=== PATIENT | female | born 1945 | race Caucasian/White ===

== ENCOUNTER → 2019-09-10 10:27 | Outpatient (BNVA) | payer MEDICARE, SELFPAY | PROVIDERS: Family Provider Registered Nurse; PCP Registered Nurse | DX: I48.91 Unspecified atrial fibrillation (principal) | CPT/HCPCS: 85610 ==

== ENCOUNTER → 2019-10-07 09:07 | Outpatient (BNVA) | payer MEDICARE, MEDICAID, SELFPAY | PROVIDERS: Family Provider Registered Nurse; PCP Registered Nurse; Visit Provider Specialist | DX: G40.309 Generalized idiopathic epilepsy and epileptic syndromes, not intractable, without status epilepticus (principal); I48.20 Chronic atrial fibrillation, unspecified; Z79.01 Long term (current) use of anticoagulants | CPT/HCPCS: 99213 ==

== ENCOUNTER → 2019-10-12 09:59 | Outpatient (BNVA) | payer MEDICARE, SELFPAY | PROVIDERS: Family Provider Registered Nurse; PCP Registered Nurse; Visit Provider Internal Medicine Cardiovascular Disease | DX: I48.20 Chronic atrial fibrillation, unspecified (principal) | CPT/HCPCS: 85610 ==

== ENCOUNTER → 2019-10-15 10:40 | Outpatient (BNVA) | payer MEDICARE, SELFPAY | PROVIDERS: Family Provider Registered Nurse; PCP Registered Nurse; Visit Provider Nurse Practitioner Family | DX: I48.20 Chronic atrial fibrillation, unspecified (principal) | CPT/HCPCS: 85610 ==

== ENCOUNTER → 2019-11-17 10:16 | Outpatient (BNVA) | payer MEDICARE, MEDICAID, SELFPAY | PROVIDERS: Family Provider Registered Nurse; PCP Registered Nurse; Visit Provider Registered Nurse | DX: I48.20 Chronic atrial fibrillation, unspecified (principal) | CPT/HCPCS: 85610 ==

== ENCOUNTER → 2019-11-19 11:00 | Outpatient (BNVA) | payer MEDICARE, SELFPAY | PROVIDERS: Family Provider Registered Nurse; PCP Registered Nurse; Visit Provider Registered Nurse | DX: I48.20 Chronic atrial fibrillation, unspecified (principal); Z98.890 Other specified postprocedural states | CPT/HCPCS: 85610 ==

== ENCOUNTER → 2019-11-23 14:27 | Outpatient (BNVA) | payer MEDICARE, SELFPAY | PROVIDERS: Family Provider Registered Nurse; PCP Registered Nurse; Visit Provider Registered Nurse | DX: I48.20 Chronic atrial fibrillation, unspecified (principal) | CPT/HCPCS: 85610 ==

== ENCOUNTER → 2019-11-25 10:34 | Outpatient (BNVA) | payer MEDICARE, SELFPAY | PROVIDERS: Family Provider Registered Nurse; PCP Registered Nurse; Visit Provider Registered Nurse | DX: I48.20 Chronic atrial fibrillation, unspecified (principal) | CPT/HCPCS: 85610 ==

== ENCOUNTER → 2019-11-30 09:14 | Outpatient (BNVA) | payer MEDICARE, SELFPAY | PROVIDERS: Family Provider Registered Nurse; PCP Registered Nurse; Visit Provider Registered Nurse | DX: I48.20 Chronic atrial fibrillation, unspecified (principal) | CPT/HCPCS: 85610 ==

== ENCOUNTER → 2019-12-21 12:27 | Outpatient (BNVA) | payer MEDICARE, MEDICAID, SELFPAY | PROVIDERS: Family Provider Registered Nurse; PCP Registered Nurse; Visit Provider Registered Nurse | DX: I48.20 Chronic atrial fibrillation, unspecified (principal) | CPT/HCPCS: 85610 ==

== ENCOUNTER → 2019-12-23 10:06 | Outpatient (BNVA) | payer MEDICARE, MEDICAID, SELFPAY | PROVIDERS: Family Provider Registered Nurse; PCP Registered Nurse; Visit Provider Registered Nurse | DX: I48.20 Chronic atrial fibrillation, unspecified (principal) | CPT/HCPCS: 85610 ==

== ENCOUNTER → 2019-12-30 10:07 | Outpatient (BNVA) | payer MEDICARE, MEDICAID, SELFPAY | PROVIDERS: Family Provider Registered Nurse; PCP Registered Nurse; Visit Provider Registered Nurse | DX: I48.20 Chronic atrial fibrillation, unspecified (principal) | CPT/HCPCS: 85610 ==

== ENCOUNTER → 2020-01-29 11:16 | Outpatient (BNVA) | payer MEDICARE, MEDICAID, SELFPAY | PROVIDERS: Family Provider Registered Nurse; PCP Registered Nurse; Visit Provider Registered Nurse | DX: I48.20 Chronic atrial fibrillation, unspecified (principal) | CPT/HCPCS: 85610 ==

== ENCOUNTER → 2020-03-01 10:38 | Outpatient (BNVA) | payer MEDICARE, SELFPAY | PROVIDERS: Family Provider Registered Nurse; PCP Registered Nurse; Visit Provider Registered Nurse | DX: Z79.01 Long term (current) use of anticoagulants (principal) | CPT/HCPCS: 85610; 87070; 87077; 87186 ==

== ENCOUNTER → 2020-03-31 11:06 | Outpatient (BNVA) | payer MEDICARE, MEDICAID, SELFPAY | PROVIDERS: Family Provider Registered Nurse; PCP Registered Nurse; Visit Provider Registered Nurse | DX: Z79.01 Long term (current) use of anticoagulants (principal) | CPT/HCPCS: 85610 ==

== ENCOUNTER 2020-04-04 04:36 | Emergency (ER) | payer MEDICARE, SELFPAY ==
[2020-04-04 04:45] VITALS: BP 153/86; PULSE 107; RESP 24; TEMP 36.7; O2SAT 94; BMI 36.1
[2020-04-04 05:26] VITALS: BP 146/96; PULSE 98; RESP 18; O2SAT 95
--- NOTE | 2020-04-04 05:32 | ECG_ITS ---
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 Measurements Intervals [place] Rate: 95 P: [place]: -1 QRS: 90 QRSD: 98 T: 9 QT: 385 QTc: 485 Interpretive Statements ATRIAL FIBRILLATION ABNORMAL RHYTHM ECG Compared to ECG 08/19/2019 06:36:10 T-wave abnormality no longer present Electronically Signed On 04-04-2020 21:26:27 CDT by Kathe Brown M.D. [id number] f
--- NOTE | 2020-04-04 05:32 | XRR_ITS ---
PROCEDURE INFORMATION: Exam: XR Chest, 1 View Exam date and time: 04/04/2020 6:07 AM Age: 74 years old Clinical indication: Shortness of breath; Additional info: SOB, tachycardia TECHNIQUE: Imaging protocol: XR of the chest Views: Frontal portable upright view of the chest. COMPARISON: CR Chest 1 [place] [id number] 10/27/2015 6:07 PM FINDINGS: Lungs: Mild left lateral basilar subsegmental atelectasis. The lungs are otherwise peripherally clear bilaterally. The pulmonary vasculature is normal. Pleural space: No pleural effusion. No pneumothorax. Heart/Mediastinum: The heart is normal in size and contour. Mediastinum: Stable. Vasculature: Mild aortic arch atherosclerotic calcification without ectasia. Bones/joints: Stable. XR/XR chest 1V portable [id number] IMPRESSION: Mild left lateral basilar subsegmental atelectasis.
[2020-04-04 05:44] VITALS: PULSE 96; RESP 18; O2SAT 98
[2020-04-04] MEDS: ipratropium-albuterol 3 mL Neb INHALATION (05:44)
[2020-04-04 05:49] VITALS: PULSE 89; RESP 18; O2SAT 99
[2020-04-04 05:58] VITALS: BP 145/114; PULSE 118; RESP 20; O2SAT 96
[2020-04-04 06:02] LABS: Basophils % 0.6 %; Eosinophils # 0.3 10^3/uL (0.0-0.8); Eosinophils % 4.9 %; Hematocrit 38.5 % (37.0-47.0); Hemoglobin 12.2 g/dL (11.5-15.3); Lymphocytes % 15.8 %; Mean Corpuscular HGB Conc 31.7 g/dL (30.0-36.0); Mean Corpuscular Volume 88.3 fL (81-99); Mean Platelet Volume 10.4 fL (7.4-10.4); Monocytes # 0.6 10^3/uL (0.2-0.9); Neutrophils # 4.31 10^3/uL (1.8-7.7); Neutrophils % 68.4 %; Nucleated Red Blood Cells % 0 %; Platelet Count 158 10^3/cmm (130-400); Red Blood Count 4.36 10^6/uL (4.1-5.3); Red Cell Distribution Width 15.2 % (12.1-15.1); White Blood Count 6.3 10^3/uL (4.0-10.0)
[2020-04-04 06:20] VITALS: BP 162/90; PULSE 100; RESP 20; O2SAT 97
--- NOTE | 2020-04-04 06:25 | ED_ITS ---
HPI - SOB/Dyspnea General: Chief Complaint: Shortness of Breath/Dyspnea Stated Complaint: SOB Time Seen by Provider: 04/04/20 04:57 History of Present Illness: HPI Narrative: 74-year-old lady presents with multiple complaints. Its a bit tough to uncover what she is really here for. Her says that she was extremely short of breath yesterday and used her inhaler multiple times which did not seem to help much. She has had a bit of a cough, which is dry, but no fever. No known contact with anyone with novel coronavirus. She has had a rash for several weeks that covers her belly and legs. She has been putting a kind of ointment on that prescribed by her PCP that does not seem to be helping much. She has a history of asthma . MD elicited complaint: shortness of breath Pertinent past history: asthma Onset (ago): day(s) Context: recent illness Timing: intermittent Severity: moderate Exacerbating factors: exertion and movement Relieving factors: nothing Associated symptoms: Reports chest congestion and cough; Deny chest pain, dizziness, fever(s), nausea or vomiting Treatment prior to arrival: bronchodilator Review of Systems Const: Denies: fever(s) Eyes: Denies: change in vision or blurry vision ENMT: Denies: swelling of lips/tongue, epistaxis, post nasal drip or sinus pain Card: Denies: chest pain Resp: Reports: chest congestion GI: Denies: nausea or vomiting : Denies: dysuria or hematuria Musc: Denies: neck pain or back pain Skin/Breast: Denies: rash or pruritus Neuro: Denies: headache(s), dizziness, vertigo, confusion or seizure-like activity Psych: Denies: anxiety, visual hallucinations or auditory hallucinations PFS ED PFSH: Medical History (Updated 04/04/20 @ 06:35 by Jan Wilkinson DO) Atrial fibrillation Essential hypertension Varicose veins of anus or rectum Warfarin anticoagulation Surgical History History of hemorrhoidectomy (~09/2019) Family History Other History of hemorrhoidectomy Denies family history of Diabetes CAD (coronary artery disease) Anesthesia complication Bleeding disorder Stroke Social History (Reviewed 04/04/20 @ 04:48 by Reji Brown Smoking and tobacco status: never smoked Second hand smoke exposure: No Alcohol intake: never Adopted: No Caregiver/support person: Yes Lives independently: Yes Household members: spouse Housing: House Marital status: Highest education level completed: High School Graduate service: No Current occupational status: retired Current occupational exposures/hazards: No Pets and animals: No History of recent travel: No Sexually active: No Current gender identity: Female Shayy/Zoroastrianism: Jehovah'S Witness Special shayy needs: No Agree to transfusion: No Financial difficulty paying for basics: Decline to Answer Physical Exam Const: GENERAL APPEARANCE: well developed ORIENTATION/CONSCIOUSNESS: Yes oriented to person, Yes oriented to place and Yes oriented to time HENMT: COMMON NORMALS: normocephalic and Normal external nose present HEAD & SCALP: normocephalic FACE & SINUS: normal facial exam NOSE: Normal external nose present and No nasal discharge present MOUTH: tongue normal Eye: COMMON NORMALS: Equal, round and reactive pupils present, EOMs intact bilaterally and conjunctivae normal EYELID: eyelids normal CONJUNCTIVA: Yes conjunctivae normal PUPIL: Yes Equal, round and reactive pupils present Neck/C-Spine: GENERAL: No tracheal deviation Chest: COMMONS NORMALS: normal inspection of the chest CHEST: No tenderness Resp: COMMON NORMALS: clear to auscultation bilaterally EFFORT & INSPECTION: No tachypneic, No respiratory distress, No retractions, No uses accessory muscles and No tracheal deviation AUSCULTATION: clear to auscultation bilaterally, no rhonchi, no wheezes and lung sounds not diminished Cardio: COMMON NORMALS: regular rate and regular rhythm RATE: regular rate RHYTHM: regular rhythm HEART SOUNDS: no murmurs PERIPHERAL PULSES: radial pulses present GI: INSPECTION: No abdominal distension AUSCULTATION: No Hyperactive bowel sounds present and No Hypoactive bowel sounds present PALPATION: No Guarding due to palpation present (GI) and No Rigid due to palpation PERCUSSION: no dullness to percussion and no tympanic to percussion Neuro: SENSORIUM/ORIENTATION: Yes oriented to person, Yes oriented to place and Yes oriented to time Psych: COMMON NORMALS: mental status grossly normal Skin: GENERAL SKIN EXAM: other (Follicular rash over the belly and legs.) Course Vital Signs: Vital signs: Vital Signs Temperature 98.1 F 07/27/20 04:45 Pulse Rate 100 04/04/20 06:20 Respiratory Rate 20 H 04/04/20 06:20 Blood Pressure 162/90 04/04/20 06:20 Pulse Oximetry 97 04/04/20 06:20 MDM - SOB/Dyspnea MDM Narrative: Medical decision making narrative: She will be prescribed steroids for the rash, and for the asthma exacerbation. Her chest x-ray is negative. Her laboratory is benign. She will also be prescribed doxycycline, as topical treatment does not seem to be helping as well as she would like. Lab Data: Labs: Lab Results 04/04/20 04/04/20 Range/Units 05:53 05:53 WBC 6.3 (4.0-10.0) 10^3/ uL RBC 4.36 (4.1-5.3) 10^6/u L Hgb 12.2 (11.5-15.3) g/dL Hct 38.5 (37.0-47.0) % MCV 88.3 (81-99) fL MCH 28.0 (28.0-34.0) pg MCHC 31.7 (30.0-36.0) g/dL RDW 15.2 H (12.1-15.1) % Plt Count 158 (130-400) 10^3/c mm MPV 10.4 (7.4-10.4) fL Neut % (Auto) 68.4 % Lymph % (Auto) 15.8 % [place] % (Auto) 10.0 % Eos % (Auto) 4.9 % Baso % (Auto) 0.6 % Neut # (Auto) 4.31 (1.8-7.7) 10^3/u L Lymph # (Auto) 1.0 (0.8-4.8) 10^3/u L [place] # (Auto) 0.6 (0.2-0.9) 10^3/u L Eos # (Auto) 0.3 (0.0-0.8) 10^3/u L Baso # (Auto) 0.0 (0.0-0.1) 10^3/u L Nucleated RBC % (a uto) 0 % Nucleated RBCs # 0.0 /100WBC Sodium 139 (136-145) mmol/L Potassium 4.0 (3.5-5.1) mmol/L Chloride 101 (98-107) mmol/L Carbon Dioxide 28 (22-29) mmol/L Anion Gap 14.0 (5-19) BUN 9 (8-23) mg/dL Creatinine 0.5 (0.5-0.9) mg/dL GFR Calculation Not Reportable Glucose 115 (65-115) mg/dL Calculated Osmolal ity 285 (285-295) mOsm/k g Calcium 8.7 (8.5-10.5) mg/dL Total Bilirubin 0.9 (0.15-1.2) mg/dL AST 81 H (0-32) U/L ALT 90 H (0-33) U/L Alkaline Phosphata se 125 H (35-105) IU/L NT-Pro-B Natriuret Pep 904 H (0-125) pg/mL Total Protein 7.0 (6.6-8.7) g/dL Albumin 4.1 (3.5-5.2) g/dL Globulin 2.9 (1.3-4.6) g/dL Discharge Plan Discharge Patient Disposition: Home Clinical Impression: Folliculitis Asthma with exacerbation Qualifiers: Asthma severity: moderate Asthma persistence: persistent Qualified Code(s): J45.41 - Moderate persistent asthma with (acute) exacerbation Condition: Stable Prescriptions: New doxycycline hyclate 100 mg capsule 100 mg PO BID 10 Days Qty: 20 RF: 0 prednisone 10 mg tablet See Rx Instructions .ROUTE .COMPLEX Qty: 28 RF: 0 No Action ketoconazole 2 % shampoo 1 applic TOPICAL Q14D Qty: 120 RF: 1 triamcinolone acetonide 0.1 % lotion 1 applic TOPICAL DAILY Qty: 60 RF: 1 olopatadine [Pataday] 0.2 % drops 1 drop ophthalmic (eye) DAILY Qty: 2.5 RF: 0 aspirin [Aspir-Sabi] 325 mg tablet,delayed release (DR/EC) 325 mg PO QDAY RF: 0 diphenhydramine HCl [Benadryl] 25 mg capsule 25 mg PO .Qhs PRNRF: 0 levetiracetam [Keppra] 500 mg tablet 500 mg PO BID Qty: 60 RF: 11 nystatin 100,000 unit/gram ointment 1 applic TOPICAL BID Qty: 30 RF: 3 ammonium lactate 12 % cream 1 applic TOPICAL BID PRN (Reason: dry skin) Qty: 140 RF: 2 nystatin 100,000 unit/gram cream 1 applic TOPICAL BID 30 Days Qty: 30 RF: 0 warfarin 6 mg tablet 6 mg PO QDAY Qty: 90 RF: 0 diltiazem HCl 240 mg capsule,extended release 24 hr See Rx Instructions .ROUTE .COMPLEX Qty: 90 RF: 0 warfarin 4 mg tablet See Rx Instructions .ROUTE .COMPLEX Qty: 30 RF: 0 montelukast 10 mg tablet See Rx Instructions .ROUTE .COMPLEX Qty: 90 RF: 0 clindamycin HCl 300 mg capsule 300 mg PO TID Qty: 21 RF: 0 alendronate 70 mg tablet See Rx Instructions .ROUTE .COMPLEX Qty: 4 RF: 0 furosemide 40 mg tablet See Rx Instructions .ROUTE .COMPLEX Qty: 90 RF: 0 theophylline 300 mg tablet extended release 12 hr See Rx Instructions .ROUTE .COMPLEX Qty: 90 RF: 0 potassium chloride 20 mEq tablet,ER particles/crystals See Rx Instructions .ROUTE .COMPLEX Qty: 30 RF: 0 albuterol sulfate [Ventolin HFA] 90 mcg/actuation HFA aerosol inhaler 2 puff INHALATION Q6H PRN (Reason: shortness of breath or wheezing) Qty: 6.7 RF: 3 Discharge Orders: Discharge Order (Routine); Ordered 04/04/20 Ordered By: Jan Wilkinson Referrals: Jeff Mancia FNP [Primary Care Provider] - 4-7 days Discharge Diet: Usual diet Discharge Activity: Increase activity as tolerated Patient Instructions: Asthma Exacerbation - Adult Activity Restrictions/Additional Instructions: Return for worsening shortness of breath despite treatment, fever greater than 100, chest discomfort, other concerning symptoms. Discharge Date/Time: 04/04/20 06:55 Coding Level of Care Code ED City Detective for Divina Jones
[2020-04-04 06:36] LABS: Alanine Aminotransferase 90 U/L (0-33); Albumin Level 4.1 g/dL (3.5-5.2); Alkaline Phosphatase 125 IU/L (35-105); Aspartate Amino Transferase 81 U/L (0-32); Blood Urea Nitrogen 9 mg/dL (8-23); Calcium 8.7 mg/dL (8.5-10.5); Carbon Dioxide 28 mmol/L (22-29); Chloride 101 mmol/L (98-107); Globulin 2.9 g/dL (1.3-4.6); Glucose 115 mg/dL (65-115); NT Pro B Type Natriuretic Pept 904 pg/mL (0-125); Osmolality Calculated 285 mOsm/kg (285-295); Sodium 139 mmol/L (136-145); Total Bilirubin 0.9 mg/dL (0.15-1.2)
== END 2020-04-04 06:55 | disposition home or self-care (01) ==
PROVIDERS: Emergency Provider Emergency Medicine; PCP Registered Nurse
DX: L73.9 Follicular disorder, unspecified (principal); J45.41 Moderate persistent asthma with (acute) exacerbation; Z79.82 Long term (current) use of aspirin; Z79.01 Long term (current) use of anticoagulants; I48.91 Unspecified atrial fibrillation; I10 Essential (primary) hypertension
CPT/HCPCS: 12345; 71045; 80053; 83880; 85025; 93005; 94640; 96374; 96375; 99283; 99284; J2930

== ENCOUNTER → 2020-04-13 10:52 | Outpatient (BNVA) | payer MEDICARE, MEDICAID, SELFPAY | PROVIDERS: PCP Registered Nurse; Visit Provider Registered Nurse | DX: I48.20 Chronic atrial fibrillation, unspecified (principal); J42 Unspecified chronic bronchitis; Z79.01 Long term (current) use of anticoagulants | CPT/HCPCS: 85610 ==

== ENCOUNTER → 2020-04-15 10:58 | Outpatient (BNVA) | payer MEDICARE, MEDICAID, SELFPAY | PROVIDERS: PCP Registered Nurse; Visit Provider Registered Nurse | DX: Z79.01 Long term (current) use of anticoagulants (principal); I48.20 Chronic atrial fibrillation, unspecified | CPT/HCPCS: 85610 ==

== ENCOUNTER → 2020-04-18 10:12 | Outpatient (BNVA) | payer MEDICARE, SELFPAY | PROVIDERS: PCP Registered Nurse; Visit Provider Registered Nurse | DX: Z79.01 Long term (current) use of anticoagulants (principal) | CPT/HCPCS: 85610 ==

== ENCOUNTER → 2020-04-25 10:10 | Outpatient (BNVA) | payer MEDICARE, MEDICAID, SELFPAY | PROVIDERS: PCP Registered Nurse; Visit Provider Registered Nurse | DX: Z79.01 Long term (current) use of anticoagulants (principal) | CPT/HCPCS: 85610 ==

== ENCOUNTER → 2020-05-05 09:32 | Outpatient (BNVA) | payer MEDICARE, SELFPAY | PROVIDERS: PCP Registered Nurse; Visit Provider Registered Nurse | DX: I48.20 Chronic atrial fibrillation, unspecified (principal) | CPT/HCPCS: 85610 ==

== ENCOUNTER → 2020-05-12 10:51 | Outpatient (BNVA) | payer MEDICARE, MEDICAID, SELFPAY | PROVIDERS: PCP Registered Nurse; Visit Provider Registered Nurse | DX: Z79.01 Long term (current) use of anticoagulants (principal) | CPT/HCPCS: 85610 ==

== ENCOUNTER → 2020-05-18 11:11 | Outpatient (BNVA) | payer MEDICARE, SELFPAY | PROVIDERS: PCP Registered Nurse; Visit Provider Registered Nurse | DX: I48.20 Chronic atrial fibrillation, unspecified (principal) | CPT/HCPCS: 85610 ==

== ENCOUNTER → 2020-06-08 11:15 | Outpatient (BNVA) | payer MEDICARE, MEDICAID, SELFPAY | PROVIDERS: PCP Registered Nurse; Visit Provider Specialist | DX: R51 Headache (principal); I48.20 Chronic atrial fibrillation, unspecified; G40.309 Generalized idiopathic epilepsy and epileptic syndromes, not intractable, without status epilepticus; J42 Unspecified chronic bronchitis | CPT/HCPCS: 99214 ==

== ENCOUNTER 2020-07-05 11:48 | Outpatient (CLI) | payer MEDICARE, SELFPAY ==
--- NOTE | 2020-07-05 13:30 | USCV_ITS ---
Madyson Daphnie Age: 74 Gender: F : 1945 Exam Date: 07/05/2020 12:19 Ordering Phys: Hilda Montoya MD Technologist: Josh Horowitz [place] [facility] [place] Indication: TIA BP: 130 / 70 HR: 88 Rhythm: Sinus Technical Quality: Fair MEASUREMENTS (Male / Female) Normal Values 2D ECHO LV Diastolic Diameter PLAX 4.4 cm 4.2 - 5.9 / 3.9 - 5.3 cm LV Systolic Diameter PLAX 2.2 cm IVS Diastolic Thickness 1.0 cm 0.6 - 1.0 / 0.6 - 0.9 cm IVS Systolic Thickness 1.4 cm LVPW Diastolic Thickness 1.1 cm 0.6 - 1.0 / 0.6 - 0.9 cm LVPW Systolic Thickness 1.3 cm LVOT Diameter 2.0 cm LV Ejection Fraction 2D Teich 76.2 % LV Ejection Fraction MOD 2C 44.3 % LV Ejection Fraction 2C AL 43.5 % LA Diameter 4.6 cm LA Width 5.5 cm LA Height 4.7 cm RA Width 5.5 cm RA Height 4.4 cm Aorta at Sinotubular Diameter 0.8 cm M-MODE LV Diastolic Diameter MM 6.1 cm 4.2 - 5.9 / 3.9 - 5.3 cm LV Systolic Diameter MM 4.0 cm LV Ejection Fraction MM Teich 62.1 % IVS Diastolic Thickness MM 0.9 cm 0.6 - 1.0 / 0.6 - 0.9 cm IVS Systolic Thickness MM 1.3 cm LVPW Diastolic Thickness MM 1.3 cm 0.6 - 1.0 / 0.6 - 0.9 cm LVPW Systolic Thickness MM 1.4 cm RV Diastolic Diameter MM 0.9 cm Aortic Annulus Diameter 2.8 cm LA Ao Ratio MM 1.8 MV E Point Septal Separation 1.0 cm DOPPLER AV Peak Velocity 204.0 cm/s LVOT Peak Velocity 96.0 cm/s AV Area Cont Eq vti 1.3 cm squared AV Area Cont Eq pk 1.5 cm squared MV Area PHT 5.0 cm squared Mitral E to A Ratio 2.6 MV E' Velocity 51.5 cm/s Mitral E to MV E' Ratio 6.7 Mitral E to LV E' Lateral Ratio 7.0 Mitral E to LV E' Septal Ratio 6.5 TR Peak Velocity 337.7 cm/s TR Peak Gradient 45.6 mmHg TV Peak E Velocity 136.0 cm/s Right Atrial Pressure 3.0 mmHg Pulmonary Artery Systolic Pressu 48.6 mmHg FINDINGS Left Ventricle Normal left ventricular cavity size. Normal left ventricular systolic function. Left ventricular ejection fraction is estimated at 62 %. In the presence of atrial fibrillation diastolic function cannot be assessed accurately. Right Ventricle The right ventricle is normal in size and function. Mild pulmonary hypertension, RVSP 48.6 mmHg. Right Atrium Moderately increased right atrial size. Left Atrium Moderately increased left atrial size. Mitral Valve Mildly thickened mitral valve. No mitral valve stenosis. Mild mitral valve regurgitation. Aortic Valve Severe aortic valve calcification. Moderate aortic valve stenosis, mean gradient 6.8 mmHg, CASSY 1.3 cm squared. Trace aortic valve regurgitation. Tricuspid Valve Structurally normal tricuspid valve without significant stenosis or regurgitation. Pulmonic Valve Structurally normal pulmonic valve without significant stenosis. There is no pulmonic regurgitation. Pericardium Normal pericardium without effusion. Aorta Normal ascending aorta dimension. CONCLUSIONS 1-Normal left ventricular cavity size. Normal left ventricular systolic function. Left ventricular ejection fraction is estimated at 62 %. In the presence of atrial fibrillation diastolic function cannot be assessed accurately. 2-Moderate biatrial enlargement 3-Severe aortic valve calcification. Moderate aortic valve stenosis, mean gradient 6.8 mmHg, CASSY 1.3 cm squared. Trace aortic valve regurgitation. 4-The right ventricle is normal in size and function. Mild pulmonary hypertension, RVSP 48.6 mmHg. 5-Right atrial pressure is around 5 mm of mercury. 6-When compared to the prior echocardiogram dated April 18, 2015 there appeared to be moderate aortic stenosis now. Marshall Rangel MD (Electronically Signed) Final Date: 05 July 2020 19:35 S
== END 2020-07-05 11:49 | disposition home or self-care (01) ==
PROVIDERS: PCP Registered Nurse; Visit Provider Specialist
DX: R07.9 Chest pain, unspecified (principal); G45.9 Transient cerebral ischemic attack, unspecified; I35.0 Nonrheumatic aortic (valve) stenosis; I27.20 Pulmonary hypertension, unspecified
CPT/HCPCS: 93306

== ENCOUNTER → 2020-11-07 08:37 | Outpatient (BNVA) | payer MEDICARE, MEDICAID, SELFPAY | PROVIDERS: PCP Registered Nurse; Visit Provider Specialist | DX: G40.309 Generalized idiopathic epilepsy and epileptic syndromes, not intractable, without status epilepticus (principal) | CPT/HCPCS: 99213 ==

== ENCOUNTER → 2020-12-20 10:02 | Outpatient (BNVA) | payer MEDICARE, MEDICAID, SELFPAY | PROVIDERS: PCP Registered Nurse; Visit Provider Registered Nurse | DX: I10 Essential (primary) hypertension (principal); I48.91 Unspecified atrial fibrillation; J42 Unspecified chronic bronchitis; J45.42 Moderate persistent asthma with status asthmaticus; I48.19 Other persistent atrial fibrillation | CPT/HCPCS: 80053; 85025 ==

== ENCOUNTER 2021-02-20 19:03 | Emergency (ER) | payer MEDICARE, MEDICAID, SELFPAY ==
[2021-02-20] VITALS (8 sets, daily range): BP systolic 113–142; BP diastolic 76–95; PULSE 79–120; RESP 19–27; TEMP 36.6; O2SAT 92–99; BMI 32.3
--- NOTE | 2021-02-20 19:08 | XRR_ITS ---
PROCEDURE INFORMATION: Exam: XR Chest Exam date and time: 02/20/2021 7:08 PM Age: 75 years old Clinical indication: Shortness of breath; Patient HX: Seizure prior to arrival; Additional info: Reduced breath sounds TECHNIQUE: Imaging protocol: XR of the chest. Views: 1 view. COMPARISON: CR XR chest 1V portable [id number] 04/04/2020 5:53 AM FINDINGS: Lungs: Unremarkable. No consolidation. Pleural spaces: Unremarkable. No pleural effusion. No pneumothorax. Heart/Mediastinum: Unremarkable. No cardiomegaly. Bones/joints: Unremarkable. XR/XR chest 1V portable [id number] IMPRESSION: 1. No acute findings. 2. No change from comparison.
--- NOTE | 2021-02-20 19:12 | ECG_ITS ---
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 Measurements Intervals [place] Rate: 95 P: [place]: QRS: 95 QRSD: 100 T: 11 QT: 381 QTc: 480 Interpretive Statements ATRIAL FIBRILLATION BORDERLINE RIGHT AXIS DEVIATION [QRS AXIS > 90] NONSPECIFIC ST & T-WAVE ABNORMALITY Compared to ECG 04/04/2020 06:25:27 T-wave abnormality now present Electronically Signed On 02-20-2021 22:43:25 CDT by Kathe Brown M.D. [id number] f
--- NOTE | 2021-02-20 19:14 | CTR_ITS ---
PROCEDURE INFORMATION: Exam: CT Head Without Contrast Exam date and time: 02/20/2021 7:14 PM Age: 75 years old Clinical indication: Pain and condition or disease; Convulsions or seizures; Headache; Other: Posterior head pain; Additional info: Seizure on xarelto. Possible head trauma TECHNIQUE: Imaging protocol: Computed tomography of the head without contrast. Radiation optimization: All CT scans at this facility use at least one of these dose optimization techniques: automated exposure control; mA and/or kV adjustment per patient size (includes targeted exams where dose is matched to clinical indication); or iterative reconstruction. COMPARISON: CT head wo con* [id number] 10/27/2015 5:52 PM RADIATION DOSE METRICS: Total DLP (mGy-cm): 558.08 FINDINGS: Brain: There is moderate cerebral atrophy. No hemorrhage. Unremarkable white matter. No mass effect. Cerebral ventricles: No ventriculomegaly. Paranasal sinuses: Visualized sinuses are unremarkable. No fluid levels. Mastoid air cells: Visualized mastoid air cells are well aerated. Bones/joints: Unremarkable. No acute fracture. Soft tissues: Unremarkable. CT/CT head wo con* [id number] IMPRESSION: 1. No acute intracranial abnormality. 2. No significant change from comparison. Radiation Dose CTDIVOL = (mGy): DLP = 558.08 (mGy-cm)
[2021-02-20] MEDS: sodium chloride 0.9% 1,000 ML 999 ML IV (19:21)
[2021-02-20 19:27] LABS: Basophils # 0.1 10^3/uL (0.0-0.1); Eosinophils # 0.5 10^3/uL (0.0-0.8); Eosinophils % 5.2 %; Hematocrit 43.1 % (37.0-47.0); Hemoglobin 13.4 g/dL (11.5-15.3); Lymphocytes # 3.2 10^3/uL (0.8-4.8); Lymphocytes % 33.6 %; Mean Corpuscular HGB Conc 31.1 g/dL (30.0-36.0); Mean Corpuscular Hemoglobin 28.9 pg (28.0-34.0); Mean Corpuscular Volume 93.1 fL (81-99); Mean Platelet Volume 11.4 fL (7.4-10.4); Monocytes % 10.6 %; Neutrophils # 4.73 10^3/uL (1.8-7.7); Neutrophils % 49.3 %; Nucleated Red Blood Cells % 0 %; Platelet Count 196 10^3/cmm (130-400); Red Blood Count 4.63 10^6/uL (4.1-5.3); Red Cell Distribution Width 14.1 % (12.1-15.1); White Blood Count 9.6 10^3/uL (4.0-10.0)
[2021-02-20 19:43] LABS: Troponin(5th) Baseline 11 ng/L (0-10)
[2021-02-20 19:47] LABS: Lactic Sepsis W/Reflex 5.5 mmol/L (0.5-2.2)
[2021-02-20 19:52] LABS: Alanine Aminotransferase 16 U/L (0-33); Albumin Level 4.4 g/dL (3.5-5.2); Alkaline Phosphatase 115 IU/L (35-105); Blood Urea Nitrogen 12 mg/dL (8-23); Calcium 9.2 mg/dL (8.5-10.5); Carbon Dioxide 15 mmol/L (22-29); Chloride 94 mmol/L (98-107); Creatine Phosphokinase 55 U/L (26-192); Creatinine Clr Calc Pharmacy 68.9351; Globulin 2.4 g/dL (1.3-4.6); Glucose 155 mg/dL (65-115); NT Pro B Type Natriuretic Pept 520 pg/mL (0-450); Osmolality Calculated 285 mOsm/kg (285-295); Sodium 136 mmol/L (136-145); Thyroid Stimulating Hormone 5.31 uIU/mL (0.27-4.20); Total Bilirubin 0.5 mg/dL (0.15-1.2); Total Protein 6.8 g/dL (6.6-8.7)
[2021-02-20 19:55] LABS: Anion Gap 30.6 (5-19); Aspartate Amino Transferase 21 U/L (0-32); Potassium 3.6 mmol/L (3.5-5.1)
[2021-02-20 21:04] LABS: Add Urine Microscopic? YES; Bilirubin Urine Neg (Negative); Blood Urine 3+ (Negative); Glucose Urine UA Norm (Normal); Ketones Urine 2+ (Negative); Leukocyte Esterase Urine Negative (Negative); Nitrate Urine Negative (Negative); Urine Appearance Clear (CLEAR); Urine Color Yellow (Yellow); Urobilinogen Urine Norm (Negative); pH Urine 5 (5-7)
[2021-02-20 21:05] LABS: Bacteria Urine TRACE /hpf; RBC Urine 0-4 /hpf (0-2); Squamous Epithelial Cell Urine 0-4 /hpf (0-5)
--- NOTE | 2021-02-20 21:12 | ECG_ITS ---
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 Measurements Intervals [place] Rate: 81 P: MD: QRS: 95 QRSD: 101 T: 67 QT: 405 QTc: 473 Interpretive Statements ATRIAL FIBRILLATION BORDERLINE RIGHT AXIS DEVIATION [QRS AXIS > 90] NONSPECIFIC ST & T-WAVE ABNORMALITY Compared to ECG 04/04/2020 06:25:27 T-wave abnormality now present Electronically Signed On 02-20-2021 22:53:03 CDT by Kathe Brown M.D. [id number]
[2021-02-20 21:14] LABS: Reflex Lactate Order REFLEX LACTIC ORDERD
[2021-02-20 21:26] LABS: Troponin 5 2HR 11.05 ng/L (0-10); Troponin 5 2HR Delta 0.05 ABS# (0-10)
--- NOTE | 2021-02-20 21:27 | CTR_ITS ---
PROCEDURE INFORMATION: Exam: CT Cervical Spine Without Contrast Exam date and time: 02/20/2021 9:27 PM Age: 75 years old Clinical indication: Patient HX: C/O neck pain S/P seizure. ; Additional info: Neck pain after fall TECHNIQUE: Imaging protocol: Computed tomography images of the cervical spine without contrast. Radiation optimization: All CT scans at this facility use at least one of these dose optimization techniques: automated exposure control; mA and/or kV adjustment per patient size (includes targeted exams where dose is matched to clinical indication); or iterative reconstruction. COMPARISON: CT neck w con* [id number] 01/22/2019 8:17 AM RADIATION DOSE METRICS: Total DLP (mGy-cm): 641.15 FINDINGS: Vertebrae: No acute fracture. Normal alignment. The cervical spine demonstrates moderate degenerative changes at multiple levels. Soft tissues: Unremarkable. Thyroid: Multinodular changes of thyroid gland, largest individual nodule posterior left side 1.5 cm diameter. No dedicated follow-up recommended. Vasculature: Bilateral carotid artery bulb region atherosclerotic calcification. Lungs: Lung apices are normal. CT/CT cervical spin wo con* [id number] IMPRESSION: Negative for acute cervical spine fracture. COMMENTS: Consistent with the [employer]'s Incidental Findings Committee white paper (J Am Gerhard Radiol 2015): In patients aged 35 years and older with an incidental thyroid nodule equal to or greater than 1.[address], MRI or extrathyroidal US, further evaluation with dedicated thyroid US is recommended for patients with normal life expectancy and without comorbidities. For smaller nodules without suspicious features, no further evaluation or follow up is recommended. Radiation Dose CTDIVOL = (mGy): DLP = 641.15 (mGy-cm)
[2021-02-20 21:28] LABS: Protein Urine Neg (Negative)
--- NOTE | 2021-02-20 21:51 | ED_ITS ---
HPI - Seizure General: Chief Complaint: Seizure Stated Complaint: SEIZURE Time Seen by Provider: 02/20/21 19:07 History of Present Illness: HPI Narrative: Patient is a 75-year-old female with past medical history seizure disorder on Keppra, asthma and COPD fell off a lean, A. fib on Xarelto. She comes to the ER today after an apparent seizure at home. says they were putting together a grill outside and the peak heat of the day and she has to go in the house and he found her on the ground. He thinks she had a seizure and it lasted about 20 minutes because that is how long it took him to go inside. He found her on the ground. He says this is her third seizure ever and she has been taking her Keppra with a prescription refill earlier this month. Patient arrives postictal not able to answer any questions muttering phrases like where we going? I helped her open her eyes and she made eye contact with me and asked who am I . I told her I was the doctor and asked her where she was and she replied she is in a hospital. But she was s till confused and not been able to answer any questions after that MD complaint: possible seizure Description of Episode: loss of consciousness Seizure History: Yes Place: Home Possible Precipitating Event: none and other (outdoor heat) Associated symptoms: Reports no associated symptoms; Deny chest pain or confusion Review of Systems General: Reports: 10 or more systems reviewed and unremarkable except in HPI and below Const: Denies: fatigue Eyes: Denies: change in vision, blurry vision or eye redness ENMT: Denies: throat pain, swelling of lips/tongue, ear or mastoid pain or nasal congestion Card: Denies: chest pain, palpitations, irregular heart rhythm, edema, dyspnea on exertion or orthopnea Resp: Denies: dyspnea, productive cough or non-productive cough GI: Denies: abdominal pain, diarrhea or GI cramping : Denies: flank pain, difficulty voiding, urinary frequency or urinary urge ncy Musc: Denies: neck pain, back pain, extremity pain, joint pain, joint redness, limited range of motion or muscle weakness Skin/Breast: Denies: rash, pruritus, erythema, skin pain or skin tenderness Neuro: Denies: headache(s), numbness in extremities, weakness in extremities, sensory changes, difficulty walking, dizziness, confusion or Slurred speech present Psych: Denies: anxiety or depression Endo: Denies: polyuria All/Imm: Denies: urticaria, throat swelling or tongue swelling PFSH ED PFSH: Medical History Atrial fibrillation COPD (chronic obstructive pulmonary disease) Essential hypertension Moderate aortic stenosis Moderate persistent asthma Varicose veins of anus or rectum Surgical History History of hemorrhoidectomy (~09/2019) Family History Other History of hemorrhoidectomy Denies family history of Diabetes CAD (coronary artery disease) Anesthesia complication Bleeding disorder Stroke Social History Smoking and tobacco status: never smoked Second hand smoke exposure: No Alcohol intake: never Adopted: No Caregiver/support person: Yes Lives independently: Yes Household members: spouse Housing: House Marital status: Highest education level completed: High School Graduate service: No Current occupational status: retired Current occupational exposures/hazards: No Pets and animals: No History of recent travel: No Sexually active: No Current gender identity: Female Shayy/Yarsanism: Rastafarian Special shayy needs: No Agree to transfusion: No Financial difficulty paying for basics: Decline to Answer Physical Exam Const: COMMON NORMALS: no acute distress, average body habitus, patient oriented x3, no limitations, healthy appearing, alert and well nourished GENERAL APPEARANCE: cooperative, comfortable, well kempt and well developed ORIENTATION/CONSCIOUSNESS: Yes awake, Yes oriented to person, Yes oriented to place and Yes oriented to time HENMT: COMMON NORMALS: normocephalic, external ears normal and Normal external nose present HEAD & SCALP: normal to inspection and normocephalic NOSE: Normal external nose present EXTERNAL EAR: Yes external ears normal MOUTH: Normal oral and palatal mucosa present THROAT: posterior oropharynx normal Eye: COMMON NORMALS: Equal, round and reactive pupils present and EOMs intact bilaterally GENERAL EYE: appearance normal, both eyes and all related structures PUPIL: Yes Equal, round and reactive pupils present Neck/C-Spine: COMMON NORMALS: full ROM, no lymphadenopathy, no meningeal signs and no JVD GENERAL: Yes normal visual inspection Lymph: LYMPHATIC: no lymphadenopathy noted Chest: COMMONS NORMALS: normal inspection of the chest and normal palpation of entire chest wall Resp: COMMON NORMALS: normal respiratory effort, No retractions, No use of accessory muscles, clear to auscultation bilaterally and percussion normal EFFORT & INSPECTION: Yes able to speak in complete sentences AUSCULTATION: cl ear to auscultation bilaterally PERCUSSION: percussion normal Cardio: COMMON NORMALS: no JVD, regular rate, regular rhythm, S1 normal heart sound present, S2 normal heart sound present and Peripheral pulses 2+ throughout RATE: regular rate RHYTHM: regular rhythm HEART SOUNDS: S1 normal heart sound present and S2 normal heart sound present PERIPHERAL PULSES: Peripheral pulses 2+ throughout GI: COMMON NORMALS: Normal to inspection, nondistended, normoactive bowel sounds present, Soft to palpation, non-tender and no masses INSPECTION: Yes normal to inspection PALPATION: Yes Soft to palpation : COMMON NORMALS: Yes no CVA tenderness BLADDER/KIDNEY EXAM: Yes no CVA tenderness Back/Pelvis: COMMON NORMALS: no CVA tenderness, thoracic and lumbar spine normal to inspection, no thoracic nor lumbar tenderness and thoraco-lumbar ROM normal Extremity: COMMON NORMALS: normal to inspection, full ROM, capillary refill normal, no joint enlargement and no pedal edema GENERAL: Yes normal exam except as noted Neuro: COMMON NORMALS: patient oriented x3, CN's II-XII intact bilaterally, moves all extremities, no focal motor deficits, no sensory deficits noted and gait normal SENSORIUM/ORIENTATION: Yes alert, Yes oriented to person, Yes oriented to place and Yes oriented to time MENINGEAL SIGNS: Yes no meningeal signs Psych: COMMON NORMALS: mental status grossly normal, Normal thought process present, cooperative, normal affect and speech normal APPEARANCE: Yes well kempt ATTITUDE: Yes calm SPEECH: Yes normal speech THOUGHT PROCESS: Normal thought process present Skin: COMMON NORMALS: no rashes or lesions noted GENERAL SKIN EXAM: no rashes or lesions noted Course Vital Signs: Vital signs: Vital Signs Temperature 97.9 F 02/20/21 19:04 Pulse Rate 79 02/20/21 22:00 Respiratory Rate 22 H 02/20/21 22:00 Blood Pressure 124/80 02/20/21 22:00 Pulse Oximetry 99 02/20/21 22:00 MDM - Seizure MDM Narrative: Medical decision making narrative: The patient arrived in an unusual postictal state. I would open her eyes and she would make eye contact and talk with me and then forced them closed again. She has had 2 other seizures before this no history surrounding them per the family. She was outside in the heat today and went inside and was found on the ground not responding to her . Over the next hour she came to and was completely responding appropriately and at her baseline mental function. She began to complain of mild neck ache likely from her seizure. CT of head and neck was normal. Other labs were normal except lactic acid was understandably elevated. She was given IV fluids and it normalized. She is stable for discharge home. Admits to taking her Keppra twice daily as directed. She took her last dose at 3 PM and will continue to take it regularly. ER with worsening symptoms otherwise call Dr. Montoya tomorrow for an appointment and follow-up with primary care later this week. Lab Data: Labs: Lab Results 02/20/21 02/20/21 02/20/21 Range/Units 19:11 19:11 19:11 WBC 9.6 (4.0-10.0) 10^3/ uL RBC 4.63 (4.1-5.3) 10^6/u L Hgb 13.4 (11.5-15.3) g/dL Hct 43.1 (37.0-47.0) % MCV 93.1 (81-99) fL MCH 28.9 (28.0-34.0) pg MCHC 31.1 (30.0-36.0) g/dL RDW 14.1 (12.1-15.1) % Plt Count 196 (130-400) 10^3/c mm MPV 11.4 H (7.4-10.4) fL Neut % (Auto) 49.3 % Lymph % (Auto) 33.6 % [place] % (Auto) 10.6 % Eos % (Auto) 5.2 % Baso % (Auto) 1.0 % Neut # (Auto) 4.73 (1.8-7.7) 10^3/u L Lymph # (Auto) 3.2 (0.8-4.8) 10^3/u L [place] # (Auto) 1.0 H (0.2-0.9) 10^3/u L Eos # (Auto) 0.5 (0.0-0.8) 10^3/u L Baso # (Auto) 0.1 (0.0-0.1) 10^3/u L Nucleated RBC % (a uto) 0 % Nucleated RBCs # 0.0 /100WBC Sodium 136 (136-145) mmol/L Potassium 3.6 (3.5-5.1) mmol/L Chloride 94 L (98-107) mmol/L Carbon Dioxide 15 L (22-29) mmol/L Anion Gap 30.6 H (5-19) BUN 12 (8-23) mg/dL Creatinine 0.8 (0.5-0.9) mg/dL GFR Calculation Not Reportable Glucose 155 H (65-115) mg/dL Calculated Osmolal ity 285 (285-295) mOsm/k g Lactic Acid (0.5-2.2) mmol/L Lactate (0.5-2.2) mmol/L Calcium 9.2 (8.5-10.5) mg/dL Total Bilirubin 0.5 (0.15-1.2) mg/dL AST 21 (0-32) U/L ALT 16 (0-33) U/L Alkaline Phosphata se 115 H (35-105) IU/L Creatine Kinase 55 (26-192) U/L Troponin T Baselin e 11 H (0-10) ng/L Troponin T 120 Min [place] (0-10) ng/L Delta Troponin T (0-10) ABS# NT-Pro-B Natriuret Pep 520 H (0-450) pg/mL Total Protein 6.8 (6.6-8.7) g/dL Albumin 4.4 (3.5-5.2) g/dL Globulin 2.4 (1.3-4.6) g/dL TSH 5.31 H (0.27-4.20) uIU/ mL Urine Color (Yellow) Urine Appearance (CLEAR) Urine pH (5-7) Ur Specific Gravit y (1.005-1.030) Urine Protein (Negative) Urine Glucose (UA) (Normal) Urine Ketones (Negative) Urine Blood (Negative) Urine Nitrate (Negative) Urine Bilirubin (Negative) Urine Urobilinogen (Negative) mg/dL Ur Leukocyte Symone ase (Negative) Urine RBC (0-2) /hpf Urine WBC (0-5) /hpf Ur Squamous Epith Cells (0-5) /hpf Amorphous Sediment Urine Bacteria (NONE) /hpf Theophylline 20.5 H* (10-20) ug/ml 02/20/21 02/20/21 02/20/21 Range/Units 19:22 20:38 21:01 WBC (4.0-10.0) 10^3/ uL RBC (4.1-5.3) 10^6/u L Hgb (11.5-15.3) g/dL Hct (37.0-47.0) % MCV (81-99) fL MCH (28.0-34.0) pg MCHC (30.0-36.0) g/dL RDW (12.1-15.1) % Plt Count (130-400) 10^3/c mm MPV (7.4-10.4) fL Neut % (Auto) % Lymph % (Auto) % [place] % (Auto) % Eos % (Auto) % Baso % (Auto) % Neut # (Auto) (1.8-7.7) 10^3/u L Lymph # (Auto) (0.8-4.8) 10^3/u L [place] # (Auto) (0.2-0.9) 10^3/u L Eos # (Auto) (0.0-0.8) 10^3/u L Baso # (Auto) (0.0-0.1) 10^3/u L Nucleated RBC % (a uto) % Nucleated RBCs # /100WBC Sodium (136-145) mmol/L Potassium (3.5-5.1) mmol/L Chloride (98-107) mmol/L Carbon Dioxide (22-29) mmol/L Anion Gap (5-19) BUN (8-23) mg/dL Creatinine (0.5-0.9) mg/dL GFR Calculation Glucose (65-115) mg/dL Calculated Osmolal ity (285-295) mOsm/k g Lactic Acid 5.5 H* (0.5-2.2) mmol/L Lactate (0.5-2.2) mmol/L Calcium (8.5-10.5) mg/dL Total Bilirubin (0.15-1.2) mg/dL AST (0-32) U/L ALT (0-33) U/L Alkaline Phosphata se (35-105) IU/L Creatine Kinase (26-192) U/L Troponin T Baselin e (0-10) ng/L Troponin T 120 Min [place] 11.05 H (0-10) ng/L Delta Troponin T 0.05 (0-10) ABS# NT-Pro-B Natriuret Pep (0-450) pg/mL Total Protein (6.6-8.7) g/dL Albumin (3.5-5.2) g/dL Globulin (1.3-4.6) g/dL TSH (0.27-4.20) uIU/ mL Urine Color Yellow (Yellow) Urine Appearance Clear (CLEAR) Urine pH 5 (5-7) Ur Specific Gravit y 1.020 (1.005-1.030) Urine Protein Neg (Negative) Urine Glucose (UA) Norm (Normal) Urine Ketones 2+ H (Negative) Urine Blood 3+ H (Negative) Urine Nitrate Negative (Negative) Urine Bilirubin Neg (Negative) Urine Urobilinogen Norm (Negative) mg/dL Ur Leukocyte Symone ase Negative (Negative) Urine RBC 0-4 H (0-2) /hpf Urine WBC 5-10 H (0-5) /hpf Ur Squamous Epith Cells 0-4 H (0-5) /hpf Amorphous Sediment Not Reportable Urine Bacteria Trace (NONE) /hpf Theophylline (10-20) ug/ml 02/20/21 Range/Units 22:01 WBC (4.0-10.0) 10^3/ uL RBC (4.1-5.3) 10^6/u L Hgb (11.5-15.3) g/dL Hct (37.0-47.0) % MCV (81-99) fL MCH (28.0-34.0) pg MCHC (30.0-36.0) g/dL RDW (12.1-15.1) % Plt Count (130-400) 10^3/c mm MPV (7.4-10.4) fL Neut % (Auto) % Lymph % (Auto) % [place] % (Auto) % Eos % (Auto) % Baso % (Auto) % Neut # (Auto) (1.8-7.7) 10^3/u L Lymph # (Auto) (0.8-4.8) 10^3/u L [place] # (Auto) (0.2-0.9) 10^3/u L Eos # (Auto) (0.0-0.8) 10^3/u L Baso # (Auto) (0.0-0.1) 10^3/u L Nucleated RBC % (a uto) % Nucleated RBCs # /100WBC Sodium (136-145) mmol/L Potassium (3.5-5.1) mmol/L Chloride (98-107) mmol/L Carbon Dioxide (22-29) mmol/L Anion Gap (5-19) BUN (8-23) mg/dL Creatinine (0.5-0.9) mg/dL GFR Calculation Glucose (65-115) mg/dL Calculated Osmolal ity (285-295) mOsm/k g Lactic Acid (0.5-2.2) mmol/L Lactate 1.5 (0.5-2.2) mmol/L Calcium (8.5-10.5) mg/dL Total Bilirubin (0.15-1.2) mg/dL AST (0-32) U/L ALT (0-33) U/L Alkaline Phosphata se (35-105) IU/L Creatine Kinase (26-192) U/L Troponin T Baselin e (0-10) ng/L Troponin T 120 Min [place] (0-10) ng/L Delta Troponin T (0-10) ABS# NT-Pro-B Natriuret Pep (0-450) pg/mL Total Protein (6.6-8.7) g/dL Albumin (3.5-5.2) g/dL Globulin (1.3-4.6) g/dL TSH (0.27-4.20) uIU/ mL Urine Color (Yellow) Urine Appearance (CLEAR) Urine pH (5-7) Ur Specific Gravit y (1.005-1.030) Urine Protein (Negative) Urine Glucose (UA) (Normal) Urine Ketones (Negative) Urine Blood (Negative) Urine Nitrate (Negative) Urine Bilirubin (Negative) Urine Urobilinogen (Negative) mg/dL Ur Leukocyte Symone ase (Negative) Urine RBC (0-2) /hpf Urine WBC (0-5) /hpf Ur Squamous Epith Cells (0-5) /hpf Amorphous Sediment Urine Bacteria (NONE) /hpf Theophylline (10-20) ug/ml Discharge Plan Discharge Patient Disposition: Home Clinical Impression: Generalized seizure Condition: Stable Prescriptions: No Action aspirin [Aspir-Sabi] 325 mg tablet,delayed release (DR/EC) 325 mg PO DAILY RF: 0 Xarelto 10 mg tablet 10 mg PO DAILY Qty: 90 RF: 1 albuterol sulfate 90 mcg/actuation HFA aerosol inhaler 1 - 2 puff inhalation Q6H PRN (Reason: shortness of breath or wheezing) 30 Days Qty: 18 RF: 2 levetiracetam 500 mg tablet 500 mg PO BID Qty: 60 RF: 11 furosemide 40 mg tablet 40 mg PO DAILY RF: 0 diltiazem HCl 240 mg capsule,extended release 24 hr 240 mg PO DAILY RF: 0 theophylline 300 mg tablet extended release 12 hr 300 mg PO Q8H RF: 0 potassium chloride 20 mEq tablet,ER particles/crystals 20 meq PO DAILY RF: 0 montelukast 10 mg tablet 10 mg PO DAILY RF: 0 Breo Ellipta 100-25 mcg/dose blister with device 1 inh inhalation DAILY RF: 0 Discharge Orders: Discharge ED (Routine); Ordered 02/20/21 Ordered By: Chandan Melara Referrals: Jeff Mancia FNP [Primary Care Provider] - Discharge Diet: Advance as tolerated Discharge Activity: Resume usual activity Patient Instructions: Opioid Safety, Seizures Activity Restrictions/Additional Instructions: You have possibly had a seizure at home. Please continue to take your Keppra and follow-up with Dr. Montoya. Call her tomorrow for an appointment and follow-up with your primary care physician this week. Return to the ER at anytime with worsening symptoms. Otherwise follow-up with your primary and neurology. Coding Level of Care Code ED Outside Sales Account Manager for Chg Fwd Exam Comprehensive
[2021-02-20 22:28] LABS: Lactate (Lactic Acid level) 1.5 mmol/L (0.5-2.2)
[2021-02-24 15:18] LABS: Levetiracetam Keppra 6.8 mcg/mL
== END 2021-02-20 23:40 | disposition home or self-care (01) ==
PROVIDERS: Emergency Provider Family Medicine; PCP Registered Nurse
DX: G40.89 Other seizures (principal); Z79.82 Long term (current) use of aspirin; I48.91 Unspecified atrial fibrillation; J44.9 Chronic obstructive pulmonary disease, unspecified; I10 Essential (primary) hypertension
CPT/HCPCS: 36415; 70450; 71045; 72125; 80053; 80177; 80198; 81001; 82550; 83605; 83880; 84443; 84484; 85025; 93005; 96360; 99284; J7030

== ENCOUNTER 2021-02-22 11:40 | Emergency (ER) | payer MEDICARE, MEDICAID, SELFPAY ==
[2021-02-22 11:53] VITALS: BP 109/75; PULSE 87; RESP 18; TEMP 36.7; O2SAT 95; BMI 36.6
[2021-02-22 13:30] VITALS: BP 118/73; PULSE 73; RESP 18; O2SAT 97
--- NOTE | 2021-02-22 13:33 | CT_ITS ---
WS: [id number] CT HEAD TECHNIQUE: Noncontrast CT of the head obtained from the skullbase to the vertex. CLINICAL INFORMATION: headache and tinnitus in right ear COMPARISON: February 20, 2021 DLP: 705.[address] scans at [facility] use at least one of these dose optimization techniques: automat ed exposure control; mA and/or kV adjustment per patient size (includes targeted exams where dose is matched to clinical indication); or iterative reconstruction. FINDINGS: No evidence of intracranial hemorrhage or mass effect. Ventricular system and basal cisterns are cobb nt. Mild small vessel changes with mild parenchymal volume loss. No extra-axial fluid collections.Nor mal garcia-white differentiation.Calcified meningioma along the right frontal lobe measuring 10 mm is u nchanged. No underlying edema or significant mass effect. This is unchanged since MRI 2016. Paranasal sinuses and mastoid air cells are well aerated. .Normal visualized soft tissues. CT/CT head wo con* [id number] IMPRESSION: 1. No evidence of intracranial hemorrhage or mass effect. 2. Mild small vessel changes. Mild parenchymal volume loss. 3. Calcified meningioma along the inner table right frontal calvarium measurin g 10 mm is unchanged since 2016. No underlying edema or significant mass effect . 4. No acute intracranial findings.
--- NOTE | 2021-02-22 13:34 | ED_ITS ---
HPI - General Adult General: Chief complaint: General Medical Stated complaint: severe H/A Time Seen by Provider: 02/22/21 13:21 History of Present Illness: HPI narrative: Patient is a 75-year-old female comes to the ED with a mild headache and hearing issue. Patient says today she woke up and she was hearing a constant noise in her right ear. She described as kind of a static a noise/buzzing in both ears. She also has a mild headache that is located in her forehead. Denies any acute head trauma or fall. Denies any balance issues. Associated symptoms: Reports headache(s); Deny chest pain, dyspnea, nausea, rash, palpitations or vomiting Review of Systems Const: Denies: fever(s), chills or fatigue Eyes: Denies: change in vision or eye discomfort ENMT: Reports: tinnitus (both right and left ears); Denies: throat pain, odynophagia, nasal discharge or nasal congestion Card: Denies: chest pain, palpitations, edema, swelling of feet/ankles, dyspnea on exertion or orthopnea Resp: Denies: dyspnea, productive cough or non-productive cough GI: Denies: abdominal pain, nausea, vomiting, diarrhea, constipation or hematochezia : Denies: flank pain, dysuria or hematuria Musc: Denies: neck pain, back pain or extremity swelling Skin/Breast: Denies: rash or new lesions Neuro: Reports: headache(s); Denies: numbness in extremities or weakness in extremities PFS ED PFSH: Medical History Atrial fibrillation COPD (chronic obstructive pulmonary disease) Essential hypertension Moderate aortic stenosis Moderate persistent asthma Varicose veins of anus or rectum Surgical History History of hemorrhoidectomy (~09/2019) Family History Other History of hemorrhoidectomy Denies family history of Diabetes CAD (coronary artery disease) Anesthesia complication Bleeding disorder Stroke Social History Smoking and tobacco status: never smoked Second hand smoke exposure: No Alcohol intake: never Adopted: No Caregiver/support person: Yes Lives independently: Yes Household members: spouse Housing: House Marital status: Highest education level completed: High School Graduate service: No Current occupational status: retired Current occupational exposures/hazards: No Pets and animals: No History of recent travel: No Sexually active: No Current gender identity: Female Shayy/Denominational: Sikh Special shayy needs: No Agree to transfusion: No Financial difficulty paying for basics: Decline to Answer Physical Exam Const: COMMON NORMALS: no acute distress, patient oriented x3 and alert GENERAL APPEARANCE: cooperative and comfortable HENMT: COMMON NORMALS: normocephalic, EAC's normal and TM's normal bilaterally HEAD & SCALP: normocephalic EXTERNAL AUDITORY CANAL: EAC's normal TYMPANIC MEMBRANE: TM's normal bilaterally MOUTH: Normal oral and palatal mucosa present THROAT: posterior oropharynx normal and uvula midline Eye: COMMON NORMALS: Equal, round and reactive pupils present PUPIL: Yes Equal, round and reactive pupils present Neck/C-Spine: COMMON NORMALS: supple GENERAL: Yes normal visual inspection Resp: COMMON NORMALS: normal respiratory effort, No retractions, No use of accessory muscles and clear to auscultation bilaterally AUSCULTATION: clear to auscultation bilaterally Cardio: COMMON NORMALS: regular rate, regular rhythm, S1 normal heart sound present, S2 normal heart sound present, No gallops present (Cardio), No clicks present (Cardio), No murmurs present (Cardio) and Peripheral pulses 2+ throughout RATE: regular rate RHYTHM: regular rhythm HEART SOUNDS: S1 normal heart sound present and S2 normal heart sound present PERIPHERAL PULSES: Peripheral pulses 2+ throughout GI: COMMON NORMALS: Normal to inspection, nondistended, normoactive bowel sounds present, Soft to palpation, non-tender and no masses PALPATION: Yes Soft to palpation : COMMON NORMALS: Yes no CVA tenderness BLADDER/KIDNEY EXAM: Yes no CVA tenderness Back/Pelvis: COMMON NORMALS: no CVA tenderness Extremity: COMMON NORMALS: normal to inspection Neuro: COMMON NORMALS: patient oriented x3 and no focal motor deficits SENSORIUM/ORIENTATION: Yes alert Skin: GENERAL SKIN EXAM: dry skin Course Vital Signs: Vital signs: Vital Signs Temperature 98.0 F 02/22/21 11:53 Pulse Rate 89 02/22/21 15:11 Respiratory Rate 22 H 02/22/21 15:11 Blood Pressure 138/88 02/22/21 15:11 Pulse Oximetry 97 02/22/21 15:11 MDM - General Adult MDM Narrative: Medical decision making narrative: Patient is a 75-year-old female comes to the ED with constant buzzing in ear. Symptoms started this morning. Denies any head injury, fall or balance issues. Patient has back pain off a 75-year-old female that appears in no acute distress or pain. Exam findings were benign. CT CT of head showed no acute findings. Patient was diagnosed with tendinitis and discharged home. I placed an order with case management for patient be referred to ENT doctor for further evaluation. Patient was told the rn case management will contact them in the next several days to set up an appointment with ENT doctor. Return to ED precautions given. Patient understood agree with plans. Imaging Data^: CT Head: Attestation: I personally reviewed and interpreted this imaging study as follows: Radiologist's impression: [address] [address] [address] Scan Report Signed Patient: Daphnie Coughlin Unit #: [id number] : 1945 ct#:[id number] Age/Sex: 75 / F ADM Date: 02/22/21 Loc: ER Room/Bed: Attending Dr: Ordering Provider/Ordering MD: Stalin Ying Date of Service: 02/22/21 Procedure(s): CT head wo con* [id number] Accession Number(s): [id number] Report Number: [id number] WS: [id number] CT HEAD TECHNIQUE: Noncontrast CT of the head obtained from the skullbase to the vertex. CLINICAL INFORMATION: headache and tinnitus in right ear COMPARISON: February 20, 2021 DLP: 705.[address] scans at [facility] use at least one of these dose optimization techniques: automated exposure control; mA and/or kV adjustment per patient size (includes targeted exams where dose is matched to clinical indication); or iterative reconstruction. FINDINGS: No evidence of intracranial hemorrhage or mass effect. Ventricular system and basal cisterns are patent. Mild small vessel changes with mild parenchymal volume loss. No extra- axial fluid collections.Normal garcia-white differentiation.Calcified meningioma along the right frontal lobe measuring 10 mm is unchanged. No underlying edema or significant mass effect. This is unchanged since MRI 2016. Paranasal sinuses and mastoid air cells are well aerated. .Normal visualized soft tissues. CT/CT head wo con* [id number] IMPRESSION: 1. No evidence of intracranial hemorrhage or mass effect. 2. Mild small vessel changes. Mild parenchymal volume loss. 3. Calcified meningioma along the inner table right frontal calvarium measuring 10 mm is unchanged since 2016. No underlying edema or significant mass effect. 4. No acute intracranial findings. Dictated By: Eriberto Wright MD Signed By: Eriberto Wright MD Signed Date/Time: 02/22/211418 DD/ 13 Discharge Plan Discharge Patient Disposition: Home Clinical Impression: Tinnitus of both ears Condition: Stable Prescriptions: No Action aspirin [Aspir-Sabi] 325 mg tablet,delayed release (DR/EC) 325 mg PO DAILY@0800 RF: 0 albuterol sulfate 90 mcg/actuation HFA aerosol inhaler 1 - 2 puff inhalation Q6H PRN (Reason: shortness of breath or wheezing) 30 Days Qty: 18 RF: 2 furosemide 40 mg tablet 40 mg PO DAILY@0800 RF: 0 diltiazem HCl 240 mg capsule,extended release 24 hr 240 mg PO DAILY@0800 RF: 0 theophylline 300 mg tablet extended release 12 hr 300 mg PO Q8H RF: 0 potassium chloride 20 mEq tablet,ER particles/crystals 20 meq PO DAILY@0800 RF: 0 montelukast 10 mg tablet 10 mg PO DAILY@1999 RF: 0 Breo Ellipta 100-25 mcg/dose blister with device 1 inh inhalation DAILY@0800 RF: 0 levetiracetam 500 mg tablet 500 mg PO BID@00,1999 RF: 0 Xarelto 10 mg tablet 10 mg PO DAILY@0800 RF: 0 Discharge Orders: Discharge ED (Routine); Ordered 02/22/21 Ordered By: Stalin Ying Referrals: Hilda Montoya MD [Primary Care Provider] - Discharge Diet: Regular Discharge Activity: Resume usual activity Patient Instructions: Tinnitus Activity Restrictions/Additional Instructions: Follow-up with medical provider as directed. division merchandise manager will calling you in the next couple days set up an appointment with ENT doctor. Continue taking all home medications as prescribed. Return to the ER or your medical provider if condition worsens. Please read and understand discharge instructions. Thank you for choosing [facility] for your healthcare needs today. Please realize this is an emergency room and that we are providing you with a medical screening exam and this may not be complete and all inclusive of all the testing and or work up that you may need to determine your ailment or severity of your illness. It is very important that you follow up as instructed or that you return to the Emergency Department should you have concerns or if your condition changes or worsens in any way. Coding Level of Care Code ED Executive Creative Director for Divina Jones Exam Comprehensive
[2021-02-22 15:03] VITALS: BP 138/88; PULSE 89; RESP 22; O2SAT 97
[2021-02-22 15:11] VITALS: BP 138/88; PULSE 89; RESP 22; O2SAT 97
--- NOTE | 2021-02-23 09:25 | DCPLANNER ---
claims manager had message to schedule a follow up appointment for patient with ENT for tinnitus. claims manager emailed patients information to Jodi Kunz and Donna at [facility], ENT clinic. Patients information will be printed and reviewed. Clinic will call patient with appointment information.
--- NOTE | 2021-03-17 14:09 | DCPLANNER ---
Patient had a follow up appointment scheduled for 03.06.21 with [facility] ENT - patient did attend appointment.
== END 2021-02-22 15:03 | disposition home or self-care (01) ==
PROVIDERS: Emergency Provider Physician Assistant; PCP Specialist
DX: H93.13 Tinnitus, bilateral (principal); Z79.82 Long term (current) use of aspirin; J44.9 Chronic obstructive pulmonary disease, unspecified; I48.91 Unspecified atrial fibrillation; I10 Essential (primary) hypertension
CPT/HCPCS: 70450; 99282

== ENCOUNTER 2021-05-10 05:04 | Emergency (ER) | payer MEDICARE, MEDICAID, SELFPAY ==
[2021-05-10 05:09] VITALS: BP 120/88; PULSE 114; RESP 16; TEMP 36.9; O2SAT 98; BMI 34.7
--- NOTE | 2021-05-10 05:12 | ED_ITS ---
HPI - Seizure General: Chief Complaint: Seizure Stated Complaint: SEIZURE Time Seen by Provider: 05/10/21 05:05 Source: patient and EMS Mode of arrival: EMS Limitations: no limitations History of Present Illness: HPI Narrative: 75-year-old female with a long history of generalized seizures. She has been seen here multiple times seizures last being in February. She had a full work-up in February including a CT head that showed no acute findings. Patient is on Keppra. She had a seizure tonight at 3 AM lasted roughly 1 minute. Patient is currently awake alert and at baseline. She denies hitting her head. Seizure History: Yes Associated symptoms: Deny chest pain, chills or fever(s) Review of Systems Const: Denies: fever(s), chills, body aches or change in appetite Eyes: Denies: blurry vision or eye discomfort ENMT: Denies: throat pain or dental pain Card: Denies: chest pain Resp: Denies: dyspnea GI: Denies: abdominal pain, nausea, vomiting or diarrhea : Denies: dysuria Musc: Denies: neck pain or back pain Skin/Breast: Denies: rash Neuro: Reports: seizure-like activity Psych: Denies: depression Chance/Lymph: Denies: easy bruising All/Imm: Denies: urticaria PFSH ED PFSH: Medical History Atrial fibrillation COPD (chronic obstructive pulmonary disease) Essential hypertension Moderate aortic stenosis Moderate persistent asthma Varicose veins of anus or rectum Surgical History History of hemorrhoidectomy (~09/2019) Family History Other History of hemorrhoidectomy Denies family history of Diabetes CAD (coronary artery disease) Anesthesia complication Bleeding disorder Stroke Social History Second hand smoke exposure: No Alcohol intake: never Adopted: No Caregiver/support person: Yes Lives independently: Yes Household members: spouse Housing: House Marital status: Highest education level completed: High School Graduate service: No Current occupational status: retired Current occupational exposures/hazards: No Pets and animals: No History of recent travel: No Sexually active: No Current gender identity: Female Shayy/Hoahaoism: Restorationism Special shayy needs: No Agree to transfusion: No Financial difficulty paying for basics: Decline to Answer Physical Exam Const: COMMON NORMALS: no acute distress, patient oriented x3 and healthy appearing HENMT: COMMON NORMALS: normocephalic and atraumatic HEAD & SCALP: normo cephalic and atraumatic Eye: COMMON NORMALS: Equal, round and reactive pupils present and EOMs intact bilaterally PUPIL: Yes Equal, round and reactive pupils present Neck/C-Spine: COMMON NORMALS: full ROM and supple Chest: COMMONS NORMALS: normal inspection of the chest and normal palpation of entire chest wall Resp: COMMON NORMALS: normal respiratory effort, No retractions, No use of accessory muscles and clear to auscultation bilaterally AUSCULTATION: clear to auscultation bilaterally Cardio: COMMON NORMALS: regular rate, regular rhythm and No murmurs present (Cardio) RATE: regular rate RHYTHM: regular rhythm GI: COMMON NORMALS: Normal to inspection, nondistended, normoactive bowel sounds present, Soft to palpation, non-tender and no masses PALPATION: Yes Soft to palpation Extremity: COMMON NORMALS: normal to inspection and full ROM Neuro: COMMON NORMALS: patient oriented x3, moves all extremities and no focal motor deficits Psych: COMMON NORMALS: mental status grossly normal, Normal thought process present and cooperative THOUGHT PROCESS: Normal thought process present Skin: COMMON NORMALS: no rashes or lesions noted and no wounds GENERAL SKIN EXAM: no rashes or lesions noted Course Vital Signs: Vital signs: Vital Signs Temperature 98.4 F 05/10/21 05:09 Pulse Rate 111 H 05/10/21 05:27 Respiratory Rate 16 05/10/21 05:27 Blood Pressure 120/88 05/10/21 05:27 Pulse Oximetry 97 05/10/21 05:27 MDM - Seizure MDM Narrative: Medical decision making narrative: Is here with a seizure is a long history of seizures she is well-appearing here and back to baseline. She had a recent large work-up I do not believe she needs any more imaging. Patient given IV Keppra and is stable for discharge is to follow-up with PCP and return if worsening. Discharge Plan Discharge Patient Disposition: Home Clinical Impression: Generalized seizure Condition: Stable Prescriptions: No Action levetiracetam [Keppra] 750 mg tablet 750 mg PO BID Qty: 60 RF: 2 aspirin [Aspir-Sabi] 325 mg tablet,delayed release (DR/EC) 325 mg PO DAILY@0800 RF: 0 theophylline 300 mg tablet extended release 12 hr 300 mg PO Q8H Qty: 90 RF: 1 montelukast 10 mg tablet See Rx Instructions .ROUTE .COMPLEX Qty: 90 RF: 0 furosemide 40 mg tablet See Rx Instructions .ROUTE .COMPLEX Qty: 90 RF: 0 albuterol sulfate 90 mcg/actuation HFA aerosol inhaler See Rx Instructions .ROUTE .COMPLEX Qty: 18 RF: 0 diltiazem HCl 240 mg capsule,extended release 24 hr See Rx Instructions .ROUTE .COMPLEX Qty: 90 RF: 0 potassium chloride 20 mEq tablet,ER particles/crystals 20 meq PO DAILY@0800 RF: 0 Breo Ellipta 100-25 mcg/dose blister with device 1 inh inhalation DAILY@0800 RF: 0 Xarelto 10 mg tablet 10 mg PO DAILY@0800 RF: 0 Discharge Orders: Discharge ED (Routine); Ordered 05/10/21 Ordered By: Ethel Odonnell Referrals: Hilda Montoya MD [Primary Care Provider] - 1-3 days Discharge Diet: Advance as tolerated Discharge Activity: Resume usual activity Patient Instructions: Seizures Coding Level of Care Code ED Gas Compressor Turbine Operator for Chg Fwd Exam Comprehensive
[2021-05-10 05:27] VITALS: BP 120/88; PULSE 111; RESP 16; O2SAT 97
[2021-05-10] MEDS: levETIRAcetam 750 MG in sodium chloride 0.9% (100 ml) 100 ML 430 MG IV (05:27)
[2021-05-10 06:03] VITALS: BP 105/83; PULSE 93; RESP 17; O2SAT 98
== END 2021-05-10 06:05 | disposition home or self-care (01) ==
PROVIDERS: Emergency Provider Emergency Medicine; PCP Specialist
DX: G40.409 Other generalized epilepsy and epileptic syndromes, not intractable, without status epilepticus (principal); Z79.82 Long term (current) use of aspirin; J44.9 Chronic obstructive pulmonary disease, unspecified; I10 Essential (primary) hypertension
CPT/HCPCS: 96374; 99284; J1953

== ENCOUNTER → 2021-06-07 13:23 | Outpatient (BNVA) | payer MEDICARE, MEDICAID, SELFPAY | PROVIDERS: PCP Registered Nurse; Visit Provider Specialist | DX: L51.1 Stevens-Johnson syndrome (principal); G40.309 Generalized idiopathic epilepsy and epileptic syndromes, not intractable, without status epilepticus; Q07.9 Congenital malformation of nervous system, unspecified; R51.9 Headache, unspecified; E66.01 Morbid (severe) obesity due to excess calories; Z68.35 Body mass index [BMI] 35.0-35.9, adult | CPT/HCPCS: 99214 ==

== ENCOUNTER → 2021-07-12 15:48 | Outpatient (BNVA) | payer MEDICARE, MEDICAID, SELFPAY | PROVIDERS: PCP Registered Nurse; Visit Provider Specialist | DX: G40.309 Generalized idiopathic epilepsy and epileptic syndromes, not intractable, without status epilepticus (principal); E66.01 Morbid (severe) obesity due to excess calories; Z68.35 Body mass index [BMI] 35.0-35.9, adult | CPT/HCPCS: 99214; 99215 ==

== ENCOUNTER → 2021-09-20 12:19 | Outpatient (BNVA) | payer MEDICARE, MEDICAID, SELFPAY | PROVIDERS: PCP Registered Nurse; Visit Provider Specialist | DX: G40.309 Generalized idiopathic epilepsy and epileptic syndromes, not intractable, without status epilepticus (principal); D32.9 Benign neoplasm of meninges, unspecified | CPT/HCPCS: 99215 ==

== ENCOUNTER → 2021-09-21 09:37 | Outpatient (BNVA) | payer MEDICARE, MEDICAID, SELFPAY | PROVIDERS: PCP Registered Nurse; Visit Provider Specialist | DX: G40.309 Generalized idiopathic epilepsy and epileptic syndromes, not intractable, without status epilepticus (principal) | CPT/HCPCS: 80164; 80177 ==

== ENCOUNTER 2021-10-25 12:17 | Outpatient (CLI) | payer MEDICARE, MEDICAID, SELFPAY ==
--- NOTE | 2021-10-25 13:30 | USCV_ITS ---
Daphnie Coughlin Age: 75 Gender: F : 1945 Exam Date: 10/25/2021 12:48 Ordering Phys: Rocky Adam M.D ([email or web address]) Technologist: Exam Location: [facility] [place] Indication: SOB BP: 140 / 85 HR: 71 Rhythm: Sinus Technical Quality: Adequate MEASUREMENTS (Male / Female) Normal Values 2D ECHO LV Diastolic Diameter PLAX 5.0 cm 4.2 - 5.9 / 3.9 - 5.3 cm LV Systolic Diameter PLAX 3.8 cm IVS Diastolic Thickness 0.8 cm 0.6 - 1.0 / 0.6 - 0.9 cm IVS Systolic Thickness 1.3 cm LVPW Diastolic Thickness 0.9 cm 0.6 - 1.0 / 0.6 - 0.9 cm LVPW Systolic Thickness 1.2 cm LVOT Diameter 2.0 cm LV Ejection Fraction 2D Teich 47.5 % LV Ejection Fraction MOD 2C 65.6 % LV Ejection Fraction 2C AL 64.5 % LA Diameter 4.4 cm Aorta at Sinotubular Diameter 2.3 cm M-MODE Aortic Annulus Diameter 2.5 cm LA Ao Ratio MM 1.8 MV E Point Septal Separation 0.5 cm DOPPLER AV Peak Velocity 203.0 cm/s LVOT Peak Velocity 98.0 cm/s AV Area Cont Eq vti 1.7 cm squared AV Area Cont Eq pk 1.6 cm squared MV Area PHT 3.6 cm squared Mitral E to A Ratio 2.9 MV E' Velocity 46.5 cm/s Mitral E to MV E' Ratio 5.5 Mitral E to LV E' Lateral Ratio 6.0 Mitral E to LV E' Septal Ratio 5.2 TR Peak Velocity 197.7 cm/s TR Peak Gradient 15.6 mmHg TV Peak E Velocity 97.0 cm/s Right Atrial Pressure 3.0 mmHg Pulmonary Artery Systolic Pressu 18.6 mmHg PV Peak Velocity 150.0 cm/s RV Acceleration Time 0.1 s FINDINGS Left Ventricle Normal left ventricular size. LV systolic function is normal with EF of 55-60%. No regional wall motion abnormalities. Diastolic function is indeterminate because of atrial fibrillation Right Ventricle The right ventricle is normal in size and function. Right Atrium The right atrium is normal in size. Left Atrium The left atrium is enlarged Mitral Valve Structurally normal mitral valve without significant stenosis or prolapse. There is mild mitral regurgitation. Aortic Valve Aortic valve is thickened. There is mild aortic stenosis with CASSY of 1.55cm2 and mean gradient across the aortic valve of 11.4mmHg. There is mild aortic regurgitation. Tricuspid Valve Structurally normal tricuspid valve without significant stenosis. Mild tricuspid regurgitation. Pulmonary artery systolic pressure is normal. Pulmonic Valve Structurally normal pulmonic valve without significant stenosis. There is no pulmonic regurgitation. Pericardium Normal pericardium without effusion. Aorta Normal ascending aorta dimension. CONCLUSIONS LV systolic function is normal with EF of 55-60% Diastolic function is indeterminate because of atrial fibrillation Mild mitral regurgitation Aortic valve is thickened.There is mild aortic stenosis with CASSY of 1.55cm2 and mean gradient across the aortic valve of 11.4mmHg. There is mild aortic regurgitation. Mild tricuspid regurgitation Compared to prior echocardiogram from 07/05/2020, no significant changes are noted Rocky Adam MD (Electronically Signed) Final Date: 02 November 2021 11:48 S
--- NOTE | 2021-10-25 14:15 | USCV_ITS ---
Daphnie Coughlin Age: 75 Gender: F : 1945 Exam Date: 10/25/2021 13:18 Ordering Phys: Rocky Adam M.D ([email or web address]) Technologist: SHARON Exam Location: [facility] [place] Indication: HISTORY: CHRONIC bilateral, mild, lower extremity edema. No gaiter zone pigmentation. No erythema. No hx DVT per patient. PROCEDURES: The examination was performed in the 45 degree Reverse Trendelenberg position with Valsalva maneuver and release to elicit venous reflux, if present. Bilateral duplex Venous Insufficiency study of the Deep and Superficial systems was carried out according to normal protocol with the patient in supine positon for deep system and 45 degree dependent, Reverse Trendelenberg position for the superficial system. The venous duplex Doppler examination of both lower extremities was performed in the standard fashion. The following venous structures were evaluated: common femoral vein, profunda vein, proximal portion of the greater saphenous vein, superficial femoral vein, and the popliteal vein. In addition, the posterior tibial veins and peroneal veins were evaluated. Bilaterally, the common femoral, superficial femoral, profunda femoral, popliteal, posterior tibial, greater saphenous veins, and the peroneal veins were identified and interrogated in the standard fashion. These veins were found to be easily compressible with spontaneous blood flow. No evidence of insufficiency or thrombus noted. Serial compression, augmentation maneuvers, and spectral Doppler flow evaluation were performed and were normal. FINDINGS: The veins were found to be easily compressible with spontaneous blood flow. Non pulsatile flow pattern. No significant venous reflux CONCLUSIONS No evidence of DVT in the above-mentioned identifiable veins. No significant reflux were noted either in the superficial or in the deep veins. Dr Farzana Aponte MD [facility] (Electronically Signed) Final Date: 30 October 2021 19:51 S
== END 2021-10-25 12:18 | disposition home or self-care (01) ==
PROVIDERS: PCP Nurse Practitioner Family; Visit Provider Internal Medicine
DX: I87.2 Venous insufficiency (chronic) (peripheral) (principal); R06.02 Shortness of breath; I08.3 Combined rheumatic disorders of mitral, aortic and tricuspid valves; R60.0 Localized edema; E78.5 Hyperlipidemia, unspecified
CPT/HCPCS: 80053; 80061; 83880; 84460; 85025; 93306; 93970

== ENCOUNTER 2021-11-25 10:59 | Emergency (ER) | payer MEDICARE, SELFPAY ==
[2021-11-25 11:14] VITALS: BP 139/77; PULSE 101; RESP 16; TEMP 36.7; O2SAT 94; BMI 34.7
--- NOTE | 2021-11-25 11:44 | W.ED.GENADLT ---
HPI - General Adult General: Chief complaint: General Medical Stated complaint: Hurting all over, has history of siezures Time Seen by Provider: 11/25/21 11:31 Source: patient and family (Spouse and daughter) Limitations: other (Hard of hearing without hearing aids) History of Present Illness: This patient was brought to the emergency department by her spouse and her daughter who now accompanies them. The history seems to be that she was having joint pains today which included elbows knees ankles. She is also had some lower extremity swelling which does not sound new. She is also had some shakiness. Specifically no seizure activity but just what sounds like tremor of her upper extremities. The symptoms have been present for some time. She does have a history of seizure disorder but again her family is adamant that she has not had seizures and she has been taking her medications faithfully. There is no history of fevers or chills nausea vomiting or diarrhea. She has not had Covid and is not immunized against COVID-19. No one else is ill at home. They primarily in the emergency department because she is anxious about her symptoms which none of which seem to be acute but a more longstanding. She has a history of chronic atrial fibrillation and is on a DOAC for stroke reduction. No falls recently. Associated symptoms: Deny chest pain, confusion, dyspnea, headache(s), nausea, rash, palpitations, short of breath, syncope or vomiting Review of Systems Const: Denies: fever(s), chills or body aches Eyes: Denies: change in vision or eye discharge ENMT: Reports: change in hearing (chronic presbycusis); Denies: throat pain, odynophagia, nasal discharge or nasal congestion Card: Denies: chest pain, palpitations, irregular heart rhythm, lightheadedness or syncope Resp: Denies: dyspnea, productive cough or non-productive cough GI: Denies: nausea or vomiting : Denies: flank pain, difficulty voiding, dysuria or urinary frequency Musc: Reports: joint pain; Denies: joint redness, joint warmth, muscle cramps or muscle weakness Skin/Breast: Denies: rash, pruritus or erythema Neuro: Denies: headache(s), numbness in extremities, weakness in extremities, dizziness, confusion, Slurred speech present, difficulty communicating thoughts or seizure-like activity Psych: Reports: anxiety; Denies: depression or mood swings PFS ED PFSH: Medical History Atrial fibrillation COPD (chronic obstructive pulmonary disease) Essential hypertension Moderate aortic stenosis Moderate persistent asthma Osteoporosis Varicose veins of anus or rectum Surgical History History of hemorrhoidectomy (~09/2019) Family History Other History of hemorrhoidectomy Denies family history of Diabetes CAD (coronary artery disease) Anesthesia complication Bleeding disorder Stroke Social History Smoking and tobacco status: never smoked Second hand smoke exposure: No Alcohol intake: never Adopted: No Caregiver/support person: Yes Lives independently: Yes Household members: spouse Housing: House Marital status: Highest education level completed: High School Graduate service: No Current occupational status: retired Current occupational exposures/hazards: No Pets and animals: No History of recent travel: No Sexually active: No Current gender identity: Female Shayy/Lutheran: Mormonism Special shayy needs: No Agree to transfusion: No Financial difficulty paying for basics: Decline to Answer Physical Exam Narrative: EXAM NARRATIVE: The patient's alert makes good eye contact. Her communication is limited by her difficulty with hearing but she is able to communicate once she understands the question. She answers in a fluent fashion. Const: COMMON NORMALS: no acute distress, patient oriented x3, healthy appearing and well nourished GENERAL APPEARANCE: cooperative and comfortable HENMT: COMMON NORMALS: normocephalic, external ears normal, Normal external nose present, Normal nasal mucous membranes and turbinates present, moist oral mucous membranes and oropharynx normal HEAD & SCALP: normocephalic; no scalp tenderness and no Temporal artery tenderness present FACE & SINUS: normal facial exam NOSE: Normal external nose present and Normal nasal mucous membranes and turbinates present EXTERNAL EAR: Yes external ears normal Eye: COMMON NORMALS: Equal, round and reactive pupils present, EOMs intact bilaterally, conjunctivae normal and no scleral icterus CONJUNCTIVA: Yes conjunctivae normal PUPIL: Yes Equal, round and reactive pupils present Neck/C-Spine: COMMON NORMALS: full ROM, no lymphadenopathy, no meningeal signs, no JVD, Thyroid normal and No carotid bruits THYROID: Thyroid normal Lymph: LYMPHATIC: no lymphadenopathy noted Chest: COMMONS NORMALS: normal inspection of the chest Resp: COMMON NORMALS: normal respiratory effort, No retractions, No use of accessory muscles and clear to auscultation bilaterally AUSCULTATION: clear to auscultation bilaterally Cardio: COMMON NORMALS: no JVD, No murmurs present (Cardio) and Peripheral pulses 2+ throughout RHYTHM: other (Irregular) PERIPHERAL PULSES: Peripheral pulses 2+ throughout GI: COMMON NORMALS: Normal to inspection, nondistended, normoactive bowel sounds present, Soft to palpation and no masses PALPATION: Yes Soft to palpation : COMMON NORMALS: Yes no CVA tenderness BLADDER/KIDNEY EXAM: Yes no CVA tenderness Back/Pelvis: COMMON NORMALS: no CVA tenderness, thoracic and lumbar spine normal to inspection, no thoracic nor lumbar tenderness, thoraco-lumbar ROM normal and straight leg raise negative bilaterally Extremity: COMMON NORMALS: full ROM, capillary refill normal, no joint enlargement and no calf tenderness NARRATIVE EXTREMITY EXAM: Her general musculoskeletal examination reveals no joint effusion or erythema. When put through normal range of motion large joints bilaterally to include shoulder elbow wrist there is no restriction crepitance or otherwise abnormal findings. The lower extremities at the hips knees and ankles reveal normal appearing joints without effusion or erythema. Range of motion of these joints is full without any crepitance or restriction. She has some mild soft tissue edema both lower extremities but really it is nonpitting in nature. No calf tenderness. Negative Homans. No cords palpable. Neuro: COMMON NORMALS: patient oriented x3, moves all extremities, no focal motor deficits and no sensory deficits noted MENINGEAL SIGNS: Yes no meningeal signs CRANIAL NERVES: Yes CN normal except as noted (Diminished hearing bilaterally) COORDINATION/BALANCE: [id number]-fr-[id number] test normal (No tremor noted with intention.) and [id number]-jb-[id number] test normal COORDINATION: hnosvy-lc-[id number] test normal (No tremor noted with intention.) and ycyb-lw-avyr test normal Course ED course: Patient's chest x-ray other ancillary studies are reassuring. Review of prior BMPs reveal that her current BNP today is consistent with those that she is had noted in her chart in the past and perhaps a bit lower. Her chest x-ray is reassuring with no evidence of acute failure and she has normal heart size. She has a borderline low potassium today and whether that is related to her subjective symptoms is not clear we will go ahead and replace that orally. I certainly see no other evidence of an ongoing emergency medical condition at this time. She has chronic atrial fibrillation which is relatively controlled today she does not clinically look ill. She has what sounds like and appears to be a resting tremor which is probably exacerbated by her supposed underlying anxiety. I think she is not displaying any evidence of an ongoing emergency medical condition at this time we can discharge her to outpatient follow-up. Vital Signs: Vital signs: Vital Signs Temperature 98.0 F 11/25/21 11:14 Pulse Rate 101 H 11/25/21 11:14 Respiratory Rate 16 11/25/21 11:14 Blood Pressure 139/77 11/25/21 11:14 Pulse Oximetry 94 11/25/21 11:14 [facility] - General Adult Medical Decision Making Through the course of her emergency department stay she was discovered that she also was out of her one of her antiseizure medicines and this is probably contributing to her subjective feelings of anxiety. We will go ahead and provide her a refill of this medication. Her potassium was also repleted in the emergency department. At this point in time her clinical examination, ancillary studies, reevaluation's did not reveal any evidence of ongoing emergency medical condition. 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 She has adequate home support and outpatient support. Stable for discharge. Medical Records I reviewed the patient's medical records. Lab Data I reviewed the patient's lab results. : 11/25/21 11:30 11/25/21 11:50 Radiology Impressions Chest X-Ray 11/25/21 11:46 IMPRESSION: No acute findings. Laboratory Results WBC 5.8 10^3/uL (4.0-10.0) 11/25/21 11:30 RBC 4.40 10^6/uL (4.1-5.3) 11/25/21 11:30 Hgb 13.3 g/dL (11.5-15.3) 11/25/21 11:30 Hct 40.8 % (37.0-47.0) 11/25/21 11:30 MCV 92.7 fl (81-99) 11/25/21 11:30 MCH 30.2 pg (28.0-34.0) 11/25/21 11:30 MCHC 32.6 g/dL (30.0-36.0) 11/25/21 11:30 RDW 14.4 % (12.1-15.1) 11/25/21 11:30 Plt Count 151 10^3/cmm (130-400) 11/25/21 11:30 MPV 10.7 fL (7.4-10.4) H 11/25/21 11:30 Neut % (Auto) 62.9 % 11/25/21 11:30 Lymph % (Auto) 16.4 % 11/25/21 11:30 Banner % (Auto) 15.5 % 11/25/21 11:30 Eos % (Auto) 3.6 % 11/25/21 11:30 Baso % (Auto) 1.4 % 11/25/21 11:30 Neut # (Auto) 3.66 10^3/uL (1.8-7.7) 11/25/21 11:30 Lymph # (Auto) 1.0 10^3/uL (0.8-4.8) 11/25/21 11:30 Banner # (Auto) 0.9 10^3/uL (0.2-0.9) 11/25/21 11:30 Eos # (Auto) 0.2 10^3/uL (0.0-0.8) 11/25/21 11:30 Baso # (Auto) 0.1 10^3/uL (0.0-0.1) 11/25/21 11:30 Nucleated RBC % (auto) 0 % 11/25/21 11:30 Nucleated RBCs # 0.0 /100WBC 11/25/21 11:30 Sodium 139 mmol/L (136-145) 11/25/21 11:50 Potassium 3.1 mmol/L (3.5-5.1) L 11/25/21 11:50 Chloride 102 mmol/L (98-107) 11/25/21 11:50 Carbon Dioxide 25 mmol/L (22-29) 11/25/21 11:50 Anion Gap 15.1 (5-19) 11/25/21 11:50 BUN 8 mg/dL (8-23) 11/25/21 11:50 Creatinine 0.6 mg/dL (0.5-0.9) 11/25/21 11:50 GFR Calculation Not Reportable 11/25/21 11:50 Glucose 88 mg/dL (65-115) 11/25/21 11:50 Calculated Osmolality 286 mOsm/kg (285-295) 11/25/21 11:50 Calcium 9.7 mg/dL (8.5-10.5) 11/25/21 11:50 NT-Pro-B Natriuret Pep 759 pg/mL (0-450) H 11/25/21 11:50 EKG Data EKG 1: EKG interpretation time: 12:05 Interpretation: Patient has underlying ventricular rate of 94 bpm. Rhythm consistent with atrial fibrillation with a controlled ventricular response. Normal QRS duration. No acute ST-T wave changes noted. Appears to be grossly unchanged compared with prior tracings within the EMR. Computer generated interpretation: Chest X-Ray 11/25/21 11:46 IMPRESSION: No acute findings. Discharge Plan Discharge Patient Disposition: Home Clinical Impression: Atrial fibrillation, Generalized epilepsy, Hearing loss, Diuretic-induced hypokalemia Condition: Stable Prescriptions: New divalproex 250 mg tablet,delayed release (DR/EC) 250 mg PO TID Qty: 90 0RF No Action divalproex 250 mg tablet,delayed release (DR/EC) 250 mg PO TID 0RF levetiracetam 750 mg tablet 750 mg PO BID 0RF Breo Ellipta 100-25 mcg/dose blister with device 1 inh inhalation DAILY@0800 30 Days Qty: 1 2RF potassium chloride [Klor-Con 10] 10 mEq tablet extended release 10 meq PO DAILY Qty: 30 2RF aspirin [Aspir-Sabi] 325 mg tablet,delayed release (DR/EC) 325 mg PO DAILY@0800 0RF alendronate 70 mg tablet See Rx Instructions .ROUTE .COMPLEX Qty: 4 12RF Dose Instruction: TAKE 1 TABLET BY MOUTH WEEKLY Rx Instructions: TAKE 1 TABLET BY MOUTH WEEKLY montelukast 10 mg tablet See Rx Instructions .ROUTE .COMPLEX Qty: 90 0RF Dose Instruction: TAKE 1 TABLET BY MOUTH EVERY DAY Rx Instructions: TAKE 1 TABLET BY MOUTH EVERY DAY albuterol sulfate 90 mcg/actuation HFA aerosol inhaler See Rx Instructions .ROUTE .COMPLEX Qty: 18 0RF Dose Instruction: INHALE 1 TO 2 PUFFS BY MOUTH EVERY 6 HOURS NEEDED FOR SHORTNESS OF BREATH OR WHEEZING Rx Instructions: INHALE 1 TO 2 PUFFS BY MOUTH EVERY 6 HOURS NEEDED FOR SHORTNESS OF BREATH OR WHEEZING furosemide 40 mg tablet See Rx Instructions .ROUTE .COMPLEX Qty: 90 0RF Dose Instruction: TAKE 1 TABLET BY MOUTH DAILY.(MIKA RAVI) Rx Instructions: TAKE 1 TABLET BY MOUTH DAILY.(MIKA RAVI) Xarelto 10 mg tablet See Rx Instructions .ROUTE .COMPLEX Qty: 90 0RF Dose Instruction: TAKE 1 TABLET BY MOUTH DAILY Rx Instructions: TAKE 1 TABLET BY MOUTH DAILY diltiazem HCl 240 mg capsule,extended release 24 hr See Rx Instructions .ROUTE .COMPLEX Qty: 90 0RF Dose Instruction: TAKE ONE CAPSULE BY MOUTH EVERY MORNING Rx Instructions: TAKE ONE CAPSULE BY MOUTH EVERY MORNING theophylline 300 mg tablet extended release 12 hr See Rx Instructions .ROUTE .COMPLEX Qty: 90 0RF Dose Instruction: TAKE 1 TABLET BY MOUTH EVERY 8 HOURS Rx Instructions: TAKE 1 TABLET BY MOUTH EVERY 8 HOURS Discharge Orders: Discharge ED (Routine); Ordered 11/25/21 Ordered By: Padilla Cheney Referrals: Merlin Prince APRN [Primary Care Provider] - Discharge Diet: Usual diet Discharge Activity: Resume usual activity Patient Instructions: Opioid Safety Activity Restrictions/Additional Instructions: Make sure you take all your prescribed medicines as directed. Monitor your leg swelling and body weight on a daily basis. If you gain more than 3 pounds in a day contact your primary pet caregiver for further instructions. Should you develop chest pain, increasing shortness of breath or other concerns at any time return to this or the nearest emergency department. Coding Level of Care Code ED It Help Desk Manager for Divina Jones Exam Comprehensive
--- NOTE | 2021-11-25 11:46 | XRR_ITS ---
PROCEDURE INFORMATION: Exam: XR Chest Exam date and time: 11/25/2021 11:15 AM Age: 75 years old Clinical indication: Dyspnea; Additional info: Leg swelling TECHNIQUE: Imaging protocol: XR of the chest. Views: 1 view. COMPARISON: CR XR chest 1V portable [id number] 02/20/2021 7:19 PM FINDINGS: Lungs: Unremarkable. No consolidation. Pleural spaces: Unremarkable. No pleural effusion. No pneumothorax. Heart/Mediastinum: Unremarkable. No cardiomegaly. Bones/joints: Unremarkable. XR/XR chest 1V portable [id number] IMPRESSION: No acute findings.
--- NOTE | 2021-11-25 11:47 | ECG_ITS ---
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 Measurements Intervals [place] Rate: 94 P: AR: QRS: 78 QRSD: 89 T: 50 QT: 372 QTc: 466 Interpretive Statements ATRIAL FIBRILLATION LOW QRS VOLTAGE IN PRECORDIAL LEADS [QRS DEFLECTION < 1.0 mV IN CHEST LEADS] NONSPECIFIC ST & T-WAVE ABNORMALITY ABNORMAL RHYTHM ECG Compared to ECG 02/20/2021 21:43:34 Low QRS voltage now present T-wave abnormality still present Electronically Signed On 11-26-2021 17:24:18 CDT by Farzana Aponte M.D. [email or web address]
[2021-11-25 12:09] LABS: Basophils # 0.1 10^3/uL (0.0-0.1); Basophils % 1.4 %; Eosinophils # 0.2 10^3/uL (0.0-0.8); Eosinophils % 3.6 %; Hematocrit 40.8 % (37.0-47.0); Hemoglobin 13.3 g/dL (11.5-15.3); Lymphocytes % 16.4 %; Mean Corpuscular HGB Conc 32.6 g/dL (30.0-36.0); Mean Corpuscular Hemoglobin 30.2 pg (28.0-34.0); Mean Corpuscular Volume 92.7 fl (81-99); Mean Platelet Volume 10.7 fL (7.4-10.4); Monocytes # 0.9 10^3/uL (0.2-0.9); Monocytes % 15.5 %; Neutrophils # 3.66 10^3/uL (1.8-7.7); Neutrophils % 62.9 %; Nucleated Red Blood Cells % 0 %; Platelet Count 151 10^3/cmm (130-400); Red Cell Distribution Width 14.4 % (12.1-15.1); White Blood Count 5.8 10^3/uL (4.0-10.0)
[2021-11-25 12:43] LABS: Anion Gap 15.1 (5-19); Blood Urea Nitrogen 8 mg/dL (8-23); Calcium 9.7 mg/dL (8.5-10.5); Carbon Dioxide 25 mmol/L (22-29); Chloride 102 mmol/L (98-107); Creatinine Clr Calc Pharmacy 66.6361; Glucose 88 mg/dL (65-115); NT Pro B Type Natriuretic Pept 759 pg/mL (0-450); Osmolality Calculated 286 mOsm/kg (285-295); Potassium 3.1 mmol/L (3.5-5.1); Sodium 139 mmol/L (136-145)
[2021-11-25 13:48] VITALS: BP 109/64; PULSE 80; RESP 16; O2SAT 97
[2021-11-25] MEDS: potassium bicarb 25 mEq Tablet 50 MEQ PO (13:50)
== END 2021-11-25 13:57 | disposition home or self-care (01) ==
PROVIDERS: Emergency Provider Emergency Medicine; PCP Nurse Practitioner Family
DX: G40.409 Other generalized epilepsy and epileptic syndromes, not intractable, without status epilepticus (principal); I48.91 Unspecified atrial fibrillation; H91.90 Unspecified hearing loss, unspecified ear; E87.6 Hypokalemia; Z79.82 Long term (current) use of aspirin; J44.9 Chronic obstructive pulmonary disease, unspecified; I10 Essential (primary) hypertension
CPT/HCPCS: 71045; 80048; 83880; 85025; 93005; 99283

== ENCOUNTER → 2021-11-27 13:05 | Outpatient (BNVA) | payer MEDICARE, SELFPAY | PROVIDERS: PCP Nurse Practitioner Family; Visit Provider Internal Medicine Pulmonary Disease | DX: J45.909 Unspecified asthma, uncomplicated (principal); I10 Essential (primary) hypertension; Z79.01 Long term (current) use of anticoagulants; J44.9 Chronic obstructive pulmonary disease, unspecified | CPT/HCPCS: 36415; 82785; 86003; 99204 ==

== ENCOUNTER → 2021-12-04 13:01 | Outpatient (BNVA) | payer MEDICARE, SELFPAY | PROVIDERS: PCP Nurse Practitioner Family; Visit Provider Specialist | DX: G40.309 Generalized idiopathic epilepsy and epileptic syndromes, not intractable, without status epilepticus (principal); J42 Unspecified chronic bronchitis; G25.1 Drug-induced tremor; T42.6X5A Adverse effect of other antiepileptic and sedative-hypnotic drugs, initial encounter; Z87.891 Personal history of nicotine dependence | CPT/HCPCS: 99214 ==

== ENCOUNTER → 2021-12-14 09:56 | Outpatient (BNVA) | payer MEDICARE, SELFPAY | PROVIDERS: PCP Registered Nurse; Visit Provider Registered Nurse | DX: R60.9 Edema, unspecified (principal) | CPT/HCPCS: 80048 ==

== ENCOUNTER 2022-03-22 10:28 | Outpatient (CLI) | payer MEDICARE, MEDICAID, SELFPAY ==
--- NOTE | 2022-03-22 10:46 | MM_ITS ---
WS: [id number] Bilateral screening 3D tomosynthesis digital mammogram, 03/22/2022 Clinical Data: Z12.31 - Encounter for screening mammogram for malignant ... Comparison: 07/28/2019. Findings: The breast parenchymal pattern shows fibroglandular tissue No spiculated masses or clustered calcific ations are seen. There are no secondary signs of carcinoma. There are calcifications in the omalley of small vessels. MM/[place] [address] Impression: 1. Negative bilateral mammogram unchanged. 2. Recommend annual screening mammograms. BIRADS: 1-Negative FOLLOW UP: 1 Year Follow-up The CAD checkering machine operator was used.
--- NOTE | 2022-03-22 11:24 | PFTS_ITS ---
Date of Study:03/22/22 Date of Dictation: 03/24/2022 MECHANICS: Postbronchodilator forced vital capacity (FVC) is normal. Postbronchodilator forced expiratory volume in one second (FEV1) is normal. FEV1/FVC is reduced. There is significant postbronchodilator response FLOW VOLUME LOOP: Slight scooping of expiratory limb suggestive of airway obstruction LUNG VOLUMES: Total lung capacity (TLC) is normal. Residual volume (RV) is normal DIFFUSING CAPACITY FOR CARBON MONOXIDE: normal . INTERPRETATION: The spirometry showed mild obstructive ventilatory defect. There is significant postbronchodilator response. Lung volumes are normal. Gas transfer is normal. Clinical correlation recommended. MTDD
== END 2022-03-22 10:29 | disposition home or self-care (01) ==
PROVIDERS: PCP Registered Nurse; Visit Provider Registered Nurse
DX: Z12.31 Encounter for screening mammogram for malignant neoplasm of breast (principal); J45.909 Unspecified asthma, uncomplicated
CPT/HCPCS: 77063; 77067; 94060; 94618; 94726; 94729; J7614

== ENCOUNTER → 2022-06-04 14:04 | Outpatient (BNVA) | payer MEDICARE, MEDICAID, SELFPAY | PROVIDERS: PCP Registered Nurse; Visit Provider Specialist | DX: G40.309 Generalized idiopathic epilepsy and epileptic syndromes, not intractable, without status epilepticus (principal); F03.90 Unspecified dementia, unspecified severity, without behavioral disturbance, psychotic disturbance, mood disturbance, and anxiety | CPT/HCPCS: 99214 ==

== ENCOUNTER 2022-06-16 11:42 | Emergency (ER) | payer MEDICARE, SELFPAY ==
[2022-06-16 11:48] VITALS: BP 128/74; PULSE 96; RESP 16; TEMP 36.7; O2SAT 95; BMI 34.8
--- NOTE | 2022-06-16 12:19 | W.ED.GENADLT ---
HPI - General Adult General: Chief complaint: COVID symptoms Stated complaint: COVID+yest, fatigue Time Seen by Provider: 06/16/22 12:13 History of Present Illness: Patient is a 76-year-old female with a history of asthma, atrial fibrillation, COPD, hypertension who presents emergency room after she was tested positive for COVID yesterday requesting for retest. Per patient's , patient has been having symptoms of cough, body aches, generalized weakness and decreased appetite for the last 4 days. Yesterday patient went to see hospital was diagnosed with COVID. Patient was discharged home with antiviral medication. Patient has started her first dose of antiviral medication today. Patient continues to have shortness of breath and weakness. Patient's brought patient to the emergency room for further evaluation. Patient reports loose stool, denies abdominal pain, active vomiting, complaints at this time. Patient denies any active chest pain, or productive sputum. Onset:3-4 days ago Duration:ongoing Location:home Severity:moderate Associated symptoms: Reports dyspnea and nausea; Deny chest pain, rash, palpitations or vomiting Review of Systems Const: Reports: body aches and fatigue; Denies: fever(s) or chills Eyes: Denies: change in vision ENMT: Denies: mouth pain Card: Denies: chest pain or palpitations Resp: Reports: dyspnea and non-productive cough GI: Reports: nausea and diarrhea; Denies: abdominal pain or vomiting : Denies: dysuria Musc: Denies: extremity pain Skin/Breast: Denies: rash or new lesions Neuro: Denies: weakness in extremities Psych: Reports: other (Normal mood) Chance/Lymph: Denies: easy bruising [facility] ED PFSH: Medical History Asthma Atrial fibrillation COPD (chronic obstructive pulmonary disease) Developmental abnormality of central nervous system Enrolled in chronic care management Essential hypertension Generalized epilepsy Hearing loss Impaired memory Keratosis pilaris Mental confusion determined by examination Moderate aortic stenosis Moderate persistent asthma Osteoporosis 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 Surgical History History of hemorrhoidectomy (~09/2019) Family History Other History of hemorrhoidectomy Denies family history of Diabetes CAD (coronary artery disease) Anesthesia complication Bleeding disorder Stroke Social History Smoking and tobacco status: never smoked Second hand smoke exposure: No Alcohol intake: never Adopted: No Caregiver/support person: Yes Lives independently: Yes Household members: spouse Housing: House Marital status: Highest education level completed: High School Graduate service: No Current occupational status: retired Current occupational exposures/hazards: No Pets and animals: No History of recent travel: No Sexually active: No Current gender identity: Female Shayy/Spiritism: Anabaptist Special shayy needs: No Agree to transfusion: No Financial difficulty paying for basics: Decline to Answer Physical Exam Const: COMMON NORMALS: alert HENMT: COMMON NORMALS: atraumatic HEAD & SCALP: atraumatic MOUTH: moist mucous membranes not abnormal Eye: COMMON NORMALS: EOMs intact bilaterally and conjunctivae normal CONJUNCTIVA: Yes conjunctivae normal Neck/C-Spine: COMMON NORMALS: full ROM and supple Resp: COMMON NORMALS: normal respiratory effort and clear to auscultation bilaterally AUSCULTATION: clear to auscultation bilaterally Cardio: COMMON NORMALS: regular rate RATE: regular rate GI: COMMON NORMALS: Soft to palpation and non-tender PALPATION: Yes Soft to palpation OTHER: No focal TTP. NO guarding rebound, guarding, rigidity. No CVA tenderness to percussion. Neg Crocker/Neg McBurney's point tenderness, no suprabupic tenderness to palpation. Extremity: COMMON NORMALS: full ROM Neuro: SENSORIUM/ORIENTATION: Yes alert MOTOR EXAM: No Abnormal motor strength present and Other motor observations present (no focal motor deficits) Psych: COMMON NORMALS: speech normal SPEECH: Yes normal speech MOOD & AFFECT: Yes euthymic mood Course Vital Signs: Vital signs: Vital Signs Temperature 98.1 F 06/16/22 11:48 Pulse Rate 96 06/16/22 11:48 Respiratory Rate 16 06/16/22 11:48 Blood Pressure 128/74 06/16/22 11:48 Pulse Oximetry 95 06/16/22 11:48 Oxygen Delivery Me thod 06/16/22 13:19 [facility] - General Adult Medical Decision Making Patient is a 76-year-old female with a history of asthma, atrial fibrillation, COPD, hypertension who presents emergency room after she was tested positive for COVID yesterday requesting for retest. Patient continues to be satting well greater than 94% on room air. Patient is no respiratory distress. Patient is afebrile today. X-ray chest did not show worsening pneumonitis at this time. Patient's COVID antibiotic the repeated per request of . Patient is already on Paxil. Patient continues to be hemodynamically stable with no signs of respiratory distress, patient is stable for discharge. Instructed patient to continue taking her antiviral medication. Patient is discharged home with pulse ox Rx tylenol PRN abd pain, maalox/pepcid PRN dyspepsia, and zofran PRN nausea/vomiting Disposition: Discharge. Patient counseled regarding diagnostic impression, treatment plan. Patient given ED strict return precautions to return for continuation, worsening, or development of new symptoms. Instructed to f/u w/ PCP regarding symptoms today. Patient verbalized understanding. Lab Data Radiology Impressions Chest X-Ray 06/16/22 12:46 IMPRESSION: No acute findings. Imaging Data Other Imaging: Radiologist's impression: [address] [address] XRay Report Signed Patient: Daphnie Coughlin Unit #: [id number] : 1945 Age/Sex: 76 / F ADM Date: 06/16/22 Loc: ER Room/Bed: Attending Dr: Ordering Provider/Ordering MD: Yajaira Greenfield MD Date of Service: 06/16/22 Procedure(s): XR chest 1V portable [id number] Accession Number(s): [id number] Report Number: [id number] PROCEDURE INFORMATION: Exam: XR Chest Exam date and time: 06/16/2022 12:52 PM Age: 76 years old Clinical indication: Dyspnea TECHNIQUE: Imaging protocol: Radiologic exam of the chest. Views: 1 view. COMPARISON: CR XR chest 1V portable [id number] 11/25/2021 11:15 AM FINDINGS: Lungs: Unremarkable. No consolidation. Pleural spaces: Unremarkable. No pleural effusion. No pneumothorax. Heart/Mediastinum: Unremarkable. No cardiomegaly. Bones/joints: Unremarkable. XR/XR chest 1V portable [id number] IMPRESSION: No acute findings. ? Dictated By: Jose James MD Signed By: Jose James MD Signed Date/Time: 06/16/22 1516 DD/ 1252 Discharge Plan Discharge Patient Disposition: Home Clinical Impression: Generalized weakness, Cough Condition: Stable Prescriptions: New acetaminophen 500 mg tablet 500 mg PO Q6H PRN (Reason: pain) 5 Days Qty: 20 0RF Pepcid 20 mg tablet 20 mg PO BID PRN (Reason: abdominal pain) 10 Days Qty: 20 0RF ondansetron 4 mg tablet,disintegrating 4 mg PO TID PRN (Reason: nausea and vomiting) 4 Days Qty: 12 0RF Maalox Advanced 1,000-60 mg tablet,chewable 1 tab PO TID PRN (Reason: abdominal pain) 7 Days Qty: 21 0RF No Action aspirin [Aspir-Sabi] 325 mg tablet,delayed release (DR/EC) 325 mg PO DAILY@0800 alendronate 70 mg tablet See Rx Instructions .ROUTE .COMPLEX Qty: 4 12RF Dose Instruction: TAKE 1 TABLET BY MOUTH WEEKLY Rx Instructions: TAKE 1 TABLET BY MOUTH WEEKLY fluticasone furoate-vilanterol [Breo Ellipta] 100-25 mcg/dose blister with device 1 inh inhalation DAILY albuterol sulfate 90 mcg/actuation HFA aerosol inhaler 2 puff inhalation Q6H PRN diltiazem HCl [Cardizem CD] 360 mg capsule,extended release 24hr 360 mg PO DAILY Qty: 90 3RF diclofenac sodium [Voltaren Arthritis Pain] 1 % gel 2 g topical QID Qty: 100 5RF Rx Instructions: apply to single elbow, wrist or hand; for hand includes palm/fingers/back of hand povidone-iodine [Betadine Swabsticks] 10 % swab 1 applic topical ONCE Qty: 1 0RF lidocaine (PF) 20 mg/mL (2 %) solution 20 mg SUBCUT ONCE Qty: 3 0RF Xarelto 10 mg tablet See Rx Instructions .ROUTE .COMPLEX Qty: 90 1RF Dose Instruction: TAKE 1 TABLET BY MOUTH DAILY Rx Instructions: TAKE 1 TABLET BY MOUTH DAILY levetiracetam [Keppra XR] 750 mg tablet extended release 24 hr 1,500 mg PO ONCE 90 Days Qty: 180 0RF Rx Instructions: With supper divalproex 250 mg tablet,delayed release (DR/EC) 750 mg PO BID Qty: 180 7RF montelukast 10 mg tablet See Rx Instructions .ROUTE .COMPLEX Qty: 90 0RF Dose Instruction: TAKE 1 TABLET BY MOUTH EVERY DAY Rx Instructions: TAKE 1 TABLET BY MOUTH EVERY DAY furosemide 40 mg tablet See Rx Instructions .ROUTE .COMPLEX Qty: 90 0RF Dose Instruction: TAKE 1 TABLET BY MOUTH DAILY.(MIKA RAVI) Rx Instructions: TAKE 1 TABLET BY MOUTH DAILY.(MIKA RAVI) theophylline 300 mg tablet extended release 12 hr 300 mg PO BID 90 Days Qty: 180 1RF potassium chloride 10 mEq tablet extended release See Rx Instructions .ROUTE .COMPLEX Qty: 30 0RF Dose Instruction: TAKE 1 TABLET BY MOUTH DAILY Rx Instructions: TAKE 1 TABLET BY MOUTH DAILY Discharge Orders: Discharge ED (Routine); Ordered 06/16/22 Ordered By: Yajaira Greenfield Referrals: Jeff Mancia FNP [Primary Care Provider] - Discharge Diet: Advance as tolerated Discharge Activity: Increase activity as tolerated Patient Instructions: COVID-19 (Coronavirus Disease 2019) (ED) Activity Restrictions/Additional Instructions: Come back to the emergency room if your symptoms worsen, have any shortness of breath, fever/chills, dehydration, inability tolerate food or drinks, any difficulty breathing, or any new or concerning complaints. Please return the emergency room if your pulse ox reads less than 88%. Coding Level of Care Code ED Spd Manager for Divina Jones Exam Comprehensive
--- NOTE | 2022-06-16 12:46 | XRR_ITS ---
PROCEDURE INFORMATION: Exam: XR Chest Exam date and time: 06/16/2022 12:52 PM Age: 76 years old Clinical indication: Dyspnea TECHNIQUE: Imaging protocol: Radiologic exam of the chest. Views: 1 view. COMPARISON: CR XR chest 1V portable [id number] 11/25/2021 11:15 AM FINDINGS: Lungs: Unremarkable. No consolidation. Pleural spaces: Unremarkable. No pleural effusion. No pneumothorax. Heart/Mediastinum: Unremarkable. No cardiomegaly. Bones/joints: Unremarkable. XR/XR chest 1V portable [id number] IMPRESSION: No acute findings.
[2022-06-16 15:04] LABS: Adenovirus Not Detected (NOT DETECT); Chlamydia Pneumoniae Not Detected (NOT DETECT); Coronavirus 229E,HKU1,NL63,OC4 Not Detected (NOT DETECT); Human Metapneumovirus Not Detected (NOT DETECT); Human Rhinovirus/Enterovirus Not Detected (NOT DETECT); Influenza A Not Detected (NOT DETECT); Influenza A H1 Not Detected (NOT DETECT); Influenza A H1-2009 Not Detected (NOT DETECT); Influenza A H3 Not Detected (NOT DETECT); Influenza B Not Detected (NOT DETECT); Mycoplasma Pneumoniae Not Detected (NOT DETECT); Parainfluenza Virus Type 1 Not Detected (NOT DETECT); Parainfluenza Virus Type 2 Not Detected (NOT DETECT); Parainfluenza Virus Type 3 Not Detected (NOT DETECT); Parainfluenza Virus Type 4 Not Detected (NOT DETECT); Respiratory Syncytial Virus A Not Detected (NOT DETECT); Respiratory Syncytial Virus B Not Detected (NOT DETECT); SARS-COV-2 Detected (NOT DETECT)
== END 2022-06-16 14:17 | disposition home or self-care (01) ==
PROVIDERS: Emergency Provider Emergency Medicine; PCP Registered Nurse
DX: U07.1 COVID-19 (principal); R53.1 Weakness; R05.9 Cough, unspecified; Z79.82 Long term (current) use of aspirin; I10 Essential (primary) hypertension
CPT/HCPCS: 71045; 87635; 99284

== ENCOUNTER 2022-07-03 07:20 | Emergency (ER) | payer MEDICARE, SELFPAY ==
[2022-07-03 07:20] VITALS: BP 131/43; PULSE 115; RESP 23; TEMP 36.6; O2SAT 95
--- NOTE | 2022-07-03 07:30 | W.ED.SEIZURE ---
HPI - Seizure General: Chief Complaint: Seizure Stated Complaint: seizures Time Seen by Provider: 07/03/22 07:23 History of Present Illness: HPI Narrative: [id number] female brought in by EMS postictal. She reportedly had 2 seizures this morning is lasting around 5 to 10 minutes although EMS noted that when she when they arrived she was postictal in the that still indicated an ongoing seizure. She is currently on Keppra and divalproex acid. Nurses note stated EMS reported she had not taken any or when I talked to EMS at the bedside they state that the family member said she had been taking the Keppra regularly. No family members available. Additionally when the EMS first encounter the patient she was in A. fib with RVR with a rate in 130s and 140s she was given 20 mg IV push Cardizem and she has converted and her rate is well controlled at this time. She has a known history of A. fib with RVR and she is anticoagulated with rivaroxaban and is on diltiazem 360 daily for rate control. When I first encountered the patient is no family at the bedside she is able to respond verbally but is still very confused and obviously in a postictal state. complaint: seizure Onset (ago): minute(s) Witnessed: Yes - by Bystander Trauma: No Seizure History: Yes Place: Home Possible Precipitating Event: none Associated symptoms: Reports chest pain Treatments prior to arrival: other (Diltiazem for A. fib) Review of Systems General: Reports: ROS unobtainable due to mental status Card: Reports: chest pain [facility] ED PFSH: Medical History Asthma Atrial fibrillation COPD (chronic obstructive pulmonary disease) Developmental abnormality of central nervous system Enrolled in chronic care management Essential hypertension Generalized epilepsy Hearing loss Impaired memory Keratosis pilaris Mental confusion determined by examination Moderate aortic stenosis Moderate persistent asthma Osteoporosis 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 Surgical History History of hemorrhoidectomy (~09/2019) Family History Other History of hemorrhoidectomy Denies family history of Diabetes CAD (coronary artery disease) Anesthesia complication Bleeding disorder Stroke Social History Smoking and tobacco status: never smoked Second hand smoke exposure: No Alcohol intake: never Adopted: No Caregiver/support person: Yes Lives independently: Yes Household members: spouse Housing: House Marital status: Highest education level completed: High School Graduate service: No Current occupational status: retired Current occupational exposures/hazards: No Pets and animals: No History of recent travel: No Sexually active: No Current gender identity: Female Shayy/Amish: Orthodox Special shayy needs: No Agree to transfusion: No Financial difficulty paying for basics: Decline to Answer Physical Exam Const: GENERAL APPEARANCE: cooperative and comfortable ORIENTATION/CONSCIOUSNESS: Yes awake HENMT: COMMON NORMALS: normocephalic, atraumatic and hearing grossly normal bilaterally HEAD & SCALP: normocephalic and atraumatic Resp: COMMON NORMALS: normal respiratory effort, No retractions, No use of accessory muscles and clear to auscultation bilaterally AUSCULTATION: clear to auscultation bilaterally Cardio: COMMON NORMALS: regular rate, regular rhythm and No murmurs present (Cardio) RATE: regular rate RHYTHM: regular rhythm GI: COMMON NORMALS: Soft to palpation and No hepatosplenomegaly present AUSCULTATION: Yes normoactive bowel sounds PALPATION: Yes Soft to palpation, No Tenderness to palpation present (GI), No Guarding due to palpation present (GI) and Yes No hepatosplenomegaly present Extremity: COMMON NORMALS: normal to inspection, capillary refill normal, no clubbing, cyanosis or edema, no calf tenderness and no pedal edema Skin: COMMON NORMALS: no rashes or lesions noted GENERAL SKIN EXAM: no rashes or lesions noted Course Vital Signs: Vital signs: Vital Signs Temperature 97.9 F 07/03/22 07:20 Pulse Rate 73 07/03/22 08:56 Respiratory Rate 20 H 07/03/22 07:39 Blood Pressure 140/65 07/03/22 08:56 Pulse Oximetry 91 07/03/22 08:56 Oxygen Delivery Me thod 07/03/22 07:39 Oxygen Flow Rate 2 07/03/22 07:20 MDM - Seizure Lab Data Result diagrams: 07/03/22 07:38 07/03/22 07:38 Labs: Laboratory Results WBC 7.5 10^3/uL (4.0-10.0) 07/03/22 07:38 RBC 4.58 10^6/uL (4.1-5.3) 07/03/22 07:38 Hgb 13.9 g/dL (11.5-15.3) 07/03/22 07:38 Hct 41.7 % (37.0-47.0) 07/03/22 07:38 MCV 91.0 fl (81-99) 07/03/22 07:38 MCH 30.3 pg (28.0-34.0) 07/03/22 07:38 MCHC 33.3 g/dL (30.0-36.0) 07/03/22 07:38 RDW 13.8 % (12.1-15.1) 07/03/22 07:38 Plt Count 162 10^3/cmm (130-400) 07/03/22 07:38 MPV 11.4 fL (7.4-10.4) H 07/03/22 07:38 Neut % (Auto) 43.3 % 07/03/22 07:38 Lymph % (Auto) 39.7 % 07/03/22 07:38 [place] % (Auto) 12.5 % 07/03/22 07:38 Eos % (Auto) 3.1 % 07/03/22 07:38 Baso % (Auto) 1.1 % 07/03/22 07:38 Neut # (Auto) 3.24 10^3/uL (1.8-7.7) 07/03/22 07:38 Lymph # (Auto) 3.0 10^3/uL (0.8-4.8) 07/03/22 07:38 [place] # (Auto) 0.9 10^3/uL (0.2-0.9) 07/03/22 07:38 Eos # (Auto) 0.2 10^3/uL (0.0-0.8) 07/03/22 07:38 Baso # (Auto) 0.1 10^3/uL (0.0-0.1) 07/03/22 07:38 Nucleated RBC % (auto) 0 % 07/03/22 07:38 Nucleated RBCs # 0.0 /100WBC 07/03/22 07:38 Sodium 138 mmol/L (136-145) 07/03/22 07:38 Potassium 3.5 mmol/L (3.5-5.1) 07/03/22 07:38 Chloride 96 mmol/L (98-107) L 07/03/22 07:38 Carbon Dioxide 20 mmol/L (22-29) L 07/03/22 07:38 Anion Gap 25.5 (5-19) H 07/03/22 07:38 BUN 12 mg/dL (8-23) 07/03/22 07:38 Creatinine 0.7 mg/dL (0.5-0.9) 07/03/22 07:38 GFR Calculation Not Reportable 07/03/22 07:38 Glucose 129 mg/dL (65-115) H 07/03/22 07:38 Calculated Osmolality 287 mOsm/kg (285-295) 07/03/22 07:38 Calcium 9.7 mg/dL (8.5-10.5) 07/03/22 07:38 Discharge Plan Discharge Patient Disposition: Home Clinical Impression: Epileptic seizure, COPD (chronic obstructive pulmonary disease), Atrial fibrillation Condition: Stable Prescriptions: New Spiriva Respimat 1.25 mcg/actuation mist 2 inh inhalation DAILY Qty: 4 0RF Discontinued theophylline 300 mg tablet extended release 12 hr 300 mg PO BID 90 Days Qty: 180 1RF No Action aspirin [Aspir-Sabi] 325 mg tablet,delayed release (DR/EC) 325 mg PO DAILY@0800 alendronate 70 mg tablet See Rx Instructions .ROUTE .COMPLEX Qty: 4 12RF Dose Instruction: TAKE 1 TABLET BY MOUTH WEEKLY Rx Instructions: TAKE 1 TABLET BY MOUTH WEEKLY fluticasone furoate-vilanterol [Breo Ellipta] 100-25 mcg/dose blister with device 1 inh inhalation DAILY albuterol sulfate 90 mcg/actuation HFA aerosol inhaler 2 puff inhalation Q6H PRN diltiazem HCl [Cardizem CD] 360 mg capsule,extended release 24hr 360 mg PO DAILY Qty: 90 3RF diclofenac sodium [Voltaren Arthritis Pain] 1 % gel 2 g topical QID Qty: 100 5RF Rx Instructions: apply to single elbow, wrist or hand; for hand includes palm/fingers/back of hand Xarelto 10 mg tablet See Rx Instructions .ROUTE .COMPLEX Qty: 90 1RF Dose Instruction: TAKE 1 TABLET BY MOUTH DAILY Rx Instructions: TAKE 1 TABLET BY MOUTH DAILY levetiracetam [Keppra XR] 750 mg tablet extended release 24 hr 1,500 mg PO ONCE 90 Days Qty: 180 0RF Rx Instructions: With supper divalproex 250 mg tablet,delayed release (DR/EC) 750 mg PO BID Qty: 180 7RF montelukast 10 mg tablet See Rx Instructions .ROUTE .COMPLEX Qty: 90 0RF Dose Instruction: TAKE 1 TABLET BY MOUTH EVERY DAY Rx Instructions: TAKE 1 TABLET BY MOUTH EVERY DAY furosemide 40 mg tablet See Rx Instructions .ROUTE .COMPLEX Qty: 90 0RF Dose Instruction: TAKE 1 TABLET BY MOUTH DAILY.(MIKA RAVI) Rx Instructions: TAKE 1 TABLET BY MOUTH DAILY.(MIKA RAVI) potassium chloride 10 mEq tablet extended release See Rx Instructions .ROUTE .COMPLEX Qty: 30 0RF Dose Instruction: TAKE 1 TABLET BY MOUTH DAILY Rx Instructions: TAKE 1 TABLET BY MOUTH DAILY Discharge Orders: Discharge ED (Routine); Ordered 07/03/22 Ordered By: Abundio Amin Referrals: Jeff Mancia FNP [Nurse Practitioner] - Discharge Diet: Usual diet Discharge Activity: Resume usual activity Patient Instructions: Opioid Safety, Pain Management Activity Restrictions/Additional Instructions: Continue dye valproic acid and Keppra as previously prescribed. Recommend that you stop the theophylline as it has the potential to increase seizure activity and raise heart rate. Instead start the Spiriva 2 puffs once daily. Follow-up with your primary care doctor within the next week to reevaluate. Contact Dr. Montoya's office for follow-up as well. Coding Level of Care Code ED Supervisor Fertilizer Processing for Divina Fwd Exam Detailed
[2022-07-03 07:39] VITALS: BP 133/82; PULSE 96; RESP 20; O2SAT 95
[2022-07-03 07:45] LABS: Basophils # 0.1 10^3/uL (0.0-0.1); Basophils % 1.1 %; Eosinophils # 0.2 10^3/uL (0.0-0.8); Eosinophils % 3.1 %; Hematocrit 41.7 % (37.0-47.0); Hemoglobin 13.9 g/dL (11.5-15.3); Lymphocytes % 39.7 %; Mean Corpuscular HGB Conc 33.3 g/dL (30.0-36.0); Mean Corpuscular Hemoglobin 30.3 pg (28.0-34.0); Mean Platelet Volume 11.4 fL (7.4-10.4); Monocytes # 0.9 10^3/uL (0.2-0.9); Monocytes % 12.5 %; Neutrophils # 3.24 10^3/uL (1.8-7.7); Neutrophils % 43.3 %; Nucleated Red Blood Cells % 0 %; Platelet Count 162 10^3/cmm (130-400); Red Blood Count 4.58 10^6/uL (4.1-5.3); Red Cell Distribution Width 13.8 % (12.1-15.1); White Blood Count 7.5 10^3/uL (4.0-10.0)
[2022-07-03] MEDS: dilTIAZem ER (24HR) 120 mg Capsule 360 MG PO (07:56)
--- NOTE | 2022-07-03 08:04 | PC.NURSE ---
FAMILY IN ROOM. PT COMFORTABLE. SEIZURE PADS APPLIED TO BED RAILS.
[2022-07-03 08:13] LABS: Blood Urea Nitrogen 12 mg/dL (8-23); Calcium 9.7 mg/dL (8.5-10.5); Carbon Dioxide 20 mmol/L (22-29); Chloride 96 mmol/L (98-107); Glucose 129 mg/dL (65-115); Osmolality Calculated 287 mOsm/kg (285-295); Sodium 138 mmol/L (136-145)
[2022-07-03 08:14] LABS: Anion Gap 25.5 (5-19); Potassium 3.5 mmol/L (3.5-5.1)
[2022-07-03 08:56] VITALS: BP 140/65; PULSE 73; O2SAT 91
[2022-07-03 09:40] VITALS: BP 152/87; PULSE 78; RESP 18; O2SAT 95
[2022-07-03 10:00] VITALS: PULSE 80; O2SAT 95
[2022-07-05 09:08] LABS: Levetiracetam Immunoassy <2.0 mcg/mL (6.0-46.0)
== END 2022-07-03 10:00 | disposition home or self-care (01) ==
PROVIDERS: Emergency Provider Family Medicine; PCP Specialist
DX: G40.909 Epilepsy, unspecified, not intractable, without status epilepticus (principal); J44.9 Chronic obstructive pulmonary disease, unspecified; I48.91 Unspecified atrial fibrillation; Z79.82 Long term (current) use of aspirin; I10 Essential (primary) hypertension
CPT/HCPCS: 80048; 80177; 85025; 96365; 99284; J1953

== ENCOUNTER → 2022-07-12 10:47 | Outpatient (BNVA) | payer MEDICARE, MEDICAID, SELFPAY | PROVIDERS: PCP Specialist; Visit Provider Registered Nurse | DX: R53.83 Other fatigue (principal); I10 Essential (primary) hypertension; M81.0 Age-related osteoporosis without current pathological fracture; I48.91 Unspecified atrial fibrillation; T88.7XXA Unspecified adverse effect of drug or medicament, initial encounter; J44.9 Chronic obstructive pulmonary disease, unspecified; G40.309 Generalized idiopathic epilepsy and epileptic syndromes, not intractable, without status epilepticus; G93.32 Myalgic encephalomyelitis/chronic fatigue syndrome; Z09 Encounter for follow-up examination after completed treatment for conditions other than malignant neoplasm | CPT/HCPCS: 82306; 82607; 84443; 85025 ==

== ENCOUNTER → 2022-08-20 14:15 | Outpatient (BNVA) | payer MEDICARE, SELFPAY | PROVIDERS: PCP Specialist; Visit Provider Internal Medicine | DX: I48.91 Unspecified atrial fibrillation (principal); Z79.01 Long term (current) use of anticoagulants; Z79.82 Long term (current) use of aspirin; I25.10 Atherosclerotic heart disease of native coronary artery without angina pectoris; J44.9 Chronic obstructive pulmonary disease, unspecified; I10 Essential (primary) hypertension; I35.0 Nonrheumatic aortic (valve) stenosis | CPT/HCPCS: 99214 ==

== ENCOUNTER 2023-04-16 12:08 | Outpatient (CLI) | payer MEDICARE, SELFPAY ==
--- NOTE | 2023-04-16 12:32 | USCV_ITS ---
Daphnie Coughlin Age: 77 Gender: F : 1945 Exam Date: 04/16/2023 13:06 Ordering Phys: Rebekah Lay MD Technologist: CT [place] [facility] [place]: sob BP: 132 / 71 HR: 78 Rhythm: Sinus Technical Quality: Adequate MEASUREMENTS (Male / Female) Normal Values 2D ECHO LV Chamber Size 4.2 cm RV Chamber Size 4.3 cm LVOT Diameter 2.0 cm LV Ejection Fraction MOD 2C 71.0 % LV Ejection Fraction 2C AL 69.5 % LA Diameter 4.4 cm LA Width 4.2 cm LA Height 6.2 cm RA Width 4.8 cm RA Height 5.0 cm Aorta at Sinotubular Diameter 2.3 cm IVC Diameter 1.8 cm M-MODE Aortic Annulus Diameter 2.5 cm LA Ao Ratio MM 1.9 MV E Point Septal Separation 1.1 cm DOPPLER AV Peak Velocity 247.0 cm/s LVOT Peak Velocity 137.0 cm/s AV Area Cont Eq vti 1.8 cm squared AV Area Cont Eq pk 1.8 cm squared MV Area PHT 4.9 cm squared Mitral E to A Ratio 3.3 MV E' Velocity 57.5 cm/s Mitral E to MV E' Ratio 7.7 Mitral E to LV E' Lateral Ratio 7.8 Mitral E to LV E' Septal Ratio 7.6 TR Peak Velocity 276.3 cm/s TR Peak Gradient 30.5 mmHg TV Peak E Velocity 111.0 cm/s Right Atrial Pressure 3.0 mmHg Pulmonary Artery Systolic Pressu 33.5 mmHg PV Peak Velocity 130.0 cm/s FINDINGS Left Ventricle Normal left ventricular size, systolic function and wall thickness, with no regional wall motion abnormalities. Grade I/IV diastolic dysfunction (abnormal relaxation filling pattern), normal to mildly elevated filling pressures. Left ventricular ejection fraction is estimated at 60 %. Right Ventricle Normal right ventricular size and systolic function. Normal right ventricular systolic pressure. Right Atrium Mildly increased right atrial size. Left Atrium Mildly increased left atrial size. Mitral Valve Structurally normal mitral valve. Mild mitral valve regurgitation. Aortic Valve Structurally normal trileaflet aortic valve. Mild aortic valve calcification. Mild aortic valve stenosis, mean gradient 15.6 mmHg, CASSY 1.8 cm squared. Tricuspid Valve Structurally normal tricuspid valve. Fafowlol-[id number] tricuspid valve regurgitation. Pulmonic Valve Structurally normal pulmonic valve. Pericardium Normal pericardium without effusion. Aorta Normal ascending aorta dimension. IVC The inferior vena cava appears normal. CONCLUSIONS Normal left ventricular size, systolic function and wall thickness, with no regional wall motion abnormalities. Grade I/IV diastolic dysfunction (abnormal relaxation filling pattern), normal to mildly elevated filling pressures. Left ventricular ejection fraction is estimated at 60 %. Mildly increased right atrial size. Mildly increased left atrial size. Structurally normal mitral valve. Mild mitral valve regurgitation. Structurally normal trileaflet aortic valve. Mild aortic valve calcification. Mild aortic valve stenosis, mean gradient 15.6 mmHg, CASSY 1.8 cm squared. Structurally normal tricuspid valve. Mrrvlomh-wx-wojxkq tricuspid valve regurgitation. Compared to the previous echo dated 11/02/2021 the tricuspid regurgitation is worse. Otherwise there are no changes. Dr. Waldemar Murphy MD (Electronically Signed) Final Date: 16 April 2023 17:04 S
== END 2023-04-16 12:09 | disposition home or self-care (01) ==
LOC: RAD 12:13
PROVIDERS: PCP Specialist; Visit Provider Specialist
DX: G47.31 Primary central sleep apnea (principal); I08.3 Combined rheumatic disorders of mitral, aortic and tricuspid valves; I51.7 Cardiomegaly
CPT/HCPCS: 93306

== ENCOUNTER → 2023-04-22 11:19 | Outpatient (BNVA) | payer MEDICARE, SELFPAY | PROVIDERS: PCP Specialist; Visit Provider Internal Medicine Cardiovascular Disease | DX: I48.91 Unspecified atrial fibrillation (principal); G93.32 Myalgic encephalomyelitis/chronic fatigue syndrome; G40.309 Generalized idiopathic epilepsy and epileptic syndromes, not intractable, without status epilepticus; I35.0 Nonrheumatic aortic (valve) stenosis; J44.9 Chronic obstructive pulmonary disease, unspecified; I10 Essential (primary) hypertension | CPT/HCPCS: 99214 ==

== ENCOUNTER → 2023-05-20 12:46 | Outpatient (BNVA) | payer MEDICARE, SELFPAY | PROVIDERS: PCP Specialist; Visit Provider Internal Medicine | DX: I35.0 Nonrheumatic aortic (valve) stenosis (principal); I48.91 Unspecified atrial fibrillation; J44.9 Chronic obstructive pulmonary disease, unspecified; I10 Essential (primary) hypertension; I25.10 Atherosclerotic heart disease of native coronary artery without angina pectoris; R00.2 Palpitations | CPT/HCPCS: 36415; 80048; 83880; 99214 ==

== ENCOUNTER → 2023-10-15 14:06 | Outpatient (BNVA) | payer MEDICARE, SELFPAY | PROVIDERS: PCP Specialist; Visit Provider Specialist | DX: G40.309 Generalized idiopathic epilepsy and epileptic syndromes, not intractable, without status epilepticus (principal); D69.6 Thrombocytopenia, unspecified; I48.91 Unspecified atrial fibrillation; G25.0 Essential tremor; R26.9 Unspecified abnormalities of gait and mobility | CPT/HCPCS: 36415; 80053; 80164; 85025; 99214 ==

== ENCOUNTER → 2024-02-18 11:57 | Outpatient (BNVA) | payer MEDICARE, SELFPAY | PROVIDERS: PCP Family Medicine; Visit Provider Internal Medicine | DX: I25.10 Atherosclerotic heart disease of native coronary artery without angina pectoris (principal); I35.0 Nonrheumatic aortic (valve) stenosis; R00.2 Palpitations; J44.9 Chronic obstructive pulmonary disease, unspecified; I10 Essential (primary) hypertension; I48.91 Unspecified atrial fibrillation; Z87.891 Personal history of nicotine dependence; Z79.01 Long term (current) use of anticoagulants | CPT/HCPCS: 99214 ==

== ENCOUNTER → 2025-01-27 12:56 | Outpatient (BNVA) | payer MEDICARE, SELFPAY | PROVIDERS: PCP Family Medicine; Visit Provider Podiatrist Foot & Ankle Surgery | DX: B07.9 Viral wart, unspecified (principal); L84 Corns and callosities | CPT/HCPCS: 99203 ==

== ENCOUNTER → 2025-02-24 13:04 | Outpatient (BNVA) | payer MEDICARE, SELFPAY | PROVIDERS: PCP Family Medicine; Visit Provider Specialist | DX: M17.0 Bilateral primary osteoarthritis of knee (principal) | CPT/HCPCS: 73560; 73565; 99205 ==

== ENCOUNTER 2025-02-27 19:55 | Inpatient (IN) | payer MEDICARE, SELFPAY ==
--- NOTE | 2025-02-27 20:07 | ECG_ITS ---
[facility] Test Date: 2025-02-27 Pat Name: Daphnie Coughlin Department: Room: Gender: Female Renal Nurse: : 1945 Requested By: Jan Gant Order Number: [id number] MD: Paresh Appiah M.D. Measurements Intervals [place] Rate: 78 P: 0 IA: 0 QRS: 94 QRSD: 99 T: 105 QT: 396 QTc: 453 Interpretive Statements ATRIAL FIBRILLATION BORDERLINE RIGHT AXIS DEVIATION [QRS AXIS > 90] NONSPECIFIC ST & T-WAVE ABNORMALITY ABNORMAL RHYTHM ECG Compared to ECG 11/25/2021 11:01:10 No significant changes Electronically Signed On 02-28-2025 19:19:32 CDT by Paresh Appiah M.D. [email or web address]
[2025-02-27 20:10] VITALS: BP 145/68; PULSE 116; RESP 20; TEMP 36.4; O2SAT 97; BMI 35.5
--- NOTE | 2025-02-27 20:10 | CTR_ITS ---
PROCEDURE INFORMATION: Exam: CT Head Without Contrast Exam date and time: 02/27/2025 8:29 PM Age: 79 years old Clinical indication: Altered mental status/memory loss; EMS arrival for AMS. Patient lethargic upon exam. TECHNIQUE: Imaging protocol: Computed tomography of the head without contrast. Radiation optimization: All CT scans at this facility use at least one of these dose optimization techniques: automated exposure control; mA and/or kV adjustment per patient size (includes targeted exams where dose is matched to clinical indication); or iterative reconstruction. COMPARISON: CT head wo con* [id number] 22/02/2021 13:51 RADIATION DOSE METRICS: Total DLP (mGy-cm): 1032.85 FINDINGS: Brain: [id number] patchy periventricular and deep white matter decreased density seen in both cerebral hemispheres. The midline is intact.Beam hardening artifact obscures resolution through the posterior fossa structures. No hemorrhage. Unremarkable white matter. No mass effect. Cerebral ventricles: Ventricles demonstrate normal size shape and configuration and are felt to be in proportion to the increased degree of widening of the sulci, sylvian fissures and basilar cisterns. There is no evidence of ballooning of the temporal horns as to suggest hydrocephalus. Paranasal sinuses: Visualized sinuses are unremarkable. No fluid levels. Mastoid air cells: Visualized mastoid air cells are well aerated. Bones: Unremarkable. No acute fracture. Soft tissues: Unremarkable. Other findings: Image 43 and 44 of series 4 demonstrates 2 punctate areas markedly decreased density consistent with air. CT/CT head wo con* [id number] IMPRESSION: 1. No acute intracranial head CT findings identified. 2. Interval change in ventricular calibers is felt to be due to central atrophy. 3. Atrophy/involutional changes of aging with components of chronic small-vessel disease. 4. Trace air seen within the sagittal sinus question iatrogenic/central line.
--- NOTE | 2025-02-27 20:10 | XRR_ITS ---
PROCEDURE INFORMATION: Exam: XR Chest Exam date and time: 02/27/2025 8:22 PM Age: 79 years old Clinical indication: EMS arrival for AMS. Patient lethargic upon exam. TECHNIQUE: Imaging protocol: Radiologic exam of the chest. Views: 1 view. COMPARISON: CR (CHEST, ) 04/18/2022 12:52 FINDINGS: Lungs: Monitoring leads overlie the chest. Lungs are relatively clear except for some minimal increased density along the left medial basilar region which is suggestive of atelectasis and consistent with the degree of diminished inspiration in comparison to the earlier study. No consolidation. Overlying soft tissues are somewhat prominent and obscure resolution due to diminished penetration. Pleural spaces: Slight blunting of the left costophrenic angle is noted.. No pneumothorax. Heart/Mediastinum: Unremarkable. No cardiomegaly. Bones/joints: Chronic changes. XR/XR chest 1V portable [id number] IMPRESSION: Left infrahilar atelectasis/infiltrate with small left pleural effusion.
[2025-02-27] MEDS: sodium chloride 0.9% 1,000 ML 999 ML IV (20:21)
[2025-02-27 20:28] LABS: Basophils # 0.1 10^3/uL (0.0-0.1); Basophils % 1.1 %; Eosinophils # 0.2 10^3/uL (0.0-0.8); Eosinophils % 5.4 %; Hematocrit 32.1 % (36-47); Lymphocytes % 22.3 %; Mean Corpuscular HGB Conc 33.6 g/dL (30-55); Mean Corpuscular Hemoglobin 30.8 pg (27-33); Mean Corpuscular Volume 91.5 fl (85-98); Mean Platelet Volume 10.1 fL (7.4-10.4); Monocytes # 0.7 10^3/uL (0.2-0.9); Monocytes % 15.6 %; Neutrophils % 54.2 %; Nucleated Red Blood Cells % 0 %; Platelet Count 157 10^3/cmm (157-399); Red Blood Count 3.51 10^6/uL (3.85-5.65); Red Cell Distribution Width 15.3 % (12.1-15.1); White Blood Count 4.43 10^3/uL (3.29-11.43)
[2025-02-27 20:46] LABS: Alanine Aminotransferase 40 U/L (0-33); Albumin Level 3.3 g/dL (3.5-5.2); Alkaline Phosphatase 97 U/L (35-105); Anion Gap 18.5 (5-19); Aspartate Amino Transferase 30 U/L (0-32); Blood Urea Nitrogen 7 mg/dL (8-23); C Reactive Protein 14.5 mg/L (0.0-4.9); Calcium 8.2 mg/dL (8.5-10.5); Carbon Dioxide 24 mmol/L (22-29); Chloride 93 mmol/L (98-107); Globulin 2.4 g/dL (1.3-4.6); Glucose 155 mg/dL (65-115); Osmolality Calculated 275 mOsm/kg (285-295); Potassium 3.5 mmol/L (3.5-5.1); Sodium 132 mmol/L (136-145); Total Bilirubin 0.2 mg/dL (0.15-1.2); Total Protein 5.7 g/dL (6.6-8.7)
[2025-02-27 20:48] LABS: Alcohol Level < 10 mg/dL (0-10)
[2025-02-27 21:27] LABS: INR 1.11 (0.8-1.2)
[2025-02-27 21:28] LABS: Partial Thromboplastin Time 32.4 SECONDS (23.9-36.7)
[2025-02-27 21:31] LABS: Lactic Sepsis W/Reflex 1.7 mmol/L (0.5-2.2)
[2025-02-27 21:38] LABS: ABG PCO2 37.9 mmHg (35-45); ABG PH Result 7.53 (7.35-7.45); Arterial Blood Gas Hematocrit 35.1 % (37-47); Base Excess ABG 8.2 mmol/L (-2.0-2.0); Blood Gas Sample Site Brachial, right; Blood Gas Sample Type Arterial; HCO3 ABG 31.5 mmol/L (22-26); HGB O2 Sat 96.3 % (95-100); Methemoglobin 0.3 % (0.4-1.5); Oxygen Device ROOM AIR; PO2 ABG 80.9 mmHg (80.0-100.0); Total Hemoglobin 11.4 g/dL (12-16)
[2025-02-27 22:00] VITALS: BP 95/53; PULSE 69; RESP 17; O2SAT 97
[2025-02-27 22:05] LABS: Bilirubin Urine Negative (Negative); Blood Urine Negative (Negative); Glucose Urine UA Negative (Normal); Ketones Urine Negative (Negative); Leukocyte Esterase Urine Negative (Negative); Nitrate Urine Negative (Negative); Protein Urine Negative (Negative); Specific Gravity, Urine 1.019 (1.005-1.030); Urine Appearance Clear (CLEAR); Urine Color Yellow (Yellow); pH Urine 7.5 (5-7)
[2025-02-27 22:08] LABS: Add Urine Microscopic? YES; Bacteria Urine None Seen /hpf; Squamous Epithelial Cell Urine 0-5 /hpf (0-5); WBC Urine 0-5 /hpf (0-5)
[2025-02-27 22:12] LABS: Amphetamines Screen Urine Negative (Negative); Barbiturates Screen Urine Positive (Negative); Benzodiazepines Screen Urine Negative (Negative); Cocaine Screen Urine Negative (Negative); Opiate Screen Urine Negative (Negative); PCP Screen Urine Negative (Negative); THC Screen Urine Negative (Negative)
--- NOTE | 2025-02-27 22:55 | ED_ITS ---
HPI - Altered Mental Status 2 General: Chief Complaint: Altered Mental Status Stated Complaint: AMS Time Seen by Provider: 02/27/25 19:58 History of Present Illness: 79-year-old female here from home with a ltered mental status. Son and state that she has had worsening lethargy over the past 48 hours or so. Today, they had trouble getting her out of bed. She has not been running a fever to their knowledge. She seems to wake up at some points, is somewhat appropriate, but then falls back asleep. No new medications. No sick contacts. No trouble breathing that they have noticed. The patient is quite sleepy, and answers simple yes/no questions before nodding back off to sleep. Related Data Home Medications ?Medication ?Instructions ?Recorded ?Confirmed acetaminophen 500 mg tablet 500 mg PO Q6H PRN 08/20/22 02/24/25 (Tylenol Extra Strength) alendronate 70 mg tablet mg PO .weekly 02/18/2402/24 Previous Rx's ?Medication ?Instructions ?Recorded diclofenac sodium 1 % topical gel 2 g topical QID #100 grams 05/03/22 (Voltaren Arthritis Pain) levalbuterol tartrate 45 2 inh inhalation Q6H PRN brice rtness 08/20/22 mcg/actuation aerosol inhaler of breath or wheezing #1 5 grams (Xopenex HFA) tiotropium bromide 1.25 2 inh inhalation DAILY #4 gr ams 08/21/22 mcg/actuation mist for inhalation (Spiriva Respimat) potassium chloride 10 mEq See Rx Instructions .Route 0 09/14/22 tablet,extended release .COMPLEX #30 tabs fluticasone 250 mcg-salmeterol 50 1 inh inhalation BID #60 ea 11/27/22 mcg/dose blistr powdr for inhalation (Advair Diskus) triamcinolone acetonide 0.1 % 1 applic topical DAILY # 60 mL 01/02/23 lotion albuterol sulfate 0.63 mg/3 mL See Rx Instructions .Ro nan[place]k 01/15/23 solution for nebulization .COMPLEX #75 mL furosemide 40 mg tablet See Rx Instructions .Route 0 01/28/23 .COMPLEX #90 tabs diltiazem HCl 360 mg 360 mg PO DAILY #90 caps capsule,extended release 24 hr (Cardizem CD) rivaroxaban 10 mg tablet (Xarelto) See Rx Instructions .Route 07/26/23 .COMPLEX #90 tabs montelukast 10 mg tablet See Rx Instructions .Route 1 10/24/22 .COMPLEX #90 tabs primidone 50 mg tablet 50 mg PO BID 30 days #30 tab s 10/15/23 divalproex 250 mg tablet,delayed 750 mg (3 x 250 mg) P O BID #180 11/25/24 release tabs Allergies Allergy/AdvReac Type Severity Reaction Status Date / Time erythromycin base Allergy tachycardia Verified 02/24/25 13:38 /rash PFS ED 2 PFS: Medical History Pneumonia Asthma Enrolled in chronic care management Osteoporosis Impaired memory 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 Hearing loss Mental confusion determined by examination Moderate persistent asthma Moderate aortic stenosis Generalized epilepsy COPD (chronic obstructive pulmonary disease) Keratosis pilaris Varicose veins of anus or rectum Essential hypertension Atrial fibrillation Surgical History History of hemorrhoidectomy (~09/2019) Family History Other History of hemorrhoidectomy Denies family history of Diabetes CAD (coronary artery disease) Anesthesia complication Bleeding disorder Stroke Social History Smoking and tobacco/nicotine status: never used tobacco/nicotine Second hand smoke exposure: No Alcohol intake: never Substance/Drug Use: never Adopted: No Caregiver/support person: Yes Lives independently: Yes Household members: spouse Housing: House Marital status: Highest education level completed: High School Graduate service: No Current occupational status: retired Current occupational exposures/hazards: No Pets and animals: No Sexually active: No Do you think of yourself as: Straight/Heterosexual Current gender identity: Female Shayy/Taoist: Sikhism Special shayy needs: No Agree to transfusion: No Physical Exam 2 Const: COMMON NORMALS: no acute distress EXAM LIMITATIONS: altered mental status GENERAL APPEARANCE: cooperative, comfortable and lethargic N UTRITIONAL APPEARANCE: obese ORIENTATION/CONSCIOUSNESS: Yes lethargic HENMT: COMMON NORMALS: normocephalic, atraumatic and Normal external nose present HEAD & SCALP: normocephalic and atraumatic FACE & SINUS: normal facial exam and face symmetric NOSE: Normal external nose present and Normal nares present Eye: COMMON NORMALS: Equal, round and reactive pupils present, EOMs intact bilaterally and conjunctivae normal CONJUNCTIVA: Yes conjunctivae normal P UPIL: Yes Equal, round and reactive pupils present Neck/C-Spine: GENERAL: Yes trachea midline Chest: COMMONS NORMALS: normal inspection of the chest Resp: COMMON NORMALS: normal respiratory effort, No use of accessory muscles and clear to auscultation bilaterally AUSCULTATION: clear to auscultation bilaterally Cardio: COMMON NORMALS: regular rate and regular rhythm RATE: regular rate RHYTHM: regular rhythm GI: COMMON NORMALS: Normal to inspection, nondistended, normoactive bowel sounds present Neuro: SENSORIUM/ORIENTATION: Yes lethargic Urinary Catheter Management: Witt: Cath Placed During This Visit: yes Urinary Catheter Date of Insertion: 02/27/25 Urinary Catheter Time of Insertion: 21:10 Course 2 Vital Signs: Vital signs: Vital Signs Temperature 97.6 F 02/27/25 20:10 Pulse Rate 87 02/27/25 23:00 Respiratory Rate 18 02/27/25 23:00 Blood Pressure 135/82 02/27/25 23:00 Pulse Oximetry 98 02/27/25 23:00 Oxygen Delivery Me thod Room Air 02/27/25 23:00 MDM - Altered Mental Status Medical Decision Making Patient mildly tachycardic on arrival. Heart rate below 100 now. Hemoglobin is 11. Sodium 132. BUN and creatinine are 7 and 0.6. Sugar is 155. Chest x-ray reveals a small left pleural effusion with left infrahilar infiltrate. Central atrophy present on her head CT that is progressed since prior. Urine drug screen is positive for barbiturates. Urinalysis is negative. Lactic acid is 1.7. CRP is only 14.5. She is not yet back at baseline mental status. She is still somnolent. 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 She moves both lower extremities. Face is symmetric. She is otherwise nonparticipatory in the neurological exam. Differential includes polypharmacy, infection although less likely, metabolic, although less likely, and ischemic, seizure. She does have a history of seizure disorder. Typical tonic-clonic seizure was not witnessed, although this is a possibility. Her oxygen saturations have been quite good here on room air. Blood gas shows a pH of 7.53 with a PO2 of 81 and a pCO2 of 38. She will have to be observed. Patient suddenly became more tachycardic while still in the ER. Heart rate was irregular. Heart rate up to 140. Now 100. EKG shows atrial fibrillation. She is on diltiazem and anticoagulation already, as she has a history of this. She was given 2.5 mg of metoprolol with improvement in her heart rate from 130s to 100. Lab Data 02/27/25 19:46 02/27/25 19:46 Radiology Impressions Chest X-Ray 02/27/25 20:10 IMPRESSION: Left infrahilar atelectasis/infiltrate with small left pleural effusion. Head CT 02/27/25 20:10 IMPRESSION: 1. No acute intracranial head CT findings identified. 2. Interval change in ventricular calibers is felt to be due to central atrophy. 3. Atrophy/involutional changes of aging with components of chronic small-vessel disease. 4. Trace air seen within the sagittal sinus question iatrogenic/central line. Laboratory Results WBC 4.43 10^3/uL (3.29-11.43) 02/27/25 19:46 RBC 3.51 10^6/uL (3.85-5.65) L 02/27/25 19:46 Hgb 10.80 g/dL (11.27-16.99) L 02/27/25 19:46 Hct 32.1 % (36-47) L 02/27/25 19:46 MCV 91.5 fl (85-98) 02/27/25 19:46 MCH 30.8 pg (27-33) 02/27/25 19:46 MCHC 33.6 g/dL (30-55) 02/27/25 19:46 RDW 15.3 % (12.1-15.1) H 02/27/25 19:46 Plt Count 157 10^3/cmm (157-399) 02/27/25 19:46 MPV 10.1 fL (7.4-10.4) 02/27/25 19:46 Neut % (Auto) 54.2 % 02/27/25 19:46 Lymph % (Auto) 22.3 % 02/27/25 19:46 [place] % (Auto) 15.6 % 02/27/25 19:46 Eos % (Auto) 5.4 % 02/27/25 19:46 Baso % (Auto) 1.1 % 02/27/25 19:46 Neut # (Auto) 2.40 10^3/uL (1.8-7.7) 02/27/25 19:46 Lymph # (Auto) 1.0 10^3/uL (0.8-4.8) 02/27/25 19:46 [place] # (Auto) 0.7 10^3/uL (0.2-0.9) 02/27/25 19:46 Eos # (Auto) 0.2 10^3/uL (0.0-0.8) 02/27/25 19:46 Baso # (Auto) 0.1 10^3/uL (0.0-0.1) 02/27/25 19:46 Nucleated RBC % (auto) 0 % 02/27/25 19:46 Nucleated RBCs # 0.0 /100WBC 02/27/25 19:46 PT 15.10 SECONDS (12.1-14.9) H 02/27/25 21: INR 1.11 (0.8-1.2) 02/27/25 21: APTT 32.4 SECONDS (23.9-36.7) 02/27/25 21: Specimen Type Arterial 02/27/25: Sample Site Brachial, right 02/27/25: ABG pH 7.53 (7.35-7.45) H 02/27/25: ABG pCO2 37.9 mmHg (35-45) 02/27/25: ABG pO2 80.9 mmHg (80.0-100.0) 02/27/25: ABG HCO3 31.5 mmol/L (22-26) H 02/27/25: ABG Base Excess 8.2 mmol/L (-2.0-2.0) H 02/27/25 21: Dax Test N/a 02/27/25: Hematocrit 35.1 % (37-47) L 02/27/25 21: Hgb O2 Saturation 96.3 % (95-100) 02/27/25 21:27 Carboxyhemoglobin 1.0 %THgb (0.4-20.1) 02/27/25 21:27 Methemoglobin 0.3 % (0.4-1.5) L 02/27/25 21:27 Total Hemoglobin 11.4 g/dL (12-16) L 02/27/25 21:27 O2 Delivery Device Room air 02/27/25 21:27 Public Address Servicer ID [email or web address] 02/27/25 21:27 Sodium 132 mmol/L (136-145) L 02/27/25 19:46 Potassium 3.5 mmol/L (3.5-5.1) 02/27/25 19:46 Chloride 93 mmol/L (98-107) L 02/27/25 19:46 Carbon Dioxide 24 mmol/L (22-29) 02/27/25 19:46 Anion Gap 18.5 (5-19) 02/27/25 19:46 BUN 7 mg/dL (8-23) L 02/27/25 19:46 Creatinine 0.6 mg/dL (0.5-0.9) 02/27/25 19:46 GFR Calculation Not Reportable 02/27/25 19:46 Glucose 155 mg/dL (65-115) H 02/27/25 19:46 Calculated Osmolality 275 mOsm/kg (285-295) L 02/27/25 19:46 Lactic Acid 1.7 mmol/L (0.5-2.2) 02/27/25 21:09 Calcium 8.2 mg/dL (8.5-10.5) L 02/27/25 19:46 Total Bilirubin 0.2 mg/dL (0.15-1.2) 02/27/25 19:46 AST 30 U/L (0-32) 02/27/25 19:46 ALT 40 U/L (0-33) H 02/27/25 19:46 Alkaline Phosphatase 97 U/L (35-105) 02/27/25 19:46 C-Reactive Protein 14.5 mg/L (0.0-4.9) H 02/27/25 19:46 Total Protein 5.7 g/dL (6.6-8.7) L 02/27/25 19:46 Albumin 3.3 g/dL (3.5-5.2) L 02/27/25 19:46 Globulin 2.4 g/dL (1.3-4.6) 02/27/25 19:46 Urine Color Yellow (Yellow) 02/27/25 21:03 Urine Appearance Clear (CLEAR) 02/27/25 21:03 Urine pH 7.5 (5-7) 02/27/25 21:03 Ur Specific [place] 1.019 (1.005-1.030) 02/27/25 21:03 Urine Protein Negative (Negative) 02/27/25 21: Urine Glucose (UA) Negative (Normal) 02/27/25 21: Urine Ketones Negative (Negative) 02/27/25 21: Urine Blood Negative (Negative) 02/27/25 21: Urine Nitrate Negative (Negative) 02/27/25 21: Urine Bilirubin Negative (Negative) 02/27/25 21: Urine Urobilinogen 1.0 mg/dL (Negative) 02/27/25 21: Ur Leukocyte Esterase Negative (Negative) 02/27/25 21:03 Urine RBC 3-5 /hpf (0-2) 02/27/25 21:03 Urine WBC 0-5 /hpf (0-5) 02/27/25 21:03 Ur Squamous Epith Cells 0-5 /hpf (0-5) 02/27/25 21: Amorphous Sediment Not Reportable 02/27/25 21:03 Urine Bacteria None seen /hpf (NONE) 02/27/25 21: Hyaline Casts 0.40 /lpf 02/27/25 21:03 Urine Opiates Screen Negative ng/mL (Negative) 02/27/25 21:03 Ur Barbiturates Screen Positive ng/mL (Negative) H 02/27/25 21:03 Valproic Acid 107.8 ug/mL (50-100) H 02/27/25 21:09 Ur Phencyclidine Scrn Negative ng/mL (Negative) 02/27/25 21:03 Ur Amphetamines Screen Negative ng/mL (Negative) 02/27/25 21:03 U Benzodiazepines Scrn Negative ng/mL (Negative) 02/27/25 21:03 Urine Cocaine Screen Negative ng/mL (Negative) 02/27/25 21:03 U Marijuana (THC) Screen Negative ng/mL (Negative) 02/27/25 21:03 Ethyl Alcohol < 10 mg/dL (0-10) 02/27/25 19:46 All radiology interpretation(s) finalized by discharge Discharge Plan Discharge Admit Provider: Ila Vargas Condition: Stable Coding Level of Care Code ED Investigative Research Specialist for Divina Jones
[2025-02-27 23:00] VITALS: BP 121/74; BP 135/82; PULSE 75; PULSE 87; RESP 17; RESP 18; O2SAT 100; O2SAT 98
[2025-02-27 23:07] LABS: Valproic Acid Level 107.8 ug/mL (50-100)
[2025-02-28] VITALS (12 sets, daily range): BP systolic 129–163; BP diastolic 74–99; PULSE 78–116; RESP 18–20; TEMP 36.4–37.3; O2SAT 94–98
[2025-02-28] MEDS: cefTRIAXone 1,000 mg SDV 1000 MG IVP (00:21)
--- NOTE | 2025-02-28 00:54 | ECG_ITS ---
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 Measurements Intervals [place] Rate: 123 P: 0 [place]: 0 QRS: 91 QRSD: 96 T: 0 QT: 261 QTc: 375 Interpretive Statements ATRIAL FIBRILLATION WITH RAPID VENTRICULAR RESPONSE BORDERLINE RIGHT AXIS DEVIATION [QRS AXIS > 90] NONSPECIFIC ST & T-WAVE ABNORMALITY ABNORMAL RHYTHM ECG Compared to ECG 02/27/2025 20:07:18 No significant changes Electronically Signed On 02-28-2025 19:33:35 CDT by Paresh Appiah M.D. [email or web address]
--- NOTE | 2025-02-28 00:59 | P.HP_ITS ---
Providers/Chief Complaint 2 Admitting Physician: Ila Vargas MD--patient seen after 12 midnight Primary Care Provider: Donna Estrada MD Chief Complaint: AMS History of Present Illness Daphnie Coughlin is a 79 year old female who lives at home with her and has been in normal state of health till today when patient could not get out of bed even with the assistance of the . The was worried and decided to bring the patient to the emergency room for further evaluation. The patient has slept all day will not wake up will not do anything not eat no activity and that is a total change in mental status for this patient. Woke up where significant for a left-sided pneumonia with left-sided pleural effusion. Patient has been blood cultured. Urine is clean chest x-ray significant for pneumonia. Antibiotics initiated with ceftriaxone. Erythromycin is not used and azithromycin not used either because of allergy. Doxycycline added to cover some gram-positive pneumonia. Must continue to follow through and optimize. Nebulizing treatment initiated. Mucinex to help mucolytic. Patient desires inpatient for treatment of pneumonia in a 79-year-old that has a change in mental status because of underlining infection. Review of Systems 2 Narrative: System review upon 10 organ system reviewed with found to be unremarkable except for generalized myopathy weakness and lack of power significant for underlining infection Medications/Allergies Home Medications ?Medication ?Instructions ?Recorded ?Confirmed ?Last Taken ?Type diclofenac sodium 1 % topical gel 2 g topical QID #100 grams 05/03/22 02/24/25 Unknown Rx (Voltaren Arthritis Pain) acetaminophen 500 mg tablet 500 mg PO Q6H PRN 08/20/22 02/24/25 Unknown History (Tylenol Extra Strength) levalbuterol tartrate 45 2 inh inhalation Q6H PRN brice rtness 08/20/22 02/24/25 Unknown Rx mcg/actuation aerosol inhaler of breath or wheezing #1 5 grams (Xopenex HFA) tiotropium bromide 1.25 2 inh inhalation DAILY #4 gr ams 08/21/22 02/24/25 Unknown Rx mcg/actuation mist for inhalation (Spiriva Respimat) potassium chloride 10 mEq See Rx Instructions .Route 0 09/14/22 02/24/25 Unknown Rx tablet,extended release .COMPLEX #30 tabs fluticasone 250 mcg-salmeterol 50 1 inh inhalation BID #60 ea 11/27/22 02/24/25 Unknown Rx mcg/dose blistr powdr for inhalation (Advair Diskus) triamcinolone acetonide 0.1 % 1 applic topical DAILY # 60 mL 01/02/23 02/24/25 Unknown Rx lotion albuterol sulfate 0.63 mg/3 mL See Rx Instructions .Ro christian 01/15/23 02/24/25 Unknown Rx solution for nebulization .COMPLEX #75 mL furosemide 40 mg tablet See Rx Instructions .Route 0 01/28/23 02/24/25 Unknown Rx .COMPLEX #90 tabs diltiazem HCl 360 mg 360 mg PO DAILY #90 caps 02/24/25 Unknown Rx capsule,extended release 24 hr (Cardizem CD) rivaroxaban 10 mg tablet (Xarelto) See Rx Instructions .Route 07/26/23 02/24/25 Unknown Rx .COMPLEX #90 tabs montelukast 10 mg tablet See Rx Instructions .Route 1 10/24/22 02/24/25 Unknown Rx .COMPLEX #90 tabs primidone 50 mg tablet 50 mg PO BID 30 days #30 tab s 10/15/23 02/24/25 Unknown Rx alendronate 70 mg tablet mg PO .weekly 02/18/2402/24 Unknown History divalproex 250 mg tablet,delayed 750 mg (3 x 250 mg) P O BID #180 11/25/24 02/24/25 Unknown Rx release tabs Allergies Allergy/AdvReac Type Severity Reaction Status Date / Time erythromycin base Allergy tachycardia Verified 02/24/25 13:38 /rash PFSH Acute 2 PFSH: Medical History Pneumonia Asthma Enrolled in chronic care management Osteoporosis Impaired memory 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 Hearing loss Mental confusion determined by examination Moderate persistent asthma Moderate aortic stenosis Generalized epilepsy COPD (chronic obstructive pulmonary disease) Keratosis pilaris Varicose veins of anus or rectum Essential hypertension Atrial fibrillation Surgical History History of hemorrhoidectomy (~09/2019) Family History Other History of hemorrhoidectomy Denies family history of Diabetes CAD (coronary artery disease) Anesthesia complication Bleeding disorder Stroke Social History Smoking and tobacco/nicotine status: never used tobacco/nicotine Second hand smoke exposure: No Alcohol intake: never Substance/Drug Use: never Adopted: No Caregiver/support person: Yes Lives independently: Yes Household members: spouse Housing: House Marital status: Highest education level completed: High School Graduate service: No Current occupational status: retired Current occupational exposures/hazards: No Pets and animals: No Sexually active: No Do you think of yourself as: Straight/Heterosexual Current gender identity: Female Shayy/Pentecostal: Presybeterian Special shayy needs: No Agree to transfusion: No Vitals/I&O/Wt Last Vital Signs Temp 97.6 F 02/27/25 20:10 Pulse 87 02/27/25 23:00 Resp 18 02/27/25 23:00 BP 135/82 02/27/25 23:00 Pulse Ox 98 02/27/25 23:00 O2 Del Method Room Air 02/27/25 23:00 02/27/25 02/27/25 02/28/25 14:59 22:59 06:59 Intake Total 0 / 0 1000 / 1000 Balance 0 / 0 1000 / 1000 Weight last 48 hrs Weight 99.79 kg Physical Exam 2 Narrative: Patient seen and evaluated very quiet supine in bed sleeping and son by the bedside relating that she had been sleeping all day long and never woke up. Patient has sleep for cough. HEENT normocephalic/atraumatic neck neck is supple cardiovascular heart rate is regular lungs are pretty much clear abdomen soft nontender nondistended unremarkable extremities intact no edema has good pulses neurology no focality lab studies lab studies reviewed and noted. Urinary Catheter Management: Witt: Cath Placed During This Visit: yes Urinary Catheter Date of Insertion: 02/27/25 Urinary Catheter Time of Insertion: 21:10 Data 02/27/25 19:46 02/27/25 19:46 Micro: Microbiology 02/27/25 00:03 Blood Culture - Preliminary Blood SPECIMEN COLLECTED 02/27/25 00:11 Blood Culture - Preliminary Blood SPECIMEN COLLECTED A&P Assessment and plan (1) Pneumonia: Patient with left infra hilar infiltrate with left pleural effusion a culprit for patient change in mental status - Antibiotics with ceftriaxone and doxycycline, patient is allergic to azithromycin - Supplemental oxygen for a pulse ox of at least 94% - DuoNeb per order - Mucinex 600 mg twice daily x 5 days - Continue to treat and optimize (2) Mental status alteration: Mental status changes secondary to underlying infection with much debility 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
[2025-02-28] MEDS: metoprolol tartrate 1 mg/1 mL SDV 5 mL 2.5 MG IVP (01:02)
[2025-02-28] MEDS: AZITHROMYCIN ADD-Vantage 500 MG in 0.9% NaCl ADD-Vantage 250 ML 250 MG IV (01:23)
[2025-02-28] MEDS: ipratropium-albuterol 3 mL Neb INHALATION (02:10)
[2025-02-28 03:00] LABS: Glucose Point of Care 135 mg/dL (70-110)
[2025-02-28] MEDS: doxycycline 100 MG in sodium chloride 0.9% (plus) 100 ML IV ×2 (04:16→12:50)
[2025-02-28] MEDS: heparin 5,000 unit/mL INJ 1 mL 5000 UNIT SUBCUT (04:17)
[2025-02-28] MEDS: FUROsemide 10 mg/mL SDV 10mL 60 MG IVP (05:15)
[2025-02-28] MEDS: enoxaparin 100 mg/mL Syringe SUBCUT ×2 (05:59→18:03)
[2025-02-28 06:09] LABS: Basophils % 0.5 %; Eosinophils # 0.2 10^3/uL (0.0-0.8); Eosinophils % 3.2 %; Hematocrit 32.4 % (36-47); Lymphocytes # 0.8 10^3/uL (0.8-4.8); Lymphocytes % 13.1 %; Mean Corpuscular HGB Conc 33.3 g/dL (30-55); Mean Corpuscular Hemoglobin 30.4 pg (27-33); Mean Corpuscular Volume 91.3 fl (85-98); Mean Platelet Volume 9.3 fL (7.4-10.4); Monocytes # 0.8 10^3/uL (0.2-0.9); Monocytes % 13.5 %; Neutrophils # 3.92 10^3/uL (1.8-7.7); Neutrophils % 68.6 %; Nucleated Red Blood Cells % 0 %; Platelet Count 138 10^3/cmm (157-399); Red Blood Count 3.55 10^6/uL (3.85-5.65); Red Cell Distribution Width 15.2 % (12.1-15.1); White Blood Count 5.71 10^3/uL (3.29-11.43)
[2025-02-28 06:29] LABS: Alanine Aminotransferase 38 U/L (0-33); Albumin Level 3.1 g/dL (3.5-5.2); Alkaline Phosphatase 93 U/L (35-105); Anion Gap 14.7 (5-19); Aspartate Amino Transferase 24 U/L (0-32); Blood Urea Nitrogen 8 mg/dL (8-23); Calcium 8.4 mg/dL (8.5-10.5); Carbon Dioxide 28 mmol/L (22-29); Chloride 98 mmol/L (98-107); Globulin 2.6 g/dL (1.3-4.6); Glucose 104 mg/dL (65-115); Osmolality Calculated 283 mOsm/kg (285-295); Phosphorus 3.3 mg/dL (2.5-4.5); Potassium 3.7 mmol/L (3.5-5.1); Sodium 137 mmol/L (136-145); Total Bilirubin 0.2 mg/dL (0.15-1.2); Total Protein 5.7 g/dL (6.6-8.7)
--- NOTE | 2025-02-28 07:25 | P.PN_ITS ---
Subjective 2 Subjective: Remains disoriented. Nursing reports some issues with shortness of breath and concern regarding aspiration. Has been having RVR throughout the morning. Rates have been in the 120-130 range. She is currently at 90. Medications: Reviewed: Yes Vitals/I&O/Wt Last Vital Signs Temp 97.7 F 02/28/25 07:18 Pulse 101 H 02/28/25 07:18 Resp 19 H 02/28/25 07:18 BP 145/83 02/28/25 07:18 Pulse Ox 96 02/28/25 07:18 O2 Del Method Room Air 02/28/25 07:18 02/27/25 02/28/25 02/28/25 22:59 06:59 14:59 Intake Total 0 / 0 1350 / 1350 Output Total 350 / 350 Balance 0 / 0 1000 / 1000 Weight last 48 hrs Weight 235 lb 3.2 oz Weight 220 lb Physical Exam 2 Narrative: General: Alert, not oriented. HEENT: Normocephalic, Atraumatic. External ears normal. Nasal passages patent without drainage. MMM. Heart: Tachycardic with irregular rhythm. Consistent with atrial fibs. Resp: Bilateral crackles on lung exam. Mild wheezes throughout. Abd: Soft, non-tender. Non-distended. Extremities: No edema. Skin: No rash or lesions on exposed areas. 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 In the ER chest x-ray showed left infrahilar atelectasis/infiltrate with a small pleural effusion. She had a CT head which did not show any acute concerns. She did have cerebral atrophy. She did not have a leukocytosis at admission. Her sodium was slightly low to 132. She had a mild elevation of her ALT to 40. CRP was 14.5. No fever or oxygen requirement noted. Her blood pressures have been stable. She is having intermittent RVR as noted on EKG. She received some Cardizem and beta-korey in the ER which did help with her rate. Will restart her home Cardizem. Blood cultures were obtained and are pending. Patient does have underlying dysphagia. Will have speech therapy evaluate. Currently n.p.o. until we can have this arranged. Will advance diet per the recommendations. Initial antibiotics were ceftriaxone and doxycycline. Will switch to Zosyn for better coverage. Will add Solu-Medrol for wheezing. Repeat chest x-ray is pending. Recheck a.m. labs. Continue other home medications for chronic illnesses. Code Status: Full IVF: D5 1/2 NS at 75 DVT PPx: Lovenox GI PPx: Protonix ABx: Zosyn Diet: N.p.o. pending speech eval Discharge plan: To be determined PDMP PDMP Reviewed: Not Reviewed Attestations 2 Medical Necessity Statement*: Patient will need ongoing hospitalization for evaluation of altered mental status, dysphagia, speech therapy evaluation, concern for aspiration pneumonia, recheck on labs, chest x-ray, atrial fibrillation with RVR, and medication adjustments. 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
[2025-02-28 07:44] LABS: Adenovirus Not Detected (NOT DETECT); Chlamydia Pneumoniae Not Detected (NOT DETECT); Coronavirus 229E,HKU1,NL63,OC4 Not Detected (NOT DETECT); Human Metapneumovirus Not Detected (NOT DETECT); Human Rhinovirus/Enterovirus Not Detected (NOT DETECT); Influenza A Not Detected (NOT DETECT); Influenza A H1 Not Detected (NOT DETECT); Influenza A H1-2009 Not Detected (NOT DETECT); Influenza A H3 Not Detected (NOT DETECT); Influenza B Not Detected (NOT DETECT); Mycoplasma Pneumoniae Not Detected (NOT DETECT); Parainfluenza Virus Type 1 Not Detected (NOT DETECT); Parainfluenza Virus Type 2 Not Detected (NOT DETECT); Parainfluenza Virus Type 3 Not Detected (NOT DETECT); Parainfluenza Virus Type 4 Not Detected (NOT DETECT); Respiratory Syncytial Virus A Not Detected (NOT DETECT); Respiratory Syncytial Virus B Not Detected (NOT DETECT); SARS-COV-2 Not Detected (NOT DETECT)
--- OUTSIDE RECORDS SUMMARY | 2025-02-28 08:24 | XMS_ITS | Encounter Summary ---
Author Organization [facility] Address [address] [place] [address] Care Team Providers Care Corporate Communications Associate Name Role Phone Flores Harvey MD Primary Care Provider [phone] Encounter Details Date Type Department Care Team (Late st Contact Info) Description 03/14/2015 Ancillary Orders [facility] Admitting [address] [place] [address] Joanne Jang, Momo Payne, CHATO [address] [place], [place] [address] Knee pain (Primary Dx) Social History Tobacco Use Types Packs/Day Years Used Date Smoking Tobacco: Never Smokeless Tobacco: Never Alcohol Use Standard Drinks/Week Comments No 0 (1 standard drink = 0.6 oz pur e alcohol) Comments No Sex and Gender Information Value Date Recorded Sex Assigned at Not on file Legal Sex Female 4:37 AM [employer] Gender Identity Not on file Sexual Orientation Not on file Occupation Industry Job Start Date Job End Date Not on file Not on file Not on file Not on file documented as of this encounter Plan of Treatment Not on file documented as of this encounter Results * XR KNEE 3 VW LEFT (03/14/2015 9:26 AM CDT) Anatomical Region Laterality Modality Lower Extremity Computed Radiogr aphy 03/14/2015 9:15 AM CDT Narrative 03/14/2015 10:37 AM CDT PROCEDURE XR LEFT KNEE, 3 views, 14 March 2015 DESCRIPTION AP, oblique, and lateral views of the left knee show no acute fracture, dislocation, or deformity. No swelling of the suprapatellar bursa is seen. There is some narrowing of the cartilage space more pronounced in the medial compartment with some lateral osteophyte formation of the tibial plateau margin and femoral condylar articular margin. IMPRESSION 1. osteoarthritis, more pronounced medially 2. no acute fracture or joint effusion seen Procedure Note Kirk Corona MD - 03/14/2015 PROCEDURE XR LEFT KNEE, 3 views, 14 March 2015 DESCRIPTION AP, oblique, and lateral views of the left knee show no acute fracture, dislocation, or deformity. No swelling of the suprapatellar bursa is seen. There is some narrowing of the cartilage space more pronounced in the medial compartment with some lateral osteophyte formation of the tibial plateau margin and femoral condylar articular margin. IMPRESSION 1. osteoarthritis, more pronounced medially 2. no acute fracture or joint effusion seen Momo Rubio Sr., ATTORNEY [employer] G ORDERABLES Final Result documented in this encounter Visit Diagnoses Diagnosis Knee pain- Primary Pain in joint, lower leg Knee pain Pain in joint, lower leg documented in this encounter Care Teams Corporate Communications Associate Relationship Specialty Start Date End Date Flores Harvey MD [address] [id number] PCP - General Family Practice 12/19/15 documented as of this encounter
--- OUTSIDE RECORDS SUMMARY | 2025-02-28 08:24 | XMS_ITS | Clinical Summary ---
Author Organization [facility] Address [address] [place] [address] Phone Care Team Providers Care Aerodynamics Professor Name Role Phone Ginette Gonzalez MD Primary Care Provider [phone] Allergies Active Allergy Reactions Criticality Noted Date Comments Erythromycin Nausea and Vomiting Low 06/06/2011 Medications acetaminophen (TYLENOL) 500 mg tablet Take 500 mg by mouth daily. prn Active nebulizerIndica tions:Asthma, unspecified asthma severity, unspecified whether complicated, unspecified whether persistent Length of need 99 months Nebulizer with compressor, Kit: Disposable Nebulizer Kit, 2 per month, filters , areosol mask: No. Name of Medication Albuterol 2.5/3ml qid prin 1 Each 10/18/19 23 Active inhalational spacing device (Microchamber) Spacer Use with xopenex inhaler 1 Each 10/18/19 23 Active bipap sv ASV BiLevel of EPAP 6/ Max PS 4/ Min PS 17 cwp, 12 BPM Length Of Need: 99 mo, with mask fitting, with headgear 1 per 6 month, mask only1 per 3 mo,as needed cushions per mo. Tubingheated 1 per 3 mo, water chamber 1 per 6 months, chin strap 1 per 6 months, filters disposable 2 per month, reusable 1 per 6 months. Efficacy data download and mask fitting. Please link efficiency data download to Dr. Welch's account. 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 Length of need:99 months; per patient preference mask with headgear every 6 months; mask only every 3 months; as needed cushions per month; Tubing heated 1 every 3 months, water chamber 1 every 6 months, chin strap 1 every 6 months, filters disposable 2 per month, filters reusable 1 per 6 months. Efficacy data download and mask fitting. Please link efficiency data download to Dr. Welch's account. Diagnosis: G47.33 Obstructive sleep apnea 1 Each 08/28/20 Active albuterol (PROVENTIL,VENT ILA) 0.63 mg/3 mL Solution for NebulizationInd ications:Chroni c respiratory failure, unspecified whether with hypoxia or hypercapnia (CMS/HCC) USE 1 VIAL IN NEBULIZER TWICE DAILY 180 mL 1 09/07/20 24 Active traMADoL (ULTRAM) 50 mg tabletIndicatio ns:Pain of left hip Take 1-2 Tablets (50-100 mg) by mouth every 6 hours as needed for Pain. 30 Tablet 09/07/20 24 Active Additional Information Patient not taking.Reported on 01/28/2025 naloxone (NARCAN) 4 mg/spray [place], Non-Aerosol EMERGENCY USE ONLY: Administer 1 spray (4 mg) in one nostril one time. May repeat in alternating nostrils every 2-3 min until responsive or EMS arrives. 2 Each 3 09/07/20 24 Active Additional Information Patient not taking.Reported on 01/28/2025 alendronate (FOSAMAX) 70 mg tabletIndicatio ns:Osteoporosis , unspecified osteoporosis type, unspecified pathological fracture presence TAKE 1 TABLET BY MOUTH ONCE EVERY 7 DAYS ON AN EMPTY STOMACH BEFORE OTHER MEDICATIONS WITH 8 OUNCES OF WATER AND STAY UPRIGHT FOR 30 MINUTES 12 Tablet 3 09/07/20 24 Active Mucinex 600 mg Extended Release Biphasic tabletIndicatio ns:Chronic respiratory failure, unspecified whether with hypoxia or hypercapnia (CMS/HCC) Take 1 Tablet (600 mg) by mouth 2 times daily. 60 Tablet 2 09/30/19 25 Active tiZANidine (ZANAFLEX) 2 mg Tablet Take 1 Tablet (2 mg) by mouth daily at bedtime. 30 Tablet 6 09/29/19 25 Active furosemide (LASIX) 40 mg tabletIndicatio ns:Chronic congestive heart failure, unspecified heart failure type (CMS/HCC),Edema leg Take 1 Tablet (40 mg) by mouth 2 times daily. 200 Tablet 2 11/06/19 25 Active rivaroxaban (Xarelto) 10 mg TabletIndicatio ns:Atrial fibrillation with RVR (CMS/HCC) Take 1 Tablet (10 mg) by mouth daily. 90 Tablet 1 11/06/19 25 Active fluticasone propion-salmete roL (ADVAIR DISKUS,WIXELA INHUB) 250-50 mcg/dose disk inhalerIndicati ons:Chronic obstructive pulmonary disease, unspecified COPD type (CMS/HCC) Take 1 Puff by inhalation 2 times daily. 60 Each 5 11/06/19 25 Active tiotropium (Spiriva Respimat) 1.25 mcg/actuation MistIndications :Chronic obstructive pulmonary disease, unspecified COPD type (CMS/HCC) Take 2 Puffs by inhalation daily. 4 Gram 4 11/06/19 25 Active divalproex (DEPAKOTE) 250 mg Delayed Release tablet Take 3 Tablets (750 mg) by mouth 2 times daily. 180 Tablet 6 01/08/20 25 Active Additional Information Patient not taking.Reported on 01/28/2025 primidone (MYSOLINE) 250 mg tablet Take 1 Tablet (250 mg) by mouth 3 times daily. 90 Tablet 6 01/08/20 25 Active potassium CHLORIDE (KLOR-CON) 10 mEq Extended Release tabletIndicatio ns:Hypokalemia Take 1 Tablet (10 mEq) by mouth daily with breakfast. 100 Tablet 1 01/19/20 25 Active levalbuterol HFA (XOPENEX HFA) 45 mcg/Actuation HFA Aerosol InhalerIndicati ons:Chronic obstructive pulmonary disease, unspecified COPD type (CMS/HCC) INHALE 2 PUFFS BY MOUTH EVERY 6 HOURS NEEDED FOR SHORTNESS OF BREATH OR WHEEZING 15 Gram 2 01/28/20 25 Active dilTIAZem (CARDIZEM CD) 360 mg Controlled Delivery 24 hour capsuleIndicati ons:Atrial fibrillation with RVR (CMS/HCC) Take 1 capsule by mouth once daily 100 Capsule 2 02/17/20 25 Active diltiaZEM (CARDIZEM CD) 360 mg Controlled Delivery 24 hour capsuleIndicati ons:Atrial fibrillation with RVR (CMS/HCC) Take 1 capsule by mouth once daily 100 Capsule 3 12/26/19 24 2024 Discontinued Active Problems Problem Noted Date Diagnosed Date Arthritis of left shoulder 01/22/2025 Bilateral leg edema 03/21/2024 Chronic congestive heart failure 11/05/2023 Overview (11/05/2023): EF = 60% 04/16/23 Moderate obstructive sleep apnea 08/28/2023 Shortness of breath 08/28/2023 Essential tremor 11/22/2022 Hypertension 10/18/2022 Seizure 07/05/2022 COVID-19 virus infection 06/15/2022 Retention polyps of large bowel 08/20/2011 Submucosal leiomyoma of colon 08/20/2011 Special screening for malignant neoplasms, colon 07/30/2011 Tinea versicolor 06/27/2011 Asthma 06/06/2011 GERD (gastroesophageal reflux disease) 1 Allergic rhinitis 06/06/2011 Status epilepticus Atrial fibrillation with RVR Resolved Problems Problem Noted Date Diagnosed Date Resolved Date Severe obesity (BMI 35.0-39. 9) with comorbidity 10/10/2023 11/06/2024 Acute respiratory failure Encounters Date Type Department Care Team Description 02/16/[address] [phone] Della Orr FNP Atrial fibrillation with RVR (CMS/HCC) 02/10/2025 External Device Data [facility] ABSTRACTION Provider, Abstract 01/28/2025 3:20 PM CDT Office Visit [address] [phone] Daphnie Kennedy FNP Primary osteoarthritis of both knees (Primary Dx); Dizziness; Arthritis of left shoulder; Seizure (CMS/HCC); Uses walker 01/27/[address] [phone] Ginette Gonzalez MD Medication Refill 01/27/2025 [address] [place] [id number] [place] [address] Daphnie Kennedy, CHATO Chronic obstructive pulmonary disease, unspecified COPD type ([facility]) 01/22/2025 12:20 PM CDT Office Visit [address] [place] [phone] Elsa Aviles, CHATO Arthritis of left shoulder (Primary Dx) 01/22/2025 Results Follow-Up [address] [place] [phone] Elsa Aviles FNP XR SHOULDER 2+ VW LEFT 01/20/2025 11:36 AM CDT - 01/20/2025 11:59 PM CDT Hospital Encounter [facility] [address] [place] [phone] Elsa Aviles FNP Discharge Disposition: Home or Self Care 01/20/2025 11:20 AM CDT Office Visit [address] [place] [phone] Elsa Aviles FNP Acute pain of left shoulder (Primary Dx); Arthritis of knee 01/18/2025 Refill [facility] [address] [place] [address] [place] [address] Daphnie Kennedy, CHATO Hypokalemia 01/12/2025 1:40 PM CDT Office Visit [address] [place] [phone] Barbara Thompson, NON DESTRUCTIVE TESTING SUPERVISOR Plantar wart of both feet (Primary Dx); Toenail fungus; Morbid obesity ([facility]) 01/12/2025 External Device Data [facility] ABSTRACTION Provider, Abstract 01/07/2025 12:57 PM CDT - 01/07/2025 11:59 PM CDT Hospital Encounter [facility] [address] [place] [phone] Ronnie French MD Discharge Disposition: Home or Self Care 01/05/2025 External Device Data [facility] ABSTRACTION Provider, Abstract 12/15/2024 11:00 AM CDT Procedure visit [facility] [address] [place] [phone] Barbara Thompson, NON DESTRUCTIVE TESTING SUPERVISOR Ingrown toenail of right foot (Primary Dx) 2024 External Device Data [facility] ABSTRACTION Provider, Abstract 12/03/2024 1:00 PM CDT Office Visit [facility] [address] [place] [phone] Barbara Thompson, NON DESTRUCTIVE TESTING SUPERVISOR Plantar wart of both feet (Primary Dx) from Last 3 Months Immunizations Immunization Administration Dates Next Due (ADACEL/BOOSTRIX)(10 YR UP) TDAP VACCINE, 0.5ML, IM 05/21/2023,02/11/2019,02/11/2019 (TDVAX)(7 YRS UP) TETANUS AN D DIPHTHERIA TOXOIDS, ADSORBED (2 LF OF TETANUS TOXOID AND 2 LF OF DIPHTHERIA TOXOID), 0.5ML (PF), IM 06/09/2011,06/09/2011 Adacel Vaccine > 7 Yo IM 05/21/2023 INFLUENZA VACCINE HIGH DOSE QUADRIVALENT 65 YR UP PF IM 06/07/2023,06/04/2022,05/14/2018 INFLUENZA VACCINE HIGH DOSE TRIVALENT SPLIT VIRUS, (65 YR UP), 0.5ML (PF), IM 05/25/2024 INFLUENZA VACCINE QUADRIVALE NT ADJ 65 YR UP PF IM 05/18/2021 Influenza Seasonal Unspecifi ed Formulation IM 06/08/2022,06/04/2016,06/24/2012,2011 Influenza Vaccine Tri Adjuva nted 65+ PF IM 06/08/2017 PREVNAR (PCV13) pneumococcal 13-valent conjugate Vaccine 06/08/2022 Family History Medical History Relation Name Comments Other Father Unknown Maternal Grandfather Unknown Maternal Grandmother Colon Cancer Mother Unknown Paternal Grandfather Unknown Paternal Grandmother Cancer Sister 1 Cancer Sister 2 in abdomen - co richie? ovary? Breast Cancer Neg Hx Relation Name Status Comments Father Maternal Grandfather Maternal Grandmother Mother Paternal Grandfather Paternal Grandmother Sister 1 Sister 2 Social History Tobacco Use Types Packs/Day Years Used Date Smoking Tobacco: Never Smokeless Tobacco: Never Tobacco Cessation:Counseling Given: No Alcohol Use Standard Drinks/Week Comments No 0 (1 standard drink = 0.6 oz pur e alcohol) Financial Resource Strain Answer Date R ecorded How hard is it for you to pa y for the very basics like food, housing, medical care, and heating? Patient declined 08/23/2022 Food Insecurity Answer Date Recorded In the past 12 months, have you worried that your food would run out before you had money to buy more? Patient declined 2021 In the past 12 months, did y ou run out of food and didn't have money to buy more? Patient declined 08/23/2022 Transportation Needs Answer Date Record ed In the past 12 months, has l ack of transportation kept you from medical appointments or from getting medications? Patient declined 08/23/2022 Lack of Transportation (Non-Medical) Not on file 08/23/2022 Feeling Safe Answer Date Recorded Are you in a relationship wi th someone who hurts you emotionally and/or physically? 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 Gender Identity Not on file Sexual Orientation Not on file Last Filed Vital Signs Vital Sign Reading Time Taken Comments Blood Pressure 112/60 01/28/2025 3:28 PM CDT Pulse 107 01/28/2025 3:28 PM CDT Temperature 36.3 C (97.3 F) 01/28/2025 3:28 PM CDT Respiratory Rate 17 01/28/2025 3:28 PM CDT Oxygen Saturation 96% 01/28/2025 3:28 PM CDT Inhaled Oxygen Concentration - - Weight 96 kg (211 lb 9.6 oz) 01/28/2025 3:28 PM CDT Height 170.2 cm (5' 7 ) 01/28/2025 3:28 PM CDT Body Mass Index 33.14 01/28/2025 3:28 PM CDT Plan of Treatment Upcoming Encounters Date Type Department Care Team (Late st Contact Info) Description 03/24/2025 1:00 PM CDT Procedure visit [facility] [place] [address] [place] [phone] Daphnie Kennedy FNP [address] [place] [phone] 07/20/2025 1:00 PM MENS LOCKER ROOM ATTENDANT Appointment [facility] [address] [place] [phone] Ronnie French MD [phone] [place] [phone] 11/05/2025 1:20 PM MENS LOCKER ROOM ATTENDANT Office Visit [facility] [place] [address] [place] [address] [place] [phone] Daphnie Kennedy FNP [address] [place] [address] Health Maintenance Due Date Last Done Comments COLORECTAL SCREENING 12/09/1963 ZOSTER VACCINE (1 of 2) 12/09/1995 RSV VACCINE (60+ or ) (1 - 1-dose 75+ series) 2020 PNEUMOCOCCAL VACCINE 50+ YEA RS (2 of 2 - PPSV23) 08/03/2022 06/08/2022 OSTEOPOROSIS SCREENING 02/01/2028 01/31/2023 DTAP/TDAP/TD VACCINES (5 - T d or Tdap) 05/21/2033 05/21/2023, 05/21/2023, 02/11/2019, Additional history exists INFLUENZA VACCINE Completed 05/25/2024, , 06/08/2022, Additional history exists [place]) Preventative Visit/Annual Wellness Visit Completed 11/06/2024, 11/07/2023, 01/30/2023, Additional history exists Procedures Procedure Name Priority Date/Time Associated Diagnosis Comments NV ARTHROCENTESIS ASPIR&/INJ MAJOR JT/BURSA W/O US Routine 01/22/2025 12:20 PM CDT Arthritis of left shoulder XR SHOULDER 2+ VW LEFT Routine 11:47 AM CDT Acute pain of left shoulder NV ARTHROCENTESIS ASPIR&/INJ MAJOR JT/BURSA W/O US Routine 01/20/2025 11:20 AM CDT Arthritis of knee NV AVULSION NAIL PLATE PARTIAL/COMPLETE SIMPLE 1 Routine 12/15/2024 11:00 AM CDT Ingrown toenail of right foot UNLISTED PROCEDURE ONLY Routine 12/03/2024 1:00 PM CDT Plantar wart of both feet XR DEXA BONE DENSITY AXIAL 1 OR MORE SITES Routine 01/31/2023 12:37 PM CDT Osteoporosis, unspecified osteoporosis type, unspecified pathological fracture presence from Last 3 Months or Most Recently Relevant to Health Maintenance Results * NV ARTHROCENTESIS ASPIR&/INJ MAJOR JT/BURSA W/O US (01/22/2025 12:20 PM CDT) [facility] - 01/22/2025 12:20 PM CDT Elsa Aviles FNP 01/22/2025 12:19 PM Large Joint Inject/Drain Date/Time: 01/22/2025 12:20 PM Authorized by: Elsa Aviles FNP Performed by: Elsa Aviles FNP Consent given by: patient Site marked: site marked Timeout: Immediately prior to procedure a time out was called to verify the correct patient, procedure, equipment, product support specialist and site/side marked as required Supporting Documentation Indications: pain Anesthesia Local anesthesia used?: local anesthesia used Local Anesthetic: lidocaine spray Sedation Patient sedated?: patient not sedated Procedure Details Location: shoulder - L glenohumeral Preparation: Patient was prepped and draped in the usual sterile fashion Methylprednisolone amount: 40 mg Lidocaine 2% amount: 4.5 mL Patient tolerance: patient tolerated the procedure well with no immediate complications Elsa Carla Aviles COMPLIANCE INVESTIGATOR PROCEDURE/MINOR SURGICAL OR DERABLES Final Result [facility] CLIA# [id number] [address] [place] [address] * XR SHOULDER 2+ VW LEFT (01/20/2025 11:47 AM CDT) Anatomical Region Laterality Modality Upper Extremity Computed Radiogr aphy 01/20/2025 11:4 7 AM CDT Impressions 01/21/2025 7:45 PM CDT IMPRESSION: Please see below. Exam: XR SHOULDER 2+ VW LEFT Date/Time of Exam: 01/20/2025 11:47 AM Reason For Exam: See Diagnosis. Diagnosis: Acute pain of left shoulder. Findings: There are no comparisons. The bony structures are osteopenic. There is no fracture. There is no dislocation. No periosteal reaction is noted. No lytic, blastic or destructive lesion is noted. There is mild osteoarthritic change of the acromioclavicular and glenohumeral joints. There is widening of the AC joint which might be secondary to a low-grade AC joint injury of uncertain chronicity. No radiopaque foreign body is noted. The visualized lung schilling are grossly clear.. Narrative Procedure Note Lory Cartwright MD - 01/21/2025 IMPRESSION: Please see below. Exam: XR SHOULDER 2+ VW LEFT Date/Time of Exam: 01/20/2025 11:47 AM Reason For Exam: See Diagnosis. Diagnosis: Acute pain of left shoulder. Findings: There are no comparisons. The bony structures are osteopenic. There is no fracture. There is no dislocation. No periosteal reaction is noted. No lytic, blastic or destructive lesion is noted. There is mild osteoarthritic change of the acromioclavicular and glenohumeral joints. There is widening of the AC joint which might be secondary to a low-grade AC joint injury of uncertain chronicity. No radiopaque foreign body is noted. The visualized lung schilling are grossly clear.. Elsa Aviles COMPLIANCE INVESTIGATOR DIAGNOSTIC IMAGING ORDERABL ES Final Result * NV ARTHROCENTESIS ASPIR&/INJ MAJOR JT/BURSA W/O US (01/20/2025 11:20 AM CDT) Narrative [facility] - 01/20/2025 11:20 AM CDT Elsa Aviles FNP 01/20/2025 11:22 AM Large Joint Inject/Drain Date/Time: 01/20/2025 11:20 AM Authorized by: Elsa Aviles FNP Performed by: Elsa Aviles FNP Consent given by: patient Site marked: site marked Timeout: Immediately prior to procedure a time out was called to verify the correct patient, procedure, equipment, product support specialist and site/side marked as required Supporting Documentation Indications: pain Anesthesia Local anesthesia used?: local anesthesia used Local Anesthetic: lidocaine spray Sedation Patient sedated?: patient not sedated Procedure Details Location: knee - R knee Preparation: Patient was prepped and draped in the usual sterile fashion Needle size: 22 G Approach: anterolateral Methylprednisolone amount: 40 mg Lidocaine 2% amount: 4.5 mL Patient tolerance: patient tolerated the procedure well with no immediate complications Elsa REIS PROCEDURE/MINOR SURGICAL OR DERABLES Final Result [facility] CLIA# [id number] [address] [place] [address] * NV AVULSION NAIL PLATE PARTIAL/COMPLETE SIMPLE 1 (12/15/2024 11:00 AM CDT) Narrative [facility] - 12/15/2024 11:00 AM CDT Barbara Thompson NP 12/15/2024 10:56 AM Nail Removal Date/Time: 12/15/2024 11:00 AM Performed by: Barbara Thompson NP Authorized by: Barbraa Thompson NP Location: right foot Location details: right second toe Anesthesia: local infiltration Anesthesia: Local Anesthetic: lidocaine 1% without epinephrine Anesthetic total: 2 mL Sedation: Patient sedated: no Preparation: sterile field established and skin prepped with providone-iodine Amount removed: partial Side: medial Wedge excision of skin of nail fold: no Nail bed sutured: no Nail matrix removed: partial Removed nail replaced and anchored: yes Dressing: Xeroform gauze Patient tolerance: patient tolerated the procedure well with no immediate complications Barbara Thompson NP PROCEDURE/MINOR SURGICAL ORDER SHWETHA Final Result Performing Organization Address [facility] de Phone Number [facility] CLIA# [id number] [address] [place] [address] * UNLISTED PROCEDURE ONLY (12/03/2024 1:00 PM CDT) Narrative [facility] - 12/03/2024 1:00 PM CDT Barbara Thompson NP 12/03/2024 1:48 PM General Procedure Date/Time: 12/03/2024 1:00 PM Performed by: Barbara Thompson NP Authorized by: Barbara Thompson NP Consent: Consent obtained: Verbal Consent given by: Patient Risks discussed: Pain and bleeding [place] protocol: Patient identity confirmed: Verbally with patient Indications: Indications: Plantar warts Comments: Curette used to bilateral feet plantar warts. Patient tolerated well. Barbara Thompson NP PROCEDURE/MINOR SURGICAL ORDER SHWETHA Final Result Performing Organization Address [facility] Co de Phone Number [facility] CLIA# [id number] [address] [address] * (ABNORMAL) XR DEXA BONE DENSITY AXIAL 1 OR MORE SITES (01/31/2023 12:37 PM CDT) T-SCORE SPINE -0.30 -1.0 - 1.0 INTER FACE SYSTEM T-SCORE HEEL (LEFT) -1.90(A) -1.0 - 1.0 INTERFACE SYSTEM Anatomical Region Laterality Modality Digital Radiogra phy 01/31/2023 12:3 7 PM CDT Impressions 01/31/2023 2:10 PM CDT IMPRESSION: Abnormal examination Bone density lies in the osteoporotic range in the left proximal femur just below the average the patient's age-matched control consistent with age-appropriate physiologic versus early accelerated bone demineralization responsible for her osteoporosis. Alendronate therapy is noted. Narrative 01/31/2023 2:10 PM CDT DEXA Evaluation of the Lumbar Spine and Left Proximal Femur Reason for Consultation: Severe/established osteoporosis with history of fracture as an adult on alendronate therapy. Evaluation of bone mineral density. The following absorptiometry data were obtained. The quality of this examination is acceptable with regards to count density, processed images, data display and lack of important artifacts (including but not limited to motion and attenuation artifacts). Serial examination number 1. Lumbar spine images demonstrate L3-loss and degenerative changes throughout the remainder of the lumbar spine. L1-L4 BMD (g/cm2): 1.050 Adult T-score: -0.3 Adult Z-score: 2.3 Left Femoral Neck BMD (g/cm2): 0.542 Adult T-score: -2.8 Adult Z-score: -0.6 Left Total Hip BMD (g/cm2): 0.715 Adult T-score: -1.9 Adult Z-score: 0.0 Procedure Note Myke Killian MD - 01/31/2023 DEXA Evaluation of the Lumbar Spine and Left Proximal Femur Reason for Consultation: Severe/established osteoporosis with history of fracture as an adult on alendronate therapy. Evaluation of bone mineral density. The following absorptiometry data were obtained. The quality of this examination is acceptable with regards to count density, processed images, data display and lack of important artifacts (including but not limited to motion and attenuation artifacts). Serial examination number 1. Lumbar spine images demonstrate L3-loss and degenerative changes throughout the remainder of the lumbar spine. L1-L4 BMD (g/cm2): 1.050 Adult T-score: -0.3 Adult Z-score: 2.3 Left Femoral Neck BMD (g/cm2): 0.542 Adult T-score: -2.8 Adult Z-score: -0.6 Left Total Hip BMD (g/cm2): 0.715 Adult T-score: -1.9 Adult Z-score: 0.0 IMPRESSION: Abnormal examination Bone density lies in the osteoporotic range in the left proximal femur just below the average the patient's age-matched control consistent with age-appropriate physiologic versus early accelerated bone demineralization responsible for her osteoporosis. Alendronate therapy is noted. us Jodie Mancia COMPLIANCE INVESTIGATOR DIAGNOSTIC IMAGING ORDER SHWETHA Final Result from Last 3 Months or Most Recently Relevant to Health Maintenance Insurance [place]ICA[place] HMO Advance Directives For more information, please contact: [phone] * Full Code (Latest Code Status on File) Date Activated Date Inactivated Comments 11/07/2023 12:07 PM 11/10/2023 4:24 PM * Full Code Date Activated Date Inactivated Comments 09/11/2021 3:47 AM 09/13/2021 3:34 PM Care Teams Aerodynamics Professor Relationship Specialty Start Date End Date Ginette Gonzalez MD [address] [phone] PCP - General Family Practice 08/23/22
--- OUTSIDE RECORDS SUMMARY | 2025-02-28 08:24 | XMS_ITS | Encounter Summary ---
Author Organization [facility] Address [address] [place] [address] Care Team Providers Care Co Founder And Chief Strategy Officer Name Role Phone Flores Harvey MD Primary Care Provider [phone] Encounter Details Date Type Department Care Team (Latest Contact Info) Description 07/28/2001 Outpatient Historical [facility]- [address] [place] [phone] Stella Ferreira MD NO ADDRESS ON FILE DIZZINESS AND GIDDINESS (Primary Dx); VITILIGO Social History Tobacco Use Types Packs/Day Years Used Date Smoking Tobacco: Never Assessed Comments Unknown Sex and Gender Information Value Date Recorded Sex Assigned at Not on file Legal Sex Female 4:37 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
--- OUTSIDE RECORDS SUMMARY | 2025-02-28 08:24 | XMS_ITS | Encounter Summary ---
Author Organization [facility] Address [address] [place] [address] Care Team Providers Care Catering Manager Name Role Phone Flores Harvey MD Primary Care Provider [phone] Reason for Referral * Outpatient Services (Routine) - Closed Specialty Diagnoses / Procedures Referred By Contac t Referred To Contact Radiology Diagnoses Thyroid nodule Procedures US HEAD NECK TISSUES Kin Brenner MD Phone: tel: fax: [facility] [address] [place] [address] Phone: tel: fax: Referral ID Status Reason Start Date Expiration Date V isits Requested Visits Authorized [id number] Closed [facility] View CTS to Schedule (SGF) 12/12/2015 01/11/2017 1 1 Encounter Details Date Type Department Care Team (Latest Contact Info) Description 12/12/2015 Ancillary Orders [facility] Centralized Scheduling [address] [facility] [address] [place] [address] Kin Brenner MD [address] [place] [address] Thyroid nodule (Primary Dx) Social History Tobacco Use Types Packs/Day Years Used Date Smoking Tobacco: Never Smokeless Tobacco: Never Alcohol Use Standard Drinks/Week Comments No 0 (1 standard drink = 0.6 oz pur e alcohol) Comments No Sex and Gender Information Value Date Recorded Sex Assigned at Not on file Legal Sex Female 4:37 AM LEARNING AND DEVELOPMENT COORDINATOR Gender Identity Not on file Sexual Orientation Not on file Occupation Industry Job Start Date Job End Date Not on file Not on file Not on file Not on file documented as of this encounter Plan of Treatment Not on file documented as of this encounter Results * US HEAD NECK TISSUES (12/14/2015 8:16 AM CDT) Anatomical Region Laterality Modality Head Ultrasound 12/14/2015 8:16 AM CDT Impressions 12/14/2015 3:02 PM CDT IMPRESSION: 1. Heterogeneous right and left lobes of the thyroid gland. 2. Probable multinodular goiter. 3. Pathologic calcifications are not apparent. [id number] Narrative 12/14/2015 3:02 PM CDT Exam: US HEAD NECK TISSUES Date/Time of Exam: 12/14/2015 8:16 AM Reason For Exam: Thyroid nodule. Findings: Thyroid ultrasound demonstrates the right lobe to measure 4.0 x 1.0 x 1.3 cm. Right lobe of the thyroid gland is mildly heterogeneous. Two soft tissue densities are seen in the inferior aspect of the right lobe of the thyroid gland measuring 0.6 x 0.3 cm and 0.7 x 0.3 cm. These are well-defined and noncalcified and demonstrate color-flow. A third soft tissue density is also present but this is much smaller than the first two and this also demonstrates minimal color flow. Left lobe of the thyroid gland measures 5.2 x 1.7 x 1.2 cm. Left lobe of the thyroid gland is also heterogeneous. Two soft tissue densities that are seen in the left lobe of the thyroid gland demonstrates moderate color-flow throughout. First density measures 1.4 x 1.0 cm and the second density measures 1.9 x 1.4 cm. Calcifications are not evident. us Kin Brenner MD US ORDERABLES Final Result documented in this encounter Visit Diagnoses Diagnosis Thyroid nodule- Primary Nontoxic uninodular goiter Thyroid nodule Nontoxic uninodular goiter documented in this encounter Care Teams Catering Manager Relationship Specialty Start Date End Date Flores Harvey MD [address] [address] PCP - General Family Practice 12/19/15 documented as of this encounter
--- OUTSIDE RECORDS SUMMARY | 2025-02-28 08:24 | XMS_ITS | Encounter Summary ---
Author Organization [facility] Address [address] [place] [address] Care Team Providers Care Conductor Symphonic Orchestra Name Role Phone Ginette Gonzalez MD Primary Care Provider Encounter Details Date Type Department Care Team (Late Contact Info) Description 07/05/2022 Lab Requisition [facility] General Laboratory Services [place] [address] [place] [phone] Ronnie French MD [address] [place] [address] Unspecified convulsions (CMS/HCC) Social History Tobacco Use Types Packs/Day Years Used Date Smoking Tobacco: Never Smokeless Tobacco: Never Alcohol Use Standard Drinks/Week Comments No 0 (1 standard drink = 0.6 oz pur e alcohol) Comments No Sex and Gender Information Value Date Recorded Sex Assigned at Not on file Legal Sex Female 8:19 AM TALENT DEVELOPMENT COORDINATOR Gender Identity Not on file Sexual Orientation Not on file COVID-19 Exposure Response Date Recorded In the last 10 days, have yo u been in contact with someone who was confirmed or suspected to have Coronavirus/COVID-19? Yes 07/05/2022 1:25 PM CDT documented as of this encounter Plan of Treatment Upcoming Encounters Date Type Department Care Team (Late Contact Info) Description 03/24/2025 1:00 PM CDT Procedure visit [facility] Family [facility] [place] [address] [facility] [place] [phone] Daphnie Kennedy, SHEET METAL ASSEMBLER AND RIVETER [address] [place] [address] 07/20/2025 1:00 PM TALENT DEVELOPMENT COORDINATOR Appointment [facility] Neurology [facility] [address] [place] [phone] Ronnie French MD [address] [place] [address] 11/05/2025 1:20 PM TALENT DEVELOPMENT COORDINATOR Office Visit [facility] Family Medicine [address] [place] [phone] Daphnie Kennedy, SHEET METAL ASSEMBLER AND RIVETER [address] [facility] [place] [address] documented as of this encounter Procedures Procedure Name Priority Date/Time Associated Diagnosis Comments CBC WITH DIFFERENTIAL Stat 07/05/2022 2:26 PM CDT Unspecified convulsions COMPREHENSIVE METABOLIC PANEL Stat 07/05/2022 2:26 PM CDT Unspecified convulsions documented in this encounter Results * (ABNORMAL) COMPREHENSIVE METABOLIC PANEL (07/05/2022 2:26 PM CDT) SODIUM 141 136 - 145 mmol/L 07/05/2022 2:55 PM CDT [facility] POTASSIUM 4.3 3.5 - 5.1 mmol/L 07/05/2022 2:55 PM CDT [facility] CHLORIDE 103 98 - 107 mmol/L 07/05/2022 2:55 PM CDT [facility] CO2 29 22 - 29 mmol/L 07/05/2022 2:55 PM CDT [facility] CALCIUM 9.2 8.8 - 10.2 mg/dL 07/05/2022 2:55 PM [facility] BUN 13 8 - 23 mg/dL 07/05/2022 2:55 PM [facility] CREATININE 0.69 0.51 - 0.95 mg/dL 07/05/2022 2:55 PM [facility] Comment:The GFR result is no t clinically significant on patients <18 or >70 years of age. GLUCOSE 88 74 - 99 mg/dL 07/05/2022 2:55 PM [facility] TOTAL PROTEIN 6.6 6.6 - 8.7 g/dL 07/05/2022 2:55 PM [facility] ALBUMIN 3.9 3.5 - 5.2 g/dL 07/05/2022 2:55 PM [facility] BILIRUBIN TOTAL 0.3 <=1.2 mg/dL 07/05/2022 2:55 PM [facility] ALKALINE PHOSPHATASE 81 35 - 104 U/L 07/05/2022 2:55 PM [facility] AST 12 10 - 35 U/L 07/05/2022 2:55 PM [facility] ALT 7(L) 10 - 35 U/L 07/05/2022 2:55 PM [facility] GFR >60 mL/min/1.7 3 sq meter 07/05/2022 2:55 PM [facility] Comment:eGFR calculated with 2020 CKD-EPI equation. Vegetarian diet, extremely high or low muscle mass, and may affect results. Cystatin C with Glomerular Filtration Rate is a suitable alternative for these patients. ANION GAP 9(L) 12 - 20 mmol/L 07/05/2022 2:55 PM [facility] Blood Venipuncture / Unknown 07/05/2022 2:26 PM CDT 07/05/2022 2:30 PM T us Ronnie French MD CHEMISTRY ORDERABLES Final Result [facility] CLIA # [id number] [address] [place] [address] * (ABNORMAL) CBC WITH DIFFERENTIAL (07/05/2022 2:26 PM CDT) [facility] WBC 5.4 4.0 - 10.0 K/uL 07/05/2022 2:36 PM [facility] RBC 4.41 3.93 - 5.22 M/uL 07/05/2022 2:36 PM [facility] HEMOGLOBIN 12.9 11.2 - 15.7 g/dL 07/05/2022 2:36 PM [facility] HEMATOCRIT 39.1 34.1 - 44.9 % 07/05/2022 2:36 PM [facility] MCV 88.7 79.4 - 94.8 fL 07/05/2022 2:36 PM [facility] MCH 29.3 25.6 - 32.2 pg 07/05/2022 2:36 PM [facility] MCHC 33.0 32.2 - 35.5 g/dL 07/05/2022 2:36 PM [facility] RDW 14.2 11.0 - 14.5 % 07/05/2022 2:36 PM [facility] RDW-STDEV 45.9 36.9 - 56.9 fL 07/05/2022 2:36 PM [facility] PLATELETS 131(L) 163 - 337 K/uL 07/05/2022 2:36 PM [facility] MPV 9.9(L) 10.0 - 14.8 fL 07/05/2022 2:36 PM [facility] NEUTROPHILS 58 34 - 71 % 07/05/2022 2:36 PM [facility] LYMPHOCYTES 24 19 - 52 % 07/05/2022 2:36 PM [facility] MONOCYTES 12 5 - 13 % 07/05/2022 2:36 PM [facility] EOSINOPHILS 5 1 - 6 % 07/05/2022 2:36 PM [facility] BASOPHILS 1 0 - 1 % 07/05/2022 2:36 PM [facility] IMMATURE GRANULOCYTES 0 % 07/05/2022 2:36 PM CDT [facility] NEUTROPHIL ABSOLUTE 3.12 1.56 - 6.13 K/uL 07/05/2022 2:36 PM CDT [facility] LYMPHOCYTE ABSOLUTE 1.31 1.20 - 3.40 K/uL 07/05/2022 2:36 PM CDT [facility] MONOCYTE ABSOLUTE 0.67(H) 0.24 - 0.36 K/uL 07/05/2022 2:36 PM CDT [facility] EOSINOPHIL ABSOLUTE 0.25 0.04 - 0.36 K/uL 07/05/2022 2:36 PM CDT [facility] BASOPHILS ABSOLUTE 0.06 0.01 - 0.08 K/uL 07/05/2022 2:36 PM CDT [facility] IMMATURE GRANULOCYTES ABSOLUTE 0.02 K/uL 07/05/2022 2:36 PM CDT [facility] Blood Venipuncture / Unknown 07/05/2022 2:26 PM CDT 07/05/2022 2:30 PM CDT Ronnie French MD HEMATOLOGY ORDERABLES Savana lopez Result [facility] CLIA # [id number] [address] [address] documented in this encounter Visit Diagnoses Diagnosis Unspecified convulsions (CMS/HCC) documented in this encounter Additional Health Concerns Infection Onset Date Last Indicated Resolved Time COVID-19 06/15/2022 06/15/2022 07/05/2022 1:16 AM CDT R/O COVID-19 05/07/2023 05/07/2023 05/07/2023 9:27 AM CDT COVID-19 05/07/2023 05/07/2023 05/27/2023 1:16 AM CDT documented as of this encounter Care Teams Conductor Symphonic Orchestra Relationship Specialty Start Date End Date Ginette Gonzalez MD [address] [address] PCP - General Family Practice 08/23/22 documented as of this encounter
--- OUTSIDE RECORDS SUMMARY | 2025-02-28 08:24 | XMS_ITS | Encounter Summary ---
Author Organization [facility] Address [address] [place] [address] Care Team Providers Care Industrial Court Magistrate Name Role Phone Flores Harvey MD Primary Care Provider [phone] Reason for Referral * Outpatient Services (Routine) - Closed Specialty Diagnoses / Procedures Referred By Contac t Referred To Contact Radiology Diagnoses Hypothyroidism Thyroid nodule Procedures US HEAD NECK TISSUES Jeff Mancia FNP [address] [place] [address] Phone: tel: fax: [facility] [address] [facility] [address] [place] [address] Phone: tel: fax: Referral ID Status Reason Start Date Expiration Date V isits Requested Visits Authorized [id number] Closed [facility] View CTS to Schedule (SGF) 06/24/2017 07/25/2018 1 1 Encounter Details Date Type Department Care Team (Late st Contact Info) Description 06/24/2017 Ancillary Orders [facility] Centralized Scheduling [address] [place] [address] Jeff Mancia FNP [address] [place] [address] Hypothyroidism; Thyroid nodule Social History Tobacco Use Types Packs/Day Years Used Date Smoking Tobacco: Never Smokeless Tobacco: Never Alcohol Use Standard Drinks/Week Comments No 0 (1 standard drink = 0.6 oz pur e alcohol) Comments No Sex and Gender Information Value Date Recorded Sex Assigned at Not on file Legal Sex Female 4:37 AM CALENDER MACHINE OPERATOR HELPER Gender Identity Not on file Sexual Orientation Not on file Occupation Industry Job Start Date Job End Date Not on file Not on file Not on file Not on file documented as of this encounter Plan of Treatment Not on file documented as of this encounter Results * US HEAD NECK TISSUES (06/24/2017 1:00 PM CDT) Anatomical Region Laterality Modality Head Ultrasound 06/24/2017 2:15 PM CDT Impressions 06/24/2017 4:08 PM CDT IMPRESSION: Please see below. US HEAD NECK TISSUES, 06/24/2017 1:00 PM REASON FOR EXAM: Hypothyroidism,Thyroid nodule. COMPARISON: 12/14/2015 TECHNIQUE: Multi-planar real-time ultrasonography of the thyroid gland was performed using garcia-scale and supplemental color Doppler imaging. FINDINGS: The thyroid gland is heterogeneous with multiple nodules. The right thyroid lobe measures 4.4 x 1.7 x 1.5 cm. There is a 8 x 3 x 10 mm hypoechoic nodule in the right aspect of the isthmus with peripheral vascular flow. The left thyroid lobe measures 4.9 x 2.1 x 1.2 cm. There is a 1.5 x 1.4 x 0.9 cm slightly hyperechoic nodule in the mid gland with internal vascular flow. No focal abnormality is seen in the adjacent soft tissues. ++++++++++++++++++++ IMPRESSION: Bilateral thyroid nodules, the largest of which measures up to 1.5 cm in the left thyroid lobe. The largest nodule described previously on the left has resolved suggesting that it was a complex cyst. No new nodules. Narrative Procedure Note Bob Snowden MD - 06/24/2017 IMPRESSION: Please see below. US HEAD NECK TISSUES, 06/24/2017 1:00 PM REASON FOR EXAM: Hypothyroidism,Thyroid nodule. COMPARISON: 12/14/2015 TECHNIQUE: Multi-planar real-time ultrasonography of the thyroid gland was performed using garcia-scale and supplemental color Doppler imaging. FINDINGS: The thyroid gland is heterogeneous with multiple nodules. The right thyroid lobe measures 4.4 x 1.7 x 1.5 cm. There is a 8 x 3 x 10 mm hypoechoic nodule in the right aspect of the isthmus with peripheral vascular flow. The left thyroid lobe measures 4.9 x 2.1 x 1.2 cm. There is a 1.5 x 1.4 x 0.9 cm slightly hyperechoic nodule in the mid gland with internal vascular flow. No focal abnormality is seen in the adjacent soft tissues. ++++++++++++++++++++ IMPRESSION: Bilateral thyroid nodules, the largest of which measures up to 1.5 cm in the left thyroid lobe. The largest nodule described previously on the left has resolved suggesting that it was a complex cyst. No new nodules. Jeff Mancia [facility] US ORDERABLES Final Resul t documented in this encounter Visit Diagnoses Diagnosis Hypothyroidism Unspecified hypothyroidism Thyroid nodule Nontoxic uninodular goiter Hypothyroidism Unspecified hypothyroidism Thyroid nodule Nontoxic uninodular goiter documented in this encounter Care Teams Industrial Court Magistrate Relationship Specialty Start Date End Date Flores Harvey MD [address] [address] PCP - General Family Practice 12/19/15 documented as of this encounter
--- OUTSIDE RECORDS SUMMARY | 2025-02-28 08:24 | XMS_ITS | Encounter Summary ---
Author Organization [facility] Address [address] [place] [address] Care Team Providers Care Golf Course Equipment Operator Name Role Phone Flores Harvey MD Primary Care Provider [phone] Encounter Details Date Type Department Care Team (Late st Contact Info) Description 07/23/2013 Ancillary Orders [facility] Admitting [address] [place] [address] Joanne Jang, Momo Payne, CHATO [address] [place], [place] [id number] Bronchitis (Primary Dx) Social History Tobacco Use Types Packs/Day Years Used Date Smoking Tobacco: Never Smokeless Tobacco: Never Alcohol Use Standard Drinks/Week Comments No 0 (1 standard drink = 0.6 oz pur e alcohol) Comments No Sex and Gender Information Value Date Recorded Sex Assigned at Not on file Legal Sex Female 4:37 AM CATALYST MANUFACTURING OPERATOR Gender Identity Not on file Sexual Orientation Not on file Occupation Industry Job Start Date Job End Date Not on file Not on file Not on file Not on file documented as of this encounter Plan of Treatment Not on file documented as of this encounter Results * XR CHEST PA AND LATERAL (07/23/2013 10:34 AM CATALYST MANUFACTURING OPERATOR) Anatomical Region Laterality Modality Chest Computed Radiogr aphy 07/23/2013 10:3 4 AM CATALYST MANUFACTURING OPERATOR Narrative 07/23/2013 4:09 PM CATALYST MANUFACTURING OPERATOR PROCEDURE CHEST, 2 views 23 July 2013 COMPARISON Current: PA and lateral chest Prior: no previous studies available for comparison DESCRIPTION Frontal view of the chest shows no infiltrate or atelectasis and the cardiomediastinal silhouette appears normal. There is mild hyperinflation. There is aortic tortuosity and minimal atherosclerosis. There is mild left arthritis of the spine. Surgical clips in right upper quadrant are likely status post cholecystectomy. On the lateral view, no infiltrate or spine sign is seen. Costophrenic angles are grossly normal posteriorly. IMPRESSION mild senescent change with no acute infiltrate or atelectasis seen Procedure Note Kirk Corona MD - 07/28/2013 PROCEDURE CHEST, 2 views 23 July 2013 COMPARISON Current: PA and lateral chest Prior: no previous studies available for comparison DESCRIPTION Frontal view of the chest shows no infiltrate or atelectasis and the cardiomediastinal silhouette appears normal. There is mild hyperinflation. There is aortic tortuosity and minimal atherosclerosis. There is mild left arthritis of the spine. Surgical clips in right upper quadrant are likely status post cholecystectomy. On the lateral view, no infiltrate or spine sign is seen. Costophrenic angles are grossly normal posteriorly. IMPRESSION mild senescent change with no acute infiltrate or atelectasis seen Momo Rubio Sr., ASSOCIATE ACCOUNT EXECUTIVE DIAGNOSTIC IMAGIN G ORDERABLES Final Result documented in this encounter Visit Diagnoses Diagnosis Bronchitis- Primary Bronchitis, not specified as acute or chronic Bronchitis Bronchitis, not specified as acute or chronic documented in this encounter Care Teams Golf Course Equipment Operator Relationship Specialty Start Date End Date Flores Harvey MD [address] [phone] PCP - General Family Practice 12/19/15 documented as of this encounter
--- OUTSIDE RECORDS SUMMARY | 2025-02-28 08:24 | XMS_ITS | Clinical Summary ---
Author Organization [facility] Address [address] [place] [address] Care Team Providers Care Management Aide Name Role Phone Flores Harvey MD Primary Care Provider [phone] Allergies Active Allergy Reactions Criticality Noted Date Comments Erythromycin Nausea and Vomiting Low 06/06/2011 Medications aspirin (FENG) 81 mg Oral Tab Take by mouth daily. Active IBUPROFEN (ADVIL ORAL) Take by mouth. As needed. Active ranitidine HCl (ZANTAC) 150 mg Oral CapIndications: GERD (gastroesophage al reflux disease) Take 1 Cap by mouth 2 times daily. 60 Cap 5 1 Active loratadine (CLARITIN) 10 mg Oral tablet Take 1 Tab by mouth daily. 30 Tab 3 2 Active fluticasone (FLONASE) 50 mcg/spray Both Nostril SpSnIndications :Acute serous otitis media Administer 1 Rutledge in each nostril daily. 1 Bottle 3 2 Active albuterol (PROAIR HFA) 90 mcg/Actuation Inhalation HFAA inhaler Take 2 Puffs by inhalation every 6 hours as needed for Wheezing. 8.5 Gram 2 2 Active theophylline SR 12 hour (THEOCHRON) 300 mg Oral tablet Take 1 Tab by mouth 3 times daily. 90 Tab 1 2 Active warfarin (COUMADIN) 6 mg tablet Take 6 mg by mouth daily. Active meclizine HCl (MECLIZINE ORAL) Take by mouth. Activ e Active Problems Problem Noted Date Diagnosed Date Retention polyps of large bowel 08/20/2011 Submucosal leiomyoma of colon 08/20/2011 Special screening for malignant neoplasms, colon 07/30/2011 Tinea versicolor 06/27/2011 Asthma 06/06/2011 GERD (gastroesophageal reflux disease) 1 Allergic rhinitis 06/06/2011 Immunizations Immunization Administration Dates Next Due (ADACEL/BOOSTRIX)(10 YR UP) TDAP VACCINE, 0.5ML, IM 02/11/2019 (TDVAX)(7 YRS UP) TETANUS AN D DIPHTHERIA TOXOIDS, ADSORBED (2 LF OF TETANUS TOXOID AND 2 LF OF DIPHTHERIA TOXOID), 0.5ML (PF), IM 06/09/2011 Influenza Seasonal Unspecified Formulation IM Family History Medical History Relation Name Comments Other Father Unknown Maternal Grandfather Unknown Maternal Grandmother Colon Cancer Mother Unknown Paternal Grandfather Unknown Paternal Grandmother Cancer Sister 1 in abdomen - co richie? ovary? Cancer Sister 2 Breast Cancer Neg Hx Relation Name Status [...] on file Legal Sex Female 4:37 AM ACCOUNTS SUPERVISOR Gender Identity Not on file Sexual Orientation Not on file Occupation Industry Job Start Date Job End Date Not on file Not on file Not on file Not on file Last Filed Vital Signs Vital Sign Reading Time Taken Comments Blood Pressure 127/74 02/11/2019 9:12 PM CDT Pulse 88 10/22/2018 5:28 PM ACCOUNTS SUPERVISOR Temperature 36.7 C (98.1 F) 02/11/2019 9:12 PM CDT Respiratory Rate 16 02/11/2019 9:12 PM CDT Oxygen Saturation 96% 02/11/2019 9:12 PM CDT Inhaled Oxygen Concentration - - Weight 98.4 kg (217 lb) 02/11/2019 8:09 PM CDT Height 167.6 cm (5' 6 ) 02/11/2019 8:09 PM CDT Body Mass Index 35.02 02/11/2019 8:09 PM CDT Plan of Treatment Health Maintenance Due Date Last Done Comments COLORECTAL SCREENING 12/09/1963 PNEUMOCOCCAL VACCINE 50+ YEA RS (1 of 2 - PCV) 1964 ZOSTER VACCINE (1 of 2) 12/09/1995 OSTEOPOROSIS SCREENING 2010 RSV VACCINE (60+ or ) (1 - 1-dose 75+ series) 2020 INFLUENZA VACCINE (#1) 2024 06/24/2012 DTAP/TDAP/TD VACCINES (2 - Td or Tdap) 02/11/2029, 06/09/[address] [place], [place] [id number] [place] [address] Care Teams Management Aide Relationship Specialty Start Date End Date Flores Harvey MD [address] [facility] [address] [place] [address] PCP - General Family Practice 12/19/15
--- NOTE | 2025-02-28 09:03 | PC.PHAR ---
Pt unable to verify her medications. Phoned -K[facility] with no answer and no message set up. Verified with [employer] View last fill date and day supply.
[2025-02-28] MEDS: pantoprazole DR 40 mg Tablet PO (09:41)
[2025-02-28] MEDS: docusate sodium 100 mg Capsule PO ×2 (09:41→18:04)
[2025-02-28] MEDS: guaiFENesin 600 mg Tablet PO ×2 (09:41→18:04)
--- NOTE | 2025-02-28 10:31 | ECG_ITS ---
[facility] Date: 2025-02-28 Pat Name: Daphnie Coughlin Department: Room: 277 Gender: Female Operating Room Surgical Technologist: : 1945 Requested By: Ila Orellana Order Number: [id number] Danni MD: Paresh Appiah M.D. Measurements Intervals [place] Rate: 107 P: 0 SC: 0 QRS: 95 QRSD: 83 T: -43 QT: 325 QTc: 435 Interpretive Statements ATRIAL FIBRILLATION WITH RAPID VENTRICULAR RESPONSE WITH ABERRANT CONDUCTION OR VENTRICULAR PREMATURE COMPLEXES BORDERLINE RIGHT AXIS DEVIATION [QRS AXIS > 90] NONSPECIFIC ST & T-WAVE ABNORMALITY Compared to ECG 02/28/2025 00:54:18 Ventricular premature complex(es) now present Aberrant conduction of supraventricular beat(s) now present T-wave abnormality still present Electronically Signed On 02-28-2025 19:17:55 CDT by Paresh Appiah M.D. [id number] [email or web address]
[2025-02-28] MEDS: metoprolol tartrate 25 mg Tablet PO (11:28)
[2025-02-28 13:23] LABS: C.Diff PCR (Lab) NEGATIVE (Negative)
--- NOTE | 2025-02-28 17:05 | ECG_ITS ---
[facility] Date: 2025-02-28 Pat Name: Daphnie Coughlin Department: Room: 277 Gender: Female Alarm Field Technician: : 1945 Requested By: Héctor Monroy Order Number: [id number] Danni MD: Rocky Adam M.D. Measurements Intervals [place] Rate: 119 P: 0 WI: 0 QRS: 103 QRSD: 89 T: -51 QT: 277 QTc: 390 Interpretive Statements ATRIAL FIBRILLATION WITH RAPID VENTRICULAR RESPONSE RIGHT AXIS DEVIATION [QRS AXIS > 100] LOW QRS VOLTAGE IN PRECORDIAL LEADS [QRS DEFLECTION < 1.0 mV IN CHEST LEADS] NONSPECIFIC ST & T-WAVE ABNORMALITY Compared to ECG 02/28/2025 10:32:37 Low QRS voltage now present Ventricular premature complex(es) no longer present Aberrant conduction of supraventricular beat(s) no longer present T-wave abnormality still present Electronically Signed On 03-02-2025 17:52:29 CDT by Rocky Adam M.D. [id number]
--- NOTE | 2025-02-28 17:23 | XRR_ITS ---
PROCEDURE INFORMATION: Exam: XR Chest Exam date and time: 02/28/2025 5:38 PM Age: 79 years old Clinical indication: Dyspnea and wheezing; Additional info: Dyspnea, crackles and wheezing TECHNIQUE: Imaging protocol: Radiologic exam of the chest. Views: 1 view. COMPARISON: CR (CHEST, ) 02/27/2025 8:22 PM FINDINGS: Lungs: Unremarkable. No consolidation. Pleural spaces: Unremarkable. No pleural effusion. No pneumothorax. Heart/Mediastinum: Unremarkable. No cardiomegaly. Bones/joints: Unremarkable. XR/XR chest 1V portable [id number] IMPRESSION: No acute findings.
[2025-02-28] MEDS: methylPREDNISolone sod succ 125 mg/2 mL INJ 60 MG IVP (18:04)
[2025-02-28] MEDS: piperacillin-tazobactam 3.375 GM in sodium chloride 0.9% (plus) 50 ML IV (18:55)
[2025-02-28] MEDS: dextrose 5%-sod chloride 0.45% 1,000 ML 75 ML IV (19:08)
[2025-02-28] MEDS: sennosides 8.6 mg Tablet 17.2 MG PO (20:07)
[2025-02-28] MEDS: dilTIAZem ER (24HR) 120 mg Capsule PO (20:07)
[2025-02-28] MEDS: primidone 50 mg Tablet 250 MG PO (20:17)
[2025-03-01] VITALS (7 sets, daily range): BP systolic 118–157; BP diastolic 69–88; PULSE 66–106; RESP 17–19; TEMP 36.3–36.8; O2SAT 91–93
[2025-03-01] MEDS: piperacillin-tazobactam 3.375 GM in sodium chloride 0.9% (plus) 50 ML IV ×3 (01:44→18:30)
[2025-03-01] MEDS: enoxaparin 100 mg/mL Syringe SUBCUT ×2 (04:56→18:30)
[2025-03-01] MEDS: FUROsemide 10 mg/mL SDV 2mL 20 MG IVP (04:56)
[2025-03-01] MEDS: methylPREDNISolone sod succ 125 mg/2 mL INJ 60 MG IVP (04:57)
[2025-03-01 06:25] LABS: Basophils % 0.7 %; Eosinophils % 0.5 %; Hematocrit 35.9 % (36-47); Lymphocytes # 0.9 10^3/uL (0.8-4.8); Lymphocytes % 15.6 %; Mean Corpuscular HGB Conc 32.9 g/dL (30-55); Mean Corpuscular Hemoglobin 31.1 pg (27-33); Mean Corpuscular Volume 94.5 fl (85-98); Mean Platelet Volume 9.8 fL (7.4-10.4); Monocytes # 0.8 10^3/uL (0.2-0.9); Monocytes % 14.8 %; Nucleated Red Blood Cells % 0 %; Platelet Count 172 10^3/cmm (157-399); Red Cell Distribution Width 15.6 % (12.1-15.1); White Blood Count 5.53 10^3/uL (3.29-11.43)
[2025-03-01 06:45] LABS: Alanine Aminotransferase 36 U/L (0-33); Albumin Level 3.2 g/dL (3.5-5.2); Alkaline Phosphatase 101 U/L (35-105); Anion Gap 13.3 (5-19); Aspartate Amino Transferase 22 U/L (0-32); Blood Urea Nitrogen 10 mg/dL (8-23); C Reactive Protein 21.4 mg/L (0.0-4.9); Calcium 8.8 mg/dL (8.5-10.5); Carbon Dioxide 29 mmol/L (22-29); Chloride 98 mmol/L (98-107); Glucose 137 mg/dL (65-115); Magnesium 2.1 mg/dL (1.7-2.3); Osmolality Calculated 285 mOsm/kg (285-295); Potassium 3.3 mmol/L (3.5-5.1); Sodium 137 mmol/L (136-145); Total Bilirubin 0.3 mg/dL (0.15-1.2); Total Protein 6.2 g/dL (6.6-8.7)
[2025-03-01 06:49] LABS: Procalcitonin 0.04 ng/mL (0-0.5)
[2025-03-01] MEDS: divalproex DR 250 mg Tablet 750 MG PO (10:36)
[2025-03-01] MEDS: dilTIAZem ER (24HR) 180 mg Capsule 360 MG PO (10:36)
[2025-03-01] MEDS: guaiFENesin 600 mg Tablet PO ×2 (10:36→18:30)
[2025-03-01] MEDS: primidone 50 mg Tablet 250 MG PO ×3 (10:36→21:06)
[2025-03-01] MEDS: docusate sodium 100 mg Capsule PO ×2 (10:37→18:30)
[2025-03-01] MEDS: pantoprazole DR 40 mg Tablet PO (10:37)
[2025-03-01] MEDS: FUROsemide 40 mg Tablet PO (10:37)
[2025-03-01] MEDS: dextrose 5%-sod chloride 0.45% 1,000 ML 75 ML IV (10:44)
--- NOTE | 2025-03-01 11:50 | PICC.NOTE ---
Referred to vascular access nurse due to poor access. Upon arrival to room, IV fluids infusing to left hand and hand noted to have significant swelling. IVF stopped. 20 gauge IV started to right forearm using US guidance x 1 stick. Good blood return noted and flushed without difficulty. Report of new IV to right forearm and infiltration to left hand given to bedside nurse, Clementina.
[2025-03-01] MEDS: dilTIAZem 30 mg Tablet PO ×2 (12:32→18:30)
[2025-03-01 12:45] LABS: Estmated Average Glucose 120; Hemoglobin A1C 5.8 % (4.0-6.0)
[2025-03-01 12:59] LABS: Iron 51 ug/dL (37-145); Percent Saturation 18.5 % (20-50); Thyroid Stimulating Hormone 4.03 uIU/mL (0.27-4.20); Total Iron Binding Capacity 275 mcg/dl; Unsaturated Iron Binding 224 ug/dL (112-347); Vitamin B12 1464 pg/mL (232-1245)
--- NOTE | 2025-03-01 15:36 | P.PN_ITS ---
Subjective 2 Subjective: Hospital course, labs appreciated. Seen with family at bedside. Is awake and alert, slow to respond. Alert to self, date of . Hard of hearing. As per patient's patient has been more sleepy recently for last 2 weeks. Medications: Reviewed: Yes Vitals/I&O/Wt Last Vital Signs Temp 97.5 F L 03/01/25 10:58 Pulse 106 H 03/01/25 10:58 Resp 19 H 03/01/25 10:58 BP 157/79 03/01/25 10:58 Pulse Ox 93 03/01/25 10:58 O2 Del Method Room Air 03/01/25 10:58 03/01/25 03/01/25 03/01/25 06:59 14:59 22:59 Intake Total 50 / 390 2170 / 2170 Output Total 200 / 3950 Balance -150 / -3560 2170 / 2170 Weight last 48 hrs Weight 103.51 kg Weight 106.685 kg Weight 99.79 kg Physical Exam 2 Narrative: General: Alert, not oriented. HEENT: Normocephalic, Atraumatic. External ears normal. Nasal passages patent without drainage. MMM. Heart: Tachycardic with irregular rhythm. Consistent with atrial fibs. Resp: Bilateral crackles on lung exam. Mild wheezes throughout. Abd: Soft, non-tender. Non-distended. Extremities: No edema. Skin: No rash or lesions on exposed areas. Urinary Catheter Management: Witt: Cath Placed During This Visit: yes Reason for Continuing Indwelling Catheter: Other Urinary Catheter Date of Insertion: 02/27/25 Urinary Catheter Time of Insertion: 21:10 Data 03/01/25 05:46 03/01/25 05:46 Micro: Microbiology 02/27/25 00:03 Blood Culture - Preliminary Blood NEGATIVE TO DATE 02/27/25 00:11 Blood Culture - Preliminary Blood NEGATIVE TO DATE A&P Assessment and plan (1) Mental status alteration: (2) Pneumonia: (3) Dysphagia: (4) Atrial fibrillation: (5) COPD (chronic obstructive pulmonary disease): (6) Essential tremor: (7) Chronic fatigue disorder: (8) 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 In the ER chest x-ray showed left infrahilar atelectasis/infiltrate with a small pleural effusion. She had a CT head which did not show any acute concerns. She did have cerebral atrophy. She did not have a leukocytosis at admission. Her sodium was slightly low to 132. She had a mild elevation of her ALT to 40. CRP was 14.5. No fever or oxygen requirement noted. Her blood pressures have been stable. She is having intermittent RVR as noted on EKG. She received some Cardizem and beta-korey in the ER which did help with her rate. Will restart her home Cardizem. Blood cultures were obtained and are pending. Patient does have underlying dysphagia. Will have speech therapy evaluate. Currently n.p.o. until we can have this arranged. Will advance diet per the recommendations. Initial antibiotics were ceftriaxone and doxycycline. Will switch to Zosyn for better coverage. Will add Solu-Medrol for wheezing. Repeat chest x-ray is pending. Recheck a.m. labs. Continue other home medications for chronic illnesses. Plan for the day: Altered mental status most likely in setting of polypharmacy along with concerns for pneumonia. Seems to be improving as per family members. CT head on admission negative for acute dramality. Patient has a history of A-fib. Respiratory viral panel, C. difficile negative when checked earlier in admission. Concern for aspiration pneumonia. Advance diet as per speech evaluation. For now continue with IV Zosyn. Follow-up with blood cultures. Check sputum culture. Urinalysis appreciated. Check MRSA swab. Mildly elevated Depakote levels. Decrease to 500 mg twice daily. Will confirm with pharmacy if any changes in medications recently. Patient and family declines any changes recently. If mentation continues to remain altered can plan for MRI brain or repeat CT head. LFTs within normal limits. Electrolytes and renal panel within normal limits. Oxygen supplementation keeping saturation over 90%. Change prednisone to 40 mg twice daily overall from Solu-Medrol. Continue with Cardizem. Takes 360 mg oral daily at home. For now switch to 90 mg oral every 6 hours. Add metoprolol 25 mg twice daily. Telemetry. Continue with full dose Lovenox 1 mg/kg body weight every 12 hourly for now. At home takes Xarelto. Stop IV fluids. Restart home dose of Lasix 40 mg daily. Code Status: Full IVF: DVT PPx: Lovenox GI PPx: Protonix ABx: Zosyn Diet: Dysphagia level 4 diet. Discharge plan: Home health versus SNF. 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
--- NOTE | 2025-03-01 15:47 | PC.SOCIAL ---
IMM Update pg 2 of IMM Updated and reviewed w/ patient. Copy provided and copy dated, initialed and placed in chart.
[2025-03-01] MEDS: divalproex DR 250 mg Tablet 500 MG PO (18:29)
[2025-03-01] MEDS: predniSONE 20 mg Tablet 40 MG PO (18:30)
[2025-03-01 20:40] LABS: MRSA PCR OZH (swab) NOT DETECTED (Not Detecte)
[2025-03-01] MEDS: metoprolol tartrate 25 mg Tablet PO (21:06)
[2025-03-01] MEDS: sennosides 8.6 mg Tablet 17.2 MG PO (21:06)
[2025-03-02] MEDS: dilTIAZem 30 mg Tablet PO ×2 (00:11→05:59)
[2025-03-02] MEDS: piperacillin-tazobactam 3.375 GM in sodium chloride 0.9% (plus) 50 ML IV ×3 (03:17→17:40)
[2025-03-02 03:53] VITALS: BP 116/70; PULSE 76; RESP 16; TEMP 36.5; O2SAT 93
[2025-03-02] MEDS: enoxaparin 100 mg/mL Syringe SUBCUT ×2 (05:59→17:31)
[2025-03-02 06:12] LABS: Basophils # 0.1 10^3/uL (0.0-0.1); Hematocrit 31.2 % (36-47); Lymphocytes # 0.9 10^3/uL (0.8-4.8); Lymphocytes % 16.9 %; Mean Platelet Volume 9.8 fL (7.4-10.4); Monocytes # 0.6 10^3/uL (0.2-0.9); Neutrophils # 3.52 10^3/uL (1.8-7.7); Neutrophils % 69.3 %; Nucleated Red Blood Cells % 0 %; Platelet Count 153 10^3/cmm (157-399); Red Blood Count 3.32 10^6/uL (3.85-5.65); Red Cell Distribution Width 15.6 % (12.1-15.1); White Blood Count 5.08 10^3/uL (3.29-11.43)
[2025-03-02 06:43] LABS: Alanine Aminotransferase 30 U/L (0-33); Albumin Level 3.1 g/dL (3.5-5.2); Alkaline Phosphatase 87 U/L (35-105); Anion Gap 12.4 (5-19); Aspartate Amino Transferase 18 U/L (0-32); Blood Urea Nitrogen 13 mg/dL (8-23); Calcium 8.5 mg/dL (8.5-10.5); Carbon Dioxide 31 mmol/L (22-29); Chloride 100 mmol/L (98-107); Globulin 2.7 g/dL (1.3-4.6); Glucose 116 mg/dL (65-115); Osmolality Calculated 291 mOsm/kg (285-295); Potassium 3.4 mmol/L (3.5-5.1); Sodium 140 mmol/L (136-145); Total Bilirubin 0.2 mg/dL (0.15-1.2); Total Protein 5.8 g/dL (6.6-8.7)
[2025-03-02 06:46] LABS: Chol HDL Ratio 2.43 mg/dL (0.0-4.40); Cholesterol 182 mg/dL (0-200); HDL Cholesterol 75 mg/dL (60-100); LDL Cholesterol Calculated 98 mg/dL (50-129); Magnesium 2.2 mg/dL (1.7-2.3); Triglycerides 47 mg/dL (0-150); VLDL Cholestrol Calculation 9 mg/dL (0-30)
[2025-03-02 06:51] LABS: Folate Level 8.5 ng/mL (4.8-37.3)
[2025-03-02 07:32] VITALS: BP 154/75; PULSE 75; RESP 16; TEMP 36.7; O2SAT 90
[2025-03-02] MEDS: divalproex DR 250 mg Tablet 500 MG PO ×2 (09:10→17:32)
[2025-03-02] MEDS: pantoprazole DR 40 mg Tablet PO (09:11)
[2025-03-02] MEDS: guaiFENesin 600 mg Tablet PO ×2 (09:12→17:33)
[2025-03-02] MEDS: FUROsemide 40 mg Tablet PO (09:12)
[2025-03-02] MEDS: predniSONE 20 mg Tablet 40 MG PO (09:12)
[2025-03-02] MEDS: primidone 50 mg Tablet 250 MG PO ×3 (09:20→20:19)
[2025-03-02] MEDS: metoprolol tartrate 25 mg Tablet PO ×2 (09:20→20:19)
[2025-03-02 12:00] VITALS: BP 131/79; PULSE 81; RESP 17; TEMP 36.7; O2SAT 94
--- NOTE | 2025-03-02 12:51 | P.PN_ITS ---
Subjective 2 Subjective: No acute events overnight. Patient has remained hemodynamically stable and afebrile. Today morning worked with physical therapy. Seen sitting up in chair. More awake and alert. Continues to remain slow to respond. Heart rate better controlled. Medications: Reviewed: Yes Vitals/I&O/Wt Last Vital Signs Temp 98.0 F 03/02/25 12:00 Pulse 81 03/02/25 12:00 Resp 17 03/02/25 12:00 BP 131/79 03/02/25 12:00 Pulse Ox 94 03/02/25 12:00 O2 Del Method Room Air 03/02/25 12:00 03/01/25 03/02/25 03/02/25 22:59 06:59 14:59 Intake Total 50 / 2270 290 / 290 Output Total 2350 / 2350 200 / 2550 Balance -2350 / -130 -150 / -280 290 / 290 Weight last 48 hrs Weight 102.058 kg Weight 103.51 kg Physical Exam 2 Narrative: General: Alert, not oriented. HEENT: Normocephalic, Atraumatic. External ears normal. Nasal passages patent without drainage. MMM. Heart: Tachycardic with irregular rhythm. Consistent with atrial fibs. Resp: Bilateral crackles on lung exam. Mild wheezes throughout. Abd: Soft, non-tender. Non-distended. Extremities: No edema. Skin: No rash or lesions on exposed areas. 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 In the ER chest x-ray showed left infrahilar atelectasis/infiltrate with a small pleural effusion. She had a CT head which did not show any acute concerns. She did have cerebral atrophy. She did not have a leukocytosis at admission. Her sodium was slightly low to 132. She had a mild elevation of her ALT to 40. CRP was 14.5. No fever or oxygen requirement noted. Her blood pressures have been stable. She is having intermittent RVR as noted on EKG. She received some Cardizem and beta-korey in the ER which did help with her rate. Will restart her home Cardizem. Blood cultures were obtained and are pending. Patient does have underlying dysphagia. Will have speech therapy evaluate. Currently n.p.o. until we can have this arranged. Will advance diet per the recommendations. Initial antibiotics were ceftriaxone and doxycycline. Will switch to Zosyn for better coverage. Will add Solu-Medrol for wheezing. Repeat chest x-ray is pending. Recheck a.m. labs. Continue other home medications for chronic illnesses. Plan for the day: 03/02: Altered mental status most likely in setting of polypharmacy along with concerns for pneumonia. Improving today. CT head on admission negative for acute dramality. Patient has a history of A- fib. Respiratory viral panel, C. difficile negative when checked earlier in admission. Concern for aspiration pneumonia. Diet changed as per speech evaluation. Follow-up blood cultures and sputum culture. Continue with Zosyn for now. MRSA swab negative. Continue with decreased dose of Depakote at 5 mg twice daily. Appreciate medical reconciliation from pharmacy. If mentation continues to remain altered can plan for MRI brain or repeat CT head. LFTs within normal limits. Electrolytes and renal panel within normal limits. Oxygen supplementation keeping saturation over 90%. Patient remains on room air. Change prednisone to 40 mg oral daily. Heart rate controlled. Continue with Cardizem 90 mg every 6 hour, metoprolol 25 mg twice daily. Takes Xarelto at home. Continue with full dose Lovenox for now. Continue telemetry. Physical therapy. Continue with home dose of Lasix 40 mg daily. Code Status: Full IVF: DVT PPx: Lovenox GI PPx: Protonix ABx: Zosyn Diet: Dysphagia level 4 diet. Discharge plan: Family wanting patient to go to SNF for further rehabitation. Awaiting authorization. Case management alerted. 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
[2025-03-02] MEDS: dilTIAZem 30 mg Tablet 90 MG PO ×3 (13:18→20:19)
[2025-03-02 15:31] VITALS: BP 117/70; PULSE 78; RESP 15; TEMP 36.8; O2SAT 91
[2025-03-02 20:00] VITALS: BP 129/78; PULSE 78; RESP 16; TEMP 37.1; O2SAT 95
[2025-03-02] MEDS: sennosides 8.6 mg Tablet 17.2 MG PO (20:19)
[2025-03-02 22:00] VITALS: PULSE 73
[2025-03-03] VITALS (10 sets, daily range): BP systolic 102–130; BP diastolic 60–74; PULSE 69–85; RESP 15–25; TEMP 36.4–36.8; O2SAT 90–94
[2025-03-03] MEDS: piperacillin-tazobactam 3.375 GM in sodium chloride 0.9% (plus) 50 ML IV ×3 (01:50→16:53)
[2025-03-03] MEDS: enoxaparin 100 mg/mL Syringe SUBCUT ×2 (05:57→16:53)
[2025-03-03 06:11] LABS: Basophils # 0.1 10^3/uL (0.0-0.1); Basophils % 0.8 %; Eosinophils # 0.1 10^3/uL (0.0-0.8); Eosinophils % 1.5 %; Hematocrit 36.6 % (36-47); Lymphocytes # 1.2 10^3/uL (0.8-4.8); Lymphocytes % 16.3 %; Mean Corpuscular HGB Conc 32.2 g/dL (30-55); Mean Corpuscular Hemoglobin 30.8 pg (27-33); Mean Corpuscular Volume 95.6 fl (85-98); Mean Platelet Volume 9.3 fL (7.4-10.4); Neutrophils # 5.05 10^3/uL (1.8-7.7); Neutrophils % 67.6 %; Nucleated Red Blood Cells % 0 %; Platelet Count 159 10^3/cmm (157-399); Red Blood Count 3.83 10^6/uL (3.85-5.65); Red Cell Distribution Width 15.8 % (12.1-15.1); White Blood Count 7.47 10^3/uL (3.29-11.43)
[2025-03-03 06:31] LABS: Alanine Aminotransferase 25 U/L (0-33); Albumin Level 3.1 g/dL (3.5-5.2); Alkaline Phosphatase 82 U/L (35-105); Anion Gap 13.2 (5-19); Aspartate Amino Transferase 16 U/L (0-32); Blood Urea Nitrogen 14 mg/dL (8-23); Calcium 8.4 mg/dL (8.5-10.5); Carbon Dioxide 29 mmol/L (22-29); Chloride 102 mmol/L (98-107); Globulin 2.6 g/dL (1.3-4.6); Glucose 93 mg/dL (65-115); Osmolality Calculated 292 mOsm/kg (285-295); Potassium 3.2 mmol/L (3.5-5.1); Sodium 141 mmol/L (136-145); Total Bilirubin 0.2 mg/dL (0.15-1.2); Total Protein 5.7 g/dL (6.6-8.7)
[2025-03-03 06:34] LABS: Magnesium 2.4 mg/dL (1.7-2.3)
--- NOTE | 2025-03-03 08:05 | P.DS_ITS ---
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 The was worried and decided to bring the patient to the emergency room for further evaluation. The patient has slept all day will not wake up will not do anything not eat no activity and that is a total change in mental status for this patient. Woke up where significant for a left-sided pneumonia with left-sided pleural effusion. Patient has been blood cultured. Urine is clean chest x-ray significant for pneumonia. Antibiotics initiated with ceftriaxone. Erythromycin is not used and azithromycin not used either because of allergy. Doxycycline added to cover some gram-positive pneumonia. Must continue to follow through and optimize. Nebulizing treatment initiated. Mucinex to help mucolytic. Patient desires inpatient for treatment of pneumonia in a 79-year-old that has a change in mental status because of underlining infection. Hospital Course Hospital Course Patient was admitted to the hospital for further evaluation and management of altered mental status in setting of polypharmacy, concern for sepsis in setting of pneumonia and hypoxia due to COPD exacerbation. She was started on broad- spectrum antibiotics, nebulization treatment. Speech therapy evaluation was done and diet was advanced and modified accordingly. She responded well to the treatment and is back to her baseline mentation for last 24 hours. She is wor alisha well with physical therapy. During hospitalization she did have episodes of A-fib with RVR for which her medications have been adjusted. Safe discharge plan were discussed in detail with the patient and family and they requested transition to SNF. Patient discharged to SNF in hemodynamically stable condition on oral Augmentin and Levaquin for 3 more days, oral steroid taper for 5 more days. Physical Exam Narrative: General: Alert, not oriented. HEENT: Normocephalic, Atraumatic. External ears normal. Nasal passages patent without drainage. MMM. Heart: Tachycardic with irregular rhythm. Consistent with atrial fibs. Resp: Bilateral crackles on lung exam. Mild wheezes throughout. Abd: Soft, non-tender. Non-distended. Extremities: No edema. Skin: No rash or lesions on exposed areas. Urinary Catheter Management: Witt: Cath Placed During This Visit: yes Reason for Continuing Indwelling Catheter: Chronic Indwelling Urinary Catheter on Admission Urinary Catheter Date of Insertion: 02/27/25 Urinary Catheter Time of Insertion: 21:10 Discharge Data Studies Completed and Pending Completed Studies During Hospitalization Category Date Time Status CT head wo con* [id number] Stat Cat Scan 02/27/25 20:10 Completed XR chest 1V portable [id number] Routine Exams 02/28/25 17:23 Completed XR chest 1V portable [id number] Stat Exams 02/27/25 20:10 Completed Pending at discharge Category Date Time Status Blood Culture Stat Lab 02/27/25 00:03 Results C.Diff PCR (Lab) Routine Lab 03/01/25 12:05 Ordered Lactoferrin Routine Lab 03/01/25 12:05 Ordered MAG [Magnesium] AM LABS Lab 03/04/25 04:00 Ordered OVA and Parasites, Conc and PE Routine Lab 03/01/25 12:05 Ordered Salmonella / Shigella / Campy Routine Lab 03/01/25 12:05 Ordered Sputum Culture and Gram Stain Stat Lab 03/01/25 18:27 Results Radiology Impressions Head CT 02/27/25 20:10 IMPRESSION: 1. No acute intracranial head CT findings identified. 2. Interval change in ventricular calibers is felt to be due to central atrophy. 3. Atrophy/involutional changes of aging with components of chronic small-vessel disease. 4. Trace air seen within the sagittal sinus question iatrogenic/central line. Chest X-Ray 02/28/25 17:23 IMPRESSION: No acute findings. Microbiology 03/01/25 18:27 Sputum - Expectorated Sputum Gram Stain - Final 03/01/25 18:27 Sputum - Expectorated Sputum Sputum Culture - Preliminary 02/27/25 00:03 Blood Blood Culture - Preliminary NEGATIVE TO DATE 02/27/25 00:11 Blood Blood Culture - Preliminary NEGATIVE TO DATE Laboratory Results WBC 7.47 10^3/uL (3.29-11.43) 03/03/25 05:56 RBC 3.83 10^6/uL (3.85-5.65) L 03/03/25 05:56 Hgb 11.80 g/dL (11.27-16.99) 03/03/25 05:56 Hct 36.6 % (36-47) 03/03/25 05:56 MCV 95.6 fl (85-98) 03/03/25 05:56 MCH 30.8 pg (27-33) 03/03/25 05:56 MCHC 32.2 g/dL (30-55) 03/03/25 05:56 RDW 15.8 % (12.1-15.1) H 03/03/25 05:56 Plt Count 159 10^3/cmm (157-399) 03/03/25 05:56 MPV 9.3 fL (7.4-10.4) 03/03/25 05:56 Neut % (Auto) 67.6 % 03/03/25 05:56 Lymph % (Auto) 16.3 % 03/03/25 05:56 [facility] % (Auto) 13.0 % 03/03/25 05:56 Eos % (Auto) 1.5 % 03/03/25 05:56 Baso % (Auto) 0.8 % 03/03/25 05:56 Neut # (Auto) 5.05 10^3/uL (1.8-7.7) 03/03/25 05:56 Lymph # (Auto) 1.2 10^3/uL (0.8-4.8) 03/03/25 05:56 [facility] # (Auto) 1.0 10^3/uL (0.2-0.9) H 03/03/25 05:56 Eos # (Auto) 0.1 10^3/uL (0.0-0.8) 03/03/25 05:56 Baso # (Auto) 0.1 10^3/uL (0.0-0.1) 03/03/25 05:56 Nucleated RBC % (auto) 0 % 03/03/25 05:56 Nucleated RBCs # 0.0 /100WBC 03/03/25 05:56 PT 15.10 SECONDS (12.1-14.9) H 02/27/25 21: INR 1.11 (0.8-1.2) 02/27/25 21: APTT 32.4 SECONDS (23.9-36.7) 02/27/25 21:09 Specimen Type Arterial 02/27/25: Sample Site Brachial, right 02/27/25: ABG pH 7.53 (7.35-7.45) H 02/27/25: ABG pCO2 37.9 mmHg (35-45) 02/27/25: ABG pO2 80.9 mmHg (80.0-100.0) 02/27/25: ABG HCO3 31.5 mmol/L (22-26) H 02/27/25: ABG Base Excess 8.2 mmol/L (-2.0-2.0) H 02/27/25: Dax Test N/a 02/27/25: Hematocrit 35.1 % (37-47) L 02/27/25 21: Hgb O2 Saturation 96.3 % (95-100) 02/27/25: Carboxyhemoglobin 1.0 %THgb (0.4-20.1) 02/27/25 21: Methemoglobin 0.3 % (0.4-1.5) L 02/27/25: Total Hemoglobin 11.4 g/dL (12-16) L 02/27/25: O2 Delivery Device Room air 02/27/25 21:27 Psychiatric Security Nurse ID [email or web address] 02/27/25 21:27 Sodium 141 mmol/L (136-145) 03/03/25 05:56 Potassium 3.2 mmol/L (3.5-5.1) L 03/03/25 05:56 Chloride 102 mmol/L (98-107) 03/03/25 05:56 Carbon Dioxide 29 mmol/L (22-29) 03/03/25 05:56 Anion Gap 13.2 (5-19) 03/03/25 05:56 BUN 14 mg/dL (8-23) 03/03/25 05:56 Creatinine 0.5 mg/dL (0.5-0.9) 03/03/25 05:56 GFR Calculation Not Reportable 03/03/25 05:56 Glucose 93 mg/dL (65-115) 03/03/25 05:56 POC Glucose 135 mg/dL (70-110) H 02/28/25 02:52 Estimat Average Glucose 120 03/01/25 05:46 Hemoglobin A1c 5.8 % (4.0-6.0) 03/01/25 05:46 Calculated Osmolality 292 mOsm/kg (285-295) 03/03/25 05:56 Lactic Acid 1.7 mmol/L (0.5-2.2) 02/27/25 21:09 Calcium 8.4 mg/dL (8.5-10.5) L 03/03/25 05:56 Phosphorus 3.3 mg/dL (2.5-4.5) 02/28/25 06:02 Magnesium 2.4 mg/dL (1.7-2.3) H 03/03/25 05:56 Iron 51 ug/dL (37-145) 03/01/25 05:46 TIBC 275 mcg/dl 03/01/25 05:46 % Saturation 18.5 % (20-50) L 03/01/25 05:46 Unsat Iron Binding 224 ug/dL (112-347) 03/01/25 05:46 Total Bilirubin 0.2 mg/dL (0.15-1.2) 03/03/25 05:56 AST 16 U/L (0-32) 03/03/25 05:56 ALT 25 U/L (0-33) 03/03/25 05:56 Alkaline Phosphatase 82 U/L (35-105) 03/03/25 05:56 C-Reactive Protein 21.4 mg/L (0.0-4.9) H 03/01/25 05:46 Total Protein 5.7 g/dL (6.6-8.7) L 03/03/25 05:56 Albumin 3.1 g/dL (3.5-5.2) L 03/03/25 05:56 Globulin 2.6 g/dL (1.3-4.6) 03/03/25 05:56 Triglycerides 47 mg/dL (0-150) 03/02/25 05:30 Cholesterol 182 mg/dL (0-200) 03/02/25 05:30 LDL Cholesterol, Calc 98 mg/dL (50-129) 03/02/25 05:30 Total VLDL Cholesterol 9 mg/dL (0-30) 03/02/25 05:30 HDL Cholesterol 75 mg/dL (60-100) 03/02/25 05:30 Cholesterol/HDL Ratio 2.43 mg/dL (0.0-4.40) 03/02/25 05:30 Vitamin B12 1464 pg/mL (232-1245) H 03/01/25 05:46 Folate 8.5 ng/mL (4.8-37.3) 03/02/25 05:30 Procalcitonin 0.04 ng/mL (0-0.5) 03/01/25 05:46 TSH 4.03 uIU/mL (0.27-4.20) 03/01/25 05:46 Urine Color Yellow (Yellow) 02/27/25 21:03 Urine Appearance Clear (CLEAR) 02/27/25 21:03 Urine pH 7.5 (5-7) 02/27/25 21:03 Ur Specific [place] 1.019 (1.005-1.030) 02/27/25 21:03 Urine Protein Negative (Negative) 02/27/25 21:03 Urine Glucose (UA) Negative (Normal) 02/27/25 21:03 Urine Ketones Negative (Negative) 02/27/25 21:03 Urine Blood Negative (Negative) 02/27/25 21:03 Urine Nitrate Negative (Negative) 02/27/25 21:03 Urine Bilirubin Negative (Negative) 02/27/25 21:03 Urine Urobilinogen 1.0 mg/dL (Negative) 02/27/25 21:03 Ur Leukocyte Esterase Negative (Negative) 02/27/25 21:03 Urine RBC 3-5 /hpf (0-2) 02/27/25 21:03 Urine WBC 0-5 /hpf (0-5) 02/27/25 21:03 Ur Squamous Epith Cells 0-5 /hpf (0-5) 02/27/25 21:03 Amorphous Sediment Not Reportable 02/27/25 21:03 Urine Bacteria None seen /hpf (NONE) 02/27/25 21:03 Hyaline Casts 0.40 /lpf 02/27/25 21:03 Nasal MRSA (PCR) Not detected (Not Detecte) 03/01/25 18:27 Urine Opiates Screen Negative ng/mL (Negative) 02/27/25 21:03 Ur Barbiturates Screen Positive ng/mL (Negative) H 02/27/25 21:03 Valproic Acid 107.8 ug/mL (50-100) H 02/27/25 21:09 Ur Phencyclidine Scrn Negative ng/mL (Negative) 02/27/25 21:03 Ur Amphetamines Screen Negative ng/mL (Negative) 02/27/25 21:03 U Benzodiazepines Scrn Negative ng/mL (Negative) 02/27/25 21:03 Urine Cocaine Screen Negative ng/mL (Negative) 02/27/25 21:03 U Marijuana (THC) Screen Negative ng/mL (Negative) 02/27/25 21:03 Ethyl Alcohol < 10 mg/dL (0-10) 02/27/25 19:46 Adenovirus (PCR) Not detected (NOT DETECT) 02/28/25 04:30 C. pneumoniae DNA (PCR) Not detected (NOT DETECT) 02/28/25 04:30 C. difficile (PCR) Negative (Negative) 02/28/25 12:34 Coronavirus 229E (PCR) Not detected (NOT DETECT) 02/28/25 04:30 Human Metapneumovir PCR Not detected (NOT DETECT) 02/28/25 04:30 Influenza A (H1) PCR Not detected (NOT DETECT) 02/28/25 04:30 Influ A (H1/09) PCR Not detected (NOT DETECT) 02/28/25 04:30 Influenza A (H3) PCR Not detected (NOT DETECT) 02/28/25 04:30 Influenza Type A (PCR) Not detected (NOT DETECT) 02/28/25 04:30 Influenza Type B (PCR) Not detected (NOT DETECT) 02/28/25 04:30 M. pneumoniae (PCR) Not detected (NOT DETECT) 02/28/25 04:30 Parainfluenza 1 (PCR) Not detected (NOT DETECT) 02/28/25 04:30 Parainfluenza 2 (PCR) Not detected (NOT DETECT) 02/28/25 04:30 Parainfluenza 3 (PCR) Not detected (NOT DETECT) 02/28/25 04:30 Parainfluenza 4 (PCR) Not detected (NOT DETECT) 02/28/25 04:30 RSV Type A (PCR) Not detected (NOT DETECT) 02/28/25 04:30 RSV Type B (PCR) Not detected (NOT DETECT) 02/28/25 04:30 Entero/Rhino (PCR) Not detected (NOT DETECT) 02/28/25 04:30 SARS-CoV-2 (PCR) Not detected (NOT DETECT) 02/28/25 04:30 Vitals Last Vital Signs Temp 97.8 F 03/03/25 07:24 Pulse 84 03/03/25 07:24 Resp 15 03/03/25 07:24 BP 130/73 03/03/25 07:24 Pulse Ox 93 03/03/25 07:24 O2 Del Method Room Air 03/03/25 07:24 Discharge Plan Discharge Patient Disposition: Xfer [facility] Condition: Stable Prescriptions: New prednisone 20 mg Tablet 40 mg PO DAILY Qty: 10 0RF metoprolol tartrate 25 mg Tablet 25 mg PO BID@0900,2100 30 Days Qty: 60 0RF levofloxacin 750 mg tablet 750 mg PO Q24H 3 Days Qty: 3 0RF amoxicillin-pot clavulanate 875-125 mg tablet 1 tab PO BID Qty: 6 0RF Continued alendronate 70 mg tablet 70 mg PO .weekly acetaminophen [Tylenol Extra Strength] 500 mg tablet 500 mg PO Q6H PRN (Reason: Pain) levalbuterol tartrate [Xopenex HFA] 45 mcg/actuation HFA aerosol inhaler 2 inh inhalation Q6H PRN (Reason: shortness of breath or wheezing) Qty: 15 5RF Spiriva Respimat 1.25 mcg/actuation mist 2 inh inhalation DAILY Qty: 4 5RF fluticasone propion-salmeterol [Advair Diskus] 250-50 mcg/dose blister with device 1 inh inhalation BID Qty: 60 0RF diltiazem HCl [Cardizem CD] 360 mg capsule,extended release 24hr 360 mg PO DAILY Qty: 90 3RF tizanidine 2 mg tablet 2 mg PO BEDTIME primidone 250 mg tablet 250 mg PO TID furosemide 40 mg tablet 40 mg PO DAILY albuterol sulfate 0.63 mg/3 mL solution for nebulization 0.63 mg continuous nebulization BID PRN (Reason: Shortness Of Breath) potassium chloride 10 mEq tablet extended release 10 meq PO DAILY Xarelto 10 mg tablet 10 mg PO QPM Changed divalproex 250 mg tablet,delayed release (DR/EC) 500 mg PO BID Qty: 180 0RF Referrals: [facility] [Outside] Donna Estrada MD [Primary Care Provider, Family Practice] Discharge Diet: As Directed and Cardiac Discharge Activity: Resume usual activity and Increase activity as tolerated Patient Instructions: Prednisone (By mouth), Amoxicillin/Clavulanate Potassium (By mouth), Levofloxacin (By mouth) (Levaquin, Levaquin Leva-gilson), Altered Mental Status (ED), Opioid Safety Activity Restrictions/Additional Instructions: Dysphagia level 4 diet. Discharge Attestations Time Spent in Discharge Care*: greater than 30 min Specific Discharge Activities: educating patient, educating and/or supporting family/caregiver, discussing with pcp/other providers, discussing with correctional case records supervisor/social workers/dc planners, documenting/other paperwork and evaluating patient/reviewing data Status at Discharge: Cognitive status at discharge: mildly impaired cognition , Behavioral status at discharge: cooperative , Functional status at discharge: uses cane/walker , Overall status at discharge: patient is progressing back to baseline Quality Metrics Clinical Quality Measures [ No reported AMI, CVA or VTE this stay] Coding Level of Care Code 71225 Total time (in minutes) for Discharge: 65 Diagnoses Mental status alteration R41.82 Pneumonia J18.9 Dysphagia R13.10 Persistent atrial fibrillation I48.91 Chronic bronchitis, unspecified chronic bronchitis type J44.9 Essential tremor G25.0 Chronic fatigue disorder G93.32 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
[2025-03-03] MEDS: guaiFENesin 600 mg Tablet PO ×2 (09:23→16:52)
[2025-03-03] MEDS: FUROsemide 40 mg Tablet PO (09:23)
[2025-03-03] MEDS: dilTIAZem 30 mg Tablet 90 MG PO ×4 (09:24→20:58)
[2025-03-03] MEDS: pantoprazole DR 40 mg Tablet PO (09:24)
[2025-03-03] MEDS: primidone 50 mg Tablet 250 MG PO ×3 (09:25→22:17)
[2025-03-03] MEDS: predniSONE 20 mg Tablet 40 MG PO (09:25)
[2025-03-03] MEDS: divalproex DR 250 mg Tablet 500 MG PO ×2 (09:25→16:52)
[2025-03-03] MEDS: metoprolol tartrate 25 mg Tablet PO ×2 (09:28→20:58)
--- NOTE | 2025-03-03 09:41 | PC.SOCIAL ---
IMM Update Pg. 2 of IMM updated and copy provided at bedside.
--- NOTE | 2025-03-03 12:31 | PM.CCNAC ---
Critical Care Event Note Patient went into A-fib with RVR with heart rate up to 120s to 130s, getting up with physical therapy. Patient was asymptomatic though complained of mild difficulty breathing. Plan: Will discontinue discharge. Transfer to [facility]. Started on amiodarone drip with 150 bolus. Continue with oral Cardizem and metoprolol. The high probability of a clinically significant, sudden or life threatening deterioration of the patient's [cardiac] system(s) required my full and direct attention, intervention and personal management. The critical care time is as shown. This time is in addition to time spent performing any reported procedures but includes the following: [x] Data and vital sign review and interpretation [x] Patient assessment, examination and intervention [x] Documentation [x] Medication orders and management Critical Care Time Code activated: No Critical Care Time (min): 45 Coding Level of Care Code Critical Care Other Coding Information Prolonged care (total time indicated above or notated here) (Managing A-fib with RVR, starting amiodarone drip)
--- NOTE | 2025-03-03 13:28 | PC.NURSE ---
Called report to Mattie in [facility]. Patient transported by wheelchair
--- NOTE | 2025-03-03 13:32 | PC.NURSE ---
Patient received to the floor. Verified orders with Dr Ball regarding amiodarone. Received instruction to start drip only and not give gonsalez.
[2025-03-03] MEDS: docusate sodium 100 mg Capsule PO (16:52)
[2025-03-03] MEDS: sennosides 8.6 mg Tablet 17.2 MG PO (20:59)
[2025-03-04] VITALS (20 sets, daily range): BP systolic 94–140; BP diastolic 53–74; PULSE 60–107; RESP 14–36; TEMP 36.7; O2SAT 89–96
[2025-03-04] MEDS: piperacillin-tazobactam 3.375 GM in sodium chloride 0.9% (plus) 50 ML IV ×3 (03:01→18:13)
[2025-03-04 04:56] LABS: Magnesium 2.2 mg/dL (1.7-2.3)
[2025-03-04] MEDS: enoxaparin 100 mg/mL Syringe SUBCUT ×2 (05:25→18:13)
[2025-03-04] MEDS: primidone 50 mg Tablet 250 MG PO ×3 (08:36→20:43)
[2025-03-04] MEDS: docusate sodium 100 mg Capsule PO (08:37)
[2025-03-04] MEDS: guaiFENesin 600 mg Tablet PO ×2 (08:37→18:14)
[2025-03-04] MEDS: divalproex DR 250 mg Tablet 500 MG PO ×2 (08:37→18:14)
[2025-03-04] MEDS: metoprolol tartrate 25 mg Tablet PO ×2 (08:37→20:44)
[2025-03-04] MEDS: dilTIAZem 30 mg Tablet 90 MG PO ×4 (08:37→20:43)
[2025-03-04] MEDS: predniSONE 20 mg Tablet 40 MG PO (08:37)
[2025-03-04] MEDS: FUROsemide 40 mg Tablet PO (08:38)
[2025-03-04] MEDS: pantoprazole DR 40 mg Tablet PO (08:38)
[2025-03-04] MEDS: potassium chloride ER 20 mEq Tablet 40 MEQ PO (10:31)
[2025-03-04] MEDS: FUROsemide 10 mg/mL SDV 4mL 40 MG IVP (10:31)
--- NOTE | 2025-03-04 11:23 | P.PN_ITS ---
Subjective 2 Subjective: Patient was discharged withheld yesterday she went into A-fib with RVR. Heart rate more controlled today. Sitting up in chair. More awake and alert. Currently on amiodarone drip. Seen with family at bedside. States she is feeling a lot better. Denies any nausea, vomiting, headache. Medications: Reviewed: Yes Vitals/I&O/Wt Last Vital Signs Temp 98.1 F 03/04/25 07:30 Pulse 86 03/04/25 08:30 Resp 21 H 03/04/25 08:30 BP 131/68 03/04/25 08:30 Pulse Ox 93 03/04/25 07:30 O2 Del Method Room Air 03/03/25 16:00 03/03/25 03/04/25 03/04/25 22:59 06:59 14:59 Intake Total 360 / 480 490 / 490 Output Total 400 / 1200 Balance -40 / -720 490 / 490 Weight last 48 hrs Weight 100.244 kg Weight 100.244 kg Physical Exam 2 Narrative: General: Alert, not oriented. HEENT: Normocephalic, Atraumatic. External ears normal. Nasal passages patent without drainage. MMM. Heart: Tachycardic with irregular rhythm. Consistent with atrial fibs. Resp: Bilateral crackles on lung exam. Mild wheezes throughout. Abd: Soft, non-tender. Non-distended. Extremities: No edema. Skin: No rash or lesions on exposed areas. Urinary Catheter Management: Witt: Cath Placed During This Visit: yes Reason for Continuing Indwelling Catheter: Acute Urinary Retention or Obstruction Urinary Catheter Date of Insertion: 02/27/25 Urinary Catheter Time of Insertion: 21:10 Data 03/03/25 05:56 03/03/25 05:56 Micro: Microbiology 02/28/25 12:34 Stool Lactoferrin - Final Stool 03/01/25 18:27 Gram Stain - Final Sputum - Expectorated Sputum Sputum Culture - Preliminary A&P Assessment and plan (1) Mental status alteration: (2) Pneumonia: (3) Dysphagia: (4) Atrial fibrillation: (5) COPD (chronic obstructive pulmonary disease): (6) Essential tremor: (7) Chronic fatigue disorder: (8) 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 In the ER chest x-ray showed left infrahilar atelectasis/infiltrate with a small pleural effusion. She had a CT head which did not show any acute concerns. She did have cerebral atrophy. She did not have a leukocytosis at admission. Her sodium was slightly low to 132. She had a mild elevation of her ALT to 40. CRP was 14.5. No fever or oxygen requirement noted. Her blood pressures have been stable. She is having intermittent RVR as noted on EKG. She received some Cardizem and beta-korey in the ER which did help with her rate. Will restart her home Cardizem. Blood cultures were obtained and are pending. Patient does have underlying dysphagia. Will have speech therapy evaluate. Currently n.p.o. until we can have this arranged. Will advance diet per the recommendations. Initial antibiotics were ceftriaxone and doxycycline. Will switch to Zosyn for better coverage. Will add Solu-Medrol for wheezing. Repeat chest x-ray is pending. Recheck a.m. labs. Continue other home medications for chronic illnesses. Plan for the day: : Continue with amiodarone drip. Discontinue after 24 hours. Switch to amiodarone 200 mg twice daily. Continue with current dose of Cardizem and metoprolol. Continue with prednisone, nebulization treatment. Continue with current consistency of her diet. Speech therapy, physical therapy. Does have concern for dementia. Will request for BIMS study. Add Celexa 20 mg oral daily for now. Continue with IV Zosyn for now. Transition to Levaquin on discharge. IV Lasix 40 mg one-time. Strict input output charting. Oral potassium 40 mill equivalents for hypokalemia. Code Status: Full IVF: DVT PPx: Lovenox GI PPx: Protonix ABx: Zosyn Diet: Dysphagia level 4 diet. Discharge plan: Family wanting patient to go to SNF for further rehabitation. Awaiting authorization. Case management alerted. 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
[2025-03-04] MEDS: acetaminophen 325 mg Tablet 650 MG PO ×2 (12:57→20:42)
--- NOTE | 2025-03-04 16:09 | PC.OT ---
ORDERS RECIEVED FOR BIMS; WHEN OT STUDENT WALKED IN THE ROOM, ST WAS CONDUCTING THE BIMS. PER ST REPORT: BIMS: 05/24 MODERATE COGNITIVE IMPAIRMNT SLUMS: 03/08
[2025-03-04] MEDS: amiodarone 200 mg Tablet PO (18:13)
[2025-03-05] VITALS: BP 97/47; PULSE 67; RESP 22; TEMP 36.8; O2SAT 97
[2025-03-05] MEDS: piperacillin-tazobactam 3.375 GM in sodium chloride 0.9% (plus) 50 ML IV ×2 (02:57→10:15)
[2025-03-05 04:00] VITALS: BP 105/70; PULSE 71; RESP 22; TEMP 36.6; O2SAT 97
[2025-03-05 04:24] LABS: Basophils % 0.5 %; Eosinophils # 0.1 10^3/uL (0.0-0.8); Eosinophils % 1.9 %; Hematocrit 33.8 % (36-47); Lymphocytes # 1.2 10^3/uL (0.8-4.8); Mean Corpuscular HGB Conc 33.1 g/dL (30-55); Mean Corpuscular Hemoglobin 30.4 pg (27-33); Mean Corpuscular Volume 91.8 fl (85-98); Mean Platelet Volume 9.6 fL (7.4-10.4); Monocytes # 0.7 10^3/uL (0.2-0.9); Monocytes % 9.9 %; Neutrophils # 5.28 10^3/uL (1.8-7.7); Nucleated Red Blood Cells % 0 %; Platelet Count 131 10^3/cmm (157-399); Red Blood Count 3.68 10^6/uL (3.85-5.65); Red Cell Distribution Width 15.3 % (12.1-15.1); White Blood Count 7.44 10^3/uL (3.29-11.43)
[2025-03-05 04:59] LABS: Alanine Aminotransferase 20 U/L (0-33); Albumin Level 2.9 g/dL (3.5-5.2); Alkaline Phosphatase 75 U/L (35-105); Anion Gap 11.9 (5-19); Aspartate Amino Transferase 14 U/L (0-32); Blood Urea Nitrogen 12 mg/dL (8-23); Calcium 8.2 mg/dL (8.5-10.5); Carbon Dioxide 33 mmol/L (22-29); Chloride 98 mmol/L (98-107); Globulin 2.7 g/dL (1.3-4.6); Glucose 88 mg/dL (65-115); Osmolality Calculated 289 mOsm/kg (285-295); Sodium 140 mmol/L (136-145); Total Bilirubin 0.2 mg/dL (0.15-1.2); Total Protein 5.6 g/dL (6.6-8.7)
[2025-03-05 05:01] LABS: Potassium 2.9 mmol/L (3.5-5.1)
[2025-03-05] MEDS: enoxaparin 100 mg/mL Syringe SUBCUT (05:30)
[2025-03-05] MEDS: potassium chloride ER 20 mEq Tablet 40 MEQ PO ×3 (05:50→10:15)
[2025-03-05 06:00] VITALS: PULSE 68
[2025-03-05 07:59] VITALS: BP 119/70; PULSE 95; RESP 21; TEMP 36.8; O2SAT 98
[2025-03-05] MEDS: divalproex DR 250 mg Tablet 500 MG PO (09:04)
[2025-03-05] MEDS: primidone 50 mg Tablet 250 MG PO (09:04)
[2025-03-05] MEDS: dilTIAZem 30 mg Tablet 90 MG PO (09:05)
[2025-03-05] MEDS: guaiFENesin 600 mg Tablet PO (09:05)
[2025-03-05] MEDS: metoprolol tartrate 25 mg Tablet PO (09:05)
[2025-03-05] MEDS: citalopram 20 mg Tablet PO (09:05)
[2025-03-05] MEDS: FUROsemide 40 mg Tablet PO (09:05)
[2025-03-05] MEDS: predniSONE 20 mg Tablet 40 MG PO (09:05)
[2025-03-05] MEDS: pantoprazole DR 40 mg Tablet PO (09:06)
[2025-03-05] MEDS: amiodarone 200 mg Tablet PO (09:06)
--- NOTE | 2025-03-05 09:54 | PC.SOCIAL ---
IMM Updated Updated pt on IMM. No questions voiced. Provided pt a copy. Initialed, dated, & timed copy in chart.
--- NOTE | 2025-03-05 11:12 | PM.PN ---
Subjective Subjective: Date of discharge 03/05. Please refer to my discharge summary from 03/03 for further details. No acute events overnight. Patient has remained hemodynamically stable and afebrile overnight. Remains in sinus rhythm. Denies any nausea, vomiting, headache. Sitting up in chair on examination. Medications: Reviewed: Yes Vitals/I&O/Wt Last Vital Signs Temp 98.2 F 03/05/25 07:59 Pulse 95 03/05/25 07:59 Resp 21 H 03/05/25 07:59 BP 119/70 03/05/25 07:59 Pulse Ox 98 03/05/25 07:59 O2 Del Method Nasal Cannula 03/05/25 07:59 03/04/25 03/05/25 03/05/25 22:59 06:59 14:59 Intake Total 332.255 / 1112.255 200 / 1312.255 50 / 50 Output Total 100 / 1200 150 / 1350 Balance 232.255 / -87.745 50 / -37.745 50 / 50 Weight last 48 hrs Weight 103.011 kg Weight 100.244 kg Physical Exam Narrative: General: Alert, not oriented. HEENT: Normocephalic, Atraumatic. External ears normal. Nasal passages patent without drainage. MMM. Heart: Tachycardic with irregular rhythm. Consistent with atrial fibs. Resp: Bilateral crackles on lung exam. Mild wheezes throughout. Abd: Soft, non-tender. Non-distended. Extremities: No edema. Skin: No rash or lesions on exposed areas. Urinary Catheter Management: Witt: Cath Placed During This Visit: yes Reason for Continuing Indwelling Catheter: Accurate Measurement of Urinary Output in Critically Ill Patients Urinary Catheter Date of Insertion: 02/27/25 Urinary Catheter Time of Insertion: 21:10 Data 03/05/25 04:07 03/05/25 04:07 Micro: Microbiology 02/27/25 00:03 Blood Culture - Final Blood NO GROWTH AFTER 5 DAYS 02/27/25 00:11 Blood Culture - Final Blood NO GROWTH AFTER 5 DAYS 03/01/25 18:27 Gram Stain - Final Sputum - Expectorated Sputum Sputum Culture - Final 02/28/25 12:34 Stool Lactoferrin - Final Stool A&P Assessment and plan (1) Mental status alteration: (2) Pneumonia: (3) Dysphagia: (4) Atrial fibrillation: (5) COPD (chronic obstructive pulmonary disease): (6) Essential tremor: (7) Chronic fatigue disorder: (8) 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 In the ER chest x-ray showed left infrahilar atelectasis/infiltrate with a small pleural effusion. She had a CT head which did not show any acute concerns. She did have cerebral atrophy. She did not have a leukocytosis at admission. Her sodium was slightly low to 132. She had a mild elevation of her ALT to 40. CRP was 14.5. No fever or oxygen requirement noted. Her blood pressures have been stable. She is having intermittent RVR as noted on EKG. She received some Cardizem and beta-korey in the ER which did help with her rate. Will restart her home Cardizem. Blood cultures were obtained and are pending. Patient does have underlying dysphagia. Will have speech therapy evaluate. Currently n.p.o. until we can have this arranged. Will advance diet per the recommendations. Initial antibiotics were ceftriaxone and doxycycline. Will switch to Zosyn for better coverage. Will add Solu-Medrol for wheezing. Repeat chest x-ray is pending. Recheck a.m. labs. Continue other home medications for chronic illnesses. Plan for the day: 03/05: Diet advance as per speech evaluation. Patient is stable to be discharged to skilled nursing. Will be discharged on oral amiodarone 200 mg twice daily for 7 days followed by 20 mg daily, Cardizem 360 mg oral daily along with metoprolol 25 mg twice daily. Lasix 40 mg oral daily. She will need to follow-up with primary care provider as an outpatient in 1 week. DC Witt catheterization. Code Status: Full IVF: DVT PPx: Lovenox GI PPx: Protonix ABx: Zosyn Diet: Dysphagia level 4 diet. Discharge plan: Family wanting patient to go to SNF for further rehabitation. Awaiting authorization. Case management alerted. 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
[2025-03-05 12:00] VITALS: BP 117/67; PULSE 76; RESP 19; TEMP 36.6
[2025-03-05 12:20] VITALS: BP 117/67; PULSE 79; RESP 18; O2SAT 96
--- NOTE | 2025-03-05 13:15 | PC.NURSE ---
report phoned to timothy at [facility].ready transport here to transport pt.discharged at this time
== END 2025-03-05 13:16 | disposition skilled nursing facility (03) | DRG 178 ==
LOC: ER 02-28 00:06 → MEDSURG 02-28 01:30 → CSU 03-03 13:25
PROVIDERS: Family Medicine; Admitting Provider Internal Medicine; Emergency Provider Emergency Medicine; PCP Family Medicine; Visit Provider Student in an Organized Health Care Education/Training Program
DX: J69.0 Pneumonitis due to inhalation of food and vomit (principal); I48.20 Chronic atrial fibrillation, unspecified; J44.1 Chronic obstructive pulmonary disease with (acute) exacerbation; L51.1 Stevens-Johnson syndrome; R41.82 Altered mental status, unspecified; R13.10 Dysphagia, unspecified; J45.40 Moderate persistent asthma, uncomplicated; G25.0 Essential tremor; G93.32 Myalgic encephalomyelitis/chronic fatigue syndrome; M19.041 Primary osteoarthritis, right hand; I35.0 Nonrheumatic aortic (valve) stenosis; G40.409 Other generalized epilepsy and epileptic syndromes, not intractable, without status epilepticus; I10 Essential (primary) hypertension; M81.0 Age-related osteoporosis without current pathological fracture; Z79.01 Long term (current) use of anticoagulants
CPT/HCPCS: 36415; 36416; 36600; 51702; 70450; 71045; 80053; 80061; 80164; 80306; 80307; 81001; 82607; 82746; 82805; 82962; 83036; 83540; 83550; 83605; 83630; 83735; 84100; 84145; 84443; 85025; 85610; 85730; 86140; 87040; 87045; 87070; 87177; 87205; 87209; 87427; 87449; 87486; 87493; 87581; 87633; 92507; 92523; 92526; 92610; 93005; 94640; 96365; 96367; 96372; 96375; 96376; 97116; 97161; 97165; 97530; 97535; 99285; A4222; J0283; J0456; J0696; J1644; J1650; J1938; J2543; J2919; J3490; J7030; J7050; J7512; J7799; J9999

== ENCOUNTER 2025-04-11 21:10 | Inpatient (IN) | payer MEDICARE, SELFPAY ==
--- OUTSIDE RECORDS SUMMARY | 2025-04-11 21:16 | XMS_ITS | Encounter Summary ---
Author Organization [facility] Address [address] [place] [address] Care Team Providers Care Provider Relations Representative Name Role Phone Flores Harvey MD Primary Care Provider [phone] Encounter Details Date Type Department Care Team (Late st Contact Info) Description 03/14/2015 Ancillary Orders [facility] Admitting [address] [place] [address] Joanne Jang, Momo Payne, CHATO [address] [place], [place] [address] Knee pain (Primary Dx) Social History Tobacco Use Types Packs/Day Years Used Date Smoking Tobacco: Never Smokeless Tobacco: Never Alcohol Use Standard Drinks/Week Comments No 0 (1 standard drink = 0.6 oz pur e alcohol) Comments No Sex and Gender Information Value Date Recorded Sex Assigned at Not on file 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
--- OUTSIDE RECORDS SUMMARY | 2025-04-11 21:16 | XMS_ITS | Encounter Summary ---
Author Organization [facility] Address [address] [place] [address] Care Team Providers Care Production Control Manager Name Role Phone Flores Harvey MD Primary Care Provider [phone] Encounter Details Date Type Department Care Team (Latest Contact Info) Description 07/28/2001 Outpatient Historical [facility] Family Medicine- [address] [place] [id number] Stella Ferreira MD NO ADDRESS ON FILE DIZZINESS AND GIDDINESS (Primary Dx); VITILIGO Social History Tobacco Use Types Packs/Day Years Used Date Smoking Tobacco: Never Assessed Comments Unknown Sex and Gender Information Value Date Recorded Sex Assigned at Not on file 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
--- OUTSIDE RECORDS SUMMARY | 2025-04-11 21:16 | XMS_ITS | Clinical Summary ---
Author Organization [facility] Address [address] [place] [phone] Care Team Providers Care Senior Court Office Assistant Name Role Phone Flores Harvey MD Primary Care Provider [phone] Allergies Active Allergy Reactions Criticality Noted Date [...] SpSnIndications :Acute serous otitis media Administer 1 [place] in each nostril daily. 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 Gender Identity Not on file Sexual Orientation Not on file Occupation Industry Job Start Date Job End Date Not on file Not on file Not on file Not on file Last Filed Vital Signs Vital Sign Reading Time Taken Comments Blood Pressure 127/74 02/11/2019 9:12 PM CDT Pulse 88 10/22/2018 5:28 PM PROCESS CONTROL MANAGER Temperature 36.7 C (98.1 F) 02/11/2019 9:12 [...] 1-dose 75+ series) 2020 INFLUENZA VACCINE (#1) 2025 06/24/2012 DTAP/TDAP/TD VACCINES (2 - Td or Tdap) 02/11/2029, 06/09/[address] [place], [place] [address] [place] [address] [place] [address] Office Assistant Relationship Specialty Start Date End Date Flores Harvey MD [address] [facility] [address] [place] [address] PCP - General Family Practice 12/19/15
--- OUTSIDE RECORDS SUMMARY | 2025-04-11 21:16 | XMS_ITS | Encounter Summary ---
Author Organization [facility] Address [address] [place] [address] Care Team Providers Care Adaptive Physical Education Specialist Name Role Phone Flores Harvey MD Primary Care Provider [phone] Reason for Referral * Outpatient Services (Routine) - Closed Specialty Diagnoses / Procedures Referred By Contac t Referred To Contact Radiology Diagnoses Thyroid nodule Procedures US HEAD NECK TISSUES Kin Brenner MD Phone: tel: fax: [facility] [address] [place] [address] Phone: tel: fax: Referral ID Status Reason Start Date Expiration Date V isits Requested Visits Authorized [id number] Closed MTN View CTS to Schedule (SGF) 12/12/2015 01/11/2017 1 1 Encounter Details Date Type Department Care Team (Latest Contact Info) Description 12/12/2015 Ancillary Orders [facility] Centralized Scheduling [address] [facility] [address] [place] [address] Kin Brenner MD [address] [place] [address] Thyroid nodule (Primary Dx) Social History Tobacco Use Types Packs/Day Years Used Date Smoking Tobacco: Never Smokeless Tobacco: Never Alcohol Use Standard Drinks/Week Comments No 0 (1 standard drink = 0.6 oz pur e alcohol) Comments No Sex and Gender Information Value Date Recorded Sex Assigned at Not on file 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 3. Pathologic calcifications are not apparent. [id number] Narrative 12/14/2015 3:02 PM CDT Exam: US [...] goiter documented in this encounter Care Teams Adaptive Physical Education Specialist Relationship Specialty Start Date End Date Flores Harvey MD [address] [phone] PCP - General Family Practice 12/19/15 documented as of this encounter
--- OUTSIDE RECORDS SUMMARY | 2025-04-11 21:16 | XMS_ITS | Clinical Summary ---
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 180 Tablet 6 01/08/20 25 Active primidone (MYSOLINE) 250 mg tablet Take 1 [...] daily 100 Capsule 2 02/17/20 25 Active amiodarone (CORDARONE) 200 mg tablet Take 200 mg by mouth 2 times daily. Active citalopram (CeleXA) 20 mg tablet Take 20 mg by mouth daily at bedtime. Active ipratropium-alb uteroL (DUONEB) 0.5 mg-3 mg(2.5 mg base)/3 mL Solution for Nebulization Take 3 mL by inhalation. Active metoprolol tartrate (LOPRESSOR) 25 mg tablet Take 25 mg by mouth 2 times daily. Active traMADoL (ULTRAM) 50 mg tabletIndicatio ns:Pain of left hip Take 1-2 Tablets (50-100 mg) by mouth every 6 hours as needed for Pain. 30 Tablet 09/07/20 24 2024 Discontinued naloxone (NARCAN) 4 mg/spray [place], Non-Aerosol EMERGENCY USE ONLY: Administer 1 spray (4 mg) in one nostril one time. May repeat in alternating nostrils every 2-3 min until responsive or EMS arrives. 2 Each 3 09/07/20 24 2024 Discontinued doxycycline hyclate (VIBRAMYCIN) 100 mg capsule Take 1 Capsule (100 mg) by mouth 2 times daily for 7 days. 14 Capsule 04/02/20 25 2024 Active Problems Problem Noted Date Diagnosed Date Longstanding persistent atrial fibrillation 03/10 COPD with exacerbation 03/28/2025 Chronic respiratory failure 03/28/2025 Urinary retention 03/28/2025 Acute on chronic diastolic congestive heart fail ure 03/28/2025 Anasarca 03/28/2025 Pleural effusion on right 03/28/2025 Arthritis of left shoulder 01/22/2025 Bilateral leg [...] Encounters Date Type Department Care Team Description 04/02/2025 5:55 AM CDT - 04/02/2025 11:59 PM CDT Hospital Encounter [facility] [place] [address] [facility] [address] [place] [phone] Terra Fontaine, BURRER MARKER [facility] Amb[facility], [facility] Discharge Disposition: Home or Self Care 03/30/2025 External Device Data STL ABSTRACTION Provider, Abstract 03/30/2025 External Device Data STL ABSTRACTION Provider, Abstract 03/30/2025 External Device Data STL ABSTRACTION Provider, Abstract 03/28/2025 12:01 AM CDT - 04/02/2025 11:59 AM CDT Hospital Encounter [facility] [address] [place] [address] All Rangel DO Godwin, Victoria, MD COPD with exacerbation ([facility]) Discharge Disposition: [facility] Fac(SNF) with Medicare Certification in Anticipation of Skilled Care 03/28/2025 Travel 03/27/2025 11:30 PM CDT - 03/27/2025 11:59 PM CDT Hospital Encounter [facility] [address] [place] [address] All Rangel DO Discharge Disposition: Home or Self Care 03/27/2025 - 03/27/2025 11:59 PM CDT Hospital Encounter [facility] [address] [place] [phone] Ambulance, [facility] Discharge Disposition: [facility] 03/09/2025 External Device Data STL ABSTRACTION Provider, Abstract 03/09/2025 External Device Data STL ABSTRACTION Provider, Abstract 03/09/2025 External Device Data STL ABSTRACTION Provider, Abstract 03/09/2025 External Device Data STL ABSTRACTION Provider, Abstract 03/08/2025 Patient Outreach [facility] and Access [id number] [facility] [address] [place] [address] Lorne Mancia Referral; Healthcare Access 02/27/2025 - 02/27/2025 11:59 PM CDT Hospital Encounter [facility] [address] [place] [phone] Ambulance, [facility] Discharge Disposition: [facility] 02/22/2025 5:30 PM CDT - 02/22/2025 11:59 PM CDT Hospital Encounter [facility] [address] [place] [address] Ambulance, [facility] Discharge Disposition: Home or Self Care 02/16/[address] [phone] Della Orr, CHATO Atrial fibrillation with RVR ([facility]) 02/10/2025 External Device Data STL ABSTRACTION Provider, Abstract 01/28/2025 3:20 PM CDT Office Visit [address] [place] [address] Daphnie Kennedy FNP Primary osteoarthritis of both knees (Primary Dx); Dizziness; Arthritis of left shoulder; Seizure ([facility]); Uses walker 01/27/[address] [phone] Ginette Gonzalez MD Medication Refill 01/27/[address] [place] [address] Daphnie Kennedy FNP Chronic obstructive pulmonary disease, unspecified COPD type ([facility]) 01/22/2025 12:20 PM CDT Office Visit [address] [phone] Elsa Aviles FNP Arthritis of left shoulder (Primary Dx) 01/22/2025 Results Follow-Up [address] [phone] Elsa Aviles FNP XR SHOULDER 2+ VW LEFT 01/20/2025 11:36 AM CDT - 01/20/2025 11:59 PM CDT Hospital Encounter [facility] [address] [phone] Elsa Aviles FNP Discharge Disposition: Home or Self Care 01/20/2025 11:20 AM CDT Office Visit [address] [place] [address] Elsa Aviles, INDUCTION COORDINATION ENGINEER Acute pain of left shoulder (Primary Dx); Arthritis of knee 01/18/2025 Refill [facility] [place] [address] [facility] [address] [place] [address] [place] [address] Daphnie Kennedy, INDUCTION COORDINATION ENGINEER Hypokalemia 01/12/2025 1:40 PM CDT Office Visit [address] [address] Barbara Thompson, SYMONE Plantar wart of both feet (Primary Dx); Toenail fungus; Morbid obesity ([facility]/HCC) 01/12/2025 External Device Data STL ABSTRACTION Provider, Abstract from Last 3 Months Immunizations Immunization Administration [...] on file Legal Sex Female 8:19 AM NUCLEAR MEDICAL TECH Gender Identity Not on file Sexual Orientation Not on file Last Filed Vital Signs Vital Sign Reading Time Taken Comments Blood Pressure 121/71 04/02/2025 8:40 AM CDT Pulse 76 04/02/2025 8:40 AM CDT Temperature 36.5 C (97.7 F) 04/02/2025 8:40 AM CDT Respiratory Rate 18 04/02/2025 8:40 AM CDT Oxygen Saturation 93% 04/02/2025 8:40 AM CDT Inhaled Oxygen Concentration - - Weight 105.6 kg (232 lb 12.8 oz) 04/02/2025 5:14 AM CDT Height 170.2 cm (5' 7 ) 03/28/2025 12:0 7 AM CDT Body Mass Index 36.46 03/28/2025 12:07 AM CDT Plan of Treatment Upcoming Encounters Date Type Department Care Team (Late st Contact Info) Description 07/20/2025 1:00 PM NUCLEAR MEDICAL TECH Appointment [facility] Neurology [facility] [address] [place] [phone] Ronnie French MD [address] [facility] [place] [address] 11/05/2025 1:20 PM NUCLEAR MEDICAL TECH Office Visit [facility] [place] [address] [facility] [address] [place] [address] [place] [address] Daphnie Kennedy FNP [address] [facility] [place] [phone] Health Maintenance Due Date Last Done Comments COLORECTAL SCREENING 12/09/1963 ZOSTER VACCINE (1 of 2) 12/09/1995 RSV VACCINE (60+ or ) (1 - 1-dose 75+ series) 2020 PNEUMOCOCCAL VACCINE 50+ YEA RS (2 of 2 - PPSV23, PCV20, or PCV21) 08/03/2022 06/08/2022 INFLUENZA VACCINE (#1) 2025 , 06/07/2023, 06/08/2022, Additional history exists OSTEOPOROSIS SCREENING 02/01/2028 01/31/2023 DTAP/TDAP/TD VACCINES (5 - T d or Tdap) 05/21/2033 05/21/2023, 05/21/2023, 02/11/2019, Additional history exists [place] Preventative Visit/Annual Wellness Visit Completed 11/06/2024, 11/07/2023, 01/30/2023, Additional history exists Procedures Procedure Name Priority Date/Time Associated Diagnosis Comments COMPREHENSIVE METABOLIC PANEL Routine 04/02/2025 6:15 AM CDT CBC WITH DIFFERENTIAL Routine 04/02/2025 6:15 AM CDT CBC WITH DIFFERENTIAL Routine 03/30/2025 6:10 AM CDT BASIC METABOLIC PANEL Routine 03/30/2025 6:10 AM CDT XR CHEST PA OR AP 1 VW Routine 03/29/2025 8:59 AM CDT BASIC METABOLIC PANEL Routine 03/29/2025 6:15 AM CDT TROPONIN 2 HR, 5TH GEN Timed Study 03/28/2025 10:47 AM CDT TROPONIN BASELINE, 5TH GEN Stat 03/28/2025 8:43 AM CDT MRSA PCR RAPID SCREEN Stat 03/28/2025 7:10 AM CDT RESPIRATORY PATHOGEN PCR PANEL Stat 03/28/2025 7:10 AM CDT XR CHEST PA OR AP 1 VW Stat 03/28/2025 3:05 AM CDT URINALYSIS W/REFLEX MICROSCOPIC Stat 03/28/2025 12:36 AM CDT POC GLUCOSE Stat 03/28/2025 12:19 AM CDT EKG 12-LEAD Stat 03/28/2025 12:09 AM CDT PROCALCITONIN Stat 03/27/2025 11:35 PM CDT C-REACTIVE PROTEIN Stat 03/27/2025 11 :35 PM CDT SEDIMENTATION RATE Stat 03/27/2025 11 :35 PM CDT MAGNESIUM LEVEL Stat 03/27/2025 11:35 PM CDT BRAIN NATRIURETIC PEPTIDE, BNP OR PROBNP Stat 03/27/2025 11:35 PM CDT COMPREHENSIVE METABOLIC PANEL Stat 03/27/2025 11:35 PM CDT CBC WITH DIFFERENTIAL Stat 03/27/2025 11:35 PM CDT WA ARTHROCENTESIS ASPIR&/INJ MAJOR JT/BURSA W/O US Routine 01/22/2025 12:20 PM CDT Arthritis of left shoulder XR SHOULDER 2+ VW LEFT Routine 01/20/2025 11:47 AM CDT Acute pain of left shoulder WA ARTHROCENTESIS ASPIR&/INJ MAJOR JT/BURSA W/O US Routine 01/20/2025 11:20 AM CDT Arthritis of knee XR DEXA BONE DENSITY AXIAL 1 OR MORE SITES Routine 01/31/2023 12:37 PM CDT Osteoporosis, unspecified osteoporosis type, unspecified pathological fracture presence from Last 3 Months or Most Recently Relevant to Health Maintenance Results * (ABNORMAL) CBC WITH DIFFERENTIAL (04/02/2025 6:15 AM CDT) Only the most recent of3 resultswithin the time period is included. WBC 4.7 4.0 - 10.0 K/uL 04/02/2025 6:37 AM [facility] RBC 3.60(L) 3.93 - 5.22 M/uL 04/02/2025 6:37 AM [facility] HEMOGLOBIN 10.9(L) 11.2 - 15.7 g/dL 04/02/2025 6:37 AM [facility] HEMATOCRIT 32.7(L) 34.1 - 44.9 % 04/02/2025 6:37 AM [facility] MCV 90.8 79.4 - 94.8 fL 04/02/2025 6:37 AM [facility] MCH 30.3 25.6 - 32.2 pg 04/02/2025 6:37 AM [facility] MCHC 33.3 32.2 - 35.5 g/dL 04/02/2025 6:37 AM [facility] RDW 15.5(H) 11.0 - 14.5 % 04/02/2025 6:37 AM [facility] RDW-STDEV 51.5 36.9 - 56.9 fL 04/02/2025 6:37 AM [facility] PLATELETS 117(L) 163 - 337 K/uL 04/02/2025 6:37 AM [facility] MPV 9.9(L) 10.0 - 14.8 fL 04/02/2025 6:37 AM [facility] NEUTROPHILS 55 34 - 71 % 04/02/2025 6:37 AM [facility] LYMPHOCYTES 22 19 - 52 % 04/02/2025 6:37 AM [facility] MONOCYTES 14(H) 5 - 13 % 04/02/2025 6:37 AM [facility] EOSINOPHILS 8(H) 1 - 6 % 04/02/2025 6:37 AM [facility] BASOPHILS 1 0 - 1 % 04/02/2025 6:37 AM [facility] IMMATURE GRANULOCYTES 1 % 04/02/2025 6:37 AM [facility] NEUTROPHIL ABSOLUTE 2.55 1.56 - 6.13 K/uL 04/02/2025 6:37 AM [facility] LYMPHOCYTE ABSOLUTE 1.03(L) 1.20 - 3.40 K/uL 04/02/2025 6:37 AM [facility] MONOCYTE ABSOLUTE 0.65(H) 0.24 - 0.36 K/uL 04/02/2025 6:37 AM [facility] EOSINOPHIL ABSOLUTE 0.36 0.04 - 0.36 K/uL 04/02/2025 6:37 AM [facility] BASOPHILS ABSOLUTE 0.03 0.01 - 0.08 K/uL 04/02/2025 6:37 AM [facility] IMMATURE GRANULOCYTES ABSOLUTE 0.03 K/uL 04/02/2025 6:37 AM [facility] Blood Venipuncture / Unknown 04/02/2025 6:15 AM CDT 04/02/2025 6:25 AM CDT us Adriana Russell MD HEMATOLOGY ORDERABLES Final Res [id number] [address] [place] [address] * (ABNORMAL) COMPREHENSIVE METABOLIC PANEL (04/02/2025 6:15 AM CDT) Only the most recent of2 resultswithin the time period is included. SODIUM 138 136 - 145 mmol/L 04/02/2025 6:52 AM [facility] POTASSIUM 3.9 3.5 - 5.1 mmol/L 04/02/2025 6:52 AM [facility] CHLORIDE 100 98 - 107 mmol/L 04/02/2025 6:52 AM [facility] CO2 31(H) 22 - 29 mmol/L 04/02/2025 6:52 AM [facility] CALCIUM 8.4(L) 8.8 - 10.2 mg/dL 04/02/2025 6:52 AM [facility] BUN 20 8 - 23 mg/dL 04/02/2025 6:52 AM [facility] CREATININE 0.62 0.51 - 0.95 mg/dL 04/02/2025 6:52 AM [facility] Comment:The GFR result is no t clinically significant on patients <18 or >70 years of age. GLUCOSE 83 74 - 99 mg/dL 04/02/2025 6:52 AM [facility] TOTAL PROTEIN 4.9(L) 6.6 - 8.7 g/dL 04/02/2025 6:52 AM [facility] ALBUMIN 2.8(L) 3.5 - 5.2 g/dL 04/02/2025 6:52 AM [facility] BILIRUBIN TOTAL 0.3 0.0 - 1.2 mg/dL 04/02/2025 6:52 AM [facility] ALKALINE PHOSPHATASE 56 35 - 104 U/L 04/02/2025 6:52 AM [facility] AST 14 0 - 35 U/L 04/02/2025 6:52 AM [facility] ALT 14 0 - 35 U/L 04/02/2025 6:52 AM [facility] GFR >60 mL/min/1.7 3 sq meter 04/02/2025 6:52 AM [facility] Comment:eGFR calculated with 2020 CKD-EPI equation. Vegetarian diet, extremely high or low muscle mass, and may affect results. Cystatin C with Glomerular Filtration Rate is a suitable alternative for these patients. ANION GAP 7 5 - 20 mmol/L 04/02/2025 6:52 AM [facility] Blood Venipuncture / Unknown 04/02/2025 6:15 AM CDT 04/02/2025 6:25 AM CDT us Adriana Russell MD CHEMISTRY ORDERABLES Final Resu lt [facility] CLIA # [id number] [address] [place] [address] * (ABNORMAL) BASIC METABOLIC PANEL (03/30/2025 6:10 AM CDT) Only the most recent of2 resultswithin the time period is included. SODIUM 136 136 - 145 mmol/L 03/30/2025 6:37 AM [facility] POTASSIUM 4.2 3.5 - 5.1 mmol/L 03/30/2025 6:37 AM [facility] CHLORIDE 99 98 - 107 mmol/L 03/30/2025 6:37 AM [facility] CO2 29 22 - 29 mmol/L 03/30/2025 6:37 AM [facility] CALCIUM 8.7(L) 8.8 - 10.2 mg/dL 03/30/2025 6:37 AM [facility] BUN 18 8 - 23 mg/dL 03/30/2025 6:37 AM [facility] CREATININE 0.57 0.51 - 0.95 mg/dL 03/30/2025 6:37 AM [facility] Comment:The GFR result is no t clinically significant on patients <18 or >70 years of age. GLUCOSE 111(H) 74 - 99 mg/dL 03/30/2025 6:37 AM [facility] GFR >60 mL/min/1.7 3 sq meter 03/30/2025 6:37 AM [facility] Comment:eGFR calculated with 2020 CKD-EPI equation. Vegetarian diet, extremely high or low muscle mass, and may affect results. Cystatin C with Glomerular Filtration Rate is a suitable alternative for these patients. ANION GAP 8 5 - 20 mmol/L 03/30/2025 6:37 AM [facility] Blood Venipuncture / Unknown 03/30/2025 6:10 AM CDT 03/30/2025 6:16 AM CDT us Chuck Espinoza MD CHEMISTRY ORDERABLES Final Resul t [facility] # [id number] [address] [place] [address] * XR CHEST PA OR AP 1 VW (03/29/2025 8:59 AM CDT) Only the most recent of2 resultswithin the time period is included. Anatomical Region Laterality Modality Chest Computed Radiogr aphy 03/29/2025 8:59 AM CDT Impressions 03/29/2025 9:26 AM CDT IMPRESSION: Please see below. EXAM: XR CHEST PA OR AP 1 VW DATE/TIME OF EXAM: 03/29/2025 8:59 AM REASON FOR STUDY: Wheezing DIAGNOSIS: Generalized muscle weakness; Lower extremity edema; Cellulitis of lower extremity, unspecified laterality; Uncomplicated asthma, unspecified asthma severity, unspecified whether persistent; O2 dependent; Longstanding persistent atrial fibrillation (CMS/HCC) COMPARISON: March 28, 2025. TECHNIQUE: A frontal radiograph of the chest was obtained. FINDINGS: Persistent right basilar opacities with small right pleural effusion. Increased linear opacities in the left base likely represent atelectasis. Cardiac and mediastinal silhouette is within normal limits. No new bony abnormality. IMPRESSION: 1. Persistent small right pleural collection with associated basilar atelectasis versus consolidation. Increased left basilar atelectasis.. Narrative Procedure Note Bob Fontenot MD - 03/29/2025 IMPRESSION: Please see below. EXAM: XR CHEST PA OR AP 1 VW DATE/TIME OF EXAM: 03/29/2025 8:59 AM REASON FOR STUDY: Wheezing DIAGNOSIS: Generalized muscle weakness; Lower extremity edema; Cellulitis of lower extremity, unspecified laterality; Uncomplicated asthma, unspecified asthma severity, unspecified whether persistent; O2 dependent; Longstanding persistent atrial fibrillation (CMS/HCC) COMPARISON: March 28, 2025. TECHNIQUE: A frontal radiograph of the chest was obtained. FINDINGS: Persistent right basilar opacities with small right pleural effusion. Increased linear opacities in the left base likely represent atelectasis. Cardiac and mediastinal silhouette is within normal limits. No new bony abnormality. IMPRESSION: 1. Persistent small right pleural collection with associated basilar atelectasis versus consolidation. Increased left basilar atelectasis.. us Terra Bob Fontaine APRN DIAGNOSTIC IMAGING [place] Final Result * (ABNORMAL) TROPONIN 2 HR, 5TH GEN (03/28/2025 10:47 AM CDT) TROPONIN T, 2 HR 5TH GEN 14(H) <=10 ng/L 03/28/2025 11:08 AM CDT [facility] DELTA 2HR TROPONIN T -1 See Interp. 03/28/2025 11:08 AM CDT [facility] Blood Venipuncture / Unknown 03/28/2025 10:47 AM CDT 03/28/2025 10:51 AM CDT [facility] - 03/28/2025 11:08 AM CDT Troponin elevated. Delta not changing. Delay in collection of timed specimen beyond recommended collection interval. Results must be interpreted in clinical context. Chuck Espinoza MD CHEMISTRY ORDERABLES Final Resul t [facility] CLIA # [id number] [address] [place] [address] * (ABNORMAL) TROPONIN BASELINE, 5TH GEN (03/28/2025 8:43 AM CDT) TROPONIN T, BASELINE 5TH GEN 15(H) <=10 ng/L 03/28/2025 9:08 AM CDT [facility] Blood Venipuncture / Unknown 03/28/2025 8:43 AM CDT 03/28/2025 8:48 AM CDT [facility] - 03/28/2025 9:08 AM CDT Troponin elevated. us Chuck Espinoza MD CHEMISTRY ORDERABLES Final Resul t [facility] CLIA # [id number] [address] [place] [address] * (ABNORMAL) MRSA PCR RAPID SCREEN (03/28/2025 7:10 AM CDT) Pathologist [facility] MRSA PCR RESULT MRSA detected( A) MRSA not detected 03/28/2025 6:18 PM CDT [facility] Surveillance ANTERIOR NARES SWAB / Unknown Collection / Unknown 03/28/2025 7:10 AM CDT 03/28/2025 8:19 AM CDT [facility] [employer] [facility] - 03/28/2025 6:18 PM CDT Positive result called to Marcial Jeff MT by Momo Howell on 03/28/2025 at 6:17 PM with verbal readback. This assay is used to detect Methicillin-Resistant S. aureus (MRSA) colonization of the nares. PLEASE NOTE: This test has not been approved to monitor effectiveness of MRSA decolonization. Residual DNA may temporarily be present after successful decolonization. This test was performed using an FDA approved screening methodology. Chuck Espinoza MD MICROBIOLOGY - GENERAL ORDERABLE S Final Result Performing Organization Address [facility] Co de Phone Number [facility] CLIA # [id number] [facility] [address] [place] [address] * RESPIRATORY PATHOGEN PCR PANEL (03/28/2025 7:10 AM CDT) [facility] Respiratory Pathogen PCR Panel NOT DETECTED No respiratory pathogen nucleic acids detected. 03/28/2025 5:56 PM CDT [facility] COVID-19 PCR NOT DETECTED Not Detected 03/28/2025 5:56 PM CDT [facility] Upper Respiratory ENTIRE NASOPHARYNX / Unknown Collection / Unknown 03/28/2025 7:10 AM CDT 03/28/2025 8:19 AM CDT [facility] [employer] [facility] - 03/28/2025 5:56 PM CDT The Film Array Respiratory Panel (RP2.1) is a multiplex nucleic acid detection test for 22 targets. Viruses: Adenovirus Coronavirus HKU1, NL63, 229E, and OC43 COVID-19/Severe Acute Respiratory Syndrome Coronavirus 2 Influenza A with the following subtypes: H1, H1-2009, and H3 Influenza B Human Metapneumovirus Parainfluenza virus 1, 2, 3, and 4 Respiratory Syncytial virus (RSV) Rhinovirus/Enterovirus (cannot differentiate due to genetic similarities) Bacteria: Bordetella pertussis Bordetella parapertussis Chlamydophila pneumoniae Mycoplasma pneumoniae us Chuck Espinoza MD MICROBIOLOGY - GENERAL ORDERABLE S Final Result [facility] CLIA # [id number] [address] [place] [address] * URINALYSIS WITH REFLEX MICROSCOPIC (03/28/2025 12:36 AM CDT) COLOR UA Yellow Pale to Dark Yellow 03/28/2025 12:45 AM CDT [facility] CLARITY UA Clear Clear 03/28/2025 12:45 AM CDT [facility] SPECIFIC GRAVITY UA 1.015 1.003 - 1.035 03/28/2025 12:45 AM CDT [facility] PH UA 6.5 5.0 - 8.0 03/28/2025 12:45 AM CDT [facility] LEUKOCYTE ESTERASE UA Negative Negative 03/28/2025 12:45 AM CDT [facility] NITRITE UA Negative Negative 03/28/2025 12:45 AM CDT [facility] PROTEIN UA Negative Negative 03/28/2025 12:45 AM CDT [facility] GLUCOSE UA Negative Negative 03/28/2025 12:45 AM CDT [facility] KETONES UA Negative Negative 03/28/2025 12:45 AM CDT [facility] UROBILINOGEN UA 0.2 <2.0 mg/dL 12:45 AM CDT [facility] BILIRUBIN UA Negative Negative 03/28/2025 12:45 AM CDT [facility] BLOOD UA Negative Negative 03/28/2025 12:45 AM CDT [facility] Urine URINE SPECIMEN OBTAINED BY CLEAN CATCH PROCEDURE / Unknown Collection / Unknown 03/28/2025 12:36 AM CDT 03/28/2025 12:42 AM CDT us All Rangel DO URINE ORDERABLES Final Result Performing Organization Address [facility] Co de Phone Number [facility] CLIA # [id number] [address] [place] [address] * POC GLUCOSE (03/28/2025 12:19 AM CDT) GLUCOSE POC 94 74 - 99 mg/dL 03/28/2025 12:19 AM CDT [facility] SPECIMEN SOURCE, GLUCOSE POC Whole Blood 03/28/2025 12:19 AM CDT [facility] Blood, whole 03/28/2025 12:1 9 AM CDT 03/28/2025 12:26 AM CDT us Interface Provider Poct POINT OF CARE TESTING Fi nal Result Performing Organization Address [facility] Co de Phone Number [facility] CLIA # [id number] [address] [place] [address] * EKG (03/28/2025 12:09 AM CDT) Narrative All Rangel DO - 03/28/2025 12:09 AM CDT All Rangel DO 03/28/2025 5:18 AM EKG Date/Time: 03/28/2025 12:09 AM Performed by: All Rangel DO Authorized by: All Rangel DO ECG interpreted by ED Physician in the absence of a china and silverware salesperson: yes Rate: ECG rate: 90 ECG rate assessment: age appropriate Rhythm: Rhythm Origin: atrial Rhythm morphology: fibrillation [place]: QRS axis: Right QRSTT: R wave transition: Good All Su Rangel ECG ORDERABLES Final Result * PROCALCITONIN (03/27/2025 11:35 PM CDT) PROCALCITONIN 0.04 <=0.08 ng/mL 03/28/2025 5:38 PM CDT [facility] Blood BLOOD SPECIMEN / Unknown Collection / Unknown 03/27/2025 11:35 PM CDT 03/28/2025 6:28 AM CDT Narrative [facility] - 03/28/2025 5:38 PM CDT The utility of procalcitonin is limited/NOT recommended in certain populations (e.g. newborns, dialysis/ESRD, patients with recent major surgery/trauma/june, liver cirrhosis, viral hepatitis, certain cancers, etc.). Procalcitonin levels MUST be interpreted in the context of the patient's clinical condition and CANNOT be solely relied upon for diagnosis of infection. <0.25 ng/mL: Bacterial infection unlikely, particularly lower respiratory tract infections. <0.5 ng/mL: Low risk for progression to severe sepsis/septic shock. Localized infection possible. Measurements done early (<6 hours) after systemic process starts may still be low. 0.5-2 ng/mL: Moderate risk for progression to severe sepsis/septic shock. >2 ng/mL: High risk for progression to severe sepsis/septic shock. If antibiotics ARE administered, repeat testing is recommended every 2-3 days to help guide antibiotic cessation. Once a decrease of 80% or more has occurred from baseline, discontinuation of antibiotics should strongly be considered in clinically stable patients. Procalcitonin is produced in the setting of systemic inflammation, particularly bacterial infections. It is detectable within 2-4 hours and peaks within 6-24 hours. Chuck Espinoza MD CHEMISTRY ORDERABLES Final Resul t [facility] CLIA # [id number] [address] [place] [address] * SEDIMENTATION RATE (03/27/2025 11:35 PM CDT) ESR (SEDIMENTATION RATE) 19 0 - 30 mm/Hr 03/28/2025 6:25 AM CDT [facility] Blood BLOOD SPECIMEN / Unknown Collection / Unknown 03/27/2025 11:35 PM CDT 03/28/2025 12:19 AM CDT Narrative [facility] - 03/28/2025 6:25 AM CDT Tube Lot: #[id number] Exp Date: 09/08/2026 QC1 LOT [id number] EXP.09/13/2025 QC2 LOT [id number] EXP.09/13/2025 Jodie May MD HEMATOLOGY ORDERABL ES Final Result Performing Organization Address [facility]/ZIP Co de Phone Number [facility] [id number] [address] [place] [address] * (ABNORMAL) C-REACTIVE PROTEIN (03/27/2025 11:35 PM CDT) Pathologist [facility] CRP 10.9(H) <5.0 mg/L 03/28/2025 6:27 AM CDT [facility] Blood BLOOD SPECIMEN / Unknown Collection / Unknown 03/27/2025 11:35 PM CDT 03/28/2025 12:19 AM CDT Jodie May MD CHEMISTRY ORDERABLE S Final Result Performing Organization Address [facility]/State/ZIP Co de Phone Number [facility] CLIA # [id number] [address] [place] [address] * (ABNORMAL) BRAIN NATRIURETIC PEPTIDE, BNP OR PROBNP (03/27/2025 11:35 PM CDT) PROBNP, N TERMINAL 1,046(H) 0 - 450 pg/mL 03/28/2025 1:49 AM CDT [facility] Comment: INTERPRETIVE COMMENT based on diagnosis: Diagnostic NT pro-BNP cutoffs for Heart Failure in the absence of renal failure is suggested for the following ranges <75 years: <125 pg/mL >=75 years: <450 pg/mL Exclusionary rule out cut-point for Acute Decompensated Heart Failure(ADHF) All ages: <300 pg/mL Diagnostic NT pro-BNP cutoffs for Acute Decompensated Heart Failure(ADHF) in the absence of renal failure is suggested for the following ages <50 years: > 450 pg/mL 50-75 years: > 900 pg/mL >75 years: >1800 pg/mL Blood BLOOD SPECIMEN / Unknown Collection / Unknown 03/27/2025 11:35 PM CDT 03/28/2025 12:19 AM CDT us All Y Rangel DO CHEMISTRY ORDERABLES Final Resul t Performing Organization Address [facility]/ZIP Co de Phone Number [facility] CLIA # [id number] [address] [place] [address] * MAGNESIUM LEVEL (03/27/2025 11:35 PM CDT) MAGNESIUM 2.1 1.6 - 2.4 mg/dL 03/28/2025 1:49 AM CDT [facility] Blood BLOOD SPECIMEN / Unknown Collection / Unknown 03/27/2025 11:35 PM CDT 03/28/2025 12:19 AM CDT us All Y Rangel DO CHEMISTRY ORDERABLES Final Resul t Performing Organization Address City/[facility]/ZIP Co de Phone Number [facility] CLIA # [id number] [address] [place] [address] * [place] ARTHROCENTESIS ASPIR&/INJ MAJOR JT/BURSA W/O US (01/22/2025 12:20 PM CDT) Narrative [facility] [place] - 01/22/2025 12:20 PM CDT Elsa Aviles FNP 01/22/2025 12:19 PM Large Joint Inject/Drain Date/Time: 01/22/2025 12:20 PM Authorized by: Elsa Aviles FNP Performed by: Elsa Aviles FNP Consent given by: patient Site marked: site marked Timeout: Immediately prior to procedure a time out was called to verify the correct patient, procedure, equipment, learning support assistant and site/side marked as required Supporting Documentation [...] procedure well with no immediate complications Elsa Aviles INDUCTION COORDINATION ENGINEER PROCEDURE/MINOR SURGICAL OR DERABLES Final Result [facility] CLIA# [id number] [address] [facility] 2 [place] [address] * XR SHOULDER 2+ VW LEFT (01/20/2025 [...] lung schilling are grossly clear.. Elsa Aviles INDUCTION COORDINATION ENGINEER DIAGNOSTIC IMAGING ORDERABL ES Final Result * [place] ARTHROCENTESIS ASPIR&/INJ MAJOR JT/BURSA W/O US (01/20/2025 11:20 AM CDT) Narrative [facility] - 01/20/2025 11:20 AM CDT Elsa Aviles FNP 01/20/2025 11:22 AM Large Joint Inject/Drain Date/Time: 01/20/2025 11:20 AM Authorized by: Elsa Aviles FNP Performed by: Elsa Aviles FNP Consent given by: patient Site marked: site marked Timeout: Immediately prior to procedure a time out was called to verify the correct patient, procedure, equipment, learning support assistant and site/side marked as required Supporting Documentation [...] REIS PROCEDURE/MINOR SURGICAL OR DERABLES Final Result [facility] CLIA# [id number] [address] [place] [address] [place] [address] * (ABNORMAL) XR DEXA BONE DENSITY AXIAL 1 OR MORE SITES (01/31/2023 12:37 PM CDT) [facility] Signature T-SCORE SPINE -0.30 -1.0 - 1.0 INTER [...] for her osteoporosis. Alendronate therapy is noted. Jodie Mancia INDUCTION COORDINATION ENGINEER DIAGNOSTIC IMAGING ORDER SHWETHA Final Result from Last 3 Months or Most Recently Relevant to Health Maintenance Insurance [place] MEDICARE HMO Advance Directives For more information, please contact: [phone] * Full Code (Latest Code Status on File) Date Activated Date Inactivated Comments 03/28/2025 6:58 AM 04/02/2025 2:12 PM * Full Code Date Activated Date Inactivated Comments 11/07/2023 12:07 PM 11/10/2023 4:24 PM * Full Code Date Activated Date Inactivated Comments 09/11/2021 3:47 AM 09/13/2021 3:34 PM Care Teams Shoemaking Finisher Relationship Specialty Start Date End Date Ginette Gonzalez MD [address] [phone] PCP - General Family Practice 08/23/22
--- OUTSIDE RECORDS SUMMARY | 2025-04-11 21:16 | XMS_ITS | Encounter Summary ---
Author Organization [facility] Address [address] [place] [address] Care Team Providers Care Deburring Machine Operator Name Role Phone Flores Harvey MD Primary Care Provider [phone] Reason for Referral * Outpatient Services (Routine) - Closed Specialty Diagnoses / Procedures Referred By Contac t Referred To Contact Radiology Diagnoses Hypothyroidism Thyroid nodule Procedures US HEAD NECK TISSUES Jeff Mancia FNP [address] [place] [address] Phone: tel: fax: [facility] [address] [facility] [address] [place] [address] Phone: tel: fax: Referral ID Status Reason Start Date Expiration Date V isits Requested Visits Authorized [id number] Closed [facility] View CTS to Schedule (SGF) 06/24/2017 07/25/2018 1 1 Encounter Details Date Type Department Care Team (Late st Contact Info) Description 06/24/2017 Ancillary Orders [facility] Centralized Scheduling [address] [place] [address] Jeff Mancia FNP [address] [place] [address] Hypothyroidism; Thyroid nodule Social History Tobacco Use Types Packs/Day Years Used Date Smoking Tobacco: Never Smokeless Tobacco: Never Alcohol Use Standard Drinks/Week Comments No 0 (1 standard drink = 0.6 oz pur e alcohol) Comments No Sex and Gender Information Value Date Recorded Sex Assigned at Not on file Legal Sex 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 No new nodules. Jeff Mancia [facility] US ORDERABLES Final Resul t documented in this encounter Visit Diagnoses Diagnosis Hypothyroidism Unspecified hypothyroidism Thyroid nodule Nontoxic uninodular goiter Hypothyroidism Unspecified hypothyroidism Thyroid nodule Nontoxic uninodular goiter documented in this encounter Care Teams Deburring Machine Operator Relationship Specialty Start Date End Date Flores Harvey MD [address] [address] PCP - General Family Practice 12/19/15 documented as of this encounter
--- OUTSIDE RECORDS SUMMARY | 2025-04-11 21:16 | XMS_ITS | Encounter Summary ---
Author Organization [facility] Address [address] [place] [address] Care Team Providers Care Law Examiner Name Role Phone Ginette Gonzalez MD Primary Care Provider Encounter Details Date Type Department Care Team ([facility] Contact Info) Description 07/05/2022 Lab Requisition [facility] General Laboratory Services [address] [place] [phone] Ronnie French MD [address] [place] [address] Unspecified convulsions (CMS/HCC) Social History Tobacco Use Types Packs/Day Years Used Date Smoking Tobacco: Never Smokeless Tobacco: Never Alcohol Use Standard Drinks/Week Comments No 0 (1 standard drink = 0.6 oz pur e alcohol) Comments No Sex and Gender Information Value Date Recorded Sex Assigned at Not on file Legal Sex Female 8:19 AM HELICOPTER ENGINEER Gender Identity Not on file Sexual Orientation Not on file COVID-19 Exposure Response Date Recorded In the last 10 days, have yo u been in contact with someone who was confirmed or suspected to have Coronavirus/COVID-19? Yes 07/05/2022 1:25 PM CDT documented as of this encounter Plan of Treatment Upcoming Encounters Date Type Department Care Team (Late Contact Info) Description 07/20/2025 1:00 PM HELICOPTER ENGINEER Appointment [facility] [address] [place] [address] Ronnie French MD [address] [place] [phone] 11/05/2025 1:20 PM HELICOPTER ENGINEER Office Visit [facility] Medicine [place] [address] [facility] [address] [place] [address] [place] [address] Daphnie Kennedy, CHATO [address] [place] [address] documented as of this encounter Procedures Procedure Name Priority Date/Time Associated Diagnosis Comments CBC WITH DIFFERENTIAL Stat 07/05/2022 2:26 PM CDT Unspecified convulsions COMPREHENSIVE METABOLIC PANEL Stat 07/05/2022 2:26 PM CDT Unspecified convulsions documented in this encounter Results * (ABNORMAL) COMPREHENSIVE METABOLIC PANEL (07/05/2022 2:26 PM CDT) SODIUM 141 136 - 145 mmol/L 07/05/2022 2:55 PM CDT [facility] POTASSIUM 4.3 3.5 - 5.1 mmol/L 07/05/2022 2:55 PM CDT [facility] CHLORIDE 103 98 - 107 mmol/L 07/05/2022 2:55 PM CDT [facility] CO2 29 22 - 29 mmol/L 07/05/2022 2:55 PM CDT [facility] CALCIUM 9.2 8.8 - 10.2 mg/dL 07/05/2022 2:55 PM CDT [facility] BUN 13 8 - 23 mg/dL 07/05/2022 2:55 PM CDT [facility] CREATININE 0.69 0.51 - 0.95 mg/dL 07/05/2022 2:55 PM CDT [facility] Comment:The GFR result is no t clinically significant on patients <18 or >70 years of age. GLUCOSE 88 74 - 99 mg/dL 07/05/2022 2:55 PM CDT [facility] TOTAL PROTEIN 6.6 6.6 - 8.7 g/dL 07/05/2022 2:55 PM [facility] ALBUMIN 3.9 3.5 - 5.2 g/dL 07/05/2022 2:55 PM [facility] BILIRUBIN TOTAL 0.3 <=1.2 mg/dL 07/05/2022 2:55 PM [facility] ALKALINE PHOSPHATASE 81 35 - 104 U/L 07/05/2022 2:55 PM [facility] AST 12 10 - 35 U/L 07/05/2022 2:55 PM [facility] ALT 7(L) 10 - 35 U/L 07/05/2022 2:55 PM [facility] GFR >60 mL/min/1.7 3 sq meter 07/05/2022 2:55 PM [facility] Comment:eGFR calculated with 2020 CKD-EPI equation. Vegetarian diet, extremely high or low muscle mass, and may affect results. Cystatin C with Glomerular Filtration Rate is a suitable alternative for these patients. ANION GAP 9(L) 12 - 20 mmol/L 07/05/2022 2:55 PM [facility] Blood Venipuncture / Unknown 07/05/2022 2:26 PM CDT 07/05/2022 2:30 PM CDT Ronnie French MD CHEMISTRY ORDERABLES Final Result [facility] CLIA # [id number] [address] [place] [address] * (ABNORMAL) CBC WITH DIFFERENTIAL (07/05/2022 2:26 PM CDT) WBC 5.4 4.0 - 10.0 K/uL 07/05/2022 2:36 PM CDT [facility] RBC 4.41 3.93 - 5.22 M/uL 07/05/2022 2:36 PM [facility] HEMOGLOBIN 12.9 11.2 - 15.7 g/dL 07/05/2022 2:36 PM [facility] HEMATOCRIT 39.1 34.1 - 44.9 % 07/05/2022 2:36 PM [facility] MCV 88.7 79.4 - 94.8 fL 07/05/2022 2:36 PM [facility] MCH 29.3 25.6 - 32.2 pg 07/05/2022 2:36 PM [facility] MCHC 33.0 32.2 - 35.5 g/dL 07/05/2022 2:36 PM [facility] RDW 14.2 11.0 - 14.5 % 07/05/2022 2:36 PM [facility] RDW-STDEV 45.9 36.9 - 56.9 fL 07/05/2022 2:36 PM [facility] PLATELETS 131(L) 163 - 337 K/uL 07/05/2022 2:36 PM [facility] MPV 9.9(L) 10.0 - 14.8 fL 07/05/2022 2:36 PM [facility] NEUTROPHILS 58 34 - 71 % 07/05/2022 2:36 PM [facility] LYMPHOCYTES 24 19 - 52 % 07/05/2022 2:36 PM [facility] MONOCYTES 12 5 - 13 % 07/05/2022 2:36 PM [facility] EOSINOPHILS 5 1 - 6 % 07/05/2022 2:36 PM [facility] BASOPHILS 1 0 - 1 % 07/05/2022 2:36 PM [facility] IMMATURE GRANULOCYTES 0 % 07/05/2022 2:36 PM [facility] NEUTROPHIL ABSOLUTE 3.12 1.56 - 6.13 K/uL 07/05/2022 2:36 PM [facility] LYMPHOCYTE ABSOLUTE 1.31 1.20 - 3.40 K/uL 07/05/2022 2:36 PM [facility] MONOCYTE ABSOLUTE 0.67(H) 0.24 - 0.36 K/uL 07/05/2022 2:36 PM CDT [facility] EOSINOPHIL ABSOLUTE 0.25 0.04 - 0.36 K/uL 07/05/2022 2:36 PM CDT [facility] BASOPHILS ABSOLUTE 0.06 0.01 - 0.08 K/uL 07/05/2022 2:36 PM CDT [facility] IMMATURE GRANULOCYTES ABSOLUTE 0.02 K/uL 07/05/2022 2:36 PM CDT [facility] Blood Venipuncture / Unknown 07/05/2022 2:26 PM CDT 07/05/2022 2:30 PM CDT Ronnie French MD HEMATOLOGY ORDERABLES Savana lopez Result [facility] CLIA # [id number] [address] [address] documented in this encounter Visit Diagnoses Diagnosis Unspecified convulsions (CMS/HCC) documented in this encounter Additional Health Concerns Infection Onset Date Last Indicated Resolved Time COVID-19 06/15/2022 06/15/2022 07/05/2022 1:16 AM CDT R/O COVID-19 05/07/2023 05/07/2023 05/07/2023 9:27 AM CDT COVID-19 05/07/2023 05/07/2023 05/27/2023 1:16 AM CDT R/O Respiratory 03/28/2025 03/28/2025 03/28/2025 5 :56 PM CDT documented as of this encounter Care Teams Law Examiner Relationship Specialty Start Date End Date Ginette Gonzalez MD [address] [phone] PCP - General Family Practice 08/23/22 documented as of this encounter
--- OUTSIDE RECORDS SUMMARY | 2025-04-11 21:16 | XMS_ITS | Encounter Summary ---
Author Organization [facility] Address [address] [place] [address] Care Team Providers Care Wire Temperer Name Role Phone Flores Harvey MD Primary Care Provider Encounter Details Date Type Department Care Team (Late st Contact Info) Description 07/23/2013 Ancillary Orders [facility] Admitting [address] [place] [address] Joanne Jang, Momo Payne, CHATO [address] [place], [place] [id number] Bronchitis (Primary Dx) Social History Tobacco Use Types Packs/Day Years Used Date Smoking Tobacco: Never Smokeless Tobacco: Never Alcohol Use Standard Drinks/Week Comments No 0 (1 standard drink = 0.6 oz pur e alcohol) Comments No Sex and Gender Information Value Date Recorded Sex Assigned at Not on file Legal Sex 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 [employer] Gender Identity Not on file Sexual Orientation Not on file Occupation Industry Job Start Date Job End Date Not on file Not on file Not on file Not on file documented as of this encounter Plan of Treatment Not on file documented as of this encounter Results * XR CHEST PA AND LATERAL (07/23/2013 10:34 AM PRESS OPERATOR [employer]) Anatomical Region Laterality Modality Chest Computed Radiogr aphy 07/23/2013 10:3 4 AM PRESS OPERATOR [employer] Narrative 07/23/2013 4:09 PM PRESS OPERATOR [employer] PROCEDURE CHEST, 2 views 23 July 2013 [...] infiltrate or atelectasis seen Momo Rubio Sr., APPLE PRESS OPERATOR DIAGNOSTIC IMAGIN G ORDERABLES Final Result documented in this encounter Visit Diagnoses Diagnosis Bronchitis- Primary Bronchitis, not specified as acute or chronic Bronchitis Bronchitis, not specified as acute or chronic documented in this encounter Care Teams Wire Temperer Relationship Specialty Start Date End Date Flores Harvey MD [address] [phone] PCP - General Family Practice 12/19/15 documented as of this encounter
--- NOTE | 2025-04-11 21:17 | XRR_ITS ---
PROCEDURE INFORMATION: Exam: XR Chest Exam date and time: 04/11/2025 9:31 PM Age: 79 years old Clinical indication: Pain; Other: Weakness TECHNIQUE: Imaging protocol: Radiologic exam of the chest. Views: 1 view. COMPARISON: CR (CHEST, ) 02/28/2025 5:38 PM FINDINGS: Lungs: Left retrocardiac opacity. Subsegmental right basilar opacities. Pleural spaces: Small bilateral pleural effusions. No pneumothorax. Heart/Mediastinum: Unremarkable. No cardiomegaly. Bones/joints: Unremarkable. XR/XR chest 1V portable [id number] IMPRESSION: 1. Bibasilar/retrocardiac opacities. Differential includes atelectasis versus infection. 2. Small bilateral pleural effusions.
--- NOTE | 2025-04-11 21:17 | CTR_ITS ---
PROCEDURE INFORMATION: Exam: CT Head Without Contrast Exam date and time: 04/11/2025 9:39 PM Age: 79 years old Clinical indication: EMS arrival from alf for general weakness. Patient hypotensive. TECHNIQUE: Imaging protocol: Computed tomography of the head without contrast. Radiation optimization: All CT scans at this facility use at least one of these dose optimization techniques: automated exposure control; mA and/or kV adjustment per patient size (includes targeted exams where dose is matched to clinical indication); or iterative reconstruction. COMPARISON: CT head wo con* [id number] 02/27/2025 8:29 PM RADIATION DOSE METRICS: Total DLP (mGy-cm): 785.18 FINDINGS: Brain: Moderate global parenchymal volume loss. No acute intracranial hemorrhage.Patchy and confluent areas periventricular and subcortical white matter hypoattenuation, likely the sequela of microvascular ischemic changes. Cerebral ventricles: Ex vacuo ventricular dilation concordant with the degree of parenchymal volume loss. Paranasal sinuses: Patchy mucosal thickening of the paranasal sinuses. Mastoid air cells: Visualized mastoid air cells are well aerated. Bones: Unremarkable. No acute fracture. Soft tissues: Unremarkable. CT/CT head wo con* [id number] IMPRESSION: 1. No acute intracranial hemorrhage. 2. Severe background of chronic microvascular ischemic changes which could mask a small infarct. If there is concern for stroke, MRI could be considered.
[2025-04-11 21:22] VITALS: BP 86/62; PULSE 58; RESP 16; TEMP 36.6; O2SAT 98; BMI 39.9
--- NOTE | 2025-04-11 21:39 | W.ED.GENADLT ---
HPI - General Adult General: Chief complaint: General Medical Stated complaint: HYPOTENSION Time Seen by Provider: 04/11/25 21:13 Source: patient and EMS Mode of arrival: EMS Limitations: no limitations History of Present Illness: 79-year-old female history of multiple medical issues here from [facility] they state that she had some increased weakness throughout the day and had some periods of hypotension. That recently went up on her Lasix. Primus her blood pressure was in the 100s patient is hard of hearing she is answering my questions she states she just does not feel very well. Associated symptoms: Reports malaise; Deny chest pain, dyspnea, headache(s), nausea, rash or vomiting Related Data Home Medications ?Medication ?Instructions ?Recorded ?Confirmed acetaminophen 500 mg tablet 500 mg PO Q6H PRN Pain 08/20/22 02/28/25 (Tylenol Extra Strength) alendronate 70 mg tablet 70 mg PO .weekly 02/18/24 02/28/25 albuterol sulfate 0.63 mg/3 mL 0.63 mg continuous nebulization 02/28/25 02/28/25 solution for nebulization BID PRN Shortness Of Breath furosemide 40 mg tablet 40 mg PO DAILY 02/28/25 02/28/25 potassium chloride 10 mEq 10 meq PO DAILY 02/28/25 02/28/25 tablet,extended release primidone 250 mg tablet 250 mg PO TID 02/28/25 02/28/25 rivaroxaban 10 mg tablet (Xarelto) 10 mg PO QPM 02/28/25 02/28/25 tizanidine 2 mg tablet 2 mg PO BEDTIME 02/28/25 02/28/25 Previous Rx's ?Medication ?Instructions ?Recorded levalbuterol tartrate 45 2 inh inhalation Q6H PRN shortness 08/20/22 mcg/actuation aerosol inhaler of breath or wheezing #15 grams (Xopenex HFA) tiotropium bromide 1.25 2 inh inhalation DAILY #4 grams 08/21/22 mcg/actuation mist for inhalation (Spiriva Respimat) fluticasone 250 mcg-salmeterol 50 1 inh inhalation BID #60 ea 11/27/22 mcg/dose blistr powdr for inhalation (Advair Diskus) diltiazem HCl 360 mg 360 mg PO DAILY #90 caps 04/25/23 capsule,extended release 24 hr (Cardizem CD) amoxicillin 875 mg-potassium 1 tab PO BID #6 tabs 03/03/25 clavulanate 125 mg tablet divalproex 250 mg tablet,delayed 500 mg (2 x 250 mg) PO BID #180 03/03/25 release tabs prednisone 20 mg tablet 40 mg (2 x 20 mg) PO DAILY #10 tabs 03/03/25 amiodarone 200 mg tablet (Pacerone) 200 mg PO BID #60 tabs 03/05/25 citalopram 20 mg tablet 20 mg PO DAILY #30 tabs 03/05/25 Allergies Allergy/AdvReac Type Severity Reaction Status Date / Time erythromycin base Allergy tachycardia Verified 02/24/25 13:38 /rash Review of Systems Const: Reports: fatigue and malaise; Denies: fever(s), chills, body aches or change in appetite ENMT: Denies: throat pain or dental pain Card: Denies: chest pain Resp: Denies: dyspnea GI: Denies: abdominal pain, nausea, vomiting or diarrhea : Denies: dysuria Musc: Denies: neck pain or back pain Skin/Breast: Denies: rash Neuro: Denies: headache(s) PFSH ED PFSH: Medical History Pneumonia Asthma Enrolled in chronic care management Osteoporosis Impaired memory 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 Hearing loss Mental confusion determined by examination Moderate persistent asthma Moderate aortic stenosis Generalized epilepsy COPD (chronic obstructive pulmonary disease) Keratosis pilaris Varicose veins of anus or rectum Essential hypertension Atrial fibrillation Surgical History History of hemorrhoidectomy (~09/2019) Family History Other History of hemorrhoidectomy Denies family history of Diabetes CAD (coronary artery disease) Anesthesia complication Bleeding disorder Stroke Social History Smoking and tobacco/nicotine status: never used tobacco/nicotine Second hand smoke exposure: No Alcohol intake: never Substance/Drug Use: never Adopted: No Caregiver/support person: Yes Lives independently: Yes Household members: spouse Housing: House Marital status: Highest education level completed: High School Graduate service: No Current occupational status: retired Current occupational exposures/hazards: No Pets and animals: No Sexually active: No Do you think of yourself as: Straight/Heterosexual Current gender identity: Female Shayy/Moravian: Yazidism Special shayy needs: No Agree to transfusion: No Course Vital Signs: Vital signs: Vital Signs Temperature 97.8 F 04/11/25 21:22 Pulse Rate 60 04/11/25 23:00 Respiratory Rate 19 H 04/11/25 23:00 Blood Pressure 94/50 04/11/25 23:00 Pulse Oximetry 98 04/11/25 23:00 Oxygen Delivery Me thod Room Air 04/11/25 22:57 Oxygen Flow Rate 3 04/11/25 21:22 MDM - General Adult Medical Decision Making Patient presents here with generalized weakness she has had some mild hypotension here blood pressure here has improved. White count lactate is normal no signs of sepsis did not give her full fluid bolus as she does have lower extreme anemia and elevated BNP and would cause more harm did start her on antibiotics for likely pneumonia spoke to hospitalist will admit Medical Records I reviewed the patient's medical records. Lab Data I reviewed the patient's lab results. 04/11/25 21:59 04/11/25 21:59 Radiology Impressions Chest X-Ray 04/11/25 21:17 IMPRESSION: 1. Bibasilar/retrocardiac opacities. Differential includes atelectasis versus infection. 2. Small bilateral pleural effusions. Head CT 04/11/25 21:17 IMPRESSION: 1. No acute intracranial hemorrhage. 2. Severe background of chronic microvascular ischemic changes which could mask a small infarct. If there is concern for stroke, MRI could be considered. Laboratory Results WBC 4.88 10^3/uL (3.29-11.43) 04/11/25 21:59 RBC 3.37 10^6/uL (3.85-5.65) L 04/11/25 21:59 Hgb 10.10 g/dL (11.27-16.99) L 04/11/25 21:59 Hct 31.1 % (36-47) L 04/11/25 21:59 MCV 92.3 fl (85-98) 04/11/25 21:59 MCH 30.0 pg (27-33) 04/11/25 21:59 MCHC 32.5 g/dL (30-55) 04/11/25 21:59 RDW 16.0 % (12.1-15.1) H 04/11/25 21:59 Plt Count 139 10^3/cmm (157-399) L 04/11/25 21:59 MPV 10.1 fL (7.4-10.4) 04/11/25 21:59 Neut % (Auto) 57.9 % 04/11/25 21:59 Lymph % (Auto) 22.7 % 04/11/25 21:59 [place] % (Auto) 13.3 % 04/11/25 21:59 Eos % (Auto) 4.7 % 04/11/25 21:59 Baso % (Auto) 1.0 % 04/11/25 21:59 Neut # (Auto) 2.82 10^3/uL (1.8-7.7) 04/11/25 21:59 Lymph # (Auto) 1.1 10^3/uL (0.8-4.8) 04/11/25 21:59 [place] # (Auto) 0.7 10^3/uL (0.2-0.9) 04/11/25 21:59 Eos # (Auto) 0.2 10^3/uL (0.0-0.8) 04/11/25 21:59 Baso # (Auto) 0.1 10^3/uL (0.0-0.1) 04/11/25 21:59 Nucleated RBC % (auto) 0 % 04/11/25 21:59 Nucleated RBCs # 0.0 /100WBC 04/11/25 21:59 Sodium 140 mmol/L (136-145) 04/11/25 21:59 Potassium 4.0 mmol/L (3.5-5.1) 04/11/25 21:59 Chloride 98 mmol/L (98-107) 04/11/25 21:59 Carbon Dioxide 30 mmol/L (22-29) H 04/11/25 21:59 Anion Gap 16.0 (5-19) 04/11/25 21:59 BUN 13 mg/dL (8-23) 04/11/25 21:59 Creatinine 0.8 mg/dL (0.5-0.9) 04/11/25 21:59 GFR Calculation Not Reportable 04/11/25 21:59 Glucose 90 mg/dL (65-115) 04/11/25 21:59 Calculated Osmolality 290 mOsm/kg (285-295) 04/11/25 21:59 Lactic Acid 1.5 mmol/L (0.5-2.2) 04/11/25 21:59 Calcium 7.9 mg/dL (8.5-10.5) L 04/11/25 21:59 Magnesium 2.1 mg/dL (1.7-2.3) 04/11/25 21:59 Total Bilirubin 0.2 mg/dL (0.15-1.2) 04/11/25 21:59 AST 12 U/L (0-32) 04/11/25 21:59 ALT 11 U/L (0-33) 04/11/25 21:59 Alkaline Phosphatase 96 U/L (35-105) 04/11/25 21:59 NT-Pro-B Natriuret Pep 1094 pg/mL (0-450) H 04/11/25 21:59 Total Protein 4.5 g/dL (6.6-8.7) L 04/11/25 21:59 Albumin 3.0 g/dL (3.5-5.2) L 04/11/25 21:59 Globulin 1.5 g/dL (1.3-4.6) 04/11/25 21:59 Amorphous Sediment Not Reportable 04/11/25 23:18 Valproic Acid 72.2 ug/mL (50-100) 04/11/25 21:59 All radiology interpretation(s) finalized by discharge EKG Data EKG 1: I personally reviewed and interpreted this EKG as follows: EKG interpretation date: 04/11/25 EKG interpretation time: 21:50 Interpretation: afib hr [address] elevation qrs 77 qtc 409 Computer generated interpretation: Chest X-Ray 04/11/25 21:17 IMPRESSION: 1. Bibasilar/retrocardiac opacities. Differential includes atelectasis versus infection. 2. Small bilateral pleural effusions. Head CT 04/11/25 21:17 IMPRESSION: 1. No acute intracranial hemorrhage. 2. Severe background of chronic microvascular ischemic changes which could mask a small infarct. If there is concern for stroke, MRI could be considered. Discharge Plan Discharge Condition: Stable Prescriptions: No Action alendronate 70 mg tablet 70 mg PO .weekly acetaminophen [Tylenol Extra Strength] 500 mg tablet 500 mg PO Q6H PRN (Reason: Pain) levalbuterol tartrate [Xopenex HFA] 45 mcg/actuation HFA aerosol inhaler 2 inh inhalation Q6H PRN (Reason: shortness of breath or wheezing) Qty: 15 5RF Spiriva Respimat 1.25 mcg/actuation mist 2 inh inhalation DAILY Qty: 4 5RF fluticasone propion-salmeterol [Advair Diskus] 250-50 mcg/dose blister with device 1 inh inhalation BID Qty: 60 0RF diltiazem HCl [Cardizem CD] 360 mg capsule,extended release 24hr 360 mg PO DAILY Qty: 90 3RF tizanidine 2 mg tablet 2 mg PO BEDTIME primidone 250 mg tablet 250 mg PO TID furosemide 40 mg tablet 40 mg PO DAILY albuterol sulfate 0.63 mg/3 mL solution for nebulization 0.63 mg continuous nebulization BID PRN (Reason: Shortness Of Breath) potassium chloride 10 mEq tablet extended release 10 meq PO DAILY Xarelto 10 mg tablet 10 mg PO QPM prednisone 20 mg Tablet 40 mg PO DAILY Qty: 10 0RF amoxicillin-pot clavulanate 875-125 mg tablet 1 tab PO BID Qty: 6 0RF divalproex 250 mg tablet,delayed release (DR/EC) 500 mg PO BID Qty: 180 0RF amiodarone [Pacerone] 200 mg Tablet 200 mg PO BID Qty: 60 0RF Rx Instructions: 200 mg twice daily for 1 week, then 200 mg daily citalopram 20 mg Tablet 20 mg PO DAILY Qty: 30 0RF Referrals: Donna Estrada MD [Primary Care Provider, Family Practice] Print Language: Salvadorean Coding Level of Care Code ED Bell Staff for Divina Jones
--- NOTE | 2025-04-11 21:50 | ECG_ITS ---
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: : 1945 Requested By: Ethel Odonnell Order Number: [id number] Reading MD: SAUNDRA DEL CASTILLO Measurements Intervals [place] Rate: 69 P: 0 MO: 0 QRS: 93 QRSD: 77 T: 86 QT: 390 QTc: 419 Interpretive Statements ATRIAL FIBRILLATION WITH ABERRANT CONDUCTION OR VENTRICULAR PREMATURE COMPLEXES BORDERLINE RIGHT AXIS DEVIATION [QRS AXIS > 90] LOW QRS VOLTAGE [QRS DEFLECTION < 0.5/1.0 mV IN LIMB/CHEST LEADS] MINIMAL ST DEPRESSION [0.025+ mV ST DEPRESSION] Compared to ECG 02/28/2025 17:07:51 Ventricular premature complex(es) now present Aberrant conduction of supraventricular beat(s) now present ST (T wave) deviation now present T-wave abnormality no longer present Electronically Signed On 04-12-2025 13:55:45 CDT by SAUNDRA DEL CASTILLO [email or web address]
[2025-04-11 22:04] LABS: Hematocrit 31.1 % (36-47); Hemoglobin 10.10 g/dL (11.27-16.99); Mean Corpuscular HGB Conc 32.5 g/dL (30-55); Mean Corpuscular Hemoglobin 30.0 pg (27-33); Mean Corpuscular Volume 92.3 fl (85-98); Nucleated Red Blood Cells % 0 %; Platelet Count 139 10^3/cmm (157-399); Red Blood Count 3.37 10^6/uL (3.85-5.65); White Blood Count 4.88 10^3/uL (3.29-11.43)
[2025-04-11 22:06] VITALS: BP 77/44; PULSE 67; RESP 16; O2SAT 98
[2025-04-11 22:30] LABS: Lactic Sepsis W/Reflex 1.5 mmol/L (0.5-2.2)
[2025-04-11 22:42] LABS: Alanine Aminotransferase 11 U/L (0-33); Albumin Level 3.0 g/dL (3.5-5.2); Alkaline Phosphatase 96 U/L (35-105); Anion Gap 16.0 (5-19); Aspartate Amino Transferase 12 U/L (0-32); Blood Urea Nitrogen 13 mg/dL (8-23); Calcium 7.9 mg/dL (8.5-10.5); Carbon Dioxide 30 mmol/L (22-29); Chloride 98 mmol/L (98-107); Creatinine Clr Calc Pharmacy 72.3693; Globulin 1.5 g/dL (1.3-4.6); Glucose 90 mg/dL (65-115); Magnesium 2.1 mg/dL (1.7-2.3); NT Pro B Type Natriuretic Pept 1094 pg/mL (0-450); Osmolality Calculated 290 mOsm/kg (285-295); Potassium 4.0 mmol/L (3.5-5.1); Sodium 140 mmol/L (136-145); Total Protein 4.5 g/dL (6.6-8.7)
[2025-04-11 22:57] VITALS: BP 99/59; PULSE 64; RESP 16; O2SAT 99
[2025-04-11 23:00] VITALS: BP 94/50; PULSE 60; RESP 19; O2SAT 98
[2025-04-11] MEDS: levofloxacin-dextrose 5 % 750 MG/150 ML PREMIX 100 MG IV (23:21)
[2025-04-11 23:29] LABS: Glucose Urine UA Negative (Normal); Nitrate Urine Negative (Negative); Specific Gravity, Urine 1.013 (1.005-1.030)
[2025-04-11 23:34] LABS: Add Urine Microscopic? YES
--- NOTE | 2025-04-11 23:42 | PM.HP ---
Providers/Chief Complaint Admitting Physician: ILA VARGAS DO--- patient seen and evaluated before midnight Primary Care Provider: Donna Estrada MD Chief Complaint: HYPOTENSION History of Present Illness Daphnie Coughlin is a 79 year old female with medical history significant for asthma who had presented to the emergency room because of generalized weakness evaluation was significant for bilateral pneumonia and effusion. Patient is very hard of hearing. Patient had been hypotensive at 86/62 on presentation and then came up to be 99 over 60s after ED had given 2 L IV boluses. Patient is very volume overloaded. I have seen and evaluated patient here in the emergency room she has much edema and will need to be diuresed but the blood pressure stayed in the 90s. Patient actually presented from her [facility] with hypotension because she had been giving Lasix orally and stab or remained down for that reason that patient came to the emergency room. Patient BMP is elevated at 1094. Patient oxygen saturation had been increased from January 2 L to 4 L at my evaluation. Patient was profusely wheezing but conversant and pleasant Patient had had been given IV Lasix 60 mg and had diuresed 1200 from this.. I have followed through with Lasix 40 mg IV every 12. Obtain an echocardiogram for care. Review of Systems Narrative: System review review upon 10 organ review we are noted to be remarkable for hypotension significant for cardiovascular and pulmonary system otherwise unremarkable Medications/Allergies Home Medications ?Medication ?Instructions ?Recorded ?Confirmed ?Last Taken ?Type acetaminophen 500 mg tablet 500 mg PO Q6H PRN Pain 08/20/22 02/28/25 Unknown History (Tylenol Extra Strength) levalbuterol tartrate 45 2 inh inhalation Q6H PRN shortness 08/20/22 02/28/25 Unknown Rx mcg/actuation aerosol inhaler of breath or wheezing #15 grams (Xopenex HFA) tiotropium bromide 1.25 2 inh inhalation DAILY #4 grams 08/21/22 02/28/25 Unknown Rx mcg/actuation mist for inhalation (Spiriva Respimat) fluticasone 250 mcg-salmeterol 50 1 inh inhalation BID #60 ea 11/27/22 02/28/25 Unknown Rx mcg/dose blistr powdr for inhalation (Advair Diskus) diltiazem HCl 360 mg 360 mg PO DAILY #90 caps 04/25/23 02/28/25 Unknown Rx capsule,extended release 24 hr (Cardizem CD) alendronate 70 mg tablet 70 mg PO .weekly 02/18/24 02/28/25 Unknown History albuterol sulfate 0.63 mg/3 mL 0.63 mg continuous nebulization 02/28/25 02/28/25 Unknown History solution for nebulization BID PRN Shortness Of Breath furosemide 40 mg tablet 40 mg PO DAILY 02/28/25 02/28/25 Unknown History potassium chloride 10 mEq 10 meq PO DAILY 02/28/25 02/28/25 Unknown History tablet,extended release primidone 250 mg tablet 250 mg PO TID 02/28/25 02/28/25 Unknown History rivaroxaban 10 mg tablet (Xarelto) 10 mg PO QPM 02/28/25 02/28/25 Unknown History tizanidine 2 mg tablet 2 mg PO BEDTIME 02/28/25 02/28/25 Unknown History amoxicillin 875 mg-potassium 1 tab PO BID #6 tabs 03/03/25 Unknown Rx clavulanate 125 mg tablet divalproex 250 mg tablet,delayed 500 mg (2 x 250 mg) PO BID #180 03/03/25 02/28/25 Unknown Rx release tabs prednisone 20 mg tablet 40 mg (2 x 20 mg) PO DAILY #10 tabs 03/03/25 Unknown Rx amiodarone 200 mg tablet (Pacerone) 200 mg PO BID #60 tabs 03/05/25 Unknown Rx citalopram 20 mg tablet 20 mg PO DAILY #30 tabs 03/05/25 Unknown Rx Allergies Allergy/AdvReac Type Severity Reaction Status Date / Time erythromycin base Allergy tachycardia Verified 02/24/25 13:38 /rash PFSH Acute PFSH: Medical History (Updated 04/12/25 @ 06:01 by Ila Vargas MD) Pneumonia Asthma Enrolled in chronic care management Osteoporosis Impaired memory 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 Hearing loss Mental confusion determined by examination Moderate persistent asthma Moderate aortic stenosis Generalized epilepsy COPD (chronic obstructive pulmonary disease) Keratosis pilaris Varicose veins of anus or rectum Essential hypertension Atrial fibrillation Surgical History History of hemorrhoidectomy (~09/2019) Family History Other History of hemorrhoidectomy Denies family history of Diabetes CAD (coronary artery disease) Anesthesia complication Bleeding disorder Stroke Social History Smoking and tobacco/nicotine status: never used tobacco/nicotine Second hand smoke exposure: No Alcohol intake: never Substance/Drug Use: never Adopted: No Caregiver/support person: Yes Lives independently: Yes Household members: spouse Housing: House Marital status: Highest education level completed: High School Graduate service: No Current occupational status: retired Current occupational exposures/hazards: No Pets and animals: No Sexually active: No Do you think of yourself as: Straight/Heterosexual Current gender identity: Female Shayy/Yazdanism: Baptism Special shayy needs: No Agree to transfusion: No Vitals/I&O/Wt Last Vital Signs Temp 97.8 F 04/11/25 21:22 Pulse 60 04/11/25 23:00 Resp 19 H 04/11/25 23:00 BP 94/50 04/11/25 23:00 Pulse Ox 98 04/11/25 23:00 O2 Del Method Room Air 04/11/25 22:57 O2 Flow Rate 3 04/11/25 21:22 04/11/25 04/11/25 04/12/25 14:59 22:59 06:59 Intake Total 0 / 0 1000 / 1000 Balance 0 / 0 1000 / 1000 Weight last 48 hrs Weight 112.037 kg Physical Exam Narrative: Generally patient is noted to be weak and profusely having audible wheezing. Patient is significantly anasarca and responded to and now dose of Lasix 60 mg producing 1200 urinary output from this. Patient reclaimed blood pressure better from 90s to above the 100 HEENT normocephalic/atraumatic neck neck is supple cardiovascular heart rate is regular lungs are pretty much clear abdomen soft nontender nondistended unremarkable extremities significant for 3RD SPACE edema, good pulses neurology has no focality Urinary Catheter Management: Witt: Cath Placed During This Visit: yes Urinary Catheter Date of Insertion: 04/11/25 Urinary Catheter Time of Insertion: 23:22 Data 04/11/25 21:59 04/11/25 21:59 Micro: Microbiology 04/11/25 23:03 Blood Culture - Preliminary Blood SPECIMEN COLLECTED 04/11/25 21:59 Blood Culture - Preliminary Blood SPECIMEN COLLECTED A&P Assessment and plan 1. Pneumonia: Patient admitted to stepdown unit bed in ICU location because of lack of bed in stepdown Antibiotics initiated for bilateral pneumonia As continue to follow through and optimize with Levaquin ordered Nebulizing treatment Steroid therapy for associated wheezing and bronchial spasm 2. Volume overload: Patient is much volume overloaded One-time dose of 60 mg of IV Lasix patient produced 1200 mL of urinary output Continue with 40 mg twice daily at this time Follow through with electrolytes and optimize if imbalances arises Patient is feeling much better with much diuresis Continue to monitor Echocardiogram 3. Asthma: Asthma exacerbation also associated with COPD exacerbation Continue nebulizing treatment Continue steroid therapy Continue antibiotics Follow through and optimize 4. COPD (chronic obstructive pulmonary disease): Patient with COPD exacerbation with bronchospasm Continue steroid therapy Continue nebulizing treatment Continue antibiotics at this time Plan: See above, GI and DVT prophylaxis in place PDMP PDMP Reviewed: Last Reviewed 04/12/25 06:05 by Ila Vagras MD Attestations Medical Necessity Statement*: Patient with bilateral pneumonia and bilateral effusion with marginal blood pressure and with much volume overload will indeed require 2 midnights for further optimization of care Coding Level of Care Code 85691 Diagnoses Pneumonia J18.9 Volume overload E87.70 Asthma J45.909 COPD (chronic obstructive pulmonary disease) J44.9 Time Spent (min) 70
[2025-04-11 23:49] VITALS: BP 97/58; PULSE 61; RESP 18; O2SAT 94
[2025-04-12] VITALS (65 sets, daily range): BP systolic 91–127; BP diastolic 47–86; PULSE 58–232; RESP 14–34; TEMP 36.2–36.6; O2SAT 93–99; BMI 41.6; BMI 40.5
[2025-04-12] MEDS: heparin 5,000 unit/mL INJ 1 mL 5000 UNIT SUBCUT ×2 (01:35→11:07)
[2025-04-12] MEDS: methylPREDNISolone sod succ 40 mg/mL INJ IVP ×2 (01:35→08:22)
[2025-04-12] MEDS: FUROsemide 10 mg/mL SDV 10mL 60 MG IVP (01:36)
--- NOTE | 2025-04-12 02:58 | PC.NURSE ---
Verbal orders: Dr. Vargas visited patient at bedside and gave this nurse the following verbal orders - - D/C maintenance fluid order - non administer ordered levaquin as patient received dose in ER - 60mg IVP lasix ONCE - 40mg solu-medrol BID - levophed gtt PRN
--- NOTE | 2025-04-12 06:08 | USCV_ITS ---
Daphnie Coughlin Age: 79 Gender: F : 1945 Exam Date: 04/12/2025 09:14 Ordering Phys: Ila Vargas MD Technologist: Exam Location: [facility] [place]ication: cp chf BP: 96 / 62 HR: 91 Rhythm: Sinus Technical Quality: Technically difficult study MEASUREMENTS (Male / Female) Normal Values 2D ECHO LV Diastolic Diameter PLAX 4.8 cm 4.2 - 5.9 / 3.9 - 5.3 cm IVS Diastolic Thickness 0.9 cm 0.6 - 1.0 / 0.6 - 0.9 cm IVS Systolic Thickness 1.6 cm LVPW Diastolic Thickness 1.2 cm 0.6 - 1.0 / 0.6 - 0.9 cm LVPW Systolic Thickness 1.4 cm LVOT Diameter 2.0 cm LV Ejection Fraction 2D Teich 64.8 % LV Ejection Fraction MOD 4C 56.3 % LV Ejection Fraction MOD 2C 67.2 % LV Ejection Fraction 2C AL 69.7 % LA Diameter 4.5 cm RA Systolic Volume 4C AL 82.2 ml RA Systolic Volume 4C MOD 77.2 ml Aorta at Sinotubular Diameter 2.2 cm M-MODE LA Ao Ratio MM 1.7 AV Cusp Separation MM 1.8 cm DOPPLER AV Peak Velocity 223.0 cm/s LVOT Peak Velocity 81.0 cm/s AV Area Cont Eq vti 1.2 cm squared AV Area Cont Eq pk 1.2 cm squared MV Peak Velocity 129.0 cm/s MV Area PHT 3.9 cm squared Mitral E to A Ratio 2.0 TV Peak Velocity 269.5 cm/s TR Peak Velocity 302.0 cm/s TR Peak Gradient 36.5 mmHg TV Peak E Velocity 82.0 cm/s PV Peak Velocity 120.0 cm/s FINDINGS Left Ventricle Possibly normal LV size with borderline low ejection fraction of around 50%, (visual). Technically difficult study because of poor ultrasonic window. Right Ventricle Mildly increased right ventricular size. Mildly decreased right ventricular systolic function. Right Atrium Moderately increased right atrial size. Left Atrium Appears to be mildly dilated Mitral Valve No gross abnormalities noted Aortic Valve Thickened aortic valve. Tricuspid Valve Mild tricuspid valve regurgitation. Pulmonic Valve Mild pulmonary valve regurgitation. Pericardium No pericardial effusion. Aorta Normal aortic annulus size. IVC Inferior vena cava not visualized. CONCLUSIONS Possibly normal LV size with borderline low ejection fraction of around 50%, (visual). Technically difficult study because of poor ultrasonic window. Mildly increased right ventricular size. Mildly decreased right ventricular systolic function. Moderately increased right atrial size. The left atrium appears to be mildly dilated. Thickened aortic valve. Mild tricuspid valve regurgitation, could be underestimated because of the poor Doppler signals Mild pulmonary valve regurgitation. Comparison with the previous study from 04/16/2023 is difficult because of the differences in the technical quality Dr Farzana Aponte MD [facility] (Electronically Signed) Final Date: 12 April 2025 16:46 S
[2025-04-12 06:21] LABS: Hematocrit 36.4 % (36-47); Hemoglobin 11.40 g/dL (11.27-16.99); Mean Corpuscular HGB Conc 31.3 g/dL (30-55); Mean Corpuscular Hemoglobin 30.7 pg (27-33); Mean Corpuscular Volume 98.1 fl (85-98); Nucleated Red Blood Cells % 0 %; Platelet Count 135 10^3/cmm (157-399); Red Blood Count 3.71 10^6/uL (3.85-5.65); White Blood Count 4.84 10^3/uL (3.29-11.43)
[2025-04-12] MEDS: FUROsemide 10 mg/mL SDV 4mL 40 MG IVP ×2 (06:35→17:30)
[2025-04-12 06:39] LABS: Alanine Aminotransferase 10 U/L (0-33); Alkaline Phosphatase 89 U/L (35-105); Blood Urea Nitrogen 12 mg/dL (8-23); Carbon Dioxide 27 mmol/L (22-29); Chloride 101 mmol/L (98-107); Creatinine Clr Calc Pharmacy 73.0718; Globulin 3.2 g/dL (1.3-4.6); Magnesium 2.2 mg/dL (1.7-2.3); Osmolality Calculated 291 mOsm/kg (285-295); Sodium 140 mmol/L (136-145)
[2025-04-12 07:33] LABS: Albumin Level 3.0 g/dL (3.5-5.2); Calcium 8.1 mg/dL (8.5-10.5); Glucose 116 mg/dL (65-115); Total Protein 6.2 g/dL (6.6-8.7)
[2025-04-12 07:40] LABS: Anion Gap 16.1 (5-19); Aspartate Amino Transferase 16 U/L (0-32); Potassium 4.1 mmol/L (3.5-5.1)
[2025-04-12] MEDS: morphine 4 mg/mL SDV 1 mL 2 MG IVP (08:28)
--- NOTE | 2025-04-12 09:53 | PC.PHAR ---
Pt is from [facility]
[2025-04-12] MEDS: blistex lip oint 7 gm Tube 1 APPLIC TOPICAL (12:49)
--- NOTE | 2025-04-12 14:31 | P.PN_ITS ---
Subjective 2 Subjective: Overnight labs and H&P reviewed. Patient is on 2 L/min supplemental O2 this afternoon.She is extremely anxious. Has several intentional tremors while being examined. Patient remains alert awake and oriented during this episode and the tremors involve all extremities very visibly intentional in nature. Her chief complaint at this time is the peripheral neuropathy affecting her lower extremities. Medications: Reviewed: Yes Vitals/I&O/Wt Last Vital Signs Temp 97.9 F 04/12/25 05:15 Pulse 77 04/12/25 14:04 Resp 16 04/12/25 13:55 BP 101/59 04/12/25 13:00 Pulse Ox 95 04/12/25 13:55 O2 Del Method Nasal Cannula 04/12/25 13:55 O2 Flow Rate 2 04/12/25 13:55 04/11/25 04/12/25 04/12/25 22:59 06:59 14:59 Intake Total 0 / 0 1650 / 1650 Output Total 1225 / 1225 1000 / 1000 Balance 0 / 0 425 / 425 -1000 / -1000 Weight last 48 hrs Weight 113.988 kg Weight 117.027 kg Weight 112.037 kg Physical Exam 2 Narrative: General: No acute distress, AO x3 HEENT: PERRLA, pupils bilaterally equal and reactive, pallors not present Chest: Normal vesicular breath sounds, no added sounds, equal good air entry bilaterally CVS: S1-S2 regular, no murmurs, no tachycardia, no gallops, no rubs Abdomen: Soft, nontender, no organomegaly, bowel sounds present Neuro: No focal deficits, no facial deformity, AO x3, power 5/5 in all limbs Extremities: Bilateral lower extremity pitting edema Urinary Catheter Management: Witt: Cath Placed During This Visit: yes Urinary Catheter Date of Insertion: 04/11/25 Urinary Catheter Time of Insertion: 23:22 Data 04/12/25 05:36 04/12/25 05:36 Micro: Microbiology 04/11/25 23:03 Blood Culture - Preliminary Blood SPECIMEN COLLECTED 04/11/25 21:59 Blood Culture - Preliminary Blood SPECIMEN COLLECTED A&P Assessment and plan 1. Pneumonia: Patient admitted to stepdown unit bed in ICU location because of lack of bed in stepdown Antibiotics initiated for bilateral pneumonia As continue to follow through and optimize with Levaquin ordered Nebulizing treatment Steroid therapy for associated wheezing and bronchial spasm 2. Volume overload: Patient is much volume overloaded One-time dose of 60 mg of IV Lasix patient produced 1200 mL of urinary output Continue with 40 mg twice daily at this time Follow through with electrolytes and optimize if imbalances arises Patient is feeling much better with much diuresis Continue to monitor Echocardiogram 3. Asthma: Asthma exacerbation also associated with COPD exacerbation Continue nebulizing treatment Continue steroid therapy Continue antibiotics Follow through and optimize 4. Chronic bronchitis, unspecified chronic bronchitis type: Patient with COPD exacerbation with bronchospasm Continue steroid therapy Continue nebulizing treatment Continue antibiotics at this time Plan: See above, GI and DVT prophylaxis in place April 12, 2025 Chart reviewed. Patient is a 79-year-old lady with a past medical history of A- fib RVR, maintained on anticoagulation with Xarelto, hypertension, moderate aortic stenosis, history of seizure disorder, severe essential tremors, history of chronic stable right frontal meningioma. Her states that she was recently admitted to the hospital in February 2025 with a diagnosis of pneumonia and received a course of antibiotics. Shortly after being discharged from here, she was readmitted at [facility] with shortness of breath and received a diagnosis of CHF and pneumonia. Again she was treated with antibiotics and she was also started on diuresis with Lasix. She was discharged to alf where she has been continuing Lasix 40 mg p.o. twice daily. She was brought to the emergency room from the alf yesterday complaining of some increased weakness and.'s of hypotension. Her dose of Lasix had recently been increased in the hospital. There has been no fever.There is no leukocytosis. Chest x-ray per personal review is showing bilateral infiltrates concerning for pulmonary edema and small bilateral pleural effusions. Low clinical suspicion of pneumonia at this time. Hold off on any further antibiotics. Will check COVID PCR to assess for viral pneumonitis. She has received Lasix 60 mg IV last evening and has thereafter been continued on Lasix 40 mg IV every 12 hours. She is net -500 cc so far. BNP was noted to be elevated at 1094. Last echocardiogram dates back to 2022 which showed normal LVEF at 60%, no regional wall motion abnormalities, grade 1 diastolic dysfunction. Mild aortic valve stenosis with an CASSY of 1.8 cm. Echocardiogram was taken last night results are currently awaited. Heart rate is currently well-controlled. Continue with amiodarone 200 mg p.o. daily and resume home dose of metoprolol, though at a lower dose of 25 mg p.o. daily given systolic blood pressure in the 100 range. If blood pressure allows, would titrate up the beta-korey. Will hold the Cardizem for now while pending blood pressure trend. Added Xanax 0.25 mg p.o. 3 times daily as needed for extreme anxiety. Reduce methylprednisolone to 40 mg IV daily. Add nebulization with Xopenex every 6 hours scheduled and budesonide 0.5 mg twice daily. Overall clinical impression is that of acute on chronic diastolic heart failure which has precipitated pulmonary edema at this present time leading to patient's current clinical presentation. Closely monitor JEROME and renal function. Bilateral pleural effusion do not appear amenable to drainage because of small size. PDMP PDMP Reviewed: Not Reviewed Attestations 2 Medical Necessity Statement*: Continued need for IV diuresis, close I&O monitoring, kidney function, monitor off antimicrobials Coding Level of Care Code Acute Code for Chg Fwd High MDM includes number and complexity of problems actively addressed during encounter, amount and/or complexity of data reviewed/ordered and described risk of complication, morbidity or mortality of management as documented Diagnoses Pneumonia J18.9 Volume overload E87.70 Asthma J45.909 Chronic bronchitis, unspecified chronic bronchitis type J44.9
[2025-04-13] VITALS (21 sets, daily range): BP systolic 92–189; BP diastolic 52–75; PULSE 63–108; RESP 16–27; TEMP 36.8–37.1; O2SAT 86–97
[2025-04-13 05:36] LABS: Hematocrit 31.2 % (36-47); Hemoglobin 10.20 g/dL (11.27-16.99); Mean Corpuscular HGB Conc 32.7 g/dL (30-55); Mean Corpuscular Hemoglobin 30.1 pg (27-33); Mean Corpuscular Volume 92.0 fl (85-98); Nucleated Red Blood Cells % 0 %; Platelet Count 137 10^3/cmm (157-399); Red Blood Count 3.39 10^6/uL (3.85-5.65); White Blood Count 4.76 10^3/uL (3.29-11.43)
[2025-04-13 06:13] LABS: Alanine Aminotransferase 9 U/L (0-33); Albumin Level 2.8 g/dL (3.5-5.2); Alkaline Phosphatase 73 U/L (35-105); Anion Gap 12.5 (5-19); Aspartate Amino Transferase 11 U/L (0-32); Blood Urea Nitrogen 14 mg/dL (8-23); Calcium 8.3 mg/dL (8.5-10.5); Carbon Dioxide 31 mmol/L (22-29); Chloride 101 mmol/L (98-107); Creatinine Clr Calc Pharmacy 73.6760; Globulin 2.5 g/dL (1.3-4.6); Glucose 112 mg/dL (65-115); Osmolality Calculated 293 mOsm/kg (285-295); Potassium 3.5 mmol/L (3.5-5.1); Sodium 141 mmol/L (136-145); Total Protein 5.3 g/dL (6.6-8.7)
[2025-04-13 06:14] LABS: Procalcitonin 0.03 ng/mL (0-0.5)
[2025-04-13] MEDS: FUROsemide 10 mg/mL SDV 4mL 40 MG IVP (08:39)
[2025-04-13] MEDS: methylPREDNISolone sod succ 40 mg/mL INJ IVP (08:40)
--- NOTE | 2025-04-13 13:11 | PC.NURSE ---
attempted to call to notify of room change
--- NOTE | 2025-04-13 17:06 | PM.PN ---
Subjective Subjective: Denies any new complaints. States that her breathing is about the same. Medications: Reviewed: Yes Vitals/I&O/Wt Last Vital Signs Temp 98.7 F 04/13/25 15:30 Pulse 70 04/13/25 15:30 Resp 19 H 04/13/25 15:30 BP 189/66 04/13/25 15:30 Pulse Ox 95 04/13/25 15:30 O2 Del Method Nasal Cannula 04/13/25 15:30 O2 Flow Rate 2 04/13/25 14:20 04/13/25 04/13/25 04/13/25 06:59 14:59 22:59 Intake Total 600 / 600 Output Total 100 / 2100 1000 / 1000 Balance -100 / -2100 -400 / -400 Weight last 48 hrs Weight 115.666 kg Weight 113.988 kg Weight 117.027 kg Weight 112.037 kg Physical Exam Narrative: General: No acute distress, AO x3 HEENT: PERRLA, pupils bilaterally equal and reactive, pallors not present Chest: Normal vesicular breath sounds, no added sounds, equal good air entry bilaterally CVS: S1-S2 regular, no murmurs, no tachycardia, no gallops, no rubs Abdomen: Soft, nontender, no organomegaly, bowel sounds present Neuro: No focal deficits, no facial deformity, AO x3, power 5/5 in all limbs Extremities: Bilateral lower extremity pitting edema Urinary Catheter Management: Witt: Cath Placed During This Visit: yes Urinary Catheter Date of Insertion: 04/11/25 Urinary Catheter Time of Insertion: 23:22 Data 04/13/25 05:10 04/13/25 05:10 Micro: Microbiology 04/11/25 23:03 Blood Culture - Preliminary Blood NEGATIVE TO DATE 04/11/25 21:59 Blood Culture - Preliminary Blood NEGATIVE TO DATE A&P Assessment and plan 1. Pneumonia: Patient admitted to stepdown unit bed in ICU location because of lack of bed in stepdown Antibiotics initiated for bilateral pneumonia As continue to follow through and optimize with Levaquin ordered Nebulizing treatment Steroid therapy for associated wheezing and bronchial spasm 2. Volume overload: Patient is much volume overloaded One-time dose of 60 mg of IV Lasix patient produced 1200 mL of urinary output Continue with 40 mg twice daily at this time Follow through with electrolytes and optimize if imbalances arises Patient is feeling much better with much diuresis Continue to monitor Echocardiogram 3. Asthma: Asthma exacerbation also associated with COPD exacerbation Continue nebulizing treatment Continue steroid therapy Continue antibiotics Follow through and optimize 4. Chronic bronchitis, unspecified chronic bronchitis type: Patient with COPD exacerbation with bronchospasm Continue steroid therapy Continue nebulizing treatment Continue antibiotics at this time Plan: See above, GI and DVT prophylaxis in place April 12, 2025 Chart reviewed. Patient is a 79-year-old lady with a past medical history of A-fib RVR, maintained on anticoagulation with Xarelto, hypertension, moderate aortic stenosis, history of seizure disorder, severe essential tremors, history of chronic stable right frontal meningioma. Her states that she was recently admitted to the hospital in February 2025 with a diagnosis of pneumonia and received a course of antibiotics. Shortly after being discharged from here, she was readmitted at [facility] [place] with shortness of breath and received a diagnosis of CHF and pneumonia. Again she was treated with antibiotics and she was also started on diuresis with Lasix. She was discharged to [facility] where she has been continuing Lasix 40 mg p.o. twice daily. She was brought to the emergency room from the [facility] yesterday complaining of some increased weakness and.'s of hypotension. Her dose of Lasix had recently been increased in the hospital. There has been no fever.There is no leukocytosis. Chest x-ray per personal review is showing bilateral infiltrates concerning for pulmonary edema and small bilateral pleural effusions. Low clinical suspicion of pneumonia at this time. Hold off on any further antibiotics. Will check COVID PCR to assess for viral pneumonitis. She has received Lasix 60 mg IV last evening and has thereafter been continued on Lasix 40 mg IV every 12 hours. She is net -500 cc so far. BNP was noted to be elevated at 1094. Last echocardiogram dates back to 2022 which showed normal LVEF at 60%, no regional wall motion abnormalities, grade 1 diastolic dysfunction. Mild aortic valve stenosis with an CASSY of 1.8 cm. Echocardiogram was taken last night results are currently awaited. Heart rate is currently well-controlled. Continue with amiodarone 200 mg p.o. daily and resume home dose of metoprolol, though at a lower dose of 25 mg p.o. daily given systolic blood pressure in the 100 range. If blood pressure allows, would titrate up the beta-korey. Will hold the Cardizem for now while pending blood pressure trend. Added Xanax 0.25 mg p.o. 3 times daily as needed for extreme anxiety. Reduce methylprednisolone to 40 mg IV daily. Add nebulization with Xopenex every 6 hours scheduled and budesonide 0.5 mg twice daily. Overall clinical impression is that of acute on chronic diastolic heart failure which has precipitated pulmonary edema at this present time leading to patient's current clinical presentation. Closely monitor JEROME and renal function. Bilateral pleural effusion do not appear amenable to drainage because of small size. April 13, 2025 Patient reports no significant change in her symptoms. She remains on supplemental oxygen stable at 2 to 3 L/min. Lower extremity edema has not significantly changed. She is net -1500 cc over last 24 hours. Will change to Bumex 2mg IVP q12h today. HR remains controlled. Echocardiogram shows normal LV size with borderline low EF of 50%. Mildly increased right ventricular size. Low suspicion for PE as patient is chronically maintained on Xarelto. PDMP PDMP Reviewed: Not Reviewed Attestations Medical Necessity Statement*: continued need for iv diuresis Coding Level of Care Code Acute Code for Chg Fwd Moderate MDM includes number and complexity of problems actively addressed during encounter, amount and/or complexity of data reviewed/ordered and described risk of complication, morbidity or mortality of management as documented Diagnoses Pneumonia J18.9 Volume overload E87.70 Asthma J45.909 Chronic bronchitis, unspecified chronic bronchitis type J44.9
[2025-04-13] MEDS: bumetanide 0.25 mg/mL SDV 10 mL 2 MG IVP (17:19)
[2025-04-13 18:20] LABS: Respiratory Syncytial Virus Ce NEGATIVE (Negative); SARS-CoV-2 PCR NEGATIVE (Negative)
[2025-04-14] VITALS (13 sets, daily range): BP systolic 100–111; BP diastolic 59–77; PULSE 66–103; RESP 16–18; TEMP 36.4–36.9; O2SAT 91–98
[2025-04-14] MEDS: bumetanide 0.25 mg/mL SDV 10 mL 2 MG IVP ×2 (05:18→17:16)
[2025-04-14 05:20] LABS: Hematocrit 34.4 % (36-47); Hemoglobin 11.20 g/dL (11.27-16.99); Mean Corpuscular HGB Conc 32.6 g/dL (30-55); Mean Corpuscular Hemoglobin 30.5 pg (27-33); Mean Corpuscular Volume 93.7 fl (85-98); Nucleated Red Blood Cells % 0 %; Platelet Count 143 10^3/cmm (157-399); Red Blood Count 3.67 10^6/uL (3.85-5.65); White Blood Count 4.66 10^3/uL (3.29-11.43)
[2025-04-14 05:36] LABS: Alanine Aminotransferase 9 U/L (0-33); Albumin Level 3.0 g/dL (3.5-5.2); Alkaline Phosphatase 77 U/L (35-105); Anion Gap 11.6 (5-19); Aspartate Amino Transferase 11 U/L (0-32); Blood Urea Nitrogen 17 mg/dL (8-23); Calcium 8.4 mg/dL (8.5-10.5); Carbon Dioxide 33 mmol/L (22-29); Chloride 100 mmol/L (98-107); Creatinine Clr Calc Pharmacy 70.7360; Globulin 2.5 g/dL (1.3-4.6); Glucose 99 mg/dL (65-115); Osmolality Calculated 294 mOsm/kg (285-295); Potassium 3.6 mmol/L (3.5-5.1); Sodium 141 mmol/L (136-145); Total Protein 5.5 g/dL (6.6-8.7)
[2025-04-14] MEDS: methylPREDNISolone sod succ 40 mg/mL INJ IVP (08:47)
--- NOTE | 2025-04-14 11:10 | PC.SOCIAL ---
IMM Update pg 2 of IMM Updated and reviewed w/ patient. Copy provided and copy dated, initialed and placed in chart.
--- NOTE | 2025-04-14 23:12 | PM.PN ---
Subjective Subjective: Denies any new complaints. States that her breathing is about the same. Medications: Reviewed: Yes Vitals/I&O/Wt Last Vital Signs Temp 98.4 F 04/14/25 19:44 Pulse 99 04/14/25 19:55 Resp 18 04/14/25 19:55 BP 106/62 04/14/25 19:44 Pulse Ox 98 04/14/25 19:55 O2 Del Method Nasal Cannula 04/14/25 19:55 O2 Flow Rate 2 04/14/25 19:55 04/14/25 04/14/25 04/15/25 14:59 22:59 06:59 Intake Total 240 / 240 360 / 600 Output Total 1000 / 1000 1050 / 0 Balance -760 / -760 -690 / -1450 Weight last 48 hrs Weight 107.501 kg Weight 115.666 kg Physical Exam Narrative: General: No acute distress, AO x3 HEENT: PERRLA, pupils bilaterally equal and reactive, pallors not present Chest: Normal vesicular breath sounds, no added sounds, equal good air entry bilaterally CVS: S1-S2 regular, no murmurs, no tachycardia, no gallops, no rubs Abdomen: Soft, nontender, no organomegaly, bowel sounds present Neuro: No focal deficits, no facial deformity, AO x3, power 5/5 in all limbs Extremities: Bilateral lower extremity pitting edema Urinary Catheter Management: Witt: Cath Placed During This Visit: yes Urinary Catheter Date of Insertion: 04/11/25 Urinary Catheter Time of Insertion: 23:22 Data 04/15/25 04:02 04/15/25 04:02 A&P Assessment and plan 1. Pneumonia: Patient admitted to stepdown unit bed in ICU location because of lack of bed in stepdown Antibiotics initiated for bilateral pneumonia As continue to follow through and optimize with Levaquin ordered Nebulizing treatment Steroid therapy for associated wheezing and bronchial spasm 2. Volume overload: Patient is much volume overloaded One-time dose of 60 mg of IV Lasix patient produced 1200 mL of urinary output Continue with 40 mg twice daily at this time Follow through with electrolytes and optimize if imbalances arises Patient is feeling much better with much diuresis Continue to monitor Echocardiogram 3. Asthma: Asthma exacerbation also associated with COPD exacerbation Continue nebulizing treatment Continue steroid therapy Continue antibiotics Follow through and optimize 4. Chronic bronchitis, unspecified chronic bronchitis type: Patient with COPD exacerbation with bronchospasm Continue steroid therapy Continue nebulizing treatment Continue antibiotics at this time Plan: See above, GI and DVT prophylaxis in place April 12, 2025 Chart reviewed. Patient is a 79-year-old lady with a past medical history of A-fib RVR, maintained on anticoagulation with Xarelto, hypertension, moderate aortic stenosis, history of seizure disorder, severe essential tremors, history of chronic stable right frontal meningioma. Her states that she was recently admitted to the hospital in February 2025 with a diagnosis of pneumonia and received a course of antibiotics. Shortly after being discharged from here, she was readmitted at [facility] with shortness of breath and received a diagnosis of CHF and pneumonia. Again she was treated with antibiotics and she was also started on diuresis with Lasix. She was discharged to senior living where she has been continuing Lasix 40 mg p.o. twice daily. She was brought to the emergency room from the senior living yesterday complaining of some increased weakness and.'s of hypotension. Her dose of Lasix had recently been increased in the hospital. There has been no fever.There is no leukocytosis. Chest x-ray per personal review is showing bilateral infiltrates concerning for pulmonary edema and small bilateral pleural effusions. Low clinical suspicion of pneumonia at this time. Hold off on any further antibiotics. Will check COVID PCR to assess for viral pneumonitis. She has received Lasix 60 mg IV last evening and has thereafter been continued on Lasix 40 mg IV every 12 hours. She is net -500 cc so far. BNP was noted to be elevated at 1094. Last echocardiogram dates back to 2022 which showed normal LVEF at 60%, no regional wall motion abnormalities, grade 1 diastolic dysfunction. Mild aortic valve stenosis with an CASSY of 1.8 cm. Echocardiogram was taken last night results are currently awaited. Heart rate is currently well-controlled. Continue with amiodarone 200 mg p.o. daily and resume home dose of metoprolol, though at a lower dose of 25 mg p.o. daily given systolic blood pressure in the 100 range. If blood pressure allows, would titrate up the beta-korey. Will hold the Cardizem for now while pending blood pressure trend. Added Xanax 0.25 mg p.o. 3 times daily as needed for extreme anxiety. Reduce methylprednisolone to 40 mg IV daily. Add nebulization with Xopenex every 6 hours scheduled and budesonide 0.5 mg twice daily. Overall clinical impression is that of acute on chronic diastolic heart failure which has precipitated pulmonary edema at this present time leading to patient's current clinical presentation. Closely monitor JEROME and renal function. Bilateral pleural effusion do not appear amenable to drainage because of small size. April 13, 2025 Patient reports no significant change in her symptoms. She remains on supplemental oxygen stable at 2 to 3 L/min. Lower extremity edema has not significantly changed. She is net -1500 cc over last 24 hours. Will change to Bumex 2mg IVP q12h today. HR remains controlled. Echocardiogram shows normal LV size with borderline low EF of 50%. Mildly increased right ventricular size. Low suspicion for PE as patient is chronically maintained on Xarelto. April 14, 2025: Patient feels better today. states that she feels slightly less SOB, continued iv diuresis today with plan to transition to oral over next 24 hrs PDMP PDMP Reviewed: Not Reviewed Attestations Medical Necessity Statement*: continued need for iv diuresis Coding Level of Care Code Acute Code for Chg Fwd Diagnoses Pneumonia J18.9 Volume overload E87.70 Asthma J45.909 Chronic bronchitis, unspecified chronic bronchitis type J44.9
[2025-04-15] VITALS (8 sets, daily range): BP systolic 104–118; BP diastolic 61–70; PULSE 70–106; RESP 16–18; TEMP 36.7–36.9; O2SAT 91–98
[2025-04-15] MEDS: bumetanide 0.25 mg/mL SDV 10 mL 2 MG IVP (04:28)
[2025-04-15 04:59] LABS: Hematocrit 34.1 % (36-47); Hemoglobin 10.90 g/dL (11.27-16.99); Mean Corpuscular HGB Conc 32.0 g/dL (30-55); Mean Corpuscular Hemoglobin 29.8 pg (27-33); Mean Corpuscular Volume 93.2 fl (85-98); Nucleated Red Blood Cells % 0 %; Platelet Count 147 10^3/cmm (157-399); Red Blood Count 3.66 10^6/uL (3.85-5.65); White Blood Count 5.19 10^3/uL (3.29-11.43)
[2025-04-15 05:22] LABS: Alanine Aminotransferase 9 U/L (0-33); Albumin Level 2.9 g/dL (3.5-5.2); Alkaline Phosphatase 70 U/L (35-105); Aspartate Amino Transferase 12 U/L (0-32); Blood Urea Nitrogen 17 mg/dL (8-23); Calcium 8.4 mg/dL (8.5-10.5); Carbon Dioxide 34 mmol/L (22-29); Chloride 101 mmol/L (98-107); Creatinine Clr Calc Pharmacy 70.7360; Globulin 2.4 g/dL (1.3-4.6); Glucose 95 mg/dL (65-115); Osmolality Calculated 295 mOsm/kg (285-295); Sodium 142 mmol/L (136-145); Total Protein 5.3 g/dL (6.6-8.7)
[2025-04-15 05:32] LABS: Anion Gap 10.7 (5-19); Potassium 3.7 mmol/L (3.5-5.1)
--- NOTE | 2025-04-15 13:59 | PC.NURSE ---
Report: Attempted to call report to [facility] [place], went to voicemail. Will attempt to call back in 30 minutes.
--- NOTE | 2025-04-15 14:54 | PC.NURSE ---
Report called to Esthela at [facility]
--- NOTE | 2025-04-15 17:18 | PM.DCS ---
Discharge Providers Date of Admission: 04/11/25 23:11 Date of Discharge: May 03, 2025 Attending Provider at Admission: Ila Vargas MD Attending Provider at Discharge: April Delgado MD Primary Care Provider: Donna Estrada MD Diagnoses at Discharge Discharge Diagnosis 1. Pneumonia: 2. Volume overload: 3. Asthma: 4. Chronic bronchitis, unspecified chronic bronchitis type: 5. CHF (congestive heart failure): 6. Atrial fibrillation: Reason for Visit Reason for Visit: HYPOTENSION Hospital Course Hospital Course Patient is a 79-year-old lady with a past medical history of A-fib RVR, maintained on anticoagulation with Xarelto, hypertension, moderate aortic stenosis, history of seizure disorder, severe essential tremors, history of chronic stable right frontal meningioma. Her states that she was recently admitted to the hospital in February 2025 with a diagnosis of pneumonia and received a course of antibiotics. Shortly after being discharged from here, she was readmitted at [facility] with shortness of breath and received a diagnosis of CHF and pneumonia. Again she was treated with antibiotics and she was also started on diuresis with Lasix. She was discharged to longterm where she had been continuing Lasix 40 mg p.o. twice daily. She was brought to the emergency room from the longterm complaining of some increased weakness and hypotension. Chest x-ray showed bilateral infiltrates concerning for pulmonary edema and small bilateral pleural effusions. Low clinical suspicion of pneumonia at this time. She was diuresed with iv lasix however did not have a significant response. She was changed to Bumex and diueresed much better. Echocardiogram showed LVEF 50%, overall clinical picture was that of acute on chronic systolic heart failure. Physical Exam Narrative: General: No acute distress, AO x3 HEENT: PERRLA, pupils bilaterally equal and reactive, pallors not present Chest: Normal vesicular breath sounds, no added sounds, equal good air entry bilaterally CVS: S1-S2 regular, no murmurs, no tachycardia, no gallops, no rubs Abdomen: Soft, nontender, no organomegaly, bowel sounds present Neuro: No focal deficits, no facial deformity, AO x3, power 5/5 in all limbs Urinary Catheter Management: Witt: Cath Placed During This Visit: yes Urinary Catheter Date of Insertion: 04/11/25 Urinary Catheter Time of Insertion: 23:22 Discharge Data Studies Completed and Pending Completed Studies During Hospitalization Category Date Time Status CT head wo con* [id number] Stat Cat Scan 04/11/25 21:17 Completed XR chest 1V portable [id number] Stat Exams 04/11/25 21:17 Completed CV. echo complete* [id number] Routine Ultrasound 04/12/25 06:08 Completed Radiology Impressions Chest X-Ray 04/11/25 21:17 IMPRESSION: 1. Bibasilar/retrocardiac opacities. Differential includes atelectasis versus infection. 2. Small bilateral pleural effusions. Head CT 04/11/25 21:17 IMPRESSION: 1. No acute intracranial hemorrhage. 2. Severe background of chronic microvascular ischemic changes which could mask a small infarct. If there is concern for stroke, MRI could be considered. Laboratory Results WBC 5.19 10^3/uL (3.29-11.43) 04/15/25 04:02 RBC 3.66 10^6/uL (3.85-5.65) L 04/15/25 04:02 Hgb 10.90 g/dL (11.27-16.99) L 04/15/25 04:02 Hct 34.1 % (36-47) L 04/15/25 04:02 MCV 93.2 fl (85-98) 04/15/25 04:02 MCH 29.8 pg (27-33) 04/15/25 04:02 MCHC 32.0 g/dL (30-55) 04/15/25 04:02 RDW 15.9 % (12.1-15.1) H 04/15/25 04:02 Plt Count 147 10^3/cmm (157-399) L 04/15/25 04:02 MPV 11.1 fL (7.4-10.4) H 04/15/25 04:02 Neut % (Auto) 55.7 % 04/15/25 04:02 Lymph % (Auto) 28.1 % 04/15/25 04:02 Harrison % (Auto) 12.3 % 04/15/25 04:02 Eos % (Auto) 2.3 % 04/15/25 04:02 Baso % (Auto) 1.0 % 04/15/25 04:02 Neut # (Auto) 2.89 10^3/uL (1.8-7.7) 04/15/25 04:02 Lymph # (Auto) 1.5 10^3/uL (0.8-4.8) 04/15/25 04:02 Harrison # (Auto) 0.6 10^3/uL (0.2-0.9) 04/15/25 04:02 Eos # (Auto) 0.1 10^3/uL (0.0-0.8) 04/15/25 04:02 Baso # (Auto) 0.1 10^3/uL (0.0-0.1) 04/15/25 04:02 Nucleated RBC % (auto) 0 % 04/15/25 04:02 Nucleated RBCs # 0.0 /100WBC 04/15/25 04:02 Sodium 142 mmol/L (136-145) 04/15/25 04:02 Potassium 3.7 mmol/L (3.5-5.1) 04/15/25 04:02 Chloride 101 mmol/L (98-107) 04/15/25 04:02 Carbon Dioxide 34 mmol/L (22-29) H 04/15/25 04:02 Anion Gap 10.7 (5-19) 04/15/25 04:02 BUN 17 mg/dL (8-23) 04/15/25 04:02 Creatinine 0.5 mg/dL (0.5-0.9) 04/15/25 04:02 GFR Calculation Not Reportable 04/15/25 04:02 Glucose 95 mg/dL (65-115) 04/15/25 04:02 Calculated Osmolality 295 mOsm/kg (285-295) 04/15/25 04:02 Lactic Acid 1.5 mmol/L (0.5-2.2) 04/11/25 21:59 Calcium 8.4 mg/dL (8.5-10.5) L 04/15/25 04:02 Phosphorus 4.2 mg/dL (2.5-4.5) 04/12/25 05:36 Magnesium 2.2 mg/dL (1.7-2.3) 04/12/25 05:36 Total Bilirubin 0.2 mg/dL (0.15-1.2) 04/15/25 04:02 AST 12 U/L (0-32) 04/15/25 04:02 ALT 9 U/L (0-33) 04/15/25 04:02 Alkaline Phosphatase 70 U/L (35-105) 04/15/25 04:02 NT-Pro-B Natriuret Pep 1094 pg/mL (0-450) H 04/11/25 21:59 Total Protein 5.3 g/dL (6.6-8.7) L 04/15/25 04:02 Albumin 2.9 g/dL (3.5-5.2) L 04/15/25 04:02 Globulin 2.4 g/dL (1.3-4.6) 04/15/25 04:02 Procalcitonin 0.03 ng/mL (0-0.5) 04/13/25 05:10 Urine Color Yellow (Yellow) 04/11/25 23:18 Urine Appearance Clear (CLEAR) 04/11/25 23:18 Urine pH 6.5 (5-7) 04/11/25 23:18 Ur Specific [place] 1.013 (1.005-1.030) 04/11/25 23:18 Urine Protein Negative (Negative) 04/11/25 23:18 Urine Glucose (UA) Negative (Normal) 04/11/25 23:18 Urine Ketones Negative (Negative) 04/11/25 23:18 Urine Blood Negative (Negative) 04/11/25 23:18 Urine Nitrate Negative (Negative) 04/11/25 23:18 Urine Bilirubin Negative (Negative) 04/11/25 23:18 Urine Urobilinogen 0.2 mg/dL (Negative) 04/11/25 23:18 Ur Leukocyte Esterase Negative (Negative) 04/11/25 23:18 Urine RBC 3-5 /hpf (0-2) 04/11/25 23:18 Urine WBC 0-5 /hpf (0-5) 04/11/25 23:18 Ur Squamous Epith Cells 0-5 /hpf (0-5) 04/11/25 23:18 Amorphous Sediment Not Reportable 04/11/25 23:18 Urine Bacteria None seen /hpf (NONE) 04/11/25 23:18 Hyaline Casts 0.40 /lpf 04/11/25 23:18 Valproic Acid 72.2 ug/mL (50-100) 04/11/25 21:59 Influenza A (PCR) Negative (Negative) 04/13/25 17:32 Influenza Type B (PCR) Negative (Negative) 04/13/25 17:32 RSV (PCR) Negative (Negative) 04/13/25 17:32 SARS-CoV-2 (PCR) Negative (Negative) 04/13/25 17:32 Vitals Last Vital Signs Temp 98.1 F 04/15/25 15:42 Pulse 78 04/15/25 15:42 Resp 17 04/15/25 15:42 BP 104/70 04/15/25 15:42 Pulse Ox 92 04/15/25 15:42 O2 Del Method Nasal Cannula 04/15/25 15:42 O2 Flow Rate 2 04/15/25 15:42 Discharge Plan Discharge Patient Disposition: Xfer [facility] Condition: Stable Prescriptions: New bumetanide 1 mg Tablet 2 mg PO BID 30 Days Qty: 120 0RF Continued alendronate 70 mg tablet 70 mg PO .weekly acetaminophen [Tylenol Extra Strength] 500 mg tablet 500 mg PO Q6H PRN (Reason: Pain) diltiazem HCl [Cardizem CD] 360 mg capsule,extended release 24hr 360 mg PO DAILY Qty: 90 3RF budesonide 0.5 mg/2 mL Suspension For Nebulization 0.5 mg INHALATION BID PRN (Reason: Shortness Of Breath) ipratropium bromide 0.02 % Solution 2.5 ml INHALATION TID levalbuterol tartrate 45 mcg/actuation Hfa Aerosol Inhaler 2 inh INHALATION Q6H PRN (Reason: Shortness Of Breath) guaifenesin [Mucinex] 600 mg Tablet Extended Release 12hr 600 mg PO BID divalproex 250 mg tablet,delayed release (DR/EC) 750 mg PO BID levalbuterol tartrate [Xopenex HFA] 45 mcg/actuation HFA aerosol inhaler 2 inh inhalation TID PRN (Reason: shortness of breath or wheezing) tizanidine 2 mg tablet 2 mg PO BEDTIME primidone 250 mg tablet 250 mg PO TID potassium chloride 10 mEq tablet extended release 10 meq PO DAILY amiodarone [Pacerone] 200 mg Tablet 200 mg PO BID Qty: 60 0RF Changed metoprolol tartrate 25 mg Tablet 25 mg PO DAILY 30 Days Qty: 0 0RF Xarelto 10 mg tablet 20 mg PO QPM 30 Days Qty: 60 0RF Discontinued furosemide 40 mg tablet 40 mg PO BID Discharge Order = DC NOW: Discharge Order (Routine); Ordered 04/15/25 Ordered By: April Delgado Referrals: [facility] [Outside] Hilda Montoya MD [Physician, Neurology] - 05/20/25 8:00 am Referral Note: worsening tremors impairing ADLs Donna Estrada MD [Primary Care Provider, [facility]] Rocky Adam M.D [Physician, Cardiology] - 04/22/25 12:45 pm Referral Note: heart failure follow up-worsening CHF needing 3 recent hospital admissions Jeana Bell MD [Physician, Orthopedics] - 04/30/25 8:15 am Referral Note: osteoarthritis We have notified your physician's clinic of the need for a follow-up appointment to be scheduled. If you have not heard from them within the next 2 business days, please call them directly. Patient Instructions: Bumetanide (By mouth) (Bumex), Opioid Safety, Patient Portal & Saúl Instructions Discharge Attestations Time Spent in Discharge Care*: greater than 30 min Status at Discharge: Cognitive status at discharge: mildly impaired cognition, Behavioral status at discharge: cooperative, Quality Metrics Clinical Quality Measures [ No reported AMI, CVA or VTE this stay] Coding Level of Care Code Acute Code for Chg Fwd Diagnoses Pneumonia J18.9 Volume overload E87.70 Asthma J45.909 Chronic bronchitis, unspecified chronic bronchitis type J44.9 CHF (congestive heart failure) I50.9 Atrial fibrillation I48.91
== END 2025-04-15 15:54 | disposition skilled nursing facility (03) | DRG 291 ==
LOC: ER 21:41 → ICU 23:46 → MEDSURG 04-13 12:59
PROVIDERS: Admitting Provider Internal Medicine; Emergency Provider Emergency Medicine; PCP Family Medicine; Visit Provider Student in an Organized Health Care Education/Training Program
DX: I11.0 Hypertensive heart disease with heart failure (principal); I50.43 Acute on chronic combined systolic (congestive) and diastolic (congestive) heart failure; J18.9 Pneumonia, unspecified organism; J44.1 Chronic obstructive pulmonary disease with (acute) exacerbation; J45.901 Unspecified asthma with (acute) exacerbation; I35.0 Nonrheumatic aortic (valve) stenosis; G40.909 Epilepsy, unspecified, not intractable, without status epilepticus; I48.91 Unspecified atrial fibrillation; F41.9 Anxiety disorder, unspecified; M81.0 Age-related osteoporosis without current pathological fracture; I95.9 Hypotension, unspecified; Z79.01 Long term (current) use of anticoagulants; Z79.899 Other long term (current) drug therapy; Z88.1 Allergy status to other antibiotic agents; Z11.52 Encounter for screening for COVID-19
CPT/HCPCS: 36415; 51702; 70450; 71045; 80053; 80164; 81001; 83605; 83735; 83880; 84100; 84145; 85025; 87040; 87637; 93005; 93306; 94640; 96372; 97110; 97116; 97163; 97165; 97530; 97535; 99285; J1644; J1938; J1956; J2270; J2919; J3490; J7030; J7040; J7614; J7626; J7644; J9999

== ENCOUNTER 2025-05-12 11:23 | Emergency (ER) | payer MEDICARE, SELFPAY ==
[2025-05-12 11:25] VITALS: BP 112/69; PULSE 99; RESP 17; TEMP 37.3; O2SAT 98; BMI 32.3
--- NOTE | 2025-05-12 11:26 | XR_ITS ---
WS: [id number] Portable AP upright chest, 05/12/2025 Clinical Data: weakness Comparison: Portable chest, 04/11/2025 Findings: No nodules or masses are seen. There may be a small right pleural effusion. The heart is normal. The pulmonary vascularity is not increased. No pneumonia or pneumothorax is seen. The aortic arch shows calcification with tortuosity of the descending thoracic aorta. XR/XR chest 1V portable [id number] Impression: 1. Small right pleural effusion. 2. Atherosclerosis.
--- NOTE | 2025-05-12 11:26 | CT_ITS ---
WS: [id number] CT HEAD NONCONTRAST HISTORY: weakness TECHNIQUE: Contiguous axial imaging performed through the brain. Bone and soft tissue windows. Sagittal and coronal reformats reviewed. All CT scans at [facility] use at least one of these dose optimization techniques: automated exposure control; mA and/or kV adjustment per patient size (includes targeted exams where dose is matched to clinical indication); or iterative reconstruction. DLP: 885.08 mGy.cm COMPARISON: 04/11/2025 No acute intracranial hemorrhage, midline shift or mass effect. Moderate atrophy and small vessel disease. Atrophy of both the cerebellum and cerebrum. No prior infarcts. Ventricles: Normal size with no hydrocephalus. No inferior displacement of the cerebellar tonsils. Paranasal sinuses: Mild mucoperiosteal thickening in the ethmoid air cells. No air-fluid levels in the sinuses. Mastoid air cells: Well pneumatized. Calvarium and scalp: Skull is intact with no soft tissue edema or swelling. Empty sella turcica, incidentally noted. CT/CT head wo con* [id number] IMPRESSION: 1. No acute intracranial hemorrhage or edema. 2. Mild cerebral and cerebellar atrophy with small vessel disease. 3. Stable head CT since 04/11/2025.
--- NOTE | 2025-05-12 11:26 | XR_ITS ---
WS: [id number] Right knee, 3 views, 05/12/2025 Clinical Data: fall Comparison: Both knees, 02/24/2025 Findings: No fractures or dislocations are seen. There is severe medial joint compartment narrowing with spurring of the medial and lateral femoral condyles and of the medial tibial plateau. There is irregularity of the anterior and posterior surfaces of the right patella. The soft tissues are normal. XR/XR knee RT 3V* [id number] Impression: 1. Negative for fracture or dislocation. Severe osteoarthritis of the right kne e.
--- NOTE | 2025-05-12 11:27 | ECG_ITS ---
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 Measurements Intervals Barre Rate: 98 P: 0 TN: 0 QRS: 103 QRSD: 89 T: -43 QT: 374 QTc: 480 Interpretive Statements ATRIAL FIBRILLATION RIGHT AXIS DEVIATION [QRS AXIS > 100] LOW QRS VOLTAGE IN PRECORDIAL LEADS [QRS DEFLECTION < 1.0 mV IN CHEST LEADS] NONSPECIFIC ST & T-WAVE ABNORMALITY Compared to ECG 04/11/2025 21:50:18 T-wave abnormality now present Ventricular premature complex(es) no longer present Aberrant conduction of supraventricular beat(s) no longer present ST (T wave) deviation no longer present Electronically Signed On 05-12-2025 17:32:13 CDT by Farzana Aponte M.D. [email or web address]
--- OUTSIDE RECORDS SUMMARY | 2025-05-12 11:35 | XMS_ITS | Encounter Summary ---
Author Organization [facility] Address [address] [place] [address] Care Team Providers Care Earth Mover Name Role Phone Flores Harvey MD Primary Care Provider [phone] Reason for Referral * Outpatient Services (Routine) - Closed Specialty Diagnoses / Procedures Referred By Contac t Referred To Contact Radiology Diagnoses Hypothyroidism Thyroid nodule Procedures US HEAD NECK TISSUES Jeff Mancia FNP [address] [place] [address] Phone: tel: fax: [facility] [address] [facility] [address] [place] [address] Phone: tel: fax: Referral ID Status Reason Start Date Expiration Date V isits Requested Visits Authorized [id number] Closed [facility] CTS to Schedule (SGF) 06/24/2017 07/25/2018 1 1 Encounter Details Date Type Department Care Team (Late st Contact Info) Description 06/24/2017 Ancillary Orders [facility] Centralized Scheduling [address] [place] [address] Jeff Mancia FNP [address] [place] [address] Hypothyroidism; Thyroid nodule Social History Tobacco Use Types Packs/Day Years Used Date Smoking Tobacco: Never Smokeless Tobacco: Never Alcohol Use Standard Drinks/Week Comments No 0 (1 standard drink = 0.6 oz pur e alcohol) Comments No Sex and Gender Information Value Date Recorded Sex Assigned at Not on file 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 No new nodules. Jeff Mancia [facility] US ORDERABLES Final Resul t documented in this encounter Visit Diagnoses Diagnosis Hypothyroidism Unspecified hypothyroidism Thyroid nodule Nontoxic uninodular goiter Hypothyroidism Unspecified hypothyroidism Thyroid nodule Nontoxic uninodular goiter documented in this encounter Care Teams Earth Mover Relationship Specialty Start Date End Date Flores Harvey MD [address] [address] PCP - General Family Practice 12/19/15 documented as of this encounter
--- OUTSIDE RECORDS SUMMARY | 2025-05-12 11:35 | XMS_ITS | Encounter Summary ---
Author Organization [facility] Address [address] [place] [address] Care Team Providers Care Legal Billing Specialist Name Role Phone Ginette Gonzalez MD Primary Care Provider Encounter Details Date Type Department Care Team ([facility] Contact Info) Description 07/05/2022 Lab Requisition [facility] [address] [place] [phone] Ronnie French MD [address] [place] [address] Unspecified convulsions (CMS/HCC) Social History Tobacco Use Types Packs/Day Years Used Date Smoking Tobacco: Never Smokeless Tobacco: Never Alcohol Use Standard Drinks/Week Comments No 0 (1 standard drink = 0.6 oz pur e alcohol) Comments No Sex and Gender Information Value Date Recorded Sex Assigned at Not on file Legal Sex Female 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 Gender Identity Not on file Sexual [...] (Late Contact Info) Description 07/20/2025 1:00 PM AUTOMOBILE ASSEMBLY SUPERVISOR Appointment [facility] [address] [place] [address] Ronnie French MD [address] [place] [phone] 11/05/2025 1:20 PM AUTOMOBILE ASSEMBLY SUPERVISOR Office Visit [facility] [place] [address] [facility] [address] [place] [address] [place] [address] Daphnie Kennedy, CHATO [address] [place] [address] documented as of this encounter Procedures Procedure Name Priority Date/Time Associated Diagnosis Comments CBC WITH DIFFERENTIAL Stat 07/05/2022 2:26 PM CDT Unspecified convulsions COMPREHENSIVE METABOLIC PANEL Stat 07/05/2022 2:26 PM CDT Unspecified convulsions documented in this encounter Results * (ABNORMAL) COMPREHENSIVE METABOLIC PANEL (07/05/2022 2:26 PM CDT) SODIUM 141 136 - 145 mmol/L 07/05/2022 2:55 PM CDT [facility] POTASSIUM 4.3 3.5 - 5.1 mmol/L 07/05/2022 2:55 PM CDT [facility] CHLORIDE 103 98 - 107 mmol/L 07/05/2022 2:55 PM CDT [facility] CO2 29 22 - 29 mmol/L 07/05/2022 2:55 PM CDT [facility] CALCIUM 9.2 8.8 - 10.2 mg/dL 07/05/2022 2:55 PM CDT [facility] BUN 13 8 - 23 mg/dL 07/05/2022 2:55 PM CDT [facility] CREATININE 0.69 0.51 - 0.95 mg/dL 07/05/2022 2:55 PM CDT [facility] Comment:The GFR result is no t clinically significant on patients <18 or >70 years of age. GLUCOSE 88 74 - 99 mg/dL 07/05/2022 2:55 PM CDT [facility] TOTAL PROTEIN 6.6 6.6 - 8.7 g/dL 07/05/2022 2:55 PM [facility] ALBUMIN 3.9 3.5 - 5.2 g/dL 07/05/2022 2:55 PM [facility] BILIRUBIN TOTAL 0.3 <=1.2 mg/dL 07/05/2022 2:55 PM [facility] ALKALINE PHOSPHATASE 81 35 - 104 U/L 07/05/2022 2:55 PM [facility] AST 12 10 - 35 U/L 07/05/2022 2:55 PM [facility] ALT 7(L) 10 - 35 U/L 07/05/2022 2:55 PM [facility] GFR >60 mL/min/1.7 3 sq meter 07/05/2022 2:55 PM [facility] Comment:eGFR calculated with 2020 CKD-EPI equation. Vegetarian diet, extremely high or low muscle mass, and may affect results. Cystatin C with Glomerular Filtration Rate is a suitable alternative for these patients. ANION GAP 9(L) 12 - 20 mmol/L 07/05/2022 2:55 PM [facility] Blood Venipuncture / Unknown 07/05/2022 2:26 PM CDT 07/05/2022 2:30 PM CDT Ronnie French MD CHEMISTRY ORDERABLES Final Result [facility] CLIA # [id number] [address] [place] [address] * (ABNORMAL) CBC WITH DIFFERENTIAL (07/05/2022 2:26 PM CDT) WBC 5.4 4.0 - 10.0 K/uL 07/05/2022 2:36 PM CDT [facility] RBC 4.41 3.93 - 5.22 M/uL 07/05/2022 2:36 PM [facility] HEMOGLOBIN 12.9 11.2 - 15.7 g/dL 07/05/2022 2:36 PM [facility] HEMATOCRIT 39.1 34.1 - 44.9 % 07/05/2022 2:36 PM [facility] MCV 88.7 79.4 - 94.8 fL 07/05/2022 2:36 PM [facility] MCH 29.3 25.6 - 32.2 pg 07/05/2022 2:36 PM [facility] MCHC 33.0 32.2 - 35.5 g/dL 07/05/2022 2:36 PM [facility] RDW 14.2 11.0 - 14.5 % 07/05/2022 2:36 PM [facility] RDW-STDEV 45.9 36.9 - 56.9 fL 07/05/2022 2:36 PM [facility] PLATELETS 131(L) 163 - 337 K/uL 07/05/2022 2:36 PM [facility] MPV 9.9(L) 10.0 - 14.8 fL 07/05/2022 2:36 PM [facility] NEUTROPHILS 58 34 - 71 % 07/05/2022 2:36 PM [facility] LYMPHOCYTES 24 19 - 52 % 07/05/2022 2:36 PM [facility] MONOCYTES 12 5 - 13 % 07/05/2022 2:36 PM [facility] EOSINOPHILS 5 1 - 6 % 07/05/2022 2:36 PM [facility] BASOPHILS 1 0 - 1 % 07/05/2022 2:36 PM [facility] IMMATURE GRANULOCYTES 0 % 07/05/2022 2:36 PM [facility] NEUTROPHIL ABSOLUTE 3.12 1.56 - 6.13 K/uL 07/05/2022 2:36 PM [facility] LYMPHOCYTE ABSOLUTE 1.31 1.20 - 3.40 K/uL 07/05/2022 2:36 PM [facility] MONOCYTE ABSOLUTE 0.67(H) 0.24 - 0.36 K/uL 07/05/2022 2:36 PM CDT [facility] EOSINOPHIL ABSOLUTE 0.25 0.04 - 0.36 K/uL 07/05/2022 2:36 PM CDT [facility] BASOPHILS ABSOLUTE 0.06 0.01 - 0.08 K/uL 07/05/2022 2:36 PM CDT [facility] IMMATURE GRANULOCYTES ABSOLUTE 0.02 K/uL 07/05/2022 2:36 PM CDT [facility] Blood Venipuncture / Unknown 07/05/2022 2:26 PM CDT 07/05/2022 2:30 PM CDT Ronnie French MD HEMATOLOGY ORDERABLES Savana lopez Result [facility] CLIA # [id number] [address] [address] documented in this encounter Visit Diagnoses Diagnosis Unspecified convulsions (CMS/HCC) documented in this encounter Additional Health Concerns Infection Onset Date Last Indicated Resolved Time COVID-19 06/15/2022 06/15/2022 07/05/2022 1:16 AM CDT R/O COVID-19 05/07/2023 05/07/2023 05/07/2023 9:27 AM CDT COVID-19 05/07/2023 05/07/2023 05/27/2023 1:16 AM CDT R/O Respiratory 03/28/2025 03/28/2025 03/28/2025 5 :56 PM CDT documented as of this encounter Care Teams Legal Billing Specialist Relationship Specialty Start Date End Date Ginette Gonzalez MD [address] [phone] PCP - General Family Practice 08/23/22 documented as of this encounter
--- OUTSIDE RECORDS SUMMARY | 2025-05-12 11:35 | XMS_ITS | Encounter Summary ---
Author Organization [facility] Address [address] [place] [address] Care Team Providers Care Funeral Counselor Name Role Phone Flores Harvey MD Primary Care Provider [phone] Encounter Details Date Type Department Care Team (Late st Contact Info) Description 07/23/2013 Ancillary Orders [facility] Admitting [address] [place] [address] Joanne Jang, Momo Payne, CHATO [address] [place], [place] [id number] Bronchitis (Primary Dx) Social History Tobacco Use Types Packs/Day Years Used Date Smoking Tobacco: Never Smokeless Tobacco: Never Alcohol Use Standard Drinks/Week Comments No 0 (1 standard drink = 0.6 oz pur e alcohol) Comments No Sex and Gender Information Value Date Recorded Sex Assigned at Not on file Legal Sex Female 4:37 AM DIRECTOR PROCESS Gender Identity Not on file Sexual Orientation Not on file Occupation Industry Job Start Date Job End Date Not on file Not on file Not on file Not on file documented as of this encounter Plan of Treatment Not on file documented as of this encounter Results * XR CHEST PA AND LATERAL (07/23/2013 10:34 AM DIRECTOR PROCESS) Anatomical Region Laterality Modality Chest Computed Radiogr aphy 07/23/2013 10:3 4 AM DIRECTOR PROCESS Narrative 07/23/2013 4:09 PM DIRECTOR PROCESS PROCEDURE CHEST, 2 views 23 July 2013 [...] infiltrate or atelectasis seen Momo Rubio Sr., SPOILAGE WORKER DIAGNOSTIC IMAGIN G ORDERABLES Final Result documented in this encounter Visit Diagnoses Diagnosis Bronchitis- Primary Bronchitis, not specified as acute or chronic Bronchitis Bronchitis, not specified as acute or chronic documented in this encounter Care Teams Funeral Counselor Relationship Specialty Start Date End Date Flores Harvey MD [address] [phone] PCP - General Family Practice 12/19/15 documented as of this encounter
--- OUTSIDE RECORDS SUMMARY | 2025-05-12 11:35 | XMS_ITS | Encounter Summary ---
Author Organization [facility] Address [address] [place] [address] Care Team Providers Care Cotton Classer Name Role Phone Flores Harvey MD Primary Care Provider [phone] Encounter Details Date Type Department Care Team (Late st Contact Info) Description 03/14/2015 Ancillary Orders [facility] Admitting [address] [place] [address] Joanne Jagn, Momo Payne, CHATO [address] [place], [place] [address] Knee pain (Primary Dx) Social History Tobacco Use Types Packs/Day Years Used Date Smoking Tobacco: Never Smokeless Tobacco: Never Alcohol Use Standard Drinks/Week Comments No 0 (1 standard drink = 0.6 oz pur e alcohol) Comments No Sex and Gender Information Value Date Recorded Sex Assigned at Not on file 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
--- OUTSIDE RECORDS SUMMARY | 2025-05-12 11:35 | XMS_ITS | Clinical Summary ---
Author Organization [facility] Address [address] [place] [address] Care Team Providers Care Hotel Dining Room Cashier Name Role Phone Flores Harvey MD Primary Care Provider [phone] Allergies Active Allergy Reactions Criticality Noted Date [...] SpSnIndications :Acute serous otitis media Administer 1 Wray in each nostril daily. 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 Gender Identity Not on file Sexual Orientation Not on file Occupation Industry Job Start Date Job End Date Not on file Not on file Not on file Not on file Last Filed Vital Signs Vital Sign Reading Time Taken Comments Blood Pressure 127/74 02/11/2019 9:12 PM CDT Pulse 88 10/22/2018 5:28 PM THIRD RAIL INSTALLER Temperature 36.7 C (98.1 F) 02/11/2019 9:12 [...] or Tdap) 02/11/2029, 06/09/[address] [place], [place] [id number] [place] [place] [address] Care Teams Hotel Dining Room Cashier Relationship Specialty Start Date End Date Flores Harvey MD [address] [facility] [address] [place] [address] PCP - General Family Practice 12/19/15
--- OUTSIDE RECORDS SUMMARY | 2025-05-12 11:35 | XMS_ITS | Encounter Summary ---
Author Organization [facility] Address [address] [place] [address] Care Team Providers Care Edge Molder Name Role Phone Flores Harvey MD Primary Care Provider [phone] Encounter Details Date Type Department Care Team (Latest Contact Info) Description 07/28/2001 Outpatient Historical [facility] Family Medicine- [address] [place] [id number] Stella Ferreira MD NO ADDRESS ON FILE DIZZINESS AND GIDDINESS (Primary Dx); VITILIGO Social History Tobacco Use Types Packs/Day Years Used Date Smoking Tobacco: Never Assessed Comments Unknown Sex and Gender Information Value Date Recorded Sex Assigned at Not on file Legal Sex Female 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
--- OUTSIDE RECORDS SUMMARY | 2025-05-12 11:35 | XMS_ITS | Encounter Summary ---
Author Organization [facility] Address [address] [place] [address] Care Team Providers Care Administrative Nursing Supervisor Name Role Phone Flores Harvey MD Primary Care Provider [phone] Reason for Referral * Outpatient Services (Routine) - Closed Specialty Diagnoses / Procedures Referred By Contac t Referred To Contact Radiology Diagnoses Thyroid nodule Procedures US HEAD NECK TISSUES Kin Brenner MD Phone: tel: fax: [facility] [address] [place] [address] Phone: tel: fax: Referral ID Status Reason Start Date Expiration Date V isits Requested Visits Authorized [id number] Closed [facility] CTS to Schedule (SGF) 12/12/2015 01/11/2017 1 1 Encounter Details Date Type Department Care Team (Latest Contact Info) Description 12/12/2015 Ancillary Orders [facility] Centralized Scheduling [address] [facility] [address] [place] [address] Kin Brenner MD [address] [place] [address] Thyroid nodule (Primary Dx) Social History Tobacco Use Types Packs/Day Years Used Date Smoking Tobacco: Never Smokeless Tobacco: Never Alcohol Use Standard Drinks/Week Comments No 0 (1 standard drink = 0.6 oz pur e alcohol) Comments No Sex and Gender Information Value Date Recorded Sex Assigned at Not on file 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 3. Pathologic calcifications are not apparent. [id number] Narrative 12/14/2015 3:02 PM CDT Exam: US [...] goiter documented in this encounter Care Teams Administrative Nursing Supervisor Relationship Specialty Start Date End Date Flores Harvey MD [address] [address] PCP - General Family Practice 12/19/15 documented as of this encounter
--- OUTSIDE RECORDS SUMMARY | 2025-05-12 11:35 | XMS_ITS | Encounter Summary ---
Author Organization [facility] Address [address] [place] [address] Care Team Providers Care Power Screwdriver Operator Name Role Phone Ginette Gonzalez MD Primary Care Provider [phone] Encounter Details Date Type Department Care Team (Late st Contact Info) Description 05/12/2025 External Device Data [facility] ABSTRACTION Provider, Abstract NO ADDRESS ON FILE Social History Tobacco Use Types Packs/Day Years [...] who hurts you emotionally and/or physically? No 04/19/2025 Food Insecurity Answer Date Recorded Patient needs follow up regardin 03/28/2025 Transportation Needs Answer Date Record ed Patient needs follow up regardin 03/28/2025 Utility Needs Answer Date Recorded Patient needs follow up regardin 03/28/2025 Comments No Sex and Gender Information Value Date Recorded Sex Assigned at Not on file Legal Sex Female 8:19 AM PUMP AND STILL OPERATOR Gender Identity Not on file Sexual Orientation Not on file documented as of this encounter Plan of Treatment Upcoming Encounters Date Type Department Care Team (Late st Contact Info) Description 07/20/2025 1:00 PM PUMP AND STILL OPERATOR Appointment [facility] Neurology [facility] [address] [address] Ronnie French MD [address] [place] [address] 11/05/2025 1:20 PM PUMP AND STILL OPERATOR Office Visit [facility] [address] [place] [address] [employer] [place] [phone] Daphnie Kennedy FNP [address] [facility] [place] [phone] documented as of this encounter Visit Diagnoses Not on filedocumented in this encounter Care Teams Power Screwdriver Operator Relationship Specialty Start Date End Date Ginette Gonzalez MD [address] [facility] [address] [place] [phone] PCP - General Family Practice 08/23/22 documented as of this encounter
--- OUTSIDE RECORDS SUMMARY | 2025-05-12 11:35 | XMS_ITS | Clinical Summary ---
Author Organization [facility] Address [address] [place] [address] Phone Care Team Providers Care Industrial Arts Teacher Name Role Phone Ginette Gonzalez MD Primary Care Provider Allergies Active Allergy Reactions Criticality Noted Date Comments Erythromycin Nausea and Vomiting Low 06/06/2011 Medications acetaminophen (TYLENOL) 500 mg tablet Take 500 mg by mouth daily. prn Active nebulizerIndicat ions:Asthma, unspecified asthma severity, unspecified whether complicated, unspecified whether persistent Length of need 99 months Nebulizer with compressor, Kit: Disposable Nebulizer Kit, 2 per month, filters , areosol mask: No. 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 1 Each 3 Active cpap medical center representative AutoCPAP @ MinEPAP 5 cwp and MaxEPAP [...] Diagnosis: G47.33 Obstructive sleep apnea 1 Each 3 Active albuterol (PROVENTIL,ARIADNE YASMANI) 0.63 mg/3 mL Solution for NebulizationIndi cations:Chronic respiratory failure, unspecified whether with hypoxia or hypercapnia (CMS/HCC) USE 1 VIAL IN NEBULIZER TWICE DAILY 180 mL 1 4 Active alendronate (FOSAMAX) 70 mg tabletIndication s:Osteoporosis, unspecified osteoporosis type, unspecified pathological fracture presence TAKE 1 TABLET BY MOUTH ONCE EVERY 7 DAYS ON AN EMPTY STOMACH BEFORE OTHER MEDICATIONS WITH 8 OUNCES OF WATER AND STAY UPRIGHT FOR 30 MINUTES 12 Tablet 3 4 Active Mucinex 600 mg Extended Release Biphasic tabletIndication s:Chronic respiratory failure, unspecified whether with hypoxia or hypercapnia (CMS/HCC) Take 1 Tablet (600 mg) by mouth 2 times daily. 60 Tablet 2 5 Active tiZANidine (ZANAFLEX) 2 mg Tablet Take 1 Tablet (2 mg) by mouth daily at bedtime. 30 Tablet 6 5 Active furosemide (LASIX) 40 mg tabletIndication s:Chronic congestive heart failure, unspecified heart failure type (CMS/HCC),Edema leg Take 1 Tablet (40 mg) by mouth 2 times daily. 200 Tablet 2 5 Active rivaroxaban (Xarelto) 10 mg TabletIndication s:Atrial fibrillation with RVR (CMS/HCC) Take 1 Tablet (10 mg) by mouth daily. 90 Tablet 1 5 Active fluticasone propion-salmeter oL (ADVAIR DISKUS,WIXELA INHUB) 250-50 mcg/dose disk inhalerIndicatio ns:Chronic obstructive pulmonary disease, unspecified COPD type (CMS/HCC) Take 1 Puff by inhalation 2 times daily. 60 Each 5 5 Active tiotropium (Spiriva Respimat) 1.25 mcg/actuation MistIndications: Chronic obstructive pulmonary disease, unspecified COPD type (CMS/HCC) Take 2 Puffs by inhalation daily. 4 Gram 4 5 Active divalproex (DEPAKOTE) 250 mg Delayed Release tablet Take 3 Tablets (750 mg) by mouth 2 times daily. 180 Tablet 6 5 Active primidone (MYSOLINE) 250 mg tablet Take 1 Tablet (250 mg) by mouth 3 times daily. 90 Tablet 6 5 Active potassium CHLORIDE (KLOR-CON) 10 mEq Extended Release tabletIndication s:Hypokalemia Take 1 Tablet (10 mEq) by mouth daily with breakfast. 100 Tablet 1 5 Active levalbuterol HFA (XOPENEX HFA) 45 mcg/Actuation HFA Aerosol InhalerIndicatio ns:Chronic obstructive pulmonary disease, unspecified COPD type (CMS/HCC) INHALE 2 PUFFS BY MOUTH EVERY 6 HOURS NEEDED FOR SHORTNESS OF BREATH OR WHEEZING 15 Gram 2 5 Active dilTIAZem (CARDIZEM CD) 360 mg Controlled Delivery 24 hour capsuleIndicatio ns:Atrial fibrillation with RVR (CMS/HCC) Take 1 capsule by mouth once daily 100 Capsule 2 5 Active amiodarone (CORDARONE) 200 mg tablet Take 200 mg by mouth 2 times daily. Active citalopram (CeleXA) 20 mg tablet Take 20 mg by mouth daily at bedtime. Active ipratropium-albu teroL (DUONEB) 0.5 mg-3 mg(2.5 mg base)/3 mL Solution for Nebulization Take 3 mL by inhalation. Active metoprolol tartrate (LOPRESSOR) 25 mg tablet Take 25 mg by mouth 2 times daily. Active Active Problems Problem Noted Date Diagnosed Date [...] 06/27/2011 Asthma 06/06/2011 GERD (gastroesophageal reflux disease) Allergic rhinitis 06/06/2011 Status epilepticus Atrial fibrillation with RVR Resolved Problems Problem Noted Date Diagnosed Date Resolved Date Severe obesity (BMI 35.0-39. 9) with comorbidity 10/10/2023 11/06/2024 Acute respiratory failure Encounters Date Type Department Care Team Description 05/12/2025 External Device Data STL ABSTRACTION Provider, Abstract 04/19/2025 11:42 AM CDT - 04/19/2025 1:39 PM CDT Emergency [facility] Emergency Medicine [address] [address] Aubrey Laureano MD Chronic right-sided low back pain without sciatica (Primary Dx) Discharge Disposition: Home or Self Care 04/19/2025 8:20 AM CDT - 04/19/2025 11:59 PM CDT Hospital Encounter [facility] Emergency [facility] Services [place] [address] [place] [phone] Ambulance, [facility] Discharge Disposition: Home or Self Care 04/19/2025 Travel 04/02/2025 5:55 AM CDT - 04/02/2025 11:59 PM CDT Hospital Encounter [facility] Emergency Medical Services [place] [address] [address] Terra Fontaine, PICK UP MAN Ambulance, [facility] Discharge Disposition: Intermediate Care Facility 03/30/2025 External Device Data STL ABSTRACTION Provider, Abstract 03/30/2025 External Device Data [facility] ABSTRACTION Provider, Abstract 03/30/2025 External Device Data ST[facility] ABSTRACTION Provider, Abstract 03/28/2025 12:01 AM CDT - 04/02/2025 11:59 AM CDT Hospital Encounter [facility] [address] [facility] [address] [place] [address] All Rangel DO Godwin, Victoria, MD COPD with exacerbation ([facility]) Discharge Disposition: Half-Way Fac(SNF) with Medicare Certification in Anticipation of Skilled Care 03/28/2025 Travel 03/27/2025 11:30 PM CDT - 03/27/2025 11:59 PM CDT Hospital Encounter [facility] [address] [facility] [address] [place] [address] All Rangel DO Discharge Disposition: Home or Self Care 03/27/2025 - 03/27/2025 11:59 PM CDT Hospital Encounter [facility] [address] [place] [phone] Ambulance, [facility] Discharge Disposition: [facility] 03/09/2025 External Device Data STL ABSTRACTION Provider, Abstract 03/09/2025 External Device Data STL ABSTRACTION Provider, Abstract 03/09/2025 External Device Data ST[facility] ABSTRACTION Provider, Abstract 03/09/2025 External Device Data STL ABSTRACTION Provider, Abstract 03/08/2025 Patient Outreach [facility] and Access [id number] [facility] [address] [place] [address] Lorne Mancia Referral; Healthcare Access 02/27/2025 - 02/27/2025 11:59 PM CDT Hospital Encounter [facility] [address] [phone] Ambulance, [facility] Discharge Disposition: [facility] 02/22/2025 5:30 PM CDT - 02/22/2025 11:59 PM CDT Hospital Encounter [facility] [address] [place] [phone] Ambulance, [facility] Discharge Disposition: Home or Self Care 02/16/2025 [facility] [address] [place] [address] Dominga, Della Franco, CARTON FORMING MACHINE TENDER Atrial fibrillation with RVR ([facility]/HCC) 02/10/2025 External Device Data STL ABSTRACTION Provider, [...] on file Legal Sex Female 8:19 AM ASL INTERPRETER Gender Identity Not on file Sexual Orientation Not on file Last Filed Vital Signs Vital Sign Reading Time Taken Comments Blood Pressure 93/56 04/19/2025 1:00 PM CDT Pulse 71 04/19/2025 1:00 PM CDT Temperature 37.1 C (98.7 F) 04/19/2025 11:46 AM CDT Respiratory Rate 19 04/19/2025 12:0 0 PM CDT Oxygen Saturation 95% 04/19/2025 1:00 PM CDT Inhaled Oxygen Concentration - - Weight 110.6 kg (243 lb 12.8 oz) 2024 11:46 AM CDT Height 170.2 cm (5' 7 ) 04/19/2025 11:4 6 AM CDT Body Mass Index 38.18 04/19/2025 11:46 AM CDT Plan of Treatment Upcoming Encounters Date Type Department Care Team (Late st Contact Info) Description 07/20/2025 1:00 PM ASL INTERPRETER Appointment [facility] [place] [address] [place] [address] Ronnie French MD [address] [place] [phone] 11/05/2025 1:20 PM ASL INTERPRETER Office Visit [facility] Medicine [place] [address] [facility] [address] [facility] [place] [address] Daphnie Kennedy, CHATO [address] [facility] [place] [address] Health Maintenance Due Date Last Done Comments COLORECTAL SCREENING 12/09/1963 ZOSTER VACCINE (1 of 2) 12/09/1995 RSV VACCINE (60+ or ) (1 - 1-dose 75+ series) 2020 INFLUENZA VACCINE (#1) 2025 , 05/25/2024, 06/07/2023, Additional history exists OSTEOPOROSIS SCREENING 02/01/2028 01/31/2023 DTAP/TDAP/TD VACCINES (5 - T d or Tdap) 05/21/2033 05/21/2023, 05/21/2023, 02/11/2019, Additional history exists PNEUMOCOCCAL VACCINE 50+ YEARS Completed 09/09/2023 , 06/08/2022 Medicare Advantage ([place]) Preventative Visit/Annual Wellness Visit Completed 11/06/2024, 11/07/2023, 01/30/2023, Additional history exists Procedures Procedure Name Priority Date/Time Associated Diagnosis Comments XR SACRUM AND COCCYX Stat 04/19/2025 12:57 PM CDT XR LUMBAR SPINE 2 OR 3 VW Stat 04/19/2025 12:56 PM CDT COMPREHENSIVE METABOLIC PANEL Routine 04/02/2025 6:15 AM [...] WITH DIFFERENTIAL Stat 03/27/2025 11:35 PM CDT XR DEXA BONE DENSITY AXIAL 1 OR MORE SITES Routine 01/31/2023 12:37 PM CDT Osteoporosis, unspecified osteoporosis type, unspecified pathological fracture presence from Last 3 Months or Most Recently Relevant to Health Maintenance Results * XR SACRUM AND COCCYX (04/19/2025 12:57 PM CDT) Anatomical Region Laterality Modality Pelvis Computed Radiogr aphy 04/19/2025 12:5 7 PM CDT Impressions 04/19/2025 1:10 PM CDT IMPRESSION: No acute osseous abnormality. Narrative 04/19/2025 1:10 PM CDT Exam: XR SACRUM AND COCCYX Date/Time of Exam: 04/19/2025 12:57 PM Reason For Exam: Low Back Pain. Diagnosis: See Reason for Exam. Comparison: None. Findings: The bone density is diminished. There is no gross evidence of an acute fracture or dislocation. There are mild degenerative changes involving the sacroiliac joints. There are prominent degenerative changes involving the partially visualized lumbar spine. There are vascular calcifications. Procedure Note Gumaro Castellanos, DO - 04/19/2025 Exam: XR SACRUM AND COCCYX Date/Time of Exam: 04/19/2025 12:57 PM Reason For Exam: Low Back Pain. Diagnosis: See Reason for Exam. Comparison: None. Findings: The bone density is diminished. There is no gross evidence of an acute fracture or dislocation. There are mild degenerative changes involving the sacroiliac joints. There are prominent degenerative changes involving the partially visualized lumbar spine. There are vascular calcifications. IMPRESSION: No acute osseous abnormality. Aubrey Laureano MD DIAGNOSTIC IMAGING ORDER SHWETHA Final Result * XR LUMBAR SPINE 2 OR 3 VW (04/19/2025 12:56 PM CDT) Anatomical Region Laterality Modality Spine Computed Radiogr aphy 04/19/2025 12:5 7 PM CDT Impressions 04/19/2025 1:09 PM CDT IMPRESSION: No acute osseous abnormality. Advanced degenerative changes. Narrative 04/19/2025 1:09 PM CDT Exam: XR LUMBAR SPINE 2 OR 3 VW Date/Time of Exam: 04/19/2025 12:56 PM Reason For Exam: Low Back Pain. Diagnosis: See Reason for Exam. Comparison: 02/28/2023. Findings: The bone density is diminished. There is mild anterolisthesis of L4 and L5 which is unchanged. There is no definitive evidence of an acute fracture or compression deformity. There are advanced multilevel facet predominant degenerative changes. There are vascular calcifications. Procedure Note Gumaro Castellanos, DO - 04/19/2025 Exam: XR LUMBAR SPINE 2 OR 3 VW Date/Time of Exam: 04/19/2025 12:56 PM Reason For Exam: Low Back Pain. Diagnosis: See Reason for Exam. Comparison: 02/28/2023. Findings: The bone density is diminished. There is mild anterolisthesis of L4 and L5 which is unchanged. There is no definitive evidence of an acute fracture or compression deformity. There are advanced multilevel facet predominant degenerative changes. There are vascular calcifications. IMPRESSION: No acute osseous abnormality. Advanced degenerative changes. us Aubrey Laureano MD DIAGNOSTIC IMAGING ORDER SHWETHA Final Result * (ABNORMAL) CBC WITH DIFFERENTIAL (04/02/2025 6:15 AM CDT) Only the most recent of3 resultswithin the time period is included. WBC 4.7 4.0 - 10.0 K/uL 04/02/2025 6:37 AM [facility] RBC 3.60(L) 3.93 - 5.22 M/uL 04/02/2025 6:37 AM [facility] HEMOGLOBIN 10.9(L) 11.2 - 15.7 g/dL 04/02/2025 6:37 AM [facility] HEMATOCRIT 32.7(L) 34.1 - 44.9 % 04/02/2025 6:37 AM [facility] MCV 90.8 79.4 - 94.8 fL 04/02/2025 6:37 AM [facility] MCH 30.3 25.6 - 32.2 pg 04/02/2025 6:37 AM [facility] MCHC 33.3 32.2 - 35.5 g/dL 04/02/2025 6:37 AM [facility] RDW 15.5(H) 11.0 - 14.5 % 04/02/2025 6:37 AM [facility] RDW-STDEV 51.5 36.9 - 56.9 fL 04/02/2025 6:37 AM [facility] PLATELETS 117(L) 163 - 337 K/uL 04/02/2025 6:37 AM [facility] MPV 9.9(L) 10.0 - 14.8 fL 04/02/2025 6:37 AM [facility] NEUTROPHILS 55 34 - 71 % 04/02/2025 6:37 AM [facility] LYMPHOCYTES 22 19 - 52 % 04/02/2025 6:37 AM [facility] MONOCYTES 14(H) 5 - 13 % 04/02/2025 6:37 AM [facility] EOSINOPHILS 8(H) 1 - 6 % 04/02/2025 6:37 AM [facility] BASOPHILS 1 0 - 1 % 04/02/2025 6:37 AM [facility] IMMATURE GRANULOCYTES 1 % 04/02/2025 6:37 AM [facility] NEUTROPHIL ABSOLUTE 2.55 1.56 - 6.13 K/uL 04/02/2025 6:37 AM [facility] LYMPHOCYTE ABSOLUTE 1.03(L) 1.20 - 3.40 K/uL 04/02/2025 6:37 AM [facility] MONOCYTE ABSOLUTE 0.65(H) 0.24 - 0.36 K/uL 04/02/2025 6:37 AM [facility] EOSINOPHIL ABSOLUTE 0.36 0.04 - 0.36 K/uL 04/02/2025 6:37 AM [facility] BASOPHILS ABSOLUTE 0.03 0.01 - 0.08 K/uL 04/02/2025 6:37 AM CDT [facility] IMMATURE GRANULOCYTES ABSOLUTE 0.03 K/uL 04/02/2025 6:37 AM [facility] Blood Venipuncture / Unknown 04/02/2025 6:15 AM CDT 04/02/2025 6:25 AM CDT us Adriana Russell MD HEMATOLOGY ORDERABLES Final Res ult [facility] CLIA # [id number] [address] [place] [address] * (ABNORMAL) COMPREHENSIVE METABOLIC PANEL (04/02/2025 6:15 AM CDT) Only the most recent of2 resultswithin the time period is included. SODIUM 138 136 - 145 mmol/L 04/02/2025 6:52 AM [facility] POTASSIUM 3.9 3.5 - 5.1 mmol/L 04/02/2025 6:52 AM [facility] CHLORIDE 100 98 - 107 mmol/L 04/02/2025 6:52 AM [facility] CO2 31(H) 22 - 29 mmol/L 04/02/2025 6:52 AM [facility] CALCIUM 8.4(L) 8.8 - 10.2 mg/dL 04/02/2025 6:52 AM [facility] BUN 20 8 - 23 mg/dL 04/02/2025 6:52 AM [facility] CREATININE 0.62 0.51 - 0.95 mg/dL 04/02/2025 6:52 AM [facility] Comment:The GFR result is no t clinically significant on patients <18 or >70 years of age. GLUCOSE 83 74 - 99 mg/dL 04/02/2025 6:52 AM [facility] TOTAL PROTEIN 4.9(L) 6.6 - 8.7 g/dL 04/02/2025 6:52 AM [facility] ALBUMIN 2.8(L) 3.5 - 5.2 g/dL 04/02/2025 6:52 AM [facility] BILIRUBIN TOTAL 0.3 0.0 - 1.2 mg/dL 04/02/2025 6:52 AM [facility] ALKALINE PHOSPHATASE 56 35 - 104 U/L 04/02/2025 6:52 AM [facility] AST 14 0 - 35 U/L 04/02/2025 6:52 AM [facility] ALT 14 0 - 35 U/L 04/02/2025 6:52 AM [facility] GFR >60 mL/min/1.7 3 sq meter 04/02/2025 6:52 AM [facility] Comment:eGFR calculated with 2020 CKD-EPI equation. Vegetarian diet, extremely high or low muscle mass, and may affect results. Cystatin C with Glomerular Filtration Rate is a suitable alternative for these patients. ANION GAP 7 5 - 20 mmol/L 04/02/2025 6:52 AM [facility] Blood Venipuncture / Unknown 04/02/2025 6:15 AM CDT 04/02/2025 6:25 AM CDT us Adriana Russell MD CHEMISTRY ORDERABLES Final Resu lt [facility] [id number] [address] [place] [address] * (ABNORMAL) BASIC METABOLIC PANEL (03/30/2025 6:10 AM CDT) Only the most recent of2 resultswithin the time period is included. SODIUM 136 136 - 145 mmol/L 03/30/2025 6:37 AM [facility] POTASSIUM 4.2 3.5 - 5.1 mmol/L 03/30/2025 6:37 AM [facility] CHLORIDE 99 98 - 107 mmol/L 03/30/2025 6:37 AM [facility] CO2 29 22 - 29 mmol/L 03/30/2025 6:37 AM CDT [facility] CALCIUM 8.7(L) 8.8 - 10.2 mg/dL 03/30/2025 6:37 AM T [facility] BUN 18 8 - 23 mg/dL 03/30/2025 6:37 AM [facility] CREATININE 0.57 0.51 - 0.95 mg/dL 03/30/2025 6:37 AM T [facility] Comment:The GFR result is no t clinically significant on patients <18 or >70 years of age. GLUCOSE 111(H) 74 - 99 mg/dL 03/30/2025 6:37 AM T [facility] GFR >60 mL/min/1.7 3 sq meter 03/30/2025 6:37 AM [facility] Comment:eGFR calculated with 2020 CKD-EPI equation. Vegetarian diet, extremely high or low muscle mass, and may affect results. Cystatin C with Glomerular Filtration Rate is a suitable alternative for these patients. ANION GAP 8 5 - 20 mmol/L 03/30/2025 6:37 AM T [facility] Blood Venipuncture / Unknown 03/30/2025 6:10 AM CDT 03/30/2025 6:16 AM CDT us Chuck Espinoza MD CHEMISTRY ORDERABLES Final Resul t [facility] # [id number] [address] [place] [address] * XR CHEST PA OR AP 1 [...] atelectasis versus consolidation. Increased left basilar atelectasis.. Terra Fontaine APRN DIAGNOSTIC IMAGING TEQUILA RILEY Final Result * (ABNORMAL) TROPONIN 2 HR, 5TH GEN (03/28/2025 10:47 AM CDT) TROPONIN T, 2 HR 5TH GEN 14(H) <=10 ng/L 03/28/2025 11:08 AM CDT [facility] DELTA 2HR TROPONIN T -1 See Interp. 03/28/2025 11:08 AM CDT [facility] Blood Venipuncture / Unknown 03/28/2025 10:47 AM CDT 03/28/2025 10:51 AM CDT [facility] - 03/28/2025 11:08 AM CDT Troponin elevated. Delta not changing. Delay in collection of timed specimen beyond recommended collection interval. Results must be interpreted in clinical context. us Chuck Espinoza MD CHEMISTRY ORDERABLES Final Resul t Performing Organization Address City/[facility]/ZIP Co de Phone Number [facility] [id number] [address] [place] [phone] * (ABNORMAL) TROPONIN BASELINE, 5TH GEN (03/28/2025 8:43 AM CDT) TROPONIN T, BASELINE 5TH GEN 15(H) <=10 ng/L 03/28/2025 9:08 AM CDT [facility] Blood Venipuncture / Unknown 03/28/2025 8:43 AM CDT 03/28/2025 8:48 AM CDT [facility] - 03/28/2025 9:08 AM CDT Troponin elevated. us Chuck Espinoza MD CHEMISTRY ORDERABLES Final Resul t Performing Organization Address City/[facility]/ZIP Co de Phone Number [facility] # [id number] [address] [place] [address] * (ABNORMAL) MRSA PCR RAPID SCREEN (03/28/2025 7:10 AM CDT) [facility] MRSA PCR RESULT MRSA detected( A) MRSA not detected 03/28/2025 6:18 PM CDT [facility] Surveillance ANTERIOR NARES SWAB / Unknown Collection / Unknown 03/28/2025 7:10 AM CDT 03/28/2025 8:19 AM CDT [facility] - 03/28/2025 6:18 PM CDT Positive result [...] S Final Result Performing Organization Address [facility] de Phone Number [facility] CLIA # [id number] [address] [address] * RESPIRATORY PATHOGEN PCR PANEL (03/28/2025 7:10 AM CDT) [facility] Respiratory Pathogen PCR Panel NOT DETECTED No respiratory pathogen nucleic acids detected. 03/28/2025 5:56 PM CDT [facility] COVID-19 PCR NOT DETECTED Not Detected 03/28/2025 5:56 PM CDT [facility] Upper Respiratory ENTIRE NASOPHARYNX / Unknown Collection / Unknown 03/28/2025 7:10 AM CDT 03/28/2025 8:19 AM CDT Narrative [facility] - 03/28/2025 5:56 PM CDT [...] pertussis Bordetella parapertussis Chlamydophila pneumoniae Mycoplasma pneumoniae Chuck Espinoza MD MICROBIOLOGY - GENERAL ORDERABLE S Final Result Performing Organization Address [facility] Co de Phone Number [facility] CLIA # [id number] [address] [facility] [place] [address] * URINALYSIS WITH REFLEX MICROSCOPIC (03/28/2025 12:36 AM CDT) COLOR UA Yellow Pale to Dark Yellow 03/28/2025 12:45 AM CDT [facility] CLARITY UA Clear Clear 03/28/2025 12:45 AM T [facility] SPECIFIC GRAVITY UA 1.015 1.003 - 1.035 03/28/2025 12:45 AM T [facility] PH UA 6.5 5.0 - 8.0 03/28/2025 12:45 AM CDT [facility] LEUKOCYTE ESTERASE UA Negative Negative 03/28/2025 12:45 AM CDT [facility] NITRITE UA Negative Negative 03/28/2025 12:45 AM T [facility] PROTEIN UA Negative Negative 03/28/2025 12:45 AM T [facility] GLUCOSE UA Negative Negative 03/28/2025 12:45 AM T [facility] KETONES UA Negative Negative 03/28/2025 12:45 AM T [facility] UROBILINOGEN UA 0.2 <2.0 mg/dL 12:45 AM [facility] BILIRUBIN UA Negative Negative 03/28/2025 12:45 AM [facility] BLOOD UA Negative Negative 03/28/2025 12:45 AM [facility] Urine URINE SPECIMEN OBTAINED BY CLEAN CATCH PROCEDURE / Unknown Collection / Unknown 03/28/2025 12:36 AM CDT 03/28/2025 12:42 AM CDT us All Y Rangel DO URINE ORDERABLES Final Result [facility] CLIA # [id number] [address] [place] [address] * POC GLUCOSE (03/28/2025 12:19 AM CDT) GLUCOSE POC 94 74 - 99 mg/dL 03/28/2025 12:19 AM T [facility] SPECIMEN SOURCE, GLUCOSE POC Whole Blood 03/28/2025 12:19 AM CDT [facility] Blood, whole 03/28/2025 12:1 9 AM CDT 03/28/2025 12:26 AM CDT us Interface Provider Poct POINT OF CARE TESTING Fi nal Result [facility] CLIA # [id number] [address] [place] [address] * EKG (03/28/2025 12:09 AM CDT) Narrative All Rangel DO - 03/28/2025 12:09 AM CDT All Rangel DO 03/28/2025 5:18 AM EKG Date/Time: 03/28/2025 12:09 AM Performed by: All aRngel DO Authorized by: All Rangel DO ECG interpreted by ED Physician in the absence of a gut cleaner: yes Rate: ECG rate: 90 ECG rate assessment: age appropriate Rhythm: Rhythm Origin: atrial Rhythm morphology: fibrillation [place]: QRS axis: Right QRSTT: R wave transition: Good Result [facility] All Rangel DO ECG ORDERABLES Final Result * PROCALCITONIN (03/27/2025 11:35 PM CDT) PROCALCITONIN 0.04 <=0.08 ng/mL 03/28/2025 5:38 PM CDT [place] [facility] Blood BLOOD SPECIMEN / Unknown Collection / Unknown 03/27/2025 11:35 PM CDT 03/28/2025 6:28 AM CDT Narrative [facility] - 03/28/2025 5:38 PM CDT The utility [...] 2-4 hours and peaks within 6-24 hours. us Chuck Espinoza MD CHEMISTRY ORDERABLES Final Resul t Performing Organization Address [facility] Co de Phone Number [facility] CLIA # [id number] [address] [place] [address] * SEDIMENTATION RATE (03/27/2025 11:35 PM CDT) [facility] ESR (SEDIMENTATION RATE) 19 0 - 30 mm/Hr 03/28/2025 6:25 AM CDT [facility] Blood BLOOD SPECIMEN / Unknown Collection / Unknown 03/27/2025 11:35 PM CDT 03/28/2025 12:19 AM CDT Narrative [facility] - 03/28/2025 6:25 AM CDT Tube Lot: #[id number] Exp Date: 09/08/2026 QC1 LOT [id number] EXP.09/13/2025 QC2 LOT [id number] EXP.09/13/2025 us Jodie May MD HEMATOLOGY ORDERABL ES Final Result Performing Organization Address City/[facility]/ZIP Co de Phone Number [facility] CLIA # [id number] [address] [place] [id number] * (ABNORMAL) C-REACTIVE PROTEIN (03/27/2025 11:35 PM CDT) CRP 10.9(H) <5.0 mg/L 03/28/2025 6:27 AM CDT [facility] Blood BLOOD SPECIMEN / Unknown Collection / Unknown 03/27/2025 11:35 PM CDT 03/28/2025 12:19 AM CDT us Jodie May MD CHEMISTRY ORDERABLE S Final Result Performing Organization Address City/[facility]/ZIP Co de Phone Number [facility] [id number] [address] [place] [id number] * (ABNORMAL) BRAIN NATRIURETIC PEPTIDE, BNP OR PROBNP (03/27/2025 11:35 PM CDT) PROBNP, N TERMINAL 1,046(H) 0 - 450 pg/mL 03/28/2025 1:49 AM CDT [facility] Comment: INTERPRETIVE COMMENT based on diagnosis: Diagnostic [...] CDT 03/28/2025 12:19 AM CDT us All Rangel DO CHEMISTRY ORDERABLES Final Resul t [facility] CLIA # [id number] [address] [place] [id number] * MAGNESIUM LEVEL (03/27/2025 11:35 PM CDT) MAGNESIUM 2.1 1.6 - 2.4 mg/dL 03/28/2025 1:49 AM CDT [facility] Blood BLOOD SPECIMEN / Unknown Collection / Unknown 03/27/2025 11:35 PM CDT 03/28/2025 12:19 AM CDT us All Y Rangel DO CHEMISTRY ORDERABLES Final Resul t [facility] CLIA # [id number] [address] [facility] [address] [place] [address] * (ABNORMAL) XR DEXA BONE DENSITY AXIAL [...] osteoporosis. Alendronate therapy is noted. Jodie Mancia [facility] DIAGNOSTIC IMAGING ORDER SHWETHA Final Result from Last 3 Months or Most Recently Relevant to Health Maintenance Insurance [place] Member Subscriber Plan / Payer (Ef fective 2021-Present) Name:Daphnie Coughlin Relation to Subscriber:Self Name:Daphnie Coughlin Payer ID:Not on file Group ID:Not on file Type:Medicaid Address: [address] MEDICARE HMO Advance Directives For more information, please contact: [phone] * Full Code (Latest Code Status on File) Date Activated Date Inactivated Comments 03/28/2025 6:58 AM 04/02/2025 2:12 PM * Full Code Date Activated Date Inactivated Comments 11/07/2023 12:07 PM 11/10/2023 4:24 PM * Full Code Date Activated Date Inactivated Comments 09/11/2021 3:47 AM 09/13/2021 3:34 PM Care Teams Industrial Arts Teacher Relationship Specialty Start Date End Date Ginette Gonzalez MD [address] [id number] PCP - General Family Practice 08/23/22
--- NOTE | 2025-05-12 11:37 | W.ED.FALL ---
HPI - Fall General: Chief Complaint: Fall Stated Complaint: LOC Time Seen by Provider: 05/12/25 11:23 Source: patient and EMS Mode of arrival: EMS Limitations: no limitations History of Present Illness: 79-year-old female states she had slid out of her recliner today. Patient states she has some pain in her right knee denies any other injuries after the fall. Per EMS patient's states that she has had some increased weakness over the last 2 days. She is able answer all my question appropriately has no focal deficits but states she has felt a little weak. Has had a history of UTIs no fevers no vomiting no chest pain Associated symptoms-after fall: Denies abdominal pain, chest pain, headache(s) or neck pain Related Data Home Medications ?Medication ?Instructions ?Recorded ?Confirmed acetaminophen 500 mg tablet 500 mg PO Q6H PRN Pain 08/20/22 04/30/25 (Tylenol Extra Strength) alendronate 70 mg tablet 70 mg PO .weekly 02/18/24 04/30/25 potassium chloride 10 mEq 10 meq PO DAILY 02/28/25 04/30/25 tablet,extended release primidone 250 mg tablet 250 mg PO TID 02/28/25 04/30/25 tizanidine 2 mg tablet 2 mg PO BEDTIME 02/28/25 04/30/25 budesonide 0.5 mg/2 mL suspension 0.5 mg inhalation BID PRN 04/12/25 04/30/25 for nebulization Shortness Of Breath divalproex 250 mg tablet,delayed 750 mg PO BID 04/12/25 04/30/25 release guaifenesin 600 mg tablet, 600 mg PO BID 04/12/25 04/30/25 extended release 12 hr (Mucinex) ipratropium bromide 0.02 % 2.5 ml inhalation TID 04/12/25 04/30/25 solution for inhalation levalbuterol tartrate 45 2 inh inhalation Q6H PRN Shortness 04/12/25 04/30/25 mcg/actuation aerosol inhaler Of Breath levalbuterol tartrate 45 2 inh inhalation TID PRN shortness 04/12/25 04/30/25 mcg/actuation aerosol inhaler of breath or wheezing (Xopenex HFA) Previous Rx's ?Medication ?Instructions ?Recorded diltiazem HCl 360 mg 360 mg PO DAILY #90 caps 04/25/23 capsule,extended release 24 hr (Cardizem CD) amiodarone 200 mg tablet (Pacerone) 200 mg PO BID #60 tabs 03/05/25 bumetanide 1 mg tablet 2 mg (2 x 1 mg) PO BID 30 days 04/15/25 #120 tabs metoprolol tartrate 25 mg tablet 25 mg PO DAILY 30 days #0 tabs 04/15/25 rivaroxaban 10 mg tablet (Xarelto) 20 mg (2 x 10 mg) PO QPM 30 days 04/15/25 #60 tabs Allergies Allergy/AdvReac Type Severity Reaction Status Date / Time erythromycin base Allergy tachycardia Verified 04/30/25 06:50 /rash Review of Systems Const: Denies: fever(s), chills, body aches or change in appetite ENMT: Denies: throat pain or dental pain Card: Denies: chest pain Resp: Denies: dyspnea GI: Denies: abdominal pain, nausea, vomiting or diarrhea Musc: Denies: neck pain or back pain Skin/Breast: Denies: rash Neuro: Denies: headache(s) PFSH ED PFSH: Medical History Pneumonia Asthma Enrolled in chronic care management Osteoporosis Impaired memory 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 Hearing loss Mental confusion determined by examination Moderate persistent asthma Moderate aortic stenosis Generalized epilepsy COPD (chronic obstructive pulmonary disease) Keratosis pilaris Varicose veins of anus or rectum Essential hypertension Atrial fibrillation Surgical History History of hemorrhoidectomy (~09/2019) Family History Other History of hemorrhoidectomy Denies family history of Diabetes CAD (coronary artery disease) Anesthesia complication Bleeding disorder Stroke Social History Smoking and tobacco/nicotine status: never used tobacco/nicotine Second hand smoke exposure: No Alcohol intake: never Substance/Drug Use: never Adopted: No Caregiver/support person: Yes Lives independently: Yes Household members: spouse Housing: House Marital status: Highest education level completed: High School Graduate service: No Current occupational status: retired Current occupational exposures/hazards: No Pets and animals: No Sexually active: No Do you think of yourself as: Straight/Heterosexual Current gender identity: Female Shayy/Moravian: Baptism Special shayy needs: No Agree to transfusion: No Physical Exam Const: COMMON NORMALS: patient oriented x3 HENMT: COMMON NORMALS: normocephalic and atraumatic HEAD & SCALP: normocephalic and atraumatic Eye: COMMON NORMALS: conjunctivae normal CONJUNCTIVA: Yes conjunctivae normal Neck/C-Spine: COMMON NORMALS: full ROM and supple Chest: COMMONS NORMALS: normal inspection of the chest Resp: COMMON NORMALS: normal respiratory effort, No retractions, No use of accessory muscles and clear to auscultation bilaterally AUSCULTATION: clear to auscultation bilaterally Cardio: COMMON NORMALS: regular rate, regular rhythm and No murmurs present (Cardio) RATE: regular rate RHYTHM: regular rhythm GI: COMMON NORMALS: Normal to inspection, nondistended, normoactive bowel sounds present, Soft to palpation, non-tender and no masses PALPATION: Yes Soft to palpation Extremity: COMMON NORMALS: normal to inspection and full ROM NARRATIVE EXTREMITY EXAM: Tenderness noted to right knee no obvious 20 Neuro: COMMON NORMALS: patient oriented x3, moves all extremities and no focal motor deficits Psych: COMMON NORMALS: mental status grossly normal, Normal thought process present and cooperative THOUGHT PROCESS: Normal thought process present Skin: COMMON NORMALS: no rashes or lesions noted and no wounds GENERAL SKIN EXAM: no rashes or lesions noted Course Vital Signs: Vital signs: Vital Signs Temperature 99.1 F 05/12/25 11:25 Pulse Rate 88 05/12/25 13:36 Respiratory Rate 17 05/12/25 11:25 Blood Pressure 146/59 05/12/25 13:36 Pulse Oximetry 97 05/12/25 13:36 Oxygen Delivery Me thod Nasal Cannula 05/12/25 11:25 Oxygen Flow Rate 2 05/12/25 11:25 MDM - Fall Medical Decision Making Patient presents here after a fall has had some generalized weakness talking to her family she is currently on hospice patient typically is not able to ambulate on her own only able to stand and pivot she is at her baseline imaging blood works normal she stable for discharge follow-up PCP return if worsening. Medical Records I reviewed the patient's medical records. Lab Data I reviewed the patient's lab results. 05/12/25 11:39 05/12/25 11:39 Radiology Impressions Chest X-Ray 05/12/25 11:26 Impression: 1. Small right pleural effusion. 2. Atherosclerosis. Head CT 05/12/25 11:26 IMPRESSION: 1. No acute intracranial hemorrhage or edema. 2. Mild cerebral and cerebellar atrophy with small vessel disease. 3. Stable head CT since 04/11/2025. Knee X-Ray 05/12/25 11:26 Impression: 1. Negative for fracture or dislocation. Severe osteoarthritis of the right knee. Laboratory Results WBC 6.53 10^3/uL (3.29-11.43) 05/12/25 11:39 RBC 3.90 10^6/uL (3.85-5.65) 05/12/25 11:39 Hgb 11.90 g/dL (11.27-16.99) 05/12/25 11:39 Hct 35.8 % (36-47) L 05/12/25 11:39 MCV 91.8 fl (85-98) 05/12/25 11:39 MCH 30.5 pg (27-33) 05/12/25 11:39 MCHC 33.2 g/dL (30-55) 05/12/25 11:39 RDW 15.5 % (12.1-15.1) H 05/12/25 11:39 Plt Count 145 10^3/cmm (157-399) L 05/12/25 11:39 MPV 9.9 fL (7.4-10.4) 05/12/25 11:39 Neut % (Auto) 70.1 % 05/12/25 11:39 Lymph % (Auto) 12.4 % 05/12/25 11:39 [place]gs % (Auto) 13.6 % 05/12/25 11:39 Eos % (Auto) 2.8 % 05/12/25 11:39 Baso % (Auto) 0.8 % 05/12/25 11:39 Neut # (Auto) 4.58 10^3/uL (1.8-7.7) 05/12/25 11:39 Lymph # (Auto) 0.8 10^3/uL (0.8-4.8) 05/12/25 11:39 [place]gs # (Auto) 0.9 10^3/uL (0.2-0.9) 05/12/25 11:39 Eos # (Auto) 0.2 10^3/uL (0.0-0.8) 05/12/25 11:39 Baso # (Auto) 0.1 10^3/uL (0.0-0.1) 05/12/25 11:39 Nucleated RBC % (auto) 0 % 05/12/25 11:39 Nucleated RBCs # 0.0 /100WBC 05/12/25 11:39 Sodium 136 mmol/L (136-145) 05/12/25 11:39 Potassium 3.6 mmol/L (3.5-5.1) 05/12/25 11:39 Chloride 97 mmol/L (98-107) L 05/12/25 11:39 Carbon Dioxide 27 mmol/L (22-29) 05/12/25 11:39 Anion Gap 15.6 (5-19) 05/12/25 11:39 BUN 10 mg/dL (8-23) 05/12/25 11:39 Creatinine 0.6 mg/dL (0.5-0.9) 05/12/25 11:39 GFR Calculation Not Reportable 05/12/25 11:39 Glucose 93 mg/dL (65-115) 05/12/25 11:39 Calculated Osmolality 281 mOsm/kg (285-295) L 05/12/25 11:39 Calcium 9.0 mg/dL (8.5-10.5) 05/12/25 11:39 Magnesium 1.9 mg/dL (1.7-2.3) 05/12/25 11:39 Total Bilirubin 0.5 mg/dL (0.15-1.2) 05/12/25 11:39 AST 22 U/L (0-32) 05/12/25 11:39 ALT 21 U/L (0-33) 05/12/25 11:39 Alkaline Phosphatase 93 U/L (35-105) 05/12/25 11:39 Total Protein 6.8 g/dL (6.6-8.7) 05/12/25 11:39 Albumin 3.7 g/dL (3.5-5.2) 05/12/25 11:39 Globulin 3.1 g/dL (1.3-4.6) 05/12/25 11:39 TSH 6.01 uIU/mL (0.27-4.20) H 05/12/25 11:39 Urine Color Yellow (Yellow) 05/12/25 12:24 Urine Appearance Clear (CLEAR) 05/12/25 12:24 Urine pH 7.0 (5-7) 05/12/25 12:24 Ur Specific [place] 1.012 (1.005-1.030) 05/12/25 12:24 Urine Protein Negative (Negative) 05/12/25 12:24 Urine Glucose (UA) Negative (Normal) 05/12/25 12:24 Urine Ketones Negative (Negative) 05/12/25 12:24 Urine Blood Negative (Negative) 05/12/25 12:24 Urine Nitrate Negative (Negative) 05/12/25 12:24 Urine Bilirubin Negative (Negative) 05/12/25 12:24 Urine Urobilinogen 0.2 mg/dL (Negative) 05/12/25 12:24 Ur Leukocyte Esterase Negative (Negative) 05/12/25 12:24 Urine RBC 0-2 /hpf (0-2) 05/12/25 12:24 Urine WBC 0-5 /hpf (0-5) 05/12/25 12:24 Ur Squamous Epith Cells 0-5 /hpf (0-5) 05/12/25 12:24 Amorphous Sediment Not Reportable 05/12/25 12:24 Urine Bacteria None seen /hpf (NONE) 05/12/25 12:24 Hyaline Casts 0.40 /lpf 05/12/25 12:24 All radiology interpretation(s) finalized by discharge EKG Data EKG 1: I personally reviewed and interpreted this EKG as follows: EKG interpretation date: 05/12/25 EKG interpretation time: 11:44 Interpretation: afib with rvr hr [address] elevation qrs 89 qtc 430 Discharge Plan Discharge Patient Disposition: Home Clinical Impression: Generalized weakness, Fall Condition: Stable Prescriptions: No Action alendronate 70 mg tablet 70 mg PO .weekly acetaminophen [Tylenol Extra Strength] 500 mg tablet 500 mg PO Q6H PRN (Reason: Pain) diltiazem HCl [Cardizem CD] 360 mg capsule,extended release 24hr 360 mg PO DAILY Qty: 90 3RF budesonide 0.5 mg/2 mL Suspension For Nebulization 0.5 mg INHALATION BID PRN (Reason: Shortness Of Breath) ipratropium bromide 0.02 % Solution 2.5 ml INHALATION TID levalbuterol tartrate 45 mcg/actuation Hfa Aerosol Inhaler 2 inh INHALATION Q6H PRN (Reason: Shortness Of Breath) guaifenesin [Mucinex] 600 mg Tablet Extended Release 12hr 600 mg PO BID divalproex 250 mg tablet,delayed release (DR/EC) 750 mg PO BID levalbuterol tartrate [Xopenex HFA] 45 mcg/actuation HFA aerosol inhaler 2 inh inhalation TID PRN (Reason: shortness of breath or wheezing) bumetanide 1 mg Tablet 2 mg PO BID 30 Days Qty: 120 0RF metoprolol tartrate 25 mg Tablet 25 mg PO DAILY 30 Days Qty: 0 0RF Xarelto 10 mg tablet 20 mg PO QPM 30 Days Qty: 60 0RF tizanidine 2 mg tablet 2 mg PO BEDTIME primidone 250 mg tablet 250 mg PO TID potassium chloride 10 mEq tablet extended release 10 meq PO DAILY amiodarone [Pacerone] 200 mg Tablet 200 mg PO BID Qty: 60 0RF Discharge Orders: Discharge ED (Routine); Ordered 05/12/25 Ordered By: Ethel Odonnell Referrals: Donna Estrada MD [Primary Care Provider, Family Practice] Discharge Diet: Advance as tolerated Discharge Activity: Resume usual activity Patient Instructions: Weakness (ED) Print Language: Georgian Coding Level of Care Code ED Art Department Head for Divina Jones
[2025-05-12 11:53] LABS: Hematocrit 35.8 % (36-47); Hemoglobin 11.90 g/dL (11.27-16.99); Mean Corpuscular HGB Conc 33.2 g/dL (30-55); Mean Corpuscular Hemoglobin 30.5 pg (27-33); Mean Corpuscular Volume 91.8 fl (85-98); Nucleated Red Blood Cells % 0 %; Platelet Count 145 10^3/cmm (157-399); Red Blood Count 3.90 10^6/uL (3.85-5.65); White Blood Count 6.53 10^3/uL (3.29-11.43)
[2025-05-12 12:37] LABS: Glucose Urine UA Negative (Normal); Nitrate Urine Negative (Negative); Specific Gravity, Urine 1.012 (1.005-1.030)
[2025-05-12 12:42] LABS: Add Urine Microscopic? YES
[2025-05-12 12:44] LABS: Alanine Aminotransferase 21 U/L (0-33); Albumin Level 3.7 g/dL (3.5-5.2); Alkaline Phosphatase 93 U/L (35-105); Anion Gap 15.6 (5-19); Aspartate Amino Transferase 22 U/L (0-32); Blood Urea Nitrogen 10 mg/dL (8-23); Calcium 9.0 mg/dL (8.5-10.5); Carbon Dioxide 27 mmol/L (22-29); Chloride 97 mmol/L (98-107); Creatinine Clr Calc Pharmacy 64.6930; Globulin 3.1 g/dL (1.3-4.6); Glucose 93 mg/dL (65-115); Magnesium 1.9 mg/dL (1.7-2.3); Osmolality Calculated 281 mOsm/kg (285-295); Potassium 3.6 mmol/L (3.5-5.1); Sodium 136 mmol/L (136-145); Thyroid Stimulating Hormone 6.01 uIU/mL (0.27-4.20); Total Protein 6.8 g/dL (6.6-8.7)
[2025-05-12 13:15] LABS: UA Slide Review UA Slide Review Perf
[2025-05-12 13:34] VITALS: BP 146/59; PULSE 88; O2SAT 99
[2025-05-12 13:36] VITALS: BP 146/59; PULSE 88; O2SAT 97
== END 2025-05-12 14:00 | disposition home or self-care (01) ==
PROVIDERS: Emergency Provider Emergency Medicine; PCP Family Medicine
DX: R53.1 Weakness (principal); W07.XXXA Fall from chair, initial encounter; M17.11 Unilateral primary osteoarthritis, right knee
CPT/HCPCS: 36415; 70450; 71045; 73562; 80053; 81001; 83735; 84443; 85025; 93005; 99285